=== PATIENT | male | born 1960 | race Caucasian/White ===

== ENCOUNTER 2018-11-18 13:36 | Emergency (ER) | payer OTHER ==
--- NOTE | 2018-11-18 14:20 | RAD REPORT ---
EXAM DESCRIPTION: CT - Head Brain Wo Cont - 11/18/2018 2:06 pm CLINICAL HISTORY: Confused;Slurred speech Drowsiness COMPARISON: No comparisons TECHNIQUE: All CT scans are performed using dose optimization technique as appropriate and may inclu de automated exposure control or mA/KV adjustment according to patient size. FINDINGS: No intracranial hemorrhage, hydrocephalus or extra-axial fluid collection.Area gliosis is seen in the left watershed zone most compatible with prior CVA. Subtle diminished density is seen in the posterior right frontal lobe which has the appearance of a more subacute ischemic event. The paranasal sinuses and mastoids are clear. The calvarium is intact. IMPRESSION: Questionable findings of subacute ischemia are seen in the posterior right frontal lobe. If there is clinical concern for possible subacute CVA, MR brain imaging follow-up would be recomme nded.
--- NOTE | 2018-11-18 14:35 | EKG ---
Test Date: 2018-11-18 Test Time: 14:10:03 Pals Nurse: JIM MEASUREMENT RESULTS: Intervals: Rate: 85 CA: 204 QRSD: 142 QT: 450 QTc: 535 Britton: P: 64 CA: 204 QRS: -22 T: 109 INTERPRETIVE STATEMENTS: Normal sinus rhythm Possible Left atrial enlargement Right bundle branch block Left ventricular hypertrophy with repolarization abnormality Abnormal ECG No previous ECG available for comparison Electronically Signed On 11-18-18 14:35:14 LINEN AIDE by Erik Cook
[2018-11-18 14:52] LABS: Absolute Lymphocytes (CBC) 3.7 K/uL (0.7-4.9); Absolute Monocytes 0.6 K/uL (0.1-1.3); Absolute Neutrophil 3.6 K/uL (1.8-8.0); Basophils % 0.8 % (0-1.3); Eosinophils % 0.6 % (0-4.4); Hematocrit 42.9 % (39.6-49.0); Lymphocytes % 46.6 % (15.3-44.8); MCH 31.9 pg (27.0-35.0); MCV 93.2 fL (80-100); Monocytes % 7.4 % (3.3-12.3)
[2018-11-18 15:04] LABS: Protime INR 1.03
[2018-11-18 15:11] LABS: ALT/SGPT 20 U/L (12-78); AST/SGOT 25 U/L (15-37); Albumin 3.9 g/dL (3.4-5.0); Alkaline Phosphatase 53 U/L (45-117); BUN Blood Urea Nitrogen 14 mg/dL (7-18); Bicarbonate 30 mmol/L (21-32); Bilirubin Direct 0.2 mg/dL (0-0.2); Bilirubin Total 0.4 mg/dL (0.2-1.0); Glucose Level 95 mg/dL (74-106); Potassium 3.6 mmol/L (3.5-5.1); Protein, Total 9.1 g/dL (6.4-8.2); Sodium Level 136 mmol/L (136-145)
--- NOTE | 2018-11-18 18:02 | RAD REPORT ---
EXAM DESCRIPTION: MRI - Brain Wo Cont - 11/18/2018 5:52 pm CLINICAL HISTORY: SLURRED SPEECH CVA/TIA symptomology. COMPARISON: Head Brain Wo Cont dated 11/18/2018 TECHNIQUE: Multi-sequence, multiplanar MR imaging of the brain was performed without contrast. FINDINGS: No intracranial hemorrhage, hydrocephalus or extra-axial fluid collections.Areas of gliosi s are seen in the posterior right frontal lobe and left watershed region compatible with old infarcti on. No edema or shift of midline structures. No findings to suspect brain mass. DWI is negative for a cute CVA. Midline structures are normally formed. Mastoid air cells and paranasal sinuses are essentially clear. IMPRESSION: Negative for acute CVA or other acute intracranial abnormality.
--- NOTE | 2018-11-18 18:41 | EDPHYS ---
Physician Documentation [facility] Name: Donald Sanford Age: 58 yrs Sex: Male : 1960 Arrival Date: 11/18/2018 Time: 13:43 Bed 19 Private MD: ED Physician Lavell Rivas HPI: 11/18 18:24 This 58 yrs old Male presents to ER via EMS with complaints of Slurred Speech.kdr 18:24 The patient presents to the emergency department with a speech or higher order brain kdr function problem. Onset: The symptoms/episode began/occurred at an unknown time. Last known well was yesterday. Context: occurred at home, occurred while the patient was at rest, Drinking alcohol. The sister states and the patient admits that he drinks until he passed out and then when he awakes again, he states drinking again. It is unknown how long his speech has been altered although, it is difficult to appreciate significant changes in his speech . Associated signs and symptoms: Pertinent positives: altered mental status, Pertinent negatives: chills, dizziness, fever, headache, nausea, neck stiffness, paresthesias, seizure, syncope, near-syncope, blurred vision, double vision, visual field changes, loss of vision, weakness. Severity of symptoms: At their worst the symptoms were severe incapacitating in the emergency department the symptoms have improved. Patient's baseline: Neuro: alert and fully oriented, Motor: no deficits, Ambulation: walks without assistance, Speech: normal for age, The patient has a previous history of head injury. Current symptoms: confusion. The patient has not experienced similar symptoms in the past. The patient has not recently seen a physician. Historical: - Allergies: 13:48 No Known Allergies; jl7 - Home Meds: 13:48 atorvastatin oral oral [Active]; Lasix Oral [Active]; Potassium Chloride Oral [Active]; jl7 - PMHx: 13:48 Hypertension; jl7 13:49 Cirrhosis; bp - Immunization history:: Adult Immunizations not up to date. - Social history:: Smoking status: Patient/guardian denies using tobacco. - Ebola Screening: : No symptoms or risks identified at this time. ROS: 18:24 Constitutional: Negative for fever, chills, and weight loss, Eyes: Negative for injury, kdr pain, redness, and discharge, Neck: Negative for injury, pain, and swelling, Cardiovascular: Negative for chest pain, palpitations, and edema, Respiratory: Negative for shortness of breath, cough, wheezing, and pleuritic chest pain, Abdomen/GI: Negative for abdominal pain, nausea, vomiting, diarrhea, and constipation, Back: Negative for injury and pain, : Negative for injury, bleeding, discharge, and swelling, MS/Extremity: Negative for injury and deformity, Skin: Negative for injury, rash, and discoloration, Psych: Negative for depression, anxiety, suicide ideation, homicidal ideation, and hallucinations, Allergy/Immunology: Negative for hives, rash, and allergies, Endocrine: Negative for neck swelling, polydipsia, polyuria, polyphagia, and marked weight changes, Hematologic/Lymphatic: Negative for swollen nodes, abnormal bleeding, and unusual bruising. Exam: 18:24 Constitutional: This is a well developed, well nourished patient who is awake, alert, kdr and in no acute distress. Head/Face: Normocephalic, atraumatic. Eyes: Pupils equal round and reactive to light, extra-ocular motions intact. Lids and lashes normal. Conjunctiva and sclera are non-icteric and not injected. Cornea within normal limits. Periorbital areas with no swelling, redness, or edema. Neck: Trachea midline, no thyromegaly or masses palpated, and no cervical lymphadenopathy. Supple, full range of motion without nuchal rigidity, or vertebral point tenderness. No Meningismus. Chest/axilla: Normal chest wall appearance and motion. Nontender with no deformity. No lesions are appreciated. Cardiovascular: Regular rate and rhythm with a normal S1 and S2. No gallops, murmurs, or rubs. Normal PMI, no JVD. No pulse deficits. Respiratory: Lungs have equal breath sounds bilaterally, clear to auscultation and percussion. No rales, rhonchi or wheezes noted. No increased work of breathing, no retractions or nasal flaring. Abdomen/GI: Soft, non-tender, with normal bowel sounds. No distension or tympany. No guarding or rebound. No evidence of tenderness throughout. Back: No spinal tenderness. No costovertebral tenderness. Full range of motion. Skin: Warm, dry with normal turgor. Normal color with no rashes, no lesions, and no evidence of cellulitis. Vital Signs: 13:48 BP 104 / 80 LA; Pulse 87; Resp 23 S; Pulse Ox 100% on R/A; Weight 90.72 kg (R); Height jl7 5 ft. 9 in. (175.26 cm) (R); Pain 0/10; 13:48 BP 145 / 92 RA; jl7 14:48 BP 113 / 99; Pulse 82; Resp 19; Pulse Ox 97% on R/A; mh5 16:31 bp 18:07 BP 122 / 86; Pulse 95; Resp 16; Pulse Ox 99% ; bp 13:48 Body Mass Index 29.54 (90.72 kg, 175.26 cm) jl7 16:31 PT REFUSING TO COOPERATE WITH VS bp NIH Stroke Scale Scores: 14:23 NIHSS Score: 3 bp MDM: 18:24 Data reviewed: vital signs, nurses notes, lab test result(s), radiologic studies. kdr Counseling: I had a detailed discussion with the patient and/or guardian regarding: the presence of at least one elevated blood pressure reading (>120/80) during this emergency department visit. 18:40 Patient medically screened. kdr 11/18 13:47 Order name: Acetaminophen; Complete Time: 15:53 kdr 11/18 13:47 Order name: Basic Metabolic Panel; Complete Time: 15:53 kdr 11/18 13:47 Order name: CBC with Diff; Complete Time: 15:53 kdr 11/18 13:47 Order name: ETOH Level; Complete Time: 15:53 kdr 11/18 13:47 Order name: Hepatic Function; Complete Time: 15:53 kdr 11/18 13:47 Order name: PT-INR; Complete Time: 15:53 kdr 11/18 13:47 Order name: Ptt, Activated; Complete Time: 15:53 kdr 11/18 13:47 Order name: Salicylate; Complete Time: 15:53 kdr 11/18 13:47 Order name: EKG; Complete Time: 13:49 kdr 11/18 13:47 Order name: CT Head Brain wo Cont; Complete Time: 15:53 kdr 11/18 15:53 Order name: AMMONIA kdr 11/18 17:44 Order name: Brain Wo Cont; Complete Time: 18:24 EDMS 11/18 13:47 Order name: EKG - Nurse/Tech; Complete Time: 14:29 kdr Administered Medications: No medications were administered Disposition: 11/18/18 18:40 Discharged to Home. Impression: Alcohol abuse, Alcohol abuse with intoxication. - Condition is Stable. - Discharge Instructions: Alcohol Intoxication, [id number], Alcohol Abuse and Nutrition. - Prescriptions for Zofran 4 mg Oral Tablet - take 1 tablet by ORAL route every 12 hours As needed; 1 tablet. - Medication Reconciliation Form, Thank You Letter form. - Follow up: Private Physician; When: 2 - 3 days; Reason: If symptoms return, Further diagnostic work-up, Recheck today's complaints, Continuance of care, Re-evaluation by your physician. - Problem is an acute exacerbation. - Symptoms have improved. NIH Stroke Scale - NIH Stroke Score Date: 11/18/2018 Time: 14:23 Total Score = 3 1a. Level of Consciousness (LOC) - 0(Alert) 1b. Level of Consciousness (LOC) (Year \T\ Age) - 0(Both) 1c. LOC Commands (Open \T\ Closes Eyes/Bank Reconciliator) - 0(Both) 2. Best Gaze (Lateral Gaze Paresis) - 0(Normal) 3. Visual Field Loss - 0(No visual loss) 4. Facial Palsy - 0(Normal) 5a. Left Arm: Motor (10-second hold) - 0(No drift) 5b. Right Arm: Motor (10-second hold) - 0(No drift) 6a. Left Leg: Motor (5-second hold - always test supine) - 0(No drift) 6b. Right Leg: Motor (5-second hold - always test supine) - 0(No drift) 7. Limb Ataxia (finger/nose \T\ heel/valadez - test with eyes open) - 2(Present in two limbs) 8. Sensory Loss (pinprick arms/legs/face) - 0(Normal) 9. Best Language: Aphasia (description/naming/reading) - 0(No aphasia) 10. Dysarthria (speech clarity - read or repeat words) - 1(Mild to Moderate) 11. Extinction and Inattention (visual/tactile/auditory/spatial/personal) - 0(No abnormality) Initials: bp Signatures: Dispatcher [employer] EDLavell Minaya MD MD kdr Leal, Jahala, RN RN jl7 Erickson Smith RN RN jd3 Saturnino, Tejinder, RN RN bp Corrections: (The following items were deleted from the chart) 17:44 15:55 MR STROKE PROTOCOL+MRI.RAD.BRZ ordered. EDCT EDMS 19:23 18:40 11/18/2018 18:40 Discharged to Home. Impression: Alcohol abuse; Alcohol jd3 abuse with intoxication. Condition is Stable. Forms are Medication Reconciliation Form, Thank You Letter, Antibiotic Education, Prescription Opioid Use. Follow up: Private Physician; When: 2 - 3 days; Reason: If symptoms return, Further diagnostic work-up, Recheck today's complaints, Continuance of care, Re-evaluation by your physician. Problem is an acute exacerbation. Symptoms have improved. kdr
--- NOTE | 2018-11-18 18:41 | ER ---
Nurse's Notes [facility] Name: Donald Sanford Age: 58 yrs Sex: Male : 1960 Arrival Date: 11/18/2018 Time: 13:43 Bed 19 Private MD: Diagnosis: Alcohol abuse;Alcohol abuse with intoxication Presentation: 11/18 13:43 Presenting complaint: EMS states: Pt's sister called reporting pt's speech is slurred, jl7 last known normal was last night. Pt has been drinking ETOH all day, unable to report how much ETOH he's had, Pt's BP on left arm 104/80, right arm 145/92, denies any pain at this time. ERD notified of BP. Transition of care: patient was not received from another setting of care. Onset of symptoms is unknown. Risk Assessment: Do you want to hurt yourself or someone else? Patient reports no desire to harm self or others. Initial Sepsis Screen: Does the patient meet any 2 criteria? No. Patient's initial sepsis screen is negative. Does the patient have a suspected source of infection? No. Patient's initial sepsis screen is negative. Care prior to arrival: None. 13:43 Method Of Arrival: EMS: [facility] 13:43 Acuity: KEDAR 3 jl7 14:00 No acute neurological deficit is noted. Pre-hospital glucose is not applicable to this bp patient. Triage Assessment: 14:30 The onset of the patients symptoms was at an unknown time. General: Appears in no bp apparent distress. comfortable, obese, Behavior is anxious, uncooperative. 15:00 The onset of the patients symptoms was The onset of the patients symptoms was October at 08:00. 15:00 Neuro: Reports SLURRED SPEECH. bp Stroke Activation: Symptom onset > 6 hours Physician: Stroke Attending; Name: ; Notified At: ; Arrived At: Physician: Chief Stroke Resident; Name: ; Notified At: ; Arrived At: Physician: Stroke Resident; Name: ; Notified At: ; Arrived At: Physician: ED Attending; Name: ; Notified At: ; Arrived At: Physician: ED Resident; Name: ; Notified At: ; Arrived At: Historical: - Allergies: 13:48 No Known Allergies; jl7 - Home Meds: 13:48 atorvastatin oral oral [Active]; Lasix Oral [Active]; Potassium Chloride Oral [Active]; jl7 - PMHx: 13:48 Hypertension; jl7 13:49 Cirrhosis; bp - Immunization history:: Adult Immunizations not up to date. - Social history:: Smoking status: Patient/guardian denies using tobacco. - Ebola Screening: : No symptoms or risks identified at this time. Screenin:27 Abuse screen: Denies threats or abuse. Denies injuries from another. Nutritional bp screening: No deficits noted. Tuberculosis screening: No symptoms or risk factors identified. Fall Risk No fall in past 12 months (0 pts). Secondary diagnosis (15 points) INTOXICATION. No IV (0 pts). Ambulatory Aid- None/Bed Rest/Nurse Assist (0 pts). Gait- Normal/Bed Rest/Wheelchair (0 pts) Mental Status- Oriented to own ability (0 pts). Total Cuellar Fall Scale indicates No Risk (0-24 pts). Assessment: 14:00 The patient has not been NPO before screening. The patient is alert, and able to follow bp commands. The patient exhibits slurred or garbled speech. Provider notified of bedside swallow screening results: Lavell Rivas MD. T-PA (Activase) Screening: Contraindications: Other: INTOXICATION. General: Appears in no apparent distress. comfortable, obese, Behavior is anxious, Smells of alcohol. Pain: Denies pain. Neuro: Level of Consciousness is awake, alert, obeys commands, Oriented to person, place, time, situation. Cardiovascular: No deficits noted. Respiratory: Airway is patent Respiratory effort is even, unlabored, Respiratory pattern is regular, symmetrical. GI: No signs and/or symptoms were reported involving the gastrointestinal system. : No signs and/or symptoms were reported regarding the genitourinary system. EENT: No deficits noted. Derm: No deficits noted. Musculoskeletal: Swelling present in right leg and left leg. 14:26 Reassessment: PT REFUSING PIV ACCESS, PHLEBOTOMY CONTACTED FOR LAB SPECIMEN. bp 15:00 The patient does not exhibit slurred or garbled speech. The patient is not exhibiting bp difficulty speaking. The patient does not exhibit difficulty understanding words. The patient is able to swallow own secretions with no drooling or need for suction. Patient tolerated one teaspoon of water. No drooling, immediate coughing, gurgling, or clearing of the throat was noted. The patient tolerated 90mL of water. No drooling, immediate coughing, gurgling, or clearing of the throat was noted. The patient passed the bedside swallow screening. Oral medications may be given as ordered. Contact Physician for further diet orders. 16:16 Reassessment: SISTER: BENJAMIN [phone]. bp 16:32 Reassessment: MRI PENDING, PT REMAINS SLURRED AND UNCOOPERATIVE WITH HEALTH CARE bp ACTIVITIES. 18:06 Reassessment: PT RETURNED FROM MRI. LAB/RAD RESULTS PENDING. bp 19:13 Reassessment: PT D/C HOME WITH FAMILY, DX WITH ETOH INTOXICATION. FAMILY EN ROUTE FOR bp TRANSPORT. Vital Signs: 13:48 BP 104 / 80 LA; Pulse 87; Resp 23 S; Pulse Ox 100% on R/A; Weight 90.72 kg (R); Height jl7 5 ft. 9 in. (175.26 cm) (R); Pain 0/10; 13:48 BP 145 / 92 RA; jl7 14:48 BP 113 / 99; Pulse 82; Resp 19; Pulse Ox 97% on R/A; mh5 16:31 bp 18:07 BP 122 / 86; Pulse 95; Resp 16; Pulse Ox 99% ; bp 13:48 Body Mass Index 29.54 (90.72 kg, 175.26 cm) jl7 16:31 PT REFUSING TO COOPERATE WITH VS bp NIH Stroke Scale Scores: 14:23 NIHSS Score: 3 bp ED Course: 13:43 Patient arrived in ED. jl7 13:46 Triage completed. jl7 13:47 Lavell Rivas MD is Attending Physician. kdr 13:48 Arm band placed on right wrist. jl7 13:49 Tejinder Matamoros, RN is Primary Nurse. bp 14:08 CT Head Brain wo Cont In Process Unspecified. EDMS 14:20 EKG done, by coating technician. reviewed by Lavell Rivas MD. sm3 14:27 Patient has correct armband on for positive identification. Bed in low position. Call bp light in reach. Side rails up X2. Adult w/ patient. 17:30 Patient moved to MRI via wheelchair. em2 17:48 Brain Wo Cont In Process Unspecified. EDMS 18:05 MRI completed. Patient tolerated well. Patient moved back from MRI. em2 19:14 No provider procedures requiring assistance completed. Patient did not have IV access bp during this emergency room visit. Administered Medications: No medications were administered Outcome: 18:40 Discharge ordered by . kdr 19:14 Discharged to home via wheelchair, with family. bp 19:14 Condition: stable 19:14 Discharge instructions given to patient, Instructed on discharge instructions, follow up and referral plans. Demonstrated understanding of instructions, follow-up care. 19:23 Patient left the ED. jd3 NIH Stroke Scale - NIH Stroke Score Date: 11/18/2018 Time: 14:23 Total Score = 3 1a. Level of Consciousness (LOC) - 0(Alert) 1b. Level of Consciousness (LOC) (Year \T\ Age) - 0(Both) 1c. LOC Commands (Open \T\ Closes Eyes/Geophysical Prospecting Permit Agent) - 0(Both) 2. Best Gaze (Lateral Gaze Paresis) - 0(Normal) 3. Visual Field Loss - 0(No visual loss) 4. Facial Palsy - 0(Normal) 5a. Left Arm: Motor (10-second hold) - 0(No drift) 5b. Right Arm: Motor (10-second hold) - 0(No drift) 6a. Left Leg: Motor (5-second hold - always test supine) - 0(No drift) 6b. Right Leg: Motor (5-second hold - always test supine) - 0(No drift) 7. Limb Ataxia (finger/nose \T\ heel/valadez - test with eyes open) - 2(Present in two limbs) 8. Sensory Loss (pinprick arms/legs/face) - 0(Normal) 9. Best Language: Aphasia (description/naming/reading) - 0(No aphasia) 10. Dysarthria (speech clarity - read or repeat words) - 1(Mild to Moderate) 11. Extinction and Inattention (visual/tactile/auditory/spatial/personal) - 0(No abnormality) Initials: bp Signatures: Dispatcher [employer] EDMS Lavell Rivas MD MD kdr Montes, Enrique em2 Martinez, Maria 5 Shayla Osman, RN RN jl7 Erickson Smith RN RN jd3 Tejinder Matamoros RN RN bp Chely Roland 3
== END 2018-11-18 19:23 | disposition home or self-care (01) ==
LOC: ER 13:36
DX: F10.129 Alcohol abuse with intoxication, unspecified (principal); I10 Essential (primary) hypertension; K74.60 Unspecified cirrhosis of liver
CPT/HCPCS: 36415; 70450; 70551; 80048; 80076; 80320; 80329; 82140; 85025; 85610; 85730; 93005

== ENCOUNTER 2019-08-30 06:45 | Day surgery (SDC) | payer OTHER ==
--- NOTE | 2019-08-26 11:23 | RAD REPORT ---
EXAM DESCRIPTION: RAD - Chest Pa And Lat (2 Views) - 08/26/2019 11:17 am CLINICAL HISTORY: preop Chest pain. COMPARISON: No comparisons FINDINGS: Mild interstitial pulmonary edema. The heart is moderately enlarged in size. No displaced fractures. IMPRESSION: Mild CHF.
[2019-08-26 11:26] LABS: Absolute Lymphocytes (CBC) 2.5 K/uL (0.7-4.9); Basophils % 0.3 % (0-1.3); Hematocrit 38.7 % (39.6-49.0); Lymphocytes % 28.9 % (15.3-44.8); MPV 8.5 fL (7.6-11.3); RBC Red Blood Cell Count 4.12 M/uL (4.33-5.43)
[2019-08-26 11:43] LABS: BUN Blood Urea Nitrogen 16 mg/dL (7-18); Bicarbonate 30 mmol/L (21-32); Glucose Level 114 mg/dL (74-106); Potassium 4.1 mmol/L (3.5-5.1); Sodium Level 134 mmol/L (136-145)
[2019-08-30] MEDS ORDERED: HEPA 1000U/500MLS 2,000 UNIT/1,000 ML BAG IV ONE (07:02)
[2019-08-30] MEDS ORDERED: NITROGLYCERIN 100 MCG/ML SYR (for cath lab use only) IV ONE (07:02)
[2019-08-30] MEDS ORDERED: NA CHLORIDE 0.9% 500 ML ONE (07:02)
[2019-08-30] MEDS ORDERED: NA CHLORIDE 0.9% 50 ML ONE ×2 (07:02→08:26)
[2019-08-30] MEDS ORDERED: LIDOCAINE 1% MPF 30 ML VIAL ONE (07:02)
[2019-08-30] MEDS ORDERED: ATROPINE SULF 1 MG/10 ML SYR IV ONE (07:02)
[2019-08-30] MEDS ORDERED: NICARDIPINE HCL 25 MG/10 ML IV ONE (07:02)
[2019-08-30] MEDS ORDERED: NITROGLYCERIN/D5W 25 MG/250 ML BTL IV ONE (07:02)
[2019-08-30] MEDS ORDERED: HEPARIN 5000 UNIT/ML 1 ML VIAL ONE (07:02)
[2019-08-30] MEDS ORDERED: MIDAZOLAM HCL 2 MG/2 ML INJ ONE ×3 (07:32→08:43)
[2019-08-30] MEDS ORDERED: FENTANYL CITR 100 MCG/2 ML ONE ×4 (07:33→11:27)
[2019-08-30] MEDS ORDERED: HYDRALAZINE HCL 20 MG/ML VIAL ONE ×2 (07:58→08:14)
[2019-08-30] MEDS ORDERED: METOPROLOL TARTRATE 5 MG/5 ML INJ IV ONE (08:05)
[2019-08-30] MEDS ORDERED: PRASUGREL (EFFIENT) 10 MG TAB ONE (08:46)
[2019-08-30] MEDS ORDERED: ONDANSETRON 4 MG/2 ML VIAL ONE (08:53)
[2019-08-30] MEDS ORDERED: ONDANSETRON 4 MG/2 ML VIAL IV PRN (08:54)
[2019-08-30] MEDS ORDERED: ZOLPIDEM TARTRATE 5 MG TABLET PO PRN (08:54)
[2019-08-30] MEDS ORDERED: FENTANYL CITR 100 MCG/2 ML IV PRN (08:54)
[2019-08-30] MEDS: ASPIRIN EC 81 MG TAB PO SCH (09:00)
[2019-08-30] MEDS: LOSARTAN POTASSIUM 50 MG TABLET PO SCH (09:00)
[2019-08-30] MEDS: CLOPIDOGREL 75 MG TABLET PO SCH (09:00)
[2019-08-30] MEDS: METOPROLOL TAR 50 MG TAB PO SCH ×2 (09:00→20:30)
[2019-08-30 14:39] VITALS: BMI 32.5
[2019-08-30] MEDS: NA CHLORIDE 0.9% 1,000 ML IV SCH (14:49)
[2019-08-30] MEDS ORDERED: INFLUENZA VACCINE (for 3y+) 0.5 ML DOSE IMVAC ONE (16:00)
--- NOTE | 2019-08-30 17:17 | EKG ---
Test Date: 2019-08-30 Test Time: 09:58:48 Library Attendant: TREMAYNE MEASUREMENT RESULTS: Intervals: Rate: 78 NV: 196 QRSD: 142 QT: 466 QTc: 531 [place]: P: NV: 196 QRS: 11 T: 222 INTERPRETIVE STATEMENTS: Normal sinus rhythm Right bundle branch block T wave abnormality, consider inferolateral ischemia Abnormal ECG Compared to ECG 11/18/2018 14:10:03 T-wave abnormality now present Possible ischemia now present Left ventricular hypertrophy no longer present Early repolarization no longer present Electronically Signed On 08-30-19 17:16:36 CDT by John Woo
--- NOTE | 2019-08-30 19:20 | OP ---
Surgeon: John Woo MD Identification: A 59-year-old man. Procedure: Left heart catheterization with coronary angiography. No LV gram was done. There was a percutaneous coronary intervention with intracoronary stent of an obtuse marginal branch of the circu mflex successful. A 3.0 x 16 stent was placed. Findings: The patient's coronaries are left dominant. The right coronary is diminutive. Left coron omero has diffuse 40% and 50% lesions, but there was 1 critical 99% lesion, heavily calcified, very julia d to predilate, required more than 20 atmospheres of pressure with a noncompliant balloon to dilate, but after that there is successful stenting of the very proximal part of the first obtuse marginal wi th no residual stenosis. Procedure In Detail: The patient had an abnormal Cardiolite. Brought to the cardiac worm farm laborer in a f asting state, sedated with Versed and fentanyl, prepared and draped. Right femoral artery was used. Tissues were anesthetized with 1% lidocaine. The artery was entered using an 18-gauge needle. 4-Fr ench catheters were used to angiogram the coronaries. Right coronary was diminutive, very anterior p laced, and even if it has a stenosis which it does not have a significant one, he would not be a cand idate for stenting. Left coronary artery was angiogram with JL4. We switched to a 6-Mauritian sheath, gave Angiomax, demonstrated activated clotting time of over 400 seconds. We used an XB 3.5 with side holes. We crossed the lesion with a Willington wire. We were able to not cross the lesion with a stent . We predilated with a 2.5, but the lesion would not dilate, so we went in with a 3.0 x 15 noncompli ant balloon and dilated several times. It would not dilate at first, but after about the fifth dilat ion, it dilated. We attempted to pass a cutting balloon, but it would not go across the lesion. So after the final dilation with the noncompliant balloon, the lesion finally cracked open. There was n o stenosis and then the stent would pass. It was inflated to 14 atmospheres. Excellent angiographic result. Complications From The Procedure: None. Estimated Blood Loss: 30 mL. Chief Controller: Kathrine Knutson. MARY/BRIA Voice ID: [id number] Report ID: [id number]
[2019-08-30] MEDS ORDERED: ATORVASTATIN 80 MG TAB PO SCH (21:00)
[2019-08-31 00:22] VITALS: O2SAT 97
[2019-08-31] MEDS: NA CHLORIDE 0.9% 1,000 ML IV SCH (05:15)
[2019-08-31 05:23] LABS: Hematocrit 33.4 % (39.6-49.0); MPV 8.4 fL (7.6-11.3); RBC Red Blood Cell Count 3.53 M/uL (4.33-5.43)
[2019-08-31 05:40] LABS: BUN Blood Urea Nitrogen 14 mg/dL (7-18); Bicarbonate 29 mmol/L (21-32); Glucose Level 128 mg/dL (74-106); Potassium 4.4 mmol/L (3.5-5.1); Sodium Level 134 mmol/L (136-145)
[2019-08-31 08:19] VITALS: BP 125/73; TEMP 97.5
[2019-08-31] MEDS: CLOPIDOGREL 75 MG TABLET PO SCH (09:03)
[2019-08-31] MEDS: LOSARTAN POTASSIUM 50 MG TABLET PO SCH (09:03)
[2019-08-31] MEDS: METOPROLOL TAR 50 MG TAB PO SCH (09:03)
[2019-08-31] MEDS: ASPIRIN EC 81 MG TAB PO SCH (09:04)
--- NOTE | 2019-09-01 03:20 | DS ---
Date of Discharge: 08/31/2019 Procedures In The Hospital: Intracoronary stent into an obtuse marginal branch of a dominant circumf claire artery, successful. Diet: Low saturated fat 0 sugar. Discharge Medications: Aspirin 81 mg per day, Lipitor 80 mg per day, Plavix 75 mg per day, losartan 50 mg per day, Lopressor 50 mg b.i.d. His followup is to be in 2 weeks. He is to call my office to make that appointment. His activity is to be limited for 2 days and then he should begin a regular walking program trying to walk 3 miles p er day. MARY/BRIA Voice ID: [id number] Report ID: [id number]
== END 2019-08-31 09:34 | disposition home or self-care (01) ==
LOC: CCL 06:45 → 2ND 08:50 → CCL 08-31 09:34
PROVIDERS: ATTEND Internal Medicine
DX: I25.10 Atherosclerotic heart disease of native coronary artery without angina pectoris (principal); Q21.3 Tetralogy of Fallot; I42.9 Cardiomyopathy, unspecified; E78.5 Hyperlipidemia, unspecified; E11.9 Type 2 diabetes mellitus without complications
CPT/HCPCS: 93005; 85025; 80048 ×2; 36415 ×2; 85610; 82962; 85347 ×3; 85730; 85027; 71046; 93454; C1893; C1760; C1725; C9600; J0360 ×2; J2250 ×2; J3010 ×3; J0583 ×2; J7040; J7030 ×2; J2405; J1644

== ENCOUNTER 2021-03-17 18:50 | Inpatient (IN) | payer OTHER ==
[2021-03-17 19:44] LABS: Absolute Lymphocytes (CBC) 1.3 K/uL (0.7-4.9); Basophils % 0.6 % (0-1.3); Hematocrit 25.4 % (39.6-49.0); Lymphocytes % 17.7 % (15.3-44.8); MPV 7.1 fL (7.6-11.3); RBC Red Blood Cell Count 2.62 M/uL (4.33-5.43)
[2021-03-17 19:55] LABS: Protime INR 1.21
--- NOTE | 2021-03-17 20:03 | RAD REPORT ---
EXAM DESCRIPTION: RAD - Chest Single View - 03/17/2021 7:39 pm CLINICAL HISTORY: syncope Chest pain. COMPARISON: Chest Pa And Lat (2 Views) dated 08/26/2019 FINDINGS: Portable technique limits examination quality. The lungs are emphysematous but grossly clear. The heart is moderately enlarged in size. No displaced fractures.
[2021-03-17] MEDS ORDERED: FAMOTIDINE 20 MG/2 ML VIAL IV ONE (20:04)
[2021-03-17] MEDS ORDERED: THIAMINE 200 MG/2 ML INJ ONE (20:04)
[2021-03-17] MEDS ORDERED: ONDANSETRON 4 MG/2 ML VIAL ONE (20:04)
[2021-03-17] MEDS ORDERED: MULTIVITAMINS 10 ML VIAL (INJ) IV ONE (20:05)
[2021-03-17] MEDS ORDERED: NA CHLORIDE 0.9% 1,000 ML ONE (20:06)
[2021-03-17] MEDS ORDERED: FOLIC ACID 5 MG/ML VIAL ONE (20:06)
[2021-03-17 20:19] LABS: ALT/SGPT 74 U/L (12-78); AST/SGOT 260 U/L (15-37); Albumin 2.2 g/dL (3.4-5.0); Alkaline Phosphatase 183 U/L (45-117); BUN Blood Urea Nitrogen 10 mg/dL (7-18); Bicarbonate 25 mmol/L (21-32); Bilirubin Direct 1.1 mg/dL (0-0.2); Bilirubin Total 1.5 mg/dL (0.2-1.0); Creatine Phosphokinase 404 U/L (39-308); Glucose Level 62 mg/dL (74-106); NT PRO-BNP 1341 pg/mL (<125); Protein, Total 6.9 g/dL (6.4-8.2); Sodium Level 140 mmol/L (136-145); Troponin (Emerg Dept Use Only) 0.11 ng/mL (0.0-0.045)
[2021-03-17 20:31] LABS: Magnesium 1.1 mg/dL (1.8-2.4); Potassium 2.5 mmol/L (3.5-5.1)
--- NOTE | 2021-03-17 20:52 | RAD REPORT ---
EXAM DESCRIPTION: CT - CTHCSPWOC - 03/17/2021 8:29 pm CLINICAL HISTORY: Trauma, head and neck injury. syncope COMPARISON: No comparisons TECHNIQUE: Axial 5 mm thick images of the head were obtained. Axial 2 mm thick images of the cervical spine were obtained with sagittal and coronal reconstruction images generated and reviewed. All CT scans are performed using dose optimization technique as appropriate and may include automated exposure control or mA/KV adjustment according to patient size. FINDINGS: CT HEAD WITHOUT CONTRAST: No acute hemorrhage, hydrocephalus or extra-axial collection is identified.Gliosis is seen in the reg ion of the left parietal lobe likely attributable to previous infarct or trauma.No areas of brain ernestina ma or midline shift. The paranasal sinuses and mastoids are clear.The calvarium is intact. CT CERVICAL SPINE WITHOUT CONTRAST: No fracture or subluxation.Mild cervical spondylosis.No prevertebral soft tissues swelling is identif ied. Atherosclerotic and retropharyngeal carotid artery noted. IMPRESSION: No acute intracranial or cervical spine findings.
--- NOTE | 2021-03-17 21:14 | ER ---
Nurse's Notes [facility] Name: Donald Sanford Age: 60 yrs Sex: Male : 1960 Arrival Date: 03/17/2021 Time: 18:51 Bed 15 Private MD: Diagnosis: Syncope and collapse;Anemia in chronic diseases classified elsewhere;Alcohol abuse with intoxication Presentation: 03/17 18:51 Chief complaint: EMS states: Syncopal episode. Pt was found on the ground at his home ss after he "passed out after his legs started shaking" Pt states he was on the ground for 2 hours. EMS was told by neighbor that he has taken his antihypertensive medication today as well as drank Vodka in excess. Pt denies pain. Coronavirus screen: Client denies travel out of the [place] in the last 14 days. Ebola Screen: Patient denies exposure to infectious person. Patient denies travel to an Ebola-affected area in the 21 days before illness onset. 18:51 Method Of Arrival: EMS: [facility] 18:51 Initial Sepsis Screen: Does the patient meet any 2 criteria? No. Patient's initial ss sepsis screen is negative. Does the patient have a suspected source of infection? No. Patient's initial sepsis screen is negative. Risk Assessment: Do you want to hurt yourself or someone else? Patient reports no desire to harm self or others. Onset of symptoms is unknown. 18:51 Acuity: KEDAR 3 ss Historical: - Allergies: 18:58 No Known Allergies; ss - Home Meds: 03/18 02:05 Lasix Oral [Active]; atorvastatin Oral [Active]; losartan oral oral [Active]; sf Metoprolol Tartrate Oral [Active]; Aspirin Oral [Active]; - PMHx: 03/17 18:58 Cirrhosis; Hypertension; ss - PSHx: 03/18 02:05 None; sf - Immunization history:: Adult Immunizations up to date. - Social history:: Patient/guardian denies using Smoking status: Patient denies any tobacco usage or history of. Screenin/24 19:00 Abuse screen: Denies threats or abuse. Nutritional screening: No deficits noted. vg1 Tuberculosis screening: No symptoms or risk factors identified. Fall Risk Fall in past 12 months (25 points). No secondary diagnosis (0 pts). No IV (0 pts). Ambulatory Aid- None/Bed Rest/Nurse Assist (0 pts). Gait- Normal/Bed Rest/Wheelchair (0 pts) Mental Status- Oriented to own ability (0 pts). Total Cuellar Fall Scale indicates No Risk (0-24 pts). Assessment: 19:01 General: Appears in no apparent distress. comfortable, Behavior is calm, cooperative. vg1 Pain: Denies pain. Neuro: Level of Consciousness is awake, alert, obeys commands, Oriented to person, place, time, situation. Cardiovascular: Patient's skin is warm and dry. Respiratory: Airway is patent Respiratory effort is even, unlabored. GI: No signs and/or symptoms were reported involving the gastrointestinal system. GI: Abdomen is distended. : No signs and/or symptoms were reported regarding the genitourinary system. EENT: No signs and/or symptoms were reported regarding the EENT system. Derm: Skin is intact, has skin tears on Right forarm Rash noted that is red, on buttocks. Musculoskeletal: Circulation, motion, and sensation intact. 20:00 Reassessment: Patient appears in no apparent distress at this time. No changes from vg1 previously documented assessment. Patient and/or family updated on plan of care and expected duration. Pain level reassessed. Patient is alert, oriented x 3, equal unlabored respirations, skin warm/dry/pink. 21:35 Reassessment: Patient appears in no apparent distress at this time. No changes from vg1 previously documented assessment. Patient and/or family updated on plan of care and expected duration. Pain level reassessed. Patient is alert, oriented x 3, equal unlabored respirations, skin warm/dry/pink. 22:30 General: Appears in no apparent distress. comfortable, obese, unkempt, Behavior is sf calm, cooperative. Pain: Denies pain. Neuro: Level of Consciousness is awake, alert, Oriented to person, place, time, situation. Cardiovascular: Patient's skin is warm and dry. Rhythm is sinus rhythm. Respiratory: Airway is patent Respiratory effort is even, unlabored, Respiratory pattern is regular, symmetrical. GI: Abdomen is distended. : Reports incontinence. Derm: Wound noted buttocks Wound is excoriated redness, oozing blood. Patient reports lying in bed daily for the last 2 years only getting up to use the bathroom and drink alcohol. Musculoskeletal: Circulation, motion, and sensation intact. Capillary refill < 3 seconds. 23:25 Reassessment: Patient appears in no apparent distress at this time. No changes from sf previously documented assessment. Patient and/or family updated on plan of care and expected duration. Pain level reassessed. Patient is alert, oriented x 3, equal unlabored respirations, skin warm/dry/pink. 03/18 00:31 Reassessment: Patient appears in no apparent distress at this time. No changes from sf previously documented assessment. Patient and/or family updated on plan of care and expected duration. Pain level reassessed. Patient is alert, oriented x 3, equal unlabored respirations, skin warm/dry/pink. Vital Signs: 03/17 18:51 Weight 92.99 kg; Height 5 ft. 9 in. (175.26 cm); Pain 0/10; ss 18:59 BP 120 / 68; Pulse 80; Resp 20; Temp 98.3(O); Pulse Ox 100% ; Pain 0/10; vg1 20:14 BP 94 / 60 LL; Pulse 68; Resp 24; Pulse Ox 98% on R/A; vg1 21:30 BP 93 / 82 LL; Pulse 80; Resp 16; Pulse Ox 100% on R/A; vg1 22:00 BP 95 / 51; Pulse 73; Resp 12; Pulse Ox 100% on R/A; vg1 23:00 BP 124 / 69; Pulse 77; Resp 16; Pulse Ox 100% ; sf 03/18 00:00 BP 101 / 45; Pulse 76; Resp 16; Pulse Ox 98% ; 03/17 18:51 Body Mass Index 30.27 (92.99 kg, 175.26 cm) ED Course: 03/17 18:51 Patient arrived in ED. ss 18:51 Atul Bennett PA is PHCP. cp 18:51 Atul Foreman MD is Attending Physician. cp 18:57 Triage completed. ss 18:58 Arm band placed on right wrist. ss 18:59 Jojo Templetno, RN is Primary Nurse. vg1 19:00 Patient has correct armband on for positive identification. Placed in gown. Bed in low vg1 position. Call light in reach. Side rails up X2. 19:32 Initial lab(s) drawn, by me, sent to lab. Inserted saline lock: 20 gauge in right jp3 antecubital area, using aseptic technique. Blood collected. 19:32 Patient maintains SpO2 saturation greater than 95% on room air. jp3 19:39 XRAY Chest (1 view) In Process Unspecified. EDMS 20:13 EKG done, by ED staff, reviewed by Atul LEAHY. vg1 20:[address] via stretcher. vg1 20:29 CT Head C Spine In Process Unspecified. EDMS 21:12 Alex Kc is Hospitalizing Provider. cp 22:55 Urine collected: clean catch specimen, clear. sf 23:50 No provider procedures requiring assistance completed. Patient admitted, IV remains in sf place. 03/18 04:05 COVID swab sent to lab. sf 04:05 COVID-19 : Document "Date of Symptom Onset" if Symptomatic. Sent. 07:13 Primary Nurse role handed off by Jojo Templeton, EDUARDO eb 07:38 Precious Ball, RN is Primary Nurse. ll1 Administered Medications: 03/17 20:12 Drug: Zofran (Ondansetron) 4 mg Route: IVP; Site: right antecubital; 1 03/18 00:22 Follow up: Response: No adverse reaction 03/17 20:12 Drug: Pepcid (famotidine) 20 mg Route: IVP; Site: right antecubital; vg1 03/18 00:22 Follow up: Response: No adverse reaction 03/17 20:13 Drug: Banana Bag - (NS 0.9% 1000 ml, foLIC Acid 1 mg, Thiamine 100 mg, Multivitamin 1 vg1 amp) Route: IV; Rate: 250 ml/hr; Site: right antecubital; 03/18 00:45 Follow up: Response: No adverse reaction; IV Status: Completed infusion; IV Intake: sf 1000ml 03/17 21:40 Drug: Potassium Chloride 20 mEq Route: IV; Rate: calculated rate; Site: right vg1 antecubital; 22:40 Follow up: IV Status: Completed infusion; IV Intake: 100ml 21:40 Drug: Potassium Effervescent Tablet 50 mEq Route: PO; vg1 03/18 00:21 Follow up: Response: No adverse reaction 03/17 21:40 Drug: D50W 50 ml Route: IVP; Site: right antecubital; 1 03/18 00:21 Follow up: Response: No adverse reaction sf 03/17 22:29 Drug: Magnesium Sulfate 2 grams Route: IVPB; Infused Over: 2 hrs; Site: right vg1 antecubital; 03/18 00:09 Follow up: IV Status: Completed infusion; IV Intake: 100ml sf 00:00 Drug: NS 0.9% 500 ml Route: IV; Rate: bolus; Site: right antecubital; sf 00:45 Follow up: IV Status: Completed infusion; IV Intake: 500ml sf 00:45 Follow up: Response: No adverse reaction sf 00:48 Drug: Calcium Gluconate 1 grams Route: IVPB; Infused Over: 60 mins; Site: right sf antecubital; 01:48 Follow up: IV Status: Completed infusion; IV Intake: 100ml sf 02:06 Follow up: Response: No adverse reaction sf Intake: 03/17 22:40 IV: 100ml; Total: 100ml. sf 03/18 00:09 IV: 100ml; Total: 200ml. sf 00:45 IV: 500ml; Total: 700ml. sf 00:45 IV: 1000ml; Total: 1700ml. sf 01:48 IV: 100ml; Total: 1800ml. sf Outcome: 03/17 21:13 Decision to Hospitalize by Provider. cp 23:50 Admitted to ER Hold. Please see [facility] for further documentation. sf 23:50 Condition: stable 23:50 Instructed on the need for admit. 03/18 08:14 Patient left the ED. ll1 Signatures: Dispatcher [employer] EDMS Brianna Costello RN RN Atul Bennett PA PA cp Amie Vasquez Jacob jp3 Jojo Templeton RN RN vg1 Precious Ball RN RN ll1 Jann Bustillos RN RN sf Corrections: (The following items were deleted from the chart) 03/17 18:57 18:51 Chief complaint: EMS states: Syncopal episode. Pt was found on the ground at his home after he "passed out after his legs started shaking" Pt states he was on the ground for 2 hours. EMS was told by neighbor that he has taken his antihypertensive medication today as well as drank Vodka in excess. 20:14 19:01 Derm: Skin is intact, has skin tears on Right forarm vg1 vg1 03/18 04: 04:23 CORONAVIRUS+MR.LAB.BRZ drawn and sent. [facility] 04:24 PTT, ACTIVATED+COAG.LAB.BRZ drawn and sent. [facility] 04:24 PROTIME (+INR)+COAG.LAB.BRZ drawn and sent. [facility] 04:24 PROBNP+C.LAB.BRZ drawn and sent. [facility] 04:24 MAGNESIUM+C.LAB.BRZ drawn and sent. [facility] 04:24 HEPATIC FUNCTION+C.LAB.BRZ drawn and sent. [facility] 04:25 CBC+H.LAB.BRZ drawn and sent. [facility] 04:25 BASIC METABOLIC PANEL+C.LAB.BRZ drawn and sent. [facility]
--- NOTE | 2021-03-17 21:14 | EDPHYS ---
Physician Documentation [facility] Name: Donald Sanford Age: 60 yrs Sex: Male : 1960 Arrival Date: 03/17/2021 Time: 18:51 Bed 15 Private MD: ED Physician Atul Foreman HPI: 03/17 19:10 This 60 yrs old Male presents to ER via EMS with complaints of Syncope. cp 19:10 The patient has experienced syncope, lost consciousness. cp 19:10 Onset: The symptoms/episode began/occurred today. Duration: This was a single episode, cp that lasted an unknown period of time. Associated injury: The patient did not suffer any apparent associated injury. Associated signs and symptoms: Pertinent negatives: abdominal pain, chest pain, headache, palpitations. Current symptoms: intoxicated. Historical: - Allergies: 18:58 No Known Allergies; ss - Home Meds: 03/18 02:05 Lasix Oral [Active]; atorvastatin Oral [Active]; losartan oral oral [Active]; sf Metoprolol Tartrate Oral [Active]; Aspirin Oral [Active]; - PMHx: 03/17 18:58 Cirrhosis; Hypertension; ss - PSHx: 03/18 02:05 None; sf - Immunization history:: Adult Immunizations up to date. - Social history:: Patient/guardian denies using Smoking status: Patient denies any tobacco usage or history of. ROS: 03/17 19:15 Constitutional: Negative for body aches, chills, fever, poor PO intake. cp 19:15 Eyes: Negative for injury, pain, redness, and discharge. cp 19:15 ENT: Negative for ear pain, sore throat, difficulty swallowing, difficulty handling secretions. 19:15 Cardiovascular: Negative for chest pain, edema, palpitations. 19:15 Respiratory: Negative for cough, shortness of breath, wheezing. 19:15 Abdomen/GI: Negative for abdominal pain, nausea, vomiting, and diarrhea. 19:15 Neuro: Positive for syncope. 19:15 Psych: Positive for alcohol dependence. 19:15 All other systems are negative. Exam: 19:20 Constitutional: The patient appears in no acute distress, alert, awake, cp non-diaphoretic, non-toxic, well developed, well nourished, speech slurred 19:20 Head/Face: Normocephalic, atraumatic. cp 19:20 Eyes: Periorbital structures: appear normal, Pupils: equal, round, and reactive to light and accomodation, Extraocular movements: intact throughout, Conjunctiva: normal, no exudate, no injection, Sclera: no appreciated abnormality, Lids and lashes: appear normal, bilaterally. 19:20 ENT: External ear(s): are unremarkable, Nose: is normal, Mouth: Lips: moist, Oral mucosa: moist, Posterior pharynx: Airway: no evidence of obstruction, patent. 19:20 Neck: C-spine: vertebral tenderness, is not appreciated, crepitus, is not appreciated. 19:20 Chest/axilla: Inspection: normal, Palpation: is normal, no crepitus, no tenderness. 19:20 Cardiovascular: Rate: normal, Rhythm: regular, Edema: is not appreciated, JVD: is not appreciated. 19:20 Respiratory: the patient does not display signs of respiratory distress, Respirations: normal, no use of accessory muscles, no retractions, labored breathing, is not present, Breath sounds: are clear throughout, no decreased breath sounds, no stridor, no wheezing. 19:20 Abdomen/GI: Inspection: abdomen appears normal, Bowel sounds: active, all quadrants, Palpation: abdomen is soft and non-tender, in all quadrants, rebound tenderness, is not appreciated, involuntary guarding, is not appreciated. 19:20 Back: pain, is absent, ROM is normal. 19:20 Skin: mild superficial pressure wounds noted to buttocks. 19:20 Neuro: Orientation: to person, place, situation, Mentation: able to follow commands, slow to respond, Motor: moves all fours, strength is normal. 20:14 ECG was reviewed by the Attending Physician. cp Vital Signs: 18:51 Weight 92.99 kg; Height 5 ft. 9 in. (175.26 cm); Pain 0/10; ss 18:59 BP 120 / 68; Pulse 80; Resp 20; Temp 98.3(O); Pulse Ox 100% ; Pain 0/10; vg1 20:14 BP 94 / 60 LL; Pulse 68; Resp 24; Pulse Ox 98% on R/A; vg1 21:30 BP 93 / 82 LL; Pulse 80; Resp 16; Pulse Ox 100% on R/A; vg1 22:00 BP 95 / 51; Pulse 73; Resp 12; Pulse Ox 100% on R/A; vg1 23:00 BP 124 / 69; Pulse 77; Resp 16; Pulse Ox 100% ; sf 03/18 00:00 BP 101 / 45; Pulse 76; Resp 16; Pulse Ox 98% ; 03/17 18:51 Body Mass Index 30.27 (92.99 kg, 175.26 cm) ss MDM: 03/17 18:55 Patient medically screened. [facility] 21:00 Data reviewed: vital signs, nurses notes, lab test result(s), EKG, radiologic studies, cp CT scan, plain films. 21:00 Differential Diagnosis: cardiac arrhythmia, GI bleed, seizure, sepsis. Test cp interpretation: by ED physician or midlevel provider: ECG, plain radiologic studies. 21:11 Physician consultation: Sandeep LEAHY was contacted at 21:11, regarding admission, to the telemetry unit. patient's condition, and will see patient in ED, shortly. 03/17 19:04 Order name: Basic Metabolic Panel cp 03/17 19:04 Order name: CBC with Diff cp 03/17 19:04 Order name: LFT's cp 03/17 19:04 Order name: Magnesium cp 03/17 19:04 Order name: NT PRO-BNP cp 03/17 19:04 Order name: PT-INR cp 03/17 19:04 Order name: Troponin (emerg Dept Use Only); Complete Time: 20:44 cp 03/17 19:04 Order name: ETOH Level; Complete Time: 20:44 cp 03/17 19:04 Order name: CK; Complete Time: 20:44 cp 03/17 19:04 Order name: UDS cp 03/17 19:05 Order name: Basic Metabolic Panel; Complete Time: 20:44 EDMS 03/17 19:05 Order name: CBC with Automated Diff; Complete Time: 19:58 EDMS 03/17 19:58 Interpretation: Normal except: RBC 2.62; HGB 8.9; HCT 25.4; RDW 18.4; MPV 7.1; ROSALINE% cp 74.1. 03/17 19:05 Order name: Liver (Hepatic) Function; Complete Time: 20:44 EDMS 03/17 20:44 Interpretation: Normal except: AST 260; ALK 183; BILIT 1.5; BILID 1.1; ALB 2.2; GLOB cp 4.7; A/G 0.5. 03/17 19:05 Order name: Magnesium; Complete Time: 20:44 EDMS 03/17 19:04 Order name: XRAY Chest (1 view); Complete Time: 20:44 cp 03/17 19:05 Order name: NT PRO-BNP; Complete Time: 20:44 EDMS 03/17 19:09 Order name: Ptt, Activated cp 03/17 19:10 Order name: PTT, Activated Partial Thromb; Complete Time: 19:58 EDMS 03/17 19:40 Order name: Protime (+INR); Complete Time: 19:58 EDMS 03/17 20:05 Interpretation: Abnormal: PT 14.0. cp 03/17 20:45 Order name: Type And Screen cp 03/17 23:02 Order name: Urine Dipstick-Ancillary EDMI 03/18 00:30 Order name: ABO/RH no charge EDMI 03/18 03:02 Order name: Troponin I EDMI 03/18 03:02 Order name: T4 Free EDMI 03/18 03:02 Order name: Thyroid Stimulating Hormone EDMI 03/18 04:01 Order name: COVID-19 : Document "Date of Symptom Onset" if Symptomatic. bb 03/18 04:34 Order name: CORONAVIRUS EDMI 03/18 05:27 Order name: SARS-COV-2 RT PCR EDMI 03/18 06:22 Order name: Troponin I EDMI 03/17 19:04 Order name: EKG; Complete Time: 19:05 03/17 19:04 Order name: Cardiac monitoring; Complete Time: 20:12 cp 03/17 19:04 Order name: EKG - Nurse/Tech; Complete Time: 20:12 cp 03/17 19:04 Order name: IV Saline Lock; Complete Time: 19:36 cp 03/17 19:04 Order name: Labs collected and sent; Complete Time: 19:36 cp 03/17 19:04 Order name: O2 Per Protocol; Complete Time: 19:37 cp 03/17 19:04 Order name: O2 Sat Monitoring; Complete Time: 19:37 cp 03/17 19:04 Order name: Urine Dipstick-Ancillary (obtain specimen); Complete Time: 04:24 cp 03/17 19:58 Order name: CT Head C Spine; Complete Time: 20:54 cp 03/17 20:55 Interpretation: Reviewed report. EC:14 Rate is 67 beats/min. Rhythm is regular. SD interval is normal. QRS interval is cp prolonged at 132 msec. QT interval is prolonged at 536 msec. T waves are Inverted in leads V2, V3, V4, V5, V6. Interpreted by me. Reviewed by me. Administered Medications: 20:12 Drug: Zofran (Ondansetron) 4 mg Route: IVP; Site: right antecubital; 1 03/18 00:22 Follow up: Response: No adverse reaction 03/17 20:12 Drug: Pepcid (famotidine) 20 mg Route: IVP; Site: right antecubital; 1 03/18 00:22 Follow up: Response: No adverse reaction 03/17 20:13 Drug: Banana Bag - (NS 0.9% 1000 ml, foLIC Acid 1 mg, Thiamine 100 mg, Multivitamin 1 vg1 amp) Route: IV; Rate: 250 ml/hr; Site: right antecubital; 03/18 00:45 Follow up: Response: No adverse reaction; IV Status: Completed infusion; IV Intake: sf 1000ml 03/17 21:40 Drug: Potassium Chloride 20 mEq Route: IV; Rate: calculated rate; Site: right [facility] antecubital; 22:40 Follow up: IV Status: Completed infusion; IV Intake: 100ml 21:40 Drug: Potassium Effervescent Tablet 50 mEq Route: PO; [facility] 03/18 00:21 Follow up: Response: No adverse reaction 03/17 21:40 Drug: D50W 50 ml Route: IVP; Site: right antecubital; [facility] 03/18 00:21 Follow up: Response: No adverse reaction 03/17 22:29 Drug: Magnesium Sulfate 2 grams Route: IVPB; Infused Over: 2 hrs; Site: right 1 antecubital; 03/18 00:09 Follow up: IV Status: Completed infusion; IV Intake: 100ml sf 00:00 Drug: NS 0.9% 500 ml Route: IV; Rate: bolus; Site: right antecubital; sf 00:45 Follow up: IV Status: Completed infusion; IV Intake: 500ml sf 00:45 Follow up: Response: No adverse reaction sf 00:48 Drug: Calcium Gluconate 1 grams Route: IVPB; Infused Over: 60 mins; Site: right sf antecubital; 01:48 Follow up: IV Status: Completed infusion; IV Intake: 100ml sf 02:06 Follow up: Response: No adverse reaction sf Disposition: 08:16 Co-signature as Attending Physician, Atul Foreman MD I agree with the assessment and lorri plan of care. Disposition: 03/17/21 21:13 Hospitalization ordered by Alex Kc for Inpatient Admission. Preliminary diagnosis are Syncope and collapse, Anemia in chronic diseases classified elsewhere, Alcohol abuse with intoxication. - Bed requested for Telemetry/MedSurg (Inpatient). - Status is Inpatient Admission. ll1 - Condition is Stable. - Problem is new. - Symptoms have improved. Signatures: Dispatcher [employer] EDMS Venus Valenzuela RN RN mw Anderson, Corey, MD MD cha Smirch, Shelby, RN RN ss Atul Bennett PA PA cp Garcia, Victoria, RN RN 1 Precious Ball RN RN ll1 Jann Bustillos RN RN sf Corrections: (The following items were deleted from the chart) 03/17 19:40 19:05 Protime (+INR) ordered. EDMI EDMS 20:44 20:44 Normal except: AST 260; ALK 183; BILIT 1.5; BILID 1.1; ALB 2.2; GLOB 4.7. cp cp 22:33 21:13 Hospitalization Ordered by Alex Kc for Inpatient Admission. Preliminary diagnosis is Syncope and collapse; Anemia in chronic diseases classified elsewhere; Alcohol abuse with intoxication. Bed requested for Telemetry/MedSurg (Inpatient). Status is Inpatient Admission. Condition is Stable. Problem is new. Symptoms have improved. 03/18 06:09 03/17 22:33 03/17/2021 21:13 Hospitalization Ordered by Alex Kc for Inpatient Admission. Preliminary diagnosis is Syncope and collapse; Anemia in chronic diseases classified elsewhere; Alcohol abuse with intoxication. Bed requested for [facility] ER HOLD. Status is Inpatient Admission. Condition is Stable. Problem is new. Symptoms have improved. 03/18 08:14 06:09 03/17/2021 21:13 Hospitalization Ordered by Alex Kc for Inpatient ll1 Admission. Preliminary diagnosis is Syncope and collapse; Anemia in chronic diseases classified elsewhere; Alcohol abuse with intoxication. Bed requested for Telemetry/MedSurg (Inpatient). Status is Inpatient Admission. Condition is Stable. Problem is new. Symptoms have improved. mw
[2021-03-17] MEDS ORDERED: NA CHLORIDE 0.9% 500 ML ONE (21:18)
[2021-03-17] MEDS ORDERED: POTASSIUM 25 MEQ EFFERV TAB ONE (21:18)
[2021-03-17] MEDS ORDERED: Magnesium Sulfate 2gm IVPB 2 G/50 ML BAG IV ONE (21:19)
[2021-03-17] MEDS ORDERED: KCL 20 MEQ/100 mL IVPB 20 MEQ/100 ML BAG IV ONE (21:19)
[2021-03-17] MEDS ORDERED: D50W 25 GM/50 ML SYRINGE IV ONE (21:19)
[2021-03-17 23:02] LABS: Urine Blood 2+ (Negative); Urine Glucose Negative (Negative); Urine Protein Trace (Negative); Urine pH 6.5 (5.0-7.0)
[2021-03-17 23:51] LABS: Barbiturates NEGATIVE (NEGATIVE); Benzodiazepines NEGATIVE (NEGATIVE); Cocaine NEGATIVE (NEGATIVE); METHAMPHETAM NEGATIVE (NEGATIVE); Methadone NEGATIVE (NEGATIVE); Opiates NEGATIVE (NEGATIVE); Phencyclidine NEGATIVE (NEGATIVE); THC Cannibis NEGATIVE (NEGATIVE)
[2021-03-18] MEDS ORDERED: CALCIUM GLUCONATE 1 GM IVPB 1 GM/50 ML BAG IV ONE ×2 (01:00→23:21)
[2021-03-18 01:02] VITALS: BMI 30.2
[2021-03-18] MEDS ORDERED: ONDANSETRON 4 MG/2 ML VIAL IV PRN (01:55)
[2021-03-18] MEDS ORDERED: ALBUTEROL 2.5 MG/3 ML NEB SOL NEB PRN (01:55)
[2021-03-18] MEDS ORDERED: ACETAMINOPHEN 500 MG TAB PO PRN (01:55)
[2021-03-18] MEDS ORDERED: D5.45NS W/KCL 20MEQ 1,000 ML IV SCH (02:00)
[2021-03-18 03:02] LABS: Thyroid Stimulating Hormone 2.3 uIU/mL (0.360-3.740); Troponin I 0.11 ng/mL (0.0-0.045)
[2021-03-18] MEDS ORDERED: D5.45NS W/KCL 20MEQ 1,000 ML IV ONE (03:31)
--- NOTE | 2021-03-18 04:40 | P.HP ---
Certification for Inpatient Patient admitted to: Inpatient With expected LOS: >2 Midnights Patient will require the following post-hospital care: None Practitioner: I am a practitioner with admitting privileges, knowledge of patient current condition, hospital course, and medical plan of care. Services: Services provided to patient in accordance with Admission requirements found in Title 42 Section 412.3 of the Code of Federal Regulations Patient History Date of Service: 03/18/21 Reason for admission: syncope History of Present Illness: Mr. Sanford is a 60 yo male with HTN, h/o CABG, alcohol use syndrome here today after being found passed out by neighbor. He says he remembers his legs started shaking, falling and then passing out. He says he was only out for 1 minute but was too weak get up so he laid on the floor for 2 hours. He says this happened 2 days ago but he was able to get up then. He denies nausea, vomiting, headaches, chest pain, SOB, melena and hematochezia. He says he last saw his donor relations associate 1 month ago and his workup was normal. He drinks 1/4 of vodka daily. He has a family history of heart disease. CXR shows the lungs are emphysematous but grossly clear and heart is moderately enlarged in size. The lungs are emphysematous but grossly clear. The heart is moderately enlarged in size. No displaced fractures. CT head shows no acute intracranial or cervical spine findings. Allergies No Known Allergies Allergy (Verified 08/26/19 10:47) Home Medications: Aspirin [Aspirin EC 81 MG] 81 mg PO DAILY #100 tablet. 08/31/19 Atorvastatin Calcium [Lipitor] 80 mg PO BEDTIME #30 tab 08/31/19 Losartan Potassium [Cozaar*] 50 mg PO DAILY #30 tablet 08/31/19 Metoprolol Tartrate [Lopressor*] 50 mg PO BID #30 tab 08/31/19 Furosemide [Lasix] 1 tab PO DAILY 03/18/21 - Past Medical/Surgical History Has patient received pneumonia vaccine in the past: No Diabetic: No -: hypertension -: CABG - Social History Smoking Status: Never smoker Alcohol use: Yes CD- Drugs: No Caffeine use: No Place of Residence: Home Review of Systems General: Weakness, As per HPI Eyes: Unremarkable ENT: Unremarkable Respiratory: Unremarkable Cardiovascular: Unremarkable Gastrointestinal: Unremarkable Genitourinary: Unremarkable Musculoskeletal: Unremarkable Integumentary: Unremarkable Neurological: Weakness, As per HPI Lymphatics: Unremarkable Physical Examination - Vital Signs Blood Pressure: 82/58 Pulse: 109 Respirations: 16 Pulse Ox (%): 96 - Physical Exam General: In no apparent distress HEENT: Atraumatic, Normocephalic, PERRLA, Mucous membr. moist/pink, EOMI, Sclerae nonicteric Neck: Supple, 2+ carotid pulse no bruit, JVD not distended, No Thyromegaly, No LAD Respiratory: Clear to auscultation bilaterally, Normal air movement Cardiovascular: No edema, Normal pulses, Regular rate/rhythm, Normal S1 S2, No gallops, No rubs, No murmurs Capillary refill: <2 Seconds Gastrointestinal: Normal bowel sounds, Soft and benign, Non-distended, No ascites, No tenderness, No masses, No rebound, No guarding Musculoskeletal: No clubbing, No swelling, No contractures, No erythema, No tenderness, No warmth Integumentary: No rashes, No breakdown, No significant lesion, No tenderness/swelling, No erythema, No warmth, No cyanosis Neurological: Normal strength at 5/5 x4 extr, Normal tone, Sensation intact, Cranial nerves 3-12 intact, Abnormal speech, Abnormal affect Lymphatics: No axilla or inguinal lymphadenopathy - Studies Laboratory Data (last 24 hrs) 03/17/21 19:32: PT 14.0 H, INR 1.21, APTT 32.5 03/17/21 19:32: WBC 7.30, Hgb 8.9 L, Hct 25.4 L, Plt Count 362 03/17/21 19:32: Sodium 140, Potassium 2.5 L*, BUN 10, Creatinine 0.72, Glucose 62 L, Magnesium 1.1 L*, Total Bilirubin 1.5 H, AST 260 H, ALT 74, Alkaline Phosphatase 183 H 03/17/21 19:04: PT Cancelled, INR Cancelled Assessment and Plan - Plan Assessment anemia hypertension liver pathology elevated troponin, BNP, h/o CABG hypokalemia, hypoglycemia, hypocalcemia, hypomagnesemia alcohol use disorder anemia: FOBT negative and stable however acutely new anemia, type&screen, will transfuse to goal >7 as needed, GI consulted hypertension: currently hypotensive, continue IVF, hold home BP medications liver pathology: GI consulted, complete abdominal ultrasound pendimg elevated troponin, BNP, h/o CABG: cardiology consulted, trend troponins and ekg hypokalemia, hypoglycemia, hypocalcemia, hypomagnesemia: on replacement protocol, will continue to monitor alcohol use disorder: CIWA protocol, librium as needed Discharge Plan: Home Plan to discharge in: 48 Hours - Advance Directives Does patient have a Living Will: No Does patient have a Durable POA for Healthcare: No - Code Status/Comfort Care Code Status Assessed: Yes (full code) Critical Care: No Time Spent Managing Pts Care (In Minutes): 70
[2021-03-18] MEDS ORDERED: chlordiazePOXIDE HCl 25 MG CAP PO ONE (06:11)
[2021-03-18] MEDS ORDERED: ALBUTEROL 2.5 MG/3 ML NEB SOL ONE (06:33)
[2021-03-18] MEDS ORDERED: chlordiazePOXIDE HCl 25 MG CAP ONE (06:48)
--- NOTE | 2021-03-18 08:16 | EKG ---
Test Date: 2021-03-17 Test Time: 20:00:31 Vacuum Worker: RAMU MEASUREMENT RESULTS: Intervals: Rate: 67 ME: 152 QRSD: 132 QT: 536 QTc: 566 [place]: P: 62 ME: 152 QRS: -4 T: 214 INTERPRETIVE STATEMENTS: Normal sinus rhythm Possible Left atrial enlargement Right bundle branch block T wave abnormality, consider inferolateral ischemia Abnormal ECG Compared to ECG 08/30/2019 09:58:48 No significant changes Electronically Signed On 03-18-21 08:15:19 CDT by Erik Cook
--- NOTE | 2021-03-18 09:21 | CON ---
Date of Consultation: 03/18/2021 Reason For Consultation: Elevated troponin and syncope. History Of Present Illness: Mr. Sanford is a 60-year-old alcoholic, who came in with syncope. Initial blood pressure was 82/58. No chest pain was reported initially. He has had a history of CAD before . He is status post stent in August of 2019 of his circumflex. He had a normal ejection fraction t hen. He also has a history of hypertension, dyslipidemia, and cirrhosis. Denied PND, orthopnea, ped al edema, or palpitation. Denied any fever or chills. It is presumed that his syncope is secondary to hypotension and alcohol. He has a positive alcohol level. Serum alcohol 184. Past Medical History: As stated above. Allergies: NONE. Review of Systems: Negative. Social History: Positive for alcohol and tobacco. Medications: At home include aspirin, Lipitor, Lasix, Cozaar, and metoprolol. Physical Examination: Vital Signs: Blood pressure 82/58. He was in a sinus tach. HEENT: Negative. Neck: Supple with no bruit. Chest: Clear. Cardiac: Regular rhythm and rate. No murmurs, gallops, or rubs. Abdomen: Benign. Extremities: No clubbing, cyanosis, or edema. Diagnostic Data: Potassium of 2.5. Hemoglobin of 8.9. Calcium of 5.6. Magnesium 1.1. BNP was 134 1. Chest x-ray was negative. EKG showed increased QT with nonspecific changes, possibly ischemia. Impression And Plan: 1.Syncope secondary to hypotension, probably from alcohol abuse. 2.Elevated troponin secondary to demand ischemia from hypotension, hypokalemia, hypocalcemia, and hy pomagnesemia. All his electrolytes need to be corrected. He does not need any workup at this point. Echocardiogram I believe is pending. He is on an inhaler. He is on Librium. I agree with those. He is to be hydrated aggressively. We will hold his Cozaar and metoprolol for now. Continue aspiri n. Continue Lipitor. We will avoid use of Lasix for now. We will continue to follow him along. Th is is not a cardiac syncope. NB/MODL Voice ID: [id number] Report ID: [id number]
[2021-03-18 10:57] LABS: BUN Blood Urea Nitrogen 8 mg/dL (7-18); Bicarbonate 26 mmol/L (21-32); Glucose Level 182 mg/dL (74-106); Phosphorus 3.2 mg/dL (2.5-4.9); Sodium Level 138 mmol/L (136-145)
[2021-03-18 10:59] LABS: Magnesium 1.1 mg/dL (1.8-2.4); Potassium 2.9 mmol/L (3.5-5.1); Troponin I 2.04 ng/mL (0.0-0.045)
[2021-03-18] MEDS ORDERED: Magnesium Sulfate 2gm IVPB 2 G/50 ML BAG IV ONE ×2 (11:10→22:45)
[2021-03-18] MEDS ORDERED: NA CHLORIDE 0.9% 250 ML ONE (11:46)
[2021-03-18] MEDS: KCL 20 MEQ/100 mL IVPB 20 MEQ/100 ML BAG IV SCH ×3 (13:14→17:51)
[2021-03-18 13:26] LABS: Urine Appearance CLEAR (Clear); Urine Bilirubin NEGATIVE (Negative); Urine Blood TRACE (Negative); Urine Color YELLOW (Yellow); Urine Glucose NEGATIVE (Negative); Urine Protein NEGATIVE (Negative)
[2021-03-18 14:07] LABS: Urine Bacteria <20 /HPF (NONE SEEN); Urine RBC <5 /HPF (NONE SEEN)
--- NOTE | 2021-03-18 14:11 | P.PN ---
Subjective Date of Service: 03/18/21 Chief Complaint: syncope Patient with generalized weakness. He denies any chest pain today. He is tolerating room air with good oxygen saturation. He has difficulty voiding Physical Examination - Vital Signs Temperature: 97.4 F Blood Pressure: 128/55 Pulse: 116 Respirations: 19 Pulse Ox (%): 94 - Physical Exam General: Alert, In no apparent distress HEENT: Mucous membr. moist/pink Neck: Supple, JVD not distended Respiratory: Clear to auscultation bilaterally, Normal air movement Cardiovascular: No edema, Normal S1 S2, Other (Tachycardia) Gastrointestinal: Normal bowel sounds, Soft and benign, Non-distended, No tenderness Musculoskeletal: No swelling, No tenderness Integumentary: Other (Multiple erythematous lesions in the bilateral groin, gluteal and perineal area.) Neurological: Normal strength at 5/5 x4 extr, Cranial nerves 3-12 intact - Studies Laboratory Data (last 24 hrs) 03/17/21 19:32: PT 14.0 H, INR 1.21, APTT 32.5 03/17/21 19:32: WBC 7.30, Hgb 8.9 L, Hct 25.4 L, Plt Count 362 03/17/21 19:32: Sodium 140, Potassium 2.5 L*, BUN 10, Creatinine 0.72, Glucose 62 L, Magnesium 1.1 L*, Total Bilirubin 1.5 H, AST 260 H, ALT 74, Alkaline Phosphatase 183 H 03/17/21 19:04: PT Cancelled, INR Cancelled Assessment And Plan - Current Problems (Diagnosis) (1) Fall Current Visit: Yes Status: Acute (2) Chronic diastolic heart failure Current Visit: Yes Status: Acute (3) Syncope Current Visit: Yes Status: Acute (4) Chronic alcohol abuse Current Visit: Yes Status: Acute (5) Elevated troponin Current Visit: Yes Status: Acute (6) Hypokalemia Current Visit: Yes Status: Acute (7) Hypocalcemia Current Visit: Yes Status: Acute (8) Acute urinary retention Current Visit: Yes Status: Acute - Plan Cardiology input appreciated. Elevated troponin deemed to be secondary to demand ischemia. Syncope likely secondary to hypotension. Lasix on hold. IV fluid. Echocardiogram is pending Treat for COPD with scheduled bronchodilators. Librium for impending alcohol withdrawal. Insert Magana catheter for strict intake and out and also for acute urinary retention. Urinalysis: Negative for UTI. PT evaluation. Check vitamin D. Replete potassium and calcium. Monitor BMP.
[2021-03-18] MEDS ORDERED: CALCIUM GLUC 10% INJ 9.3 MEQ in NA CHLORIDE 0.9% 100 ML IV ONE (14:16)
[2021-03-18] MEDS: chlordiazePOXIDE HCl 25 MG CAP PO PRN (20:17)
[2021-03-18] MEDS: NA CHLORIDE 0.9% 1,000 ML IV SCH (20:17)
[2021-03-18 22:23] LABS: Potassium 3.2 mmol/L (3.5-5.1)
[2021-03-18 22:25] LABS: Magnesium 1.2 mg/dL (1.8-2.4)
[2021-03-18] MEDS ORDERED: POTASSIUM CL SA 10 MEQ TAB PO ONE (22:45)
[2021-03-18] MEDS ORDERED: CALCIUM GLUC 10% INJ 4.65 MEQ in NA CHLORIDE 0.9% 100 ML IV ONE (22:45)
[2021-03-19 05:24] LABS: Basophils % 0.2 % (0-1.3); Hematocrit 22.7 % (39.6-49.0); Lymphocytes % 9.3 % (15.3-44.8); MPV 7.8 fL (7.6-11.3); RBC Red Blood Cell Count 2.28 M/uL (4.33-5.43)
[2021-03-19] MEDS: chlordiazePOXIDE HCl 25 MG CAP PO PRN ×3 (05:36→21:47)
[2021-03-19] MEDS: NA CHLORIDE 0.9% 1,000 ML IV SCH (05:36)
[2021-03-19 06:03] LABS: ALT/SGPT 73 U/L (12-78); Albumin 1.9 g/dL (3.4-5.0); Alkaline Phosphatase 169 U/L (45-117); BUN Blood Urea Nitrogen 7 mg/dL (7-18); Bicarbonate 29 mmol/L (21-32); Bilirubin Total 1.8 mg/dL (0.2-1.0); Ferritin 3725.4 ng/mL (26-388); Folic Acid, (Folate) 11.4 ng/mL (3.1-17.5); Glucose Level 155 mg/dL (74-106); HDL Cholesterol 19 mg/dL (40-60); LDL Cholesterol, Calculated 86 (<130); Magnesium 1.6 mg/dL (1.8-2.4); Phosphorus 2.1 mg/dL (2.5-4.9); Potassium 3.3 mmol/L (3.5-5.1); Protein, Total 6.2 g/dL (6.4-8.2); Sodium Level 138 mmol/L (136-145); Transferrin 85 mg/dL (200-360)
[2021-03-19 06:09] LABS: AST/SGOT 327 U/L (15-37)
[2021-03-19] MEDS ORDERED: MAGNESIUM SULFATE 1 gm IVPB 1 GM/100 ML BAG IV ONE (06:25)
[2021-03-19] MEDS ORDERED: KCL 20 MEQ/100 mL IVPB 20 MEQ/100 ML BAG IV SCH (07:00)
[2021-03-19 08:17] LABS: Blood Morphology Comment NOT SEEN (NOT SEEN); Platelet Estimate ADEQ
[2021-03-19] MEDS: KCL 20 MEQ/100 mL IVPB 20 MEQ/100 ML BAG IV SCH ×2 (09:00→10:47)
[2021-03-19] MEDS ORDERED: DRISDOL (VITAMIN D=ERGOCALCIFEROL) 50000 UNIT CAP PO SCH (09:00)
--- NOTE | 2021-03-19 10:01 | RAD REPORT ---
EXAM DESCRIPTION: US - Abdomen Exam Complete - 03/19/2021 9:44 am CLINICAL HISTORY: Abdominal pain. liver and gallbladder evaluation, hematuria COMPARISON: Abdomen Exam Complete dated 09/08/2019; Chest Single View dated 03/17/2021; Head C Spine Mpr Wo Con dated 03/17/2021 FINDINGS: Advanced diffuse fatty liver is present. No focal liver lesions or intrahepatic biliary di latation is seen. The gallbladder demonstrates no gallstones, pericholecystic fluid or gallbladder wall thickening. Co mmon bile duct is not pathologically dilated. Both kidneys are normal in size, shape and echotexture. No hydronephrosis, focal lesion of concern or perinephric fluid. The spleen is normal in size measuring 12 cm. The pancreas and aorta are obscured by bowel gas. The visualized aspects of the IVC are grossly normal. IMPRESSION: Advanced diffuse fatty liver.
--- NOTE | 2021-03-19 10:47 | EKG ---
Test Date: 2021-03-18 Test Time: 22:47:53 Metal Furniture Panel Coverer: BENITOG MEASUREMENT RESULTS: Intervals: Rate: 108 ME: 132 QRSD: 128 QT: 418 QTc: 560 [place]: P: 65 ME: 132 QRS: 10 T: 136 INTERPRETIVE STATEMENTS: Sinus tachycardia Nonspecific intraventricular block T wave abnormality, consider anterolateral ischemia Abnormal ECG Compared to ECG 03/18/2021 06:00:10 T-wave abnormality now present Incomplete right bundle-branch block no longer present Myocardial infarct finding no longer present ST (T wave) deviation no longer present Possible ischemia still present Electronically Signed On 03-19-21 10:46:32 CDT by Erik Cook
--- NOTE | 2021-03-19 10:50 | EKG ---
Test Date: 2021-03-18 Test Time: 12:07:20 Calender Roll Press Operator: [id number] MEASUREMENT RESULTS: Intervals: Rate: 115 NC: 158 QRSD: 126 QT: 360 QTc: 498 [place]: P: -8 NC: 158 QRS: 5 T: 132 INTERPRETIVE STATEMENTS: Sinus tachycardia Right bundle branch block Cannot rule out Inferior infarct, age undetermined T wave abnormality, consider lateral ischemia Abnormal ECG Compared to ECG 03/18/2021 06:00:10 Right bundle-branch block now present T-wave abnormality now present Incomplete right bundle-branch block no longer present ST (T wave) deviation no longer present Myocardial infarct finding still present Possible ischemia still present Electronically Signed On 03-19-21 10:46:53 CDT by Erik Cook
--- NOTE | 2021-03-19 10:51 | EKG ---
Test Date: 2021-03-18 Test Time: 06:00:10 Batch Trucker: BLAIR MEASUREMENT RESULTS: Intervals: Rate: 110 MT: 156 QRSD: 114 QT: 374 QTc: 506 [place]: P: 20 MT: 156 QRS: -11 T: 148 INTERPRETIVE STATEMENTS: Sinus tachycardia Incomplete right bundle branch block Possible Inferior infarct, age undetermined Anteroseptal infarct, age undetermined ST & T wave abnormality, consider lateral ischemia Abnormal ECG Compared to ECG 03/17/2021 20:00:31 Incomplete right bundle-branch block now present Myocardial infarct finding now present ST (T wave) deviation now present Sinus rhythm no longer present Right bundle-branch block no longer present T-wave abnormality no longer present Possible ischemia still present Electronically Signed On 03-19-21 10:47:00 CDT by Erik Cook
--- NOTE | 2021-03-19 13:28 | PN ---
Date of Progress Note: 03/19/2021 Subjective: Mr. Sanford has came in with severe electrolyte abnormalities including hypokalemia, hypom agnesemia, hypoglycemia, alcohol abuse, hypotension, troponin had gone up to about 20. The patient h as never had any chest pain. I still think his troponin elevation is secondary to demand ischemia fr om hypotension and severe electrolyte abnormalities. He is definitely feeling better today. He is m ore awake and more alert. He has no chest pain. I have no interest at this point to do any heart ca theterization on him. He has had needs to be hydrated. Echocardiogram is pending today. I will make a decision after the echocardiogram, but nevertheless I think it would be better to do a n outpatient stress test on him after his electrolytes are normal . MARÍA/BRIA Voice ID: [id number] Report ID: [id number]
--- NOTE | 2021-03-19 14:52 | P.PN ---
Subjective Date of Service: 03/19/21 Chief Complaint: syncope Patient states he feels better but still significantly weak. He denies any chest pain today. He is tolerating room air with good oxygen saturation. Magana catheter inserted yesterday. Urine looks dark colored. UA: High urobilinogen. Physical Examination - Vital Signs Temperature: 97.7 F Blood Pressure: 118/86 Pulse: 101 Respirations: 19 Pulse Ox (%): 99 - Physical Exam General: Alert, In no apparent distress, Oriented x3 HEENT: Mucous membr. moist/pink Neck: Supple, JVD not distended Cardiovascular: Regular rate/rhythm, Normal S1 S2, Edema (Mild bilateral lower extremity edema) Gastrointestinal: Normal bowel sounds, Soft and benign, No ascites, No tenderness Musculoskeletal: No swelling, No tenderness Integumentary: Erythema (Perineum and bilateral gluteal area) Neurological: Normal speech, Other (No focal motor deficit) Assessment And Plan - Current Problems (Diagnosis) (1) Fall Current Visit: Yes Status: Acute (2) Chronic diastolic heart failure Current Visit: Yes Status: Acute (3) Syncope Current Visit: Yes Status: Acute (4) Chronic alcohol abuse Current Visit: Yes Status: Acute (5) Elevated troponin Current Visit: Yes Status: Acute (6) Hypokalemia Current Visit: Yes Status: Acute (7) Hypocalcemia Current Visit: Yes Status: Acute (8) Acute urinary retention Current Visit: Yes Status: Acute - Plan Cardiology input appreciated. Stress test as an outpatient. Elevated troponin deemed to be secondary to demand ischemia. Syncope likely secondary to hypotension. Lasix on hold. Continue IV fluid. Echocardiogram is pending Treat for COPD with scheduled bronchodilators. Librium for impending alcohol withdrawal. Magana catheter for strict intake and out and also for acute urinary retention. Urinalysis: Negative for UTI. Macrocytic anemia with markedly increased transferring saturation and ferritin. UA with high urobilinogen. Elevated total bilirubin, elevated direct bilirubin but normal indirect bilirubin level. Hemolytic anemia not excluded. Check haptoglobin, peripheral blood smear. Hematology consultation. Transfuse for hemoglobin less than 7. PT evaluation. Vitamin D and ionized calcium are pending. Replete hypocalcemia IV. Potassium, magnesium and phosphorus supplementation. Monitor BMP.
[2021-03-19] MEDS ORDERED: POTASSIUM CL SA 10 MEQ TAB PO ONE (15:00)
[2021-03-19] MEDS ORDERED: CALCIUM GLUC 10% INJ 9.3 MEQ in NA CHLORIDE 0.9% 100 ML IV ONE (16:00)
[2021-03-19 16:30] LABS: RBC Red Blood Cell Count 2.3 M/uL (4.33-5.43)
[2021-03-19] MEDS ORDERED: Magnesium Sulfate 2gm IVPB 2 G/50 ML BAG IV ONE (20:00)
[2021-03-20] MEDS: NA CHLORIDE 0.9% 1,000 ML IV SCH ×3 (03:59→13:30)
[2021-03-20 06:00] LABS: Absolute Lymphocytes (CBC) 1.2 K/uL (0.7-4.9); Basophils % 0.4 % (0-1.3); Hematocrit 22.1 % (39.6-49.0); MPV 7.7 fL (7.6-11.3); RBC Red Blood Cell Count 2.19 M/uL (4.33-5.43)
[2021-03-20 06:23] LABS: ALT/SGPT 73 U/L (12-78); AST/SGOT 300 U/L (15-37); Alkaline Phosphatase 170 U/L (45-117); BUN Blood Urea Nitrogen 5 mg/dL (7-18); Bicarbonate 28 mmol/L (21-32); Bilirubin Total 1.9 mg/dL (0.2-1.0); Glucose Level 123 mg/dL (74-106); Magnesium 1.5 mg/dL (1.8-2.4); Potassium 3.3 mmol/L (3.5-5.1); Protein, Total 6.2 g/dL (6.4-8.2); Sodium Level 138 mmol/L (136-145)
[2021-03-20] MEDS ORDERED: Magnesium Sulfate 2gm IVPB 2 G/50 ML BAG IV ONE ×2 (09:00)
[2021-03-20] MEDS ORDERED: POTASSIUM CL SA 10 MEQ TAB PO ONE (09:00)
[2021-03-20 12:32] LABS: Blood Morphology Comment NOT SEEN (NOT SEEN); Platelet Estimate ADEQ
[2021-03-20 15:56] LABS: Hematocrit 21.3 % (39.6-49.0)
--- NOTE | 2021-03-20 16:12 | P.PN ---
Subjective Date of Service: 03/20/21 Chief Complaint: syncope Subjective: No new changes (no acute events overnight. Patient reports feeling "maybe a little better" today. Still feeling very weak. denies any bleeding in urine/stool. denies history of anemia) Physical Examination - Vital Signs Temperature: 99.1 F Blood Pressure: 131/68 Pulse: 96 Respirations: 18 Pulse Ox (%): 99 Assessment & Plan Physician Review Additional Text: Physical Exam General: Alert, In no apparent distress, Oriented x3, pale HEENT: Mucous membr. moist Pulm: clear to auscultation bilaterally, nonlabored respirations on room air CV: Regular rate/rhythm, Normal S1 S2 Gastrointestinal: Normal bowel sounds, Soft and benign, No ascites, No tenderness Ext: mild b/l lower extremity edema to mid tibia (1+), no tenderness Integumentary: a few scattered annular lesions on extremities Neurological: Normal speech, normal affect Problem List Fall, Syncope Chronic diastolic heart failure Chronic alcohol abuse Elevated troponin Hypokalemia Hypocalcemia Acute urinary retention Acute Macrocytic anemia Elevated troponin deemed to be secondary to demand ischemia per Cardiology - recommend stress test as outpatient Syncope likely secondary to Hypotension, most recent orthostatics have been negative. Lasix on hold, received IVF from 03/17 to 03/20, will discontinue Echocardiogram is pending Magana catheter for strict intake and out and also for acute urinary retention. UA: negative for UTI, +urobilinogen Librium for impending alcohol withdrawal. monitor for signs of alcohol withdrawal Macrocytic anemia, acute drop to 7. Workup done so far with high iron/transferrin saturation. elevated LDH, possibly hemolytic anemia no evidence of overt bleeding. hemoccult pending Hematology consulted peripheral smear ordered for today transfuse to maintain Hgb >7.0 hypocalcemia, Vit d deficiency mild hypocalcemia still, after correction for hypoalbuminemia will check intact PTH, replete as needed Dispo: anticipate dc home, likely ~48hrs Time Spent Managing Pts Care (In Minutes): 35
--- NOTE | 2021-03-20 19:03 | P.CNS ---
Date of Consult: 03/20/21 Reason for Consult: Anemia Requesting Physician: Gagan Durbin Chief Complaint: Anemia History of Present Illness: Patient admitted due to generalized weakness and syncope. Allergies No Known Allergies Allergy (Verified 08/26/19 10:47) Home Medications: Aspirin [Aspirin EC 81 MG] 81 mg PO DAILY #100 tablet. 08/31/19 Atorvastatin Calcium [Lipitor] 80 mg PO BEDTIME #30 tab 08/31/19 Losartan Potassium [Cozaar*] 50 mg PO DAILY #30 tablet 08/31/19 Metoprolol Tartrate [Lopressor*] 50 mg PO BID #30 tab 08/31/19 Furosemide [Lasix] 1 tab PO DAILY 03/18/21 - Past Medical/Surgical History Diabetic: No -: hypertension -: CABG - Social History Alcohol use: Yes CD- Drugs: No Caffeine use: No Place of Residence: Home Physical Examination Temp Pulse Resp BP Pulse Ox 99.1 F 96 H 18 131/68 99 03/20/21 16:20 03/20/21 16:20 03/20/21 16:20 03/20/21 16:20 03/20/21 16:20 General: Alert, In no apparent distress, Oriented x2, Disheveled, Obese HEENT: Atraumatic, Normocephalic Neck: Supple, No LAD Respiratory: Clear to auscultation bilaterally Cardiovascular: Normal S1 S2 Gastrointestinal: Normal bowel sounds, Soft and benign Neurological: Normal strength at 5/5 x4 extr Lymphatics: No axilla or inguinal lymphadenopathy Conclusions/Impression: 1. Anemia: Severe macrocytic anemia. Normal B12, folate, TSH. The retic count is inadequate to the degree of anemia indicative of myelosuppression. Though elevated LDH represents a hematological process or hemolysis, likely to due to significant a lcohol liver disease as well. No splenomegally. Unlikely to be hemolysis Multifactorial etiology- Likely myelosuppression due to chronic alcohol intake vs primary hematological process like MDS, MPN etc. >Complete anemia work up- labs ordered (Hep B, c, HIV, parvo virus ab, SPEP/MABLE, SFLC, Qig, RANDALL, smear eval and flow cytometry. > Transfuse to keep Hb> 8gm > r/o GI bleeding. > Likely will need BM biopsy if no improvement and reversible causes ruled out. 2. Elevated ferritin/ % saturation: Likely from underlying liver disease/ chronic alcohol intake. Also noted in BM conditions like like MDS, other etc. > Plan as per problem# 1 > Check Hemochromatosis gene panel. Patient, though awake and alert seems to be under sedative effect to avoid alcohol withdrawal. Appropriate safe discharge recommended with follow up with hematology as outpatient to complete work upa nd management. I have given my contact details and also discussed with Dr Durbin regarding the same.
[2021-03-21 06:17] LABS: Absolute Lymphocytes (CBC) 1.2 K/uL (0.7-4.9); Basophils % 0.6 % (0-1.3); Lymphocytes % 14.2 % (15.3-44.8); MPV 7.7 fL (7.6-11.3); RBC Red Blood Cell Count 2.34 M/uL (4.33-5.43)
[2021-03-21 06:58] LABS: ALT/SGPT 69 U/L (12-78); AST/SGOT 241 U/L (15-37); Albumin 1.9 g/dL (3.4-5.0); Alkaline Phosphatase 164 U/L (45-117); BUN Blood Urea Nitrogen 4 mg/dL (7-18); Bicarbonate 30 mmol/L (21-32); Bilirubin Total 1.4 mg/dL (0.2-1.0); Glucose Level 110 mg/dL (74-106); Magnesium 1.5 mg/dL (1.8-2.4); Phosphorus 1.5 mg/dL (2.5-4.9); Potassium 3.3 mmol/L (3.5-5.1); Protein, Total 6.3 g/dL (6.4-8.2); Sodium Level 139 mmol/L (136-145)
--- NOTE | 2021-03-21 07:22 | RAD REPORT ---
EXAM DESCRIPTION: Asim Single View03/21/2021 6:43 am CLINICAL HISTORY: Hypoxia COMPARISON: March 17, 2021 FINDINGS: The upper lobe vessels are prominent indicative of pulmonary venous hypertension. The lungs appear clear of acute infiltrate. The heart is moderately enlarged.
[2021-03-21] MEDS: predniSONE 20 MG TAB PO SCH ×2 (09:36→22:01)
[2021-03-21 10:08] LABS: Blood Morphology Comment NOT SEEN (NOT SEEN); Platelet Estimate ADEQ
[2021-03-21 10:57] LABS: Rheumatoid Factor NEG (NEG)
[2021-03-21] MEDS ORDERED: MAGNESIUM CITRATE 300 ML BOT PO SCH (13:00)
--- NOTE | 2021-03-21 13:25 | ECHO ---
HEIGHT: 5 ft 9 in WEIGHT: 205 lb 0 oz DATE OF STUDY: 03/21/[address]: Gagan Durbin MD 2-DIMENSIONAL: YES M.MODE: YES DOPPLER: YES COLOR FLOW: YES TDS: NO PORTABLE: NO DEFINITY: NO BUBBLE STUDY: NO DIAGNOSIS: DYSPNEA, EVALUATE FUNCTION CARDIAC HISTORY: CATHERIZATION: YES SURGERY: YES PROSTHETIC VALVE: NO PACEMAKER: NO MEASUREMENTS (cm) DIASTOLIC (NORMALS) SYSTOLIC (NORMALS) IVSd 1.1 (0.6-1.2) LA Diam 4.3 (1.9-4.0) LVEF 35-40% LVIDd 4.7 (3.5-5.7) LVIDs 3.6 (2.0-3.5) %FS % LVPWd 1.2 (0.6-1.2) Ao Diam 3.1 (2.0-3.7) 2 DIMENSIONAL ASSESSMENT: RIGHT ATRIUM: NORMAL LEFT ATRIUM: NORMAL RIGHT VENTRICLE: NORMAL LEFT VENTRICLE: NORMAL TRICUSPID VALVE: NORMAL MITRAL VALVE: NORMAL PULMONIC VALVE: NORMAL AORTIC VALVE: NORMAL PERICARDIAL EFFUSION: NONE AORTIC ROOT: NORMAL LEFT VENTRICULAR WALL MOTION: MODERATE TO SEVERE GLOBAL HYPOKINESIS. DOPPLER/COLOR FLOW: NORMAL COMMENTS: MODERATE TO SEVERE GLOBAL HYPOKINESIS. LEFT VENTRICULAR EJECTION FRACTION OF 35-40%. NO EFFUSION. TECHNOLOGIST: Maryan VILLATORO
[2021-03-21] MEDS ORDERED: GOLYTELY 4000 ML PO SCH (14:00)
[2021-03-21] MEDS: METOCLOPRAMIDE 10 MG/2mL INJ IV SCH ×2 (15:09→17:49)
--- NOTE | 2021-03-21 17:36 | P.PN ---
Subjective Date of Service: 03/21/21 Chief Complaint: Anemia Subjective: No new changes (feeling SOB this morning, wheezing, continues with weakness) Review of Systems 10-point ROS is otherwise unremarkable Physical Examination - Vital Signs Temperature: 97.3 F Blood Pressure: 107/69 Pulse: 95 Respirations: 18 Pulse Ox (%): 95 Assessment & Plan Physician Review Additional Text: Physical Exam General: Alert, Oriented x3, pale, appears fatigued HEENT: Mucous membr. moist Pulm: bilateral wheeze, mildly labored respirations CV: Regular rate/rhythm, Normal S1 S2 Gastrointestinal: Normal bowel sounds, Soft and benign, No ascites, No t enderness Ext: mild b/l lower extremity edema to mid tibia (1+), no tenderness Integumentary: a few scattered annular lesions on extremities Neurological: b/l lower extremity weakness, 4+/5, slightly worse on right Problem List Fall, Syncope Chronic diastolic heart failure Chronic alcohol abuse Elevated troponin Hypokalemia Hypocalcemia Acute urinary retention Acute Macrocytic anemia Elevated troponin deemed to be secondary to demand ischemia per Cardiology - recommend stress test as outpatient Syncope likely secondary to Hypotension, most recent orthostatics have been negative. Lasix on hold, received IVF from 03/17 to 03/20, dc'd Echocardiogram pending Magana catheter was placed for strict intake and out and also for acute urinary retention. UA: negative for UTI, +urobilinogen Librium for impending alcohol withdrawal. monitor for signs of alcohol withdrawal Macrocytic anemia, acute drop to 7. Workup done so far with high iron/transferrin saturation. elevated LDH, possibly hemolytic anemia but not completely consistent workup sent, peripheral smear , no evidence of overt bleeding. hemoccult pending. s/p 1u PRBC Hematology consulted Transfuse to maintain Hgb >8.0 Hypocalcemia, Vit d deficiency mild hypocalcemia still, after correction for hypoalbuminemia will check intact PTH, likely secondary PTh due to vit d def Dispo: anticipate dc home, likely ~48hrs Time Spent Managing Pts Care (In Minutes): 35
--- NOTE | 2021-03-21 20:22 | RAD REPORT ---
EXAM DESCRIPTION: MRI - Brain W/Wo Cont - 03/21/2021 7:49 pm CLINICAL HISTORY: LE weakness Headache, drowsiness of weakness COMPARISON: MRA Head Wo Cont dated 03/21/2021 TECHNIQUE: Multi-sequence, multiplanar MR imaging of the brain was performed with contrast. FINDINGS: No intracranial hemorrhage, hydrocephalus, or extra-axial fluid collection.Moderate chroni c vascular ischemic changes are present. Gliosis is seen in the left parieto-occipital region compati ble with remote infarction. No edema or shift of midline structures. No intracranial mass. 6 mm area of elevated DWI signal is seen right frontal lobe which shows slightly elevated ADC signal is well williamson ggesting subacute infarct.. The midline structures are normally formed. Mastoid air cells and paranasal sinuses are clear. Post-contrast images show no abnormal enhancement to suggest tumor or infection. IMPRESSION: Small 6 mm subacute infarct right frontal lobe region suspected. No hemorrhage, hydrocep halus or pathologic enhancement.
--- NOTE | 2021-03-21 20:25 | RAD REPORT ---
EXAM DESCRIPTION: MRI - MRA Head Wo Cont - 03/21/2021 7:49 pm CLINICAL HISTORY: LE weakness CVA COMPARISON: Brain Wo Cont dated 11/18/2018 FINDINGS: 3D noncontrast [id number] MR angiography of the [place] was performed. There is significant flow restricting atherosclerotic changes both carotid siphons. No aneurysm is se en. No vascular malformation evident. The right vertebral artery is dominant. The visualized dural venous sinuses appear patent. IMPRESSION: Significant atherosclerotic narrowing is present involving both carotid siphons.
--- NOTE | 2021-03-21 20:28 | RAD REPORT ---
EXAM DESCRIPTION: MRI - MRA Neck W/Wo Cont - 03/21/2021 7:48 pm CLINICAL HISTORY: LE weakness Headache, drowsiness, CVA symptomology COMPARISON: No comparisons FINDINGS: Contrast enhance 2D [id number] MR angiography of the neck vessels was performed. A left aortic arch with bovine configuration is noted. There is poor visualization of the origin of t he left subclavian artery. Both common carotid arteries appear patent. The right carotid bulb demonstrates narrowing estimated at 75-80% based on NASCET criteria. Mild carotid narrowing is present involving the left carotid bulb estimated at 50% or less. Focal sig nificant stenosis is suspected in the distal left vertebral artery. IMPRESSION: Moderately severe carotid stenosis involving the right carotid bulb is seen estimated at 75-80%.
[2021-03-22] MEDS: METOCLOPRAMIDE 10 MG/2mL INJ IV SCH (00:32)
[2021-03-22 06:02] LABS: Absolute Lymphocytes (CBC) 0.7 K/uL (0.7-4.9); Basophils % 0.3 % (0-1.3); Hematocrit 24.4 % (39.6-49.0); Lymphocytes % 9.9 % (15.3-44.8); MPV 7.7 fL (7.6-11.3); RBC Red Blood Cell Count 2.46 M/uL (4.33-5.43)
[2021-03-22 06:22] LABS: ALT/SGPT 76 U/L (12-78); AST/SGOT 208 U/L (15-37); Albumin 1.9 g/dL (3.4-5.0); Alkaline Phosphatase 154 U/L (45-117); BUN Blood Urea Nitrogen 4 mg/dL (7-18); Bicarbonate 28 mmol/L (21-32); Glucose Level 171 mg/dL (74-106); Magnesium 1.4 mg/dL (1.8-2.4); Phosphorus 1.8 mg/dL (2.5-4.9); Potassium 3.6 mmol/L (3.5-5.1); Protein, Total 6.4 g/dL (6.4-8.2); Sodium Level 139 mmol/L (136-145)
[2021-03-22] MEDS ORDERED: Magnesium Sulfate 2gm IVPB 2 G/50 ML BAG IV ONE (06:30)
[2021-03-22] MEDS ORDERED: CALCIUM GLUC 10% INJ 4.65 MEQ in NA CHLORIDE 0.9% 100 ML IV ONE (07:20)
[2021-03-22] MEDS: KCL 20 MEQ/100 mL IVPB 20 MEQ/100 ML BAG IV SCH ×2 (08:47→09:00)
[2021-03-22] MEDS: POTASSIUM PHOS IN 0.9 % NACL 15 MMOL/250 ML BAG IV ONE ×2 (08:48→09:00)
[2021-03-22] MEDS ORDERED: NA CHLORIDE 0.9% 250 ML ONE ×2 (08:53→18:08)
[2021-03-22] MEDS ORDERED: CALCITROL 0.25 MCG CAP PO SCH (09:00)
[2021-03-22] MEDS ORDERED: POTASSIUM CL SA 10 MEQ TAB PO ONE (09:00)
[2021-03-22] MEDS: predniSONE 20 MG TAB PO SCH ×2 (09:00→20:33)
--- NOTE | 2021-03-22 12:03 | P.PN ---
Subjective Date of Service: 03/22/21 Chief Complaint: Anemia Physical Examination - Vital Signs Temperature: 96.8 F Blood Pressure: 118/58 Pulse: 70 Respirations: 16 Pulse Ox (%): 98 Assessment And Plan - Plan # Electrolyte depletions likely d/t GI mal/non-absorption syndrome, probably hemochromatosis vs celiac dse, r/o plasma cell dyscrasia Given multiple organ involvement w/ iron overload, would favor hemochromatosis dx Has chronic intermittent diarrhea; last diarrhea episode was 5 days ago TTE w/ systolic dysfxn Check anti-TTG, anti-endomysial, anti-gliadin Abs For EGD/colonoscopy today F/u paraprotein dse w/u - serum MABLE, SPEP, K:L SFLC, random urine UPEP F/u upper GI bx; if neg for celiac may also need to repeat EGD w/ bx later on when he is challenged w/ more gluten intake & having diarrhea Replete lytes IV for now Correct hypoMg to allow easier correction of hypoCa & hypoK Celiac dse can also be c/b by some degree of Wernicke - check serum B1 level, ABG, lactate # Secondary hyperPTH d/t hypoCa & hypoMg Correct lytes as above # Vit D def 2/2 GI absorption issue Start high dose D repletion # Iron overload w/ macrocytic anemia Appreciate Heme input I ordered epo SQ dose today to lower his iron overload Thank you for this referral. Physician Review Additional Text: Physical Exam General: Alert, Oriented x3, pale, appears fatigued HEENT: Mucous membr. moist Pulm: bilateral wheeze, mildly labored respirations CV: Regular rate/rhythm, Normal S1 S2 Gastrointestinal: Normal bowel sounds, Soft and benign, No ascites, No tenderness Ext: mild b/l lower extremity edema to mid tibia (1+), no tenderness Integumentary: a few scattered annular lesions on extremities Neurological: b/l lower extremity weakness, 4+/5, slightly worse on right Problem List Fall, Syncope Chronic diastolic heart failure Chronic alcohol abuse Elevated troponin Hypokalemia Hypocalcemia Acute urinary retention Acute Macrocytic anemia Elevated troponin deemed to be secondary to demand ischemia per Cardiology - recommend stress test as outpatient Syncope likely secondary to Hypotension, most recent orthostatics have been negative. Lasix on hold, received IVF from 03/17 to 4/27, dc'd Echocardiogram pending Magana catheter was placed for strict intake and out and also for acute urinary retention. UA: negative for UTI, +urobilinogen Librium for impending alcohol withdrawal. monitor for signs of alcohol withdrawal Macrocytic anemia, acute drop to 7. Workup done so far with high iron/transferrin saturation. elevated LDH, possibly hemolytic anemia but not completely consistent workup sent, peripheral smear , no evidence of overt bleeding. hemoccult pending. s/p 1u PRBC Hematology consulted Transfuse to maintain Hgb >8.0 Hypocalcemia, Vit d deficiency mild hypocalcemia still, after correction for hypoalbuminemia will check intact PTH, likely secondary PTh due to vit d def Dispo: anticipate dc home, likely ~48hrs
[2021-03-22] MEDS ORDERED: EPOETIN ALFA-EPBX 4,000 UNIT/ML VIAL SQ SCH (13:00)
[2021-03-22 13:42] LABS: BUN Blood Urea Nitrogen 4 mg/dL (7-18); Bicarbonate 31 mmol/L (21-32); Glucose Level 114 mg/dL (74-106); Magnesium 1.3 mg/dL (1.8-2.4); Phosphorus 1.7 mg/dL (2.5-4.9); Potassium 3.1 mmol/L (3.5-5.1); Sodium Level 140 mmol/L (136-145)
--- NOTE | 2021-03-22 14:33 | P.CNS ---
Date of Consult: 03/22/21 Reason for Consult: Electrolyte derangements Requesting Physician: Gagan Durbin Chief Complaint: Anemia History of Present Illness: 60M w/ PMHx of ETOH abuse, Htn, CAD s/p CABG, & chronic diarrhea who was sent to ED after he was found down by his neighbor. He drinks vodka on a daily basis and eats pizza and frozen food packs frequently. He denied having fever, recent sick contacts, SOB, CP, nausea or vomiting. He reports having intermittent diarrhea but could not identify any food trigger. He states his last diarrhea episode was 5 days ago. He reports having chronic anemia since childhood. In the ER he was noted to have severe anemia and with multiple electrolyte depletions. He was admitted for further eval & management. Allergies No Known Allergies Allergy (Verified 08/26/19 10:47) Home Medications: Aspirin [Aspirin EC 81 MG] 81 mg PO DAILY #100 tablet. 08/31/19 Atorvastatin Calcium [Lipitor] 80 mg PO BEDTIME #30 tab 08/31/19 Losartan Potassium [Cozaar*] 50 mg PO DAILY #30 tablet 08/31/19 Metoprolol Tartrate [Lopressor*] 50 mg PO BID #30 tab 08/31/19 Furosemide [Lasix] 1 tab PO DAILY 03/18/21 - Past Medical/Surgical History Diabetic: No -: hypertension -: CABG - Social History Alcohol use: Yes CD- Drugs: No Caffeine use: No Place of Residence: Home Review of Systems General: Weakness Eyes: Unremarkable ENT: Unremarkable Respiratory: Unremarkable Cardiovascular: Unremarkable Gastrointestinal: Diarrhea Genitourinary: Unremarkable Musculoskeletal: Unremarkable Integumentary: Other (Pale) Neurological: Weakness Lymphatics: Unremarkable Physical Examination Temp Pulse Resp BP Pulse Ox 96.8 F 70 16 118/58 L 98 03/22/21 12:28 03/22/21 12:28 03/22/21 12:28 03/22/21 12:28 03/22/21 12:28 General: In no apparent distress HEENT: Atraumatic, Normocephalic Neck: Supple Respiratory: Clear to auscultation bilaterally Cardiovascular: Normal S1 S2, No rubs, No murmurs Gastrointestinal: Soft and benign, Non-distended Musculoskeletal: No swelling Integumentary: Other (Pale) Neurological: Normal speech, Normal tone Lymphatics: No axilla or inguinal lymphadenopathy Urinary: Other (No romo) External genitalia: Deferred Rectal: Deferred Conclusions/Impression: # Electrolyte depletions likely d/t GI mal/non-absorption syndrome, probably hemochromatosis vs celiac dse, r/o plasma cell dyscrasia,primary amyloid Given multiple organ involvement w/ iron overload, would favor hemochromatosis dx Has chronic intermittent diarrhea; last diarrhea episode was 5 days ago TTE w/ systolic dysfxn but not c/w restrictive cardiomyopathy Check anti-TTG, anti-endomysial, anti-gliadin Abs For EGD/colonoscopy today F/u paraprotein dse w/u - serum MABLE, SPEP, K:L SFLC, random urine UPEP If paraprotein labs abnormal, will ask Pathology to add congo-red & thioflavin staining to GI biopsy specimen to assess for primary amyloid F/u upper GI bx; if neg for celiac may also need to repeat EGD w/ bx later on when he is challenged w/ more gluten intake & having diarrhea Replete lytes via IV for now Correct hypoMg to allow easier correction of hypoCa & hypoK Celiac dse can also be c/b by some degree of Wernicke - check serum B1 level, ABG, lactate # Secondary hyperPTH d/t hypoCa & hypoMg Correct lytes as above Calcitriol dose increased Vit D repletion as below # Vit D def 2/2 GI absorption issue Started on high dose D repletion po q wkly x 12 wks # Iron overload w/ macrocytic anemia Appreciate Heme input I ordered epo SQ dose today to lower his iron overload # HypoMg Ordered IV MgSO4 # HypoK Ordered KCl IV + KPhos IV # HypoPO4 KPhos IV as above # HypoCa Ordered CaGlcu IV Ordered CaCO3 po bid taken on EMPTY stomach Cont calcitriol as above Vit D repletion dosing as above # Chronic ETOH abuse CIWA monitoring Thank you for this referral.
[2021-03-22] MEDS ORDERED: POTASSIUM CL 40 MEQ in NA CHLORIDE 0.9% 500 ML IV SCH (15:00)
[2021-03-22] MEDS ORDERED: POTASSIUM PHOS 20 MM in NA CHLORIDE 0.9% 500 ML IV ONE (15:00)
[2021-03-22] MEDS ORDERED: MAGNESIUM SULFATE 1 gm IVPB 1 GM/100 ML BAG IV ONE (15:00)
[2021-03-22] MEDS ORDERED: CALCIUM GLUC 10% INJ 9.3 MEQ in NA CHLORIDE 0.9% 100 ML IV ONE (15:00)
--- NOTE | 2021-03-22 15:14 | P.PN ---
Subjective Date of Service: 03/22/21 Chief Complaint: Anemia Subjective: Improving (patient anxious today about egd/cscope feels better today, able to get out of bed today, continues with stuttering, generalized weakness, denies dizziness/lightheadedness.) Review of Systems 10-point ROS is otherwise unremarkable Physical Examination - Vital Signs Temperature: 96.8 F Blood Pressure: 118/58 Pulse: 70 Respirations: 16 Pulse Ox (%): 98 Assessment & Plan Physician Review Additional Text: Physical Exam General: Alert, Oriented x3, pale HEENT: Mucous membr. moist Pulm: dimished bilaterally at bases, nonlabored CV: Regular rate/rhythm, Normal S1 S2 abd: soft, nontender, nondistended Ext: b/l lower extremity edema to mid tibia (1+), no tenderness Integumentary: a few scattered annular lesions on extremities Neurological: b/l lower extremity weakness, 4+/5, slightly worse on right, normal affect, no asterixis Problem List Fall, Syncope subacute frontal lobe CVA Chronic heart failure, unknown type Chronic alcohol abuse/dependence NSTEMI Hypokalemia Hypocalcemia seconary hyperPTH Acute urinary retention Acute Macrocytic anemia subacute frontal lobe CVA - pt reports fall/syncope 2 months ago, and again prior to admission reports some leg "shaking" weakness, and stuttering when talking over the last 1-2 months as well, likely as result of CVA neurology consulted PT consulted, ST consulted Elevated troponin deemed to be secondary to demand ischemia per Cardiology - recommend stress test as outpatient Syncope likely secondary to Hypotension, most recent orthostatics have been negative. Baldev on hold, received IVF from 03/17 to 03/20, dc'd Echocardiogram with global hypokinesis, EF: ~40% pt reports he was "born with heart failure", unsure if systolic or diastolic Magana catheter was placed for strict intake and out and for acute urinary retention. UA: negative for UTI, +urobilinogen Librium for impending alcohol withdrawal. monitor for signs of alcohol withdrawal - discontinued on 03/21, continue to monitor closely Macrocytic anemia, acute drop to 7. Workup done so far with high iron/transferrin saturation. elevated LDH, workup sent, peripheral smear , no evidence of overt bleeding. hemoccult negative. s/p 1u PRBC Hematology consulted -appreciate assistance Transfuse to maintain Hgb >8.0 less likely hemolysis, labs not consistent. possible myelosuppression with chronic alcohol abuse vs hemochromatosis / poor absorption labs sent for further evaluation - r/o celiac disease. pt does report chronic intermittent diarrhea to go for EGD/c-scope today Hypocalcemia, Vit d deficiency mild hypocalcemia still, after correction for hypoalbuminemia elevated PTH, consistent with secondary hyperPTH replacing electrolytes, nephrology consulted for further assistance Dispo: patient may benefit from SNF on discharge with new stroke and ongoing issues Time Spent Managing Pts Care (In Minutes): 35
[2021-03-22] MEDS ORDERED: propofoL 200 MG/20 ML VIAL IV ONE ×3 (15:33→15:35)
[2021-03-22] MEDS ORDERED: LIDOCAINE 1% MPF 5 ML VIAL ONE (15:35)
[2021-03-22 15:54] LABS: HIV AG/AB 4TH GEN Non-reactive (Non-reactive)
[2021-03-22] MEDS ORDERED: FOLIC ACID 5 MG/ML VIAL IVP SCH (16:00)
[2021-03-22] MEDS: FOLIC ACID 1 MG in NA CHLORIDE 0.9% 50 ML IV SCH (17:34)
[2021-03-22] MEDS: CALCIUM CARBONATE 500 MG TAB PO SCH ×2 (17:34→20:33)
[2021-03-22 18:50] LABS: Arterial Blood Carboxyhemoglob 1.4 % (0-1.5); Blood Gas Oxyhemoglobin 96.7 % (94-97); Blood O2 Saturation 99.1 % (92-98.5)
[2021-03-22 19:38] LABS: Vitamin D 1,25-Dihydroxy Total 26 pg/mL (18-72); Vitamin D,1,25-OH2, D2 <8 pg/mL
--- NOTE | 2021-03-22 20:12 | OP ---
Date of Procedure: 03/22/2021 Surgeon: Karsten Yip MD Indication For Procedure: Anemia with decreasing hemoglobin. The patient's hemoglobin has dropped d own to 7.1 since admission, was 8.9. Received packed RBCs 10.5. The patient also noted w ith heme-positive stool and his iron saturation is 88%, ferritin of 3725, alcoholic hepatitis and cir rhosis probably. Medications: As per anesthesia. Please see anesthesia note. Informed Consent: The patient was informed of the benefits, risks, and alternatives to procedure. R isks including infection, bleeding, perforation, aspiration, medication reaction, even . Procedure In Detail: The patient was placed in left lateral decubitus position. The scope was place d into the oropharynx and down to the second and third portion of duodenum, brought back into the sto mach and retroflexion view was obtained. Findings included a small sliding hiatal hernia, LA class C esophagitis with possible Ma's in the distal esophagus, small sliding hiatal hernia, mild gastr itis in the antrum, mild flattening of the small bowel folds noted in the apex of the bulb of the duo denum and in the descending duodenum to the third portion of duodenum. Small bowel biopsies were obt ained. There was also a prior suspicion of possible celiac disease due to low levels of certain meta ls such as calcium, magnesium, and other metals in his serum testing. Gastric biopsies were obtained with mild gastritis and biopsies for possible Ma's esophagus, approximately 1.5 cm in length in the distal esophagus with pain with LA class C esophagitis. Impression: 1.LA class C esophagitis of the distal esophagus. 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 3. status post biopsy. 4.Small sliding hiatal hernia. 5.Gastritis in the antrum. 6.Mild flattening of the small bowel folds in the duodenum from the apex down to the second portion of duodenum, status post small bowel biopsies. Recommendations: 1.Await pathology results. 2.Acid suppression therapy. 3.GI Clinic followup. KRISTOFER/BRIA Voice ID: [id number] Report ID: [id number]
[2021-03-22 20:23] LABS: Immunoglobulin A 531 mg/dL (70-320); Immunoglobulin G 1131 mg/dL (600-1540); Immunoglobulin M 43 mg/dL (50-300)
[2021-03-22] MEDS ORDERED: ATORVASTATIN 40 MG TAB PO SCH (21:00)
[2021-03-22 21:41] LABS: Urine Protein/Creatinine Ratio 0.33 ratio (<0.15)
--- NOTE | 2021-03-22 22:19 | CON ---
Date of Consultation: 03/18/2021 Reason For Consultation: Elevated bilirubin at 1.5. History Of Present Illness: The patient is a 60-year-old white male with history of hypertension, ci rrhosis of the liver secondary to alcohol abuse, tetralogy of Fallot, hypercholesterolemia. The christina ent presented to hospital with syncope. The patient was found passed out at home. He has a history of alcohol abuse. It is felt that of some type of complication from that. He was brought to the [facility] room where he told them that his legs were shaking and he fell and passed out and he laid on t he floor for 2 hours. He fell down 2 days ago prior to admission, but was able to get up in. He las t saw his solutions architect consultant about a month ago. He takes about 4 pints of vodka daily. Chest x-ray shows COPD. Heart is moderately enlarged in the emergency room. CT of the head was negative in the emerge ncy room. Past Medical History: Significant for alcohol abuse, possible liver cirrhosis, tetralogy of Fallot w ith performed it appears, hypertension, hypercholesterolemia, coronary artery disease, sta tus post CABG. Social History: He is single, never . No children. Positive for alcohol, pint of Vodka a da y. No tobacco. Family History: Father of myocardial infarction. Mother of myocardial infarction. Has 4 sisters that all of myocardial infarction. He has 2 sisters who are still alive. He was the on ly boy in his family, so there were 6 sisters and 1 brother and 4 other sisters already of myoca rdial infarction and both his parents of myocardial infarction and he has elevated troponin I on this admission. Review of Systems: The patient has syncope, weakness. He says he feels very helpless when he came in because he fell do wn and passed out and shakiness in legs. He denies any melena, hematochezia, hematemesis, coffee-elmer unds emesis, hematuria, dysuria, polydipsia, hemoptysis, lower extremity edema, muscle aches, joint a ches, backaches. He does have an obese abdomen. No chest pain. No shortness of breath, seizure, sy ncope, muscle aches, joint aches, backaches. Physical Examination: Vital Signs: 5 feet 9 inch, 205 pounds. BMI of 30.3 kg/m2 with temperature 97.4 degrees Fahrenheit, pulse 116, respiratory rate 19, blood pressure 128/55, O2 saturation 94-96%. General: He is an obese male lying in bed, in no acute distress. HEENT: Normocephalic, atraumatic. Anicteric. Pupils equal, round, and reactive to light. Extraocu lar movements intact. Oropharynx is clear. Neck: Supple. No masses. Respirations: Clear to auscultation bilaterally. Cardiac: Regular rate and rhythm. No gallops or rubs. Gastrointestinal: Positive bowel sounds. Soft, nontender, nondistended. No hepatosplenomegaly. Extremities: No clubbing, cyanosis, or edema. 2+ pulses. Neuro: Alert and oriented x3. Grossly nonfocal. 5/5 motor, sensation intact to light touch. Laboratory Data: The patient yesterday on the , white count of 7.3, hemoglobin of 8.9, hematocri t 25.4, MCV of 97, platelet count 362, polys 74%, lymphocytes 18%, monocytes 7%, eosinophils 1%. PT of 14.0, INR of 1.21, PTT of 32.5. Sodium 138, potassium 2.9, chloride 99, bicarb 26, BUN of 8, crea tinine of 0.7, glucose 182, calcium 5.3, phosphorus 3.2, magnesium was 1.1. Troponin I of 2.04 on . Later on repeat troponin of 7.95. UA showed trace ketones and blood, otherwise negative. S minna alcohol yesterday was 184, normal is less than 10 mg/dL. Hepatitis A and B, HIV type 1 and 2 we re nonreactive. COVID testing was negative as well. Impression: 1.Elevated bilirubin 1.5, direct bilirubin 1.1, probably due to alcoholic hepatitis. His AST is 276 , ALT of 74, alkaline phosphatase 183, CK of 404, and troponin I of 0.1, but then it increased to 2.4 and then 7.95. 2.Anemia. Hemoglobin 8.9, MCV of 97. UA showed 2+ blood, rbc's are . 3.Decreased electrolytes, calcium 5.6, albumin is 2.2, magnesium 1.1, and potassium was 2.5. His fe rritin and his iron however were actually little bit high. Ferritin of 3775 and iron saturation of 8 8% could be an acute phase reactant due to his alcohol abuse and liver damage. His albumin is 1.9 an d his PT is 14, INR of 1.21 and his platelet count is 362. 4.No prior colon cancer screening in this patient. 5.Alcohol abuse with syncope. Alcohol level of 184, normals less than 10 mg/dL. 6.History of hypertension, hypercholesterolemia, possible asthma with wheezing at the rest, currentl y in the room. 7.History of tetralogy of Fallot or other surgery performed in [place] years ago and alco hol abuse. 8.No prior colon cancer screening. Refuses colonoscopy at this time. Recommendation: 1.Await ordered ultrasound of abdomen. 2.Check viral hepatitis panel, HIV, alpha fetoprotein levels. HIV came back negative already. Awai t UA and remaining portions of the urinalysis that are pending. 3.Guaiac stools. 4.Outpatient hepatitis A and B vaccinations. The patient states that he has already had this, we wi ll check hepatitis B surface antibody and total hepatitis A antibody titers. 5.Thiamine and folate. 6. and p.r.n. benzodiazepine for possible alcohol withdrawal. This patient drinks a pint of Vodka a day. 7.Discontinue alcohol if needed. AA. The patient states that he can do this on his own and the pat ient will need follow up with primary care about this. 8.Outpatient colonoscopy when he agrees. KRISTOFER/BRIA Voice ID: [id number] Report ID: [id number]
--- NOTE | 2021-03-22 23:04 | OP ---
Date of Procedure: 03/22/2021 Surgeon: Karsten Yip MD Indication For Procedure: Anemia with decreasing hemoglobin from 8.9 down to 7.1 acutely. No recent colon cancer screening. Procedures: Colonoscopy. Medications: Per Anesthesia. Informed Consent: The patient was informed of the benefits, risks, alternatives to the procedure. R isks include infection, bleeding, perforation, aspiration, medication reaction, and even . Procedure In Detail: The patient was placed in left lateral decubitus position. Endoscope was place d. Perianal exam was remarkable for scalded skin. The patient had a diaper on, diarrhea, and other stools probably caused skin breakdown and likely the cause of the grade 1 decubitus ulceration, less hygiene and care, of course not optimized for this patient. Otherwise, perianal exam and rectal exam are largely unremarkable. Endoscope was placed into the anus and proceeded all the way to the cecum as identified by the appendiceal orifice and ileocecal valve. Colon was remarkable for poor prep. BBPS scale 6. The prep was poor with solid stool noted throughout the colon and clog in the colonosc ope was suctioned and suction was attempted. On retroflexion, internal hemorrhoids were noted. Othe rwise, no lesions identified. Impression: 1.Internal hemorrhoids, moderate in size. 2.Poor prep. BBPS 6 with some solid stool noted throughout colon and clog in colonoscope and intuba tion to cecum performed. Recommendations: 1.Start annual Hemoccult testing in 4 years. 2.Colonoscopy in 10 years. Of note, the patient has never had colonoscopy prior to this. KRISTOFER/BRIA Voice ID: [id number] Report ID: [id number]
--- NOTE | 2021-03-23 05:06 | P.PN ---
Subjective Date of Service: 03/23/21 Chief Complaint: Anemia Denies N/V/D/SOB. Reports having lots of daytime sleepiness. Physical Examination - Vital Signs Temperature: 97.1 F Blood Pressure: 131/71 Pulse: 91 Respirations: 19 Pulse Ox (%): 97 - Physical Exam General: In no apparent distress HEENT: Atraumatic, Normocephalic Neck: Supple Respiratory: Normal air movement Cardiovascular: No edema Gastrointestinal: Soft and benign Assessment And Plan - Plan # Electrolyte depletions likely d/t GI mal/non-absorption syndrome, probably he mochromatosis vs celiac dse, r/o plasma cell dyscrasia/primary amyloid Given likely multiple organ involvement w/ iron overload, would favor hemochromatosis dx Has chronic intermittent diarrhea; last diarrhea episode was 5 days ago TTE w/ systolic dysfxn but not c/w restrictive cardiomyopathy Lactate wnl F/u serum B1 level F/u anti-TTG, anti-endomysial, anti-gliadin Abs S/p EGD/colonoscopy F/u paraprotein dse w/u - serum MABLE, SPEP, K:L SFLC, random urine UPEP F/u random UPCR If paraprotein labs abnormal, will ask Pathology to add congo-red & thioflavin T staining to GI biopsy specimen to assess for primary amyloid F/u upper GI bx; if neg for celiac may also need to repeat EGD w/ bx later on when he is challenged w/ more gluten intake & having diarrhea Replete lytes IV +/- PO prn Correct hypoMg to allow easier correction of hypoCa, hypoPO4 & hypoK # Acute respi alkalosis Likely 2/2 anxiety +/- etoh withdrawal Monitor [facility] protocol # Metabolic alkalosis 2/2 volume depletion + hypokalemia Advised on liberal po fluid intake IV fluids prn Hypokalemia correction as below # Secondary hyperPTH d/t hypoCa & hypoMg Correct lytes as below Cont calcitriol same dose Vit D repletion as below # Vit D def 2/2 GI absorption issue Started on high dose D repletion po q wkly x 12 wks # Iron overload w/ macrocytic anemia Appreciate Heme input Received Retacrit SQ dose on 03/22 to lower his iron overload # HypoMg Ordered IV MgSO4 # HypoK Received KCl IV + KPhos IV # HypoPO4 Received KPhos IV # HypoCa Improving Received CaGlcu IV Cont CaCO3 po bid taken on EMPTY stomach Cont calcitriol as above Vit D repletion dosing as above # Chronic ETOH abuse CIWA protocol # Subacute CVA R frontal CVA Severe R carotid stenosis Neurology following # Dispo Transfer for R CEA or stent
[2021-03-23 05:48] LABS: Alpha-1-Globulins 0.5 g/dL (0.2-0.3); Alpha-2-Globulins 0.8 g/dL (0.5-0.9); INTERPRETATION REPORT
[2021-03-23 06:16] LABS: Absolute Lymphocytes (CBC) 0.7 K/uL (0.7-4.9); Basophils % 0.1 % (0-1.3); Lymphocytes % 8.1 % (15.3-44.8); MPV 7.7 fL (7.6-11.3); RBC Red Blood Cell Count 2.59 M/uL (4.33-5.43)
[2021-03-23 06:49] LABS: BUN Blood Urea Nitrogen 5 mg/dL (7-18); Bicarbonate 28 mmol/L (21-32); Glucose Level 147 mg/dL (74-106); Magnesium 1.5 mg/dL (1.8-2.4); Potassium 4.3 mmol/L (3.5-5.1); Sodium Level 140 mmol/L (136-145)
[2021-03-23] MEDS ORDERED: CALCIUM GLUC 10% INJ 9.3 MEQ in NA CHLORIDE 0.9% 100 ML IV ONE (07:24)
[2021-03-23] MEDS ORDERED: Magnesium Sulfate 2gm IVPB 2 G/50 ML BAG IV ONE ×2 (07:24→07:32)
[2021-03-23] MEDS ORDERED: CALCITROL 0.25 MCG CAP PO SCH (09:00)
[2021-03-23] MEDS: predniSONE 20 MG TAB PO SCH (09:39)
[2021-03-23] MEDS: FOLIC ACID 1 MG in NA CHLORIDE 0.9% 50 ML IV SCH (09:39)
[2021-03-23] MEDS: CALCIUM CARBONATE 500 MG TAB PO SCH (09:39)
[2021-03-23] MEDS: ALBUTEROL 2.5 MG/3 ML NEB SOL NEB PRN ×2 (10:10→17:00)
[2021-03-23] MEDS ORDERED: NA CHLORIDE 0.9% 500 ML ONE (10:12)
[2021-03-23] MEDS ORDERED: ASPIRIN EC 81 MG TAB PO SCH (10:30)
[2021-03-23] MEDS ORDERED: CLOPIDOGREL 75 MG TABLET PO SCH (10:30)
--- NOTE | 2021-03-23 10:44 | RAD REPORT ---
EXAM DESCRIPTION: RAD - Chest Single View - 03/23/2021 10:17 am CLINICAL HISTORY: hypoxia, wheezing Chest pain. COMPARISON: Chest Single View dated 03/21/2021; Chest Single View dated 03/17/2021; Chest Pa And Lat ( 2 Views) dated 08/26/2019 FINDINGS: Portable technique limits examination quality. Bilateral pulmonary interstitial opacities show little interval change since comparative study. The h eart is prominent in size. No displaced fractures. IMPRESSION: No interval change has occurred since the prior radiograph dated 03/21/2021.
[2021-03-23] MEDS: PANTOPRAZOLE 40MG TABLET PO SCH ×2 (12:04→16:45)
[2021-03-23] MEDS ORDERED: SPIRONOLACTONE 25 MG TABLET PO SCH (12:25)
--- NOTE | 2021-03-23 12:26 | P.CNS ---
Date of Consult: 03/23/21 Reason for Consult: Hypoxemia Chief Complaint: Weakness History of Present Illness: Patient is 60 years of age with a history of hypertension coronary artery disease he was found passed out by the neighbors he complains leg study feeling shaking was out for a min felt very weak patient lives by himself denies any other complaints is an alcoholic for prior history of pulmonary problems is never smoked he is a little better Patient has severe electrolyte abnormality Allergies No Known Allergies Allergy (Verified 08/26/19 10:47) Home Medications: Aspirin [Aspirin EC 81 MG] 81 mg PO DAILY #100 tablet.dr 08/31/19 Atorvastatin Calcium [Lipitor] 80 mg PO BEDTIME #30 tab 08/31/19 Losartan Potassium [Cozaar*] 50 mg PO DAILY #30 tablet 08/31/19 Metoprolol Tartrate [Lopressor*] 50 mg PO BID #30 tab 08/31/19 Furosemide [Lasix] 1 tab PO DAILY 03/18/21 - Past Medical/Surgical History Diabetic: No -: hypertension -: CABG - Social History Alcohol use: Yes CD- Drugs: No Caffeine use: No Place of Residence: Home Review of Systems 10-point ROS is otherwise unremarkable General: Weakness Physical Examination Temp Pulse Resp BP Pulse Ox 96.8 F 102 H 20 128/72 96 03/23/21 12:00 03/23/21 12:00 03/23/21 12:00 03/23/21 12:00 03/23/21 12:00 General: Alert Neck: Supple Respiratory: Clear to auscultation bilaterally Cardiovascular: No edema Gastrointestinal: Normal bowel sounds, Soft and benign - Problems (1) Chronic alcohol abuse Current Visit: Yes Status: Acute Plan: Patient is 60 years of age history of chronic alcohol abuse admitted with weakness he has severe electrolyte problems mild anemia alcohol abuse macrocytic anemia mild nutrition jose luis alkalosis patient has cardiomegaly on chest x-ray he also has congestive heart failure I suspect his cardiomyopathy from all alcohol abuse continue with thymine at low-dose spironolactone plan for discharge ox ygenation satisfactory vitamin-B level is normal tsh is also normal (2) Sleep apnea Current Visit: Yes Status: Acute Plan: Patient complains of loud snoring excessive daytime somnolence he is at risk for sleep apnea and will need outpatient sleep study
[2021-03-23 13:52] LABS: HBsAG Nonreactive (Nonreactive)
[2021-03-23] MEDS ORDERED: THIAMINE 200 MG/2 ML INJ IVP SCH (16:00)
--- NOTE | 2021-03-23 16:55 | P.PN ---
Subjective Date of Service: 03/23/21 Chief Complaint: Weakness, hyperbilirubin, anemia, low calcium/magnesium Subjective: New changes (s/p new CVA. To be transferred for carotid artery stents.) Physical Examination - Vital Signs Temperature: 96.8 F Blood Pressure: 128/72 Pulse: 102 Respirations: 20 Pulse Ox (%): 96 Assessment And Plan - Current Problems (Diagnosis) (1) Hyperbilirubinemia Current Visit: Yes Status: Acute (2) Anemia Current Visit: Yes Status: Acute (3) Hypomagnesemia Current Visit: Yes Status: Acute (4) Elevated troponin Current Visit: Yes Status: Acute (5) Hypocalcemia Current Visit: Yes Status: Acute (6) Hypokalemia Current Visit: Yes Status: Acute (7) Sleep apnea Current Visit: Yes Status: Acute (8) Stented coronary artery Current Visit: No Status: Acute (9) Alcoholic hepatitis Current Visit: Yes Status: Acute - Plan REC: 1) monitor labs 2) discontinue EtOH. AA on discharge or rehab Physician Review Additional Text: Physical Exam General: Alert, Oriented x3, pale HEENT: Mucous membr. moist Pulm: dimished bilaterally at bases, nonlabored CV: Regular rate/rhythm, Normal S1 S2 abd: soft, nontender, nondistended Ext: b/l lower extremity edema to mid tibia (1+), no tenderness Integumentary: a few scattered annular lesions on extremities Neurological: b/l lower extremity weakness, 4+/5, slightly worse on right, normal affect, no asterixis Problem List Fall, Syncope subacute frontal lobe CVA Chronic heart failure, unknown type Chronic alcohol abuse/dependence NSTEMI Hypokalemia Hypocalcemia seconary hyperPTH Acute urinary retention Acute Macrocytic anemia subacute frontal lobe CVA - pt reports fall/syncope 2 months ago, and again prior to admission reports some leg "shaking" weakness, and stuttering when talking over the last 1-2 months as well, likely as result of CVA neurology consulted PT consulted, ST consulted Elevated troponin deemed to be secondary to demand ischemia per Cardiology - recommend stress test as outpatient Syncope likely secondary to Hypotension, most recent orthostatics have been negative. Baldev on hold, received IVF from 03/17 to 03/20, dc'd Echocardiogram with global hypokinesis, EF: ~40% pt reports he was "born with heart failure", unsure if systolic or diastolic Magana catheter was placed for strict intake and out and for acute urinary retention. UA: negative for UTI, +urobilinogen Librium for impending alcohol withdrawal. monitor for signs of alcohol withdrawal - discontinued on 03/21, continue to monitor closely Macrocytic anemia, acute drop to 7. Workup done so far with high iron/transferrin saturation. elevated LDH, workup sent, peripheral smear , no evidence of overt bleeding. hemoccult negative. s/p 1u PRBC Hematology consulted -appreciate assistance Transfuse to maintain Hgb >8.0 less likely hemolysis, labs not consistent. possible myelosuppression with chronic alcohol abuse vs hemochromatosis / poor absorption labs sent for further evaluation - r/o celiac disease. pt does report chronic intermittent diarrhea to go for EGD/c-scope today Hypocalcemia, Vit d deficiency mild hypocalcemia still, after correction for hypoalbuminemia elevated PTH, consistent with secondary hyperPTH replacing electrolytes, nephrology consulted for further assistance Dispo: patient may benefit from SNF on discharge with new stroke and ongoing issues
--- NOTE | 2021-03-23 18:17 | P.DS ---
Admission Date: 03/18/21 Discharge Date: 03/23/21 Disposition: TRANSFER TO [facility] Reason for Admission: Weakness, hyperbilirubin, anemia, low calcium/magnesium Consultations: Neurology - Dr. Freire Pulmonology - Dr. Cedillo Nephrology - Dr. Lundy Gastroenterology - Dr. Yip Heme/Onc - Dr. Alvarado Procedures: CXR (03/17): The lungs are emphysematous but grossly clear. The heart is moderately enlarged in size. No displaced fractures. CT Head (03/17): No acute hemorrhage, hydrocephalus or extra-axial collection is identified.Gliosis is seen in the region of the left parietal lobe likely attributable to previous infarct or trauma.No areas of brain edema or midline shift. CT Cspine (03/17): No fracture or subluxation.Mild cervical spondylosis.No prevertebral soft tissues swelling is identified. Atherosclerotic and retropharyngeal carotid artery noted Abd U/S (03/19): Advanced diffuse fatty liver. MRI Brain (03/21): Small 6 mm subacute infarct right frontal lobe region suspected. No hemorrhage, hydrocephalus or pathologic enhancement. MRA Brain (03/21): There is significant flow restricting atherosclerotic changes both carotid siphons. No aneurysm is seen. No vascular malformation evident. The right vertebral artery is dominant. The visualized dural venous sinuses appear patent. Neck MRA (03/21): A left aortic arch with bovine configuration is noted. There is poor visualization of the origin of the left subclavian artery. Both common carotid arteries appear patent. The right carotid bulb demonstrates narrowing estimated at 75-80% based on NASCET criteria. Mild carotid narrowing is present involving the left carotid bulb estimated at 50% or less. Focal significant stenosis is suspected in the distal left vertebral artery. CXR (03/21): The upper lobe vessels are prominent indicative of pulmonary venous hypertension. The lungs appear clear of acute infiltrate. The heart is moderately enlarged CXR (03/23): Bilateral pulmonary interstitial opacities show little interval change since comparative study. The heart is prominent in size. No displaced fractures. IMPRESSION: No interval change has occurred since the prior radiograph dated 03/21/2021. TTE (03/21): MODERATE TO SEVERE GLOBAL HYPOKINESIS. LEFT VENTRICULAR EJECTION FRACTION OF 35-40%. NO EFFUSION. EGD (03/22): Impression: 1. LA class C esophagitis of the distal esophagus. 2. Possible Ma's esophagus, approximately 1.5 cm. 3. status post biopsy. 4. Small sliding hiatal hernia. 5. Gastritis in the antrum. 6. Mild flattening of the small bowel folds in the duodenum from the apex down to the second portion of duodenum, status post small bowel biopsies. Colonoscopy (03/22) Impression: 1. Internal hemorrhoids, moderate in size. 2. Poor prep. BBPS 6 with some solid stool noted throughout colon and clog in colonoscope and intubation to cecum performed. Problem List Fall, Syncope subacute frontal lobe CVA Severe right carotid stenosis Chronic heart failure, unknown type h/o Tetralogy of Fallot s/p repair Chronic alcohol abuse/dependence NSTEMI multiple electrolyte depletion, likely due to GI mal/non-absorption (hypokalemia, hypocalcemia, hypomagnesemia, hypophosphatemia) secondary hyperPTH Vitamin D deficiency Acute respiratory alkalosis with metabolic alkalosis secondary to volume dep letion Acute urinary retention Iron overload with macrocytic anemia Brief History of Present Illness: Mr. Sanford is a 60 yo male with HTN, h/o CABG, alcohol use syndrome here today after being found passed out by neighbor. He says he remembers his legs started shaking, falling and then passing out. He says he was only out for 1 minute but was too weak get up so he laid on the floor for 2 hours. He says this happened 2 days ago but he was able to get up then. He denies nausea, vomiting, headaches, chest pain, SOB, melena and hematochezia. He says he last saw his editor in chief 1 month ago and his workup was normal. He drinks a pint of vodka daily. He has a family history of heart disease - all immediate family members have had NH's. CXR shows the lungs are emphysematous but grossly clear and heart is moderately enlarged in size. The lungs are emphysematous but grossly clear. The heart is moderately enlarged in size. No displaced fractures. CT head shows no acute intracranial or cervical spine findings. Hospital Course: Patient was admitted, covered for alcohol withdrawal, and underwent further evaluation. He was found to have an elevated troponin, peaking at 13. Denied any chest pain. Cardiology was consulted and recommended echocardiogram and no urgent procedures given multiple electrolyte abnormalities, and felt this may be due to demand ischemia. Macrocytic anemia - elevated iron, haptoglobin, LDH. patient denied history of anemia. multiple tests were send outs. Anticoagulation was avoided due to concern for bleed / unknown source of anemia. initial results not consistent with hemolytic anemia. No evidence of bleeding. There was concern for hemochromatosis, and gene panel was sent out. Most likely due to bone marrow suppression in setting of chronic alcoholism. Concern for esophagitis/gastric ulcers with patient's drinking history as well. GI was consulted and patient underwent EGD and C-scope as noted above. Hgb dropped to 7.1 and patient received 1u PRBC. Hgb remained stable, and he was started on aspirin and plavix. R frontal CVA - subacute on MRI, with severe R carotid stenosis, also noted to have stenosis for L carotid, and vertebral arteries. Neurology consulted and recommended transfer for more urgent CEA or stent, especially with multiple stenotic vessels. Lightheadedness - patient unable to stand up without feeling lightheaded/dizzy. Orthostatic vital signs were negative. Thought to be multifactorial - autonomic dysfunction with chronic alcoholism, subacute CVA, electrolyte abnormalities, and multiple stenotic cranial vessels. Electrolyte abnormalities -likely due to GI malabsorption/non-absorption. possible hemochromatosis vs celiac disease, does report history of chronic intermittent diarrhea. most of workup were send outs, and results pending. Biopsies taken during EGD/c-scope Vital Signs/Physical Exam: Physical Exam General: Alert, Oriented x3, pale HEENT: Mucous membr. moist, normal conjunctiva, sclera anicteric, PERRL Pulm: diminished bilaterally at bases, +expiratory wheeze, mildly labored on room air CV: Regular rate/rhythm, Normal S1 S2 Abd: soft, nontender, nondistended Ext: b/l lower extremity edema to mid tibia (1+), no tenderness Integumentary: a few scattered annular lesions on extremities Neuro: stuttered speech, b/l lower extremity weakness, 4+/5, normal affect, no asterixis Temp Pulse Resp BP Pulse Ox 96.8 F 102 H 20 128/72 96 03/23/21 16:55 03/23/21 16:55 03/23/21 16:55 03/23/21 16:55 03/23/21 16:55 Laboratory Data at Discharge: WBC 8.60 K/uL (4.3-10.9) D 03/23/21 05:57 Hgb 8.7 g/dL (13.6-17.9) L 03/23/21 05:57 Hct 26.0 % (39.6-49.0) L 03/23/21 05:57 Plt Count 242 K/uL (152-406) D 03/23/21 05:57 PT 14.0 SECONDS (9.5-12.5) H 03/17/21 19:32 INR 1.21 03/17/21 19:32 APTT 32.5 SECONDS (24.3-36.9) 03/17/21 19:32 Sodium 140 mmol/L (136-145) 03/23/21 05:57 Potassium 4.3 mmol/L (3.5-5.1) 03/23/21 05:57 BUN 5 mg/dL (7-18) L 03/23/21 05:57 Creatinine 0.43 mg/dL (0.55-1.3) L 03/23/21 05:57 Glucose 147 mg/dL (74-106) H 03/23/21 05:57 Phosphorus 3.0 mg/dL (2.5-4.9) D 03/23/21 05:57 Magnesium 1.5 mg/dL (1.8-2.4) L 03/23/21 05:57 Total Bilirubin 1.0 mg/dL (0.2-1.0) 03/22/21 05:37 AST 208 U/L (15-37) H 03/22/21 05:37 ALT 76 U/L (12-78) 03/22/21 05:37 Alkaline Phosphatase 154 U/L (45-117) H 03/22/21 05:37 Troponin I Cancelled 03/19/21 22:28 Triglycerides 129 mg/dL (<150) 03/19/21 04:38 Cholesterol 131 mg/dL (<200) 03/19/21 04:38 HDL Cholesterol 19 mg/dL (40-60) L 03/19/21 04:38 Cholesterol/HDL Ratio 6.89 03/19/21 04:38 Home Medications: Aspirin [Aspirin EC 81 MG] 81 mg PO DAILY #100 tablet. 08/31/19 Atorvastatin Calcium [Lipitor] 80 mg PO BEDTIME #30 tab 08/31/19 Losartan Potassium [Cozaar*] 50 mg PO DAILY #30 tablet 08/31/19 Metoprolol Tartrate [Lopressor*] 50 mg PO BID #30 tab 08/31/19 Furosemide [Lasix] 1 tab PO DAILY 03/18/21 Followup: Unknown,U [Primary Care Provider] - Time spent managing pt's care (in minutes): 60
[2021-03-23 19:05] VITALS: BP 131/71; TEMP 97.1
--- NOTE | 2021-03-23 19:56 | CON ---
Reason For Consultation: Neurological consultation was requested because of stroke. History Of Present Illness: Mr. Sanford is a 60-year-old right-handed patient with coronary artery disease status post bypass grafting, hypertension, heavy alcohol consumption, who was found un conscious by a neighbor. The patient reportedly remembers his legs were shaking and then falling, ap parently then passed out. The patient believes he was down for a short while before he woke up and d etermined that he was too weak to get up and laid on the floor for a few hours. The patient did not immediately come to the hospital after the episode. He was actually admitted on the . This epis ode occurred on . In terms of his alcohol consumption, he did admit to drinking a quarter of bot tle of whiskey daily and has been doing so for quite a number of years. At [facility], he h ad a trauma series CT including the head and cervical spine, which showed no acute ischemic or hemorr hagic changes or fractures near his collar in cervical spine region. The patient did not have any ob vious focal weakness at the time of his hospitalization, but did have significant electrolyte abnorma lities including liver dysfunction likely related to his chronic alcohol consumption. His subsequent brain MRI done on the identified a 6 mm subacute infarct in the right frontal region. There wa s no hemorrhagic conversion. His magnetic resonance angiogram showed significant arthrosclerotic dis ease in both carotid siphons. His neck MRA also identified moderately severe carotid stenosis in the right carotid bulb, estimated at 75% to 80%. The left carotid bulb had estimated 50% stenosis and f ocal significant stenosis suspected in the distal left vertebral artery, that is with compromise ther efore of 3 of the 4 vessels supplying his brain. Clinically, the patient has had significant difficu lty attempting to go from a lying to a sitting or standing position. He quickly gets lightheaded, na useated with vertigo and has to lie back down for those symptoms to resolve. He has had orthostatics where his blood pressure systolic dropped to 90 from 147 and diastolic to 58 from 72 and his pulse d id go down as well. He requires maximal assistance to stand and get to the toilet or he is likely to lose balance and fall. The patient's condition was discussed with the hospitalist and it was determined that he actually wou ld be best served being transferred to [place] for acute intra-arterial carotid angioplasty and stent given the distribution of his stroke is in the right hemisphere, perhaps related to his right caroti d bulb high-grade stenosis. He does have significant comorbidities including chronic alcohol related liver dysfunction, chronic anemia, and electrolyte abnormalities. Past Medical History: Alcoholic cirrhosis, hypertension. Allergies: NO KNOWN DRUG ALLERGIES. Medications: At home, atorvastatin, losartan, metoprolol, aspirin, Lasix. Past Surgical History: None. Social History: The patient drinks or consumes at least a fourth of a bottle of whiskey daily, and h e denies tobacco or illegal drug use. Review of Systems: He has had difficulty with his balance, gait, and coordination, and some myalgias and arthralgias, di ffuse weakness. Otherwise, mild abdominal pain, but no other positives on review of systems. Physical Examination: Vital Signs: Blood pressure 127/58, pulse 99, respiratory rate 16, temperature 97.7, oxygen saturati on 96% on room air. Weight 205 pounds, height 5 feet 9 inches, BMI 30.3. General: Mr. Sanford is resting in bed. He is in no significant distress. HEENT: He is normocephalic, atraumatic. Sclerae anicteric. Abdomen: Somewhat distended appearing without an obvious fluid wave. Extremities: Mild edema, but no cyanosis or clubbing. Neurological: He is alert and oriented to situation, place, and person. He does follow commands nancy ropriately. He has no obvious expressive or receptive aphasias. Cranial nerves show no clear focal deficits. His motor examination is diffusely weak in the upper and lower extremities, around 4/5 and symmetrically so. Coordination is mild dysmetria noted in the upper and lower extremities. Reflexe s are depressed in the upper and lower extremities. His gait actually requires maximal assistance to stand and ambulate, but he had a tendency to lose balance and fall very easily. Laboratory Studies: Sodium 140, potassium 4.3, chloride 103, carbon dioxide 28, BUN 5, creatinine 0. 43, glucose 98 to 147, calcium low at 6.8, phosphorus 3, magnesium 1.5, albumin low at 2. Serum alco hol level at admission was 184 with a range of less than 10 being normal, otherwise his drug screen w as negative. His RANDALL is pending. Rheumatoid factor negative. His COVID-19 test is negative. His H IV 1 and 2 are nonreactive. Hepatitis C and hepatitis B antibodies negative. Hepatitis A nonreactiv e. Assessment: Mr. Sanford is a 60-year-old right-handed patient with alcoholic liver disease, hypertension, right frontal stroke measuring 6 mm, and high-grade right carotid stenosis around 75% t o 80%. He does have significant electrolyte abnormalities and diffuse weakness. He has orthostatic type changes and possibly aggravated by autonomic dysfunction, which may be secondary to chronic alco hol neuropathy and disease. Plan: 1.He will likely benefit greatly from interventional carotid artery angioplasty and stenting to redu ce further stroke risk. He does require medical management for his liver cirrhosis and electrolyte a bnormalities, and he would require aggressive physical therapy to help him regain balance, coordinati on, strength, and performing his activities of daily living. At this point, we will continue with as pirin 81 mg daily, Plavix 75 mg daily, Lovenox for DVT prophylaxis, Lipitor 20 mg at bedtime, will be on thiamine 100 mg daily, folic acid 1 mg daily, multivitamin daily for the alcohol withdrawal proph ylaxis, which so far he has done well. It has been 6 days actually and he has not had any symptoms o f alcohol withdrawal. 2.We will try to get him transferred to [place] for potential intra-arterial angioplasty and stent t o the right internal carotid. BECKY/MODL Voice ID: [id number] Report ID: [id number]
[2021-03-23 21:06] VITALS: O2SAT 99
--- NOTE | 2021-03-24 11:42 | PN ---
Date of Progress Note: 03/20/2021 Subjective: Mr. Sanford came in with syncope secondary to alcohol abuse, severe electrolyte abnormalit ies, and elevated troponin. Echocardiogram showed an ejection fraction of 35%. Mr. Sanford has had a history of congenital heart disease. It is unsure which one it was, but I believe that wa s corrected on the echocardiogram. Structurally the heart appeared to be within normal limits except the ejection fraction was low. His electrolytes remained abnormal. His creatinine is normal. I wo uld suggest correcting electrolytes put the patient on Entresto, carvedilol, Lasix and I will see him in the office in the next 2 weeks. MARÍA/BRIA Voice ID: [id number] Report ID: [id number]
[2021-03-25 03:55] LABS: Albumin, (SPE) 2.3 g/dL (3.8-4.8); Alpha-1-Globulins 0.5 g/dL (0.2-0.3); Alpha-2-Globulins 0.9 g/dL (0.5-0.9); Gamma Globulins 1.1 g/dL (0.8-1.7); INTERPRETATION REPORT
[2021-04-03 16:20] LABS: Tissue Transglutaminase IgA Ab 2 U/mL (<4)
== END 2021-03-23 21:48 | disposition short-term general hospital (02) | DRG 896 ==
LOC: ER 18:50 → ERHOLD 03-18 00:29 → 2ND 03-18 07:51
PROVIDERS: ADMIT Internal Medicine; ATTEND Hospitalist
PROC: 30233N1 Transfusion of Nonautologous Red Blood Cells into Peripheral Vein, Percutaneous Approach (ICD-10-PCS; 2021-03-20)
PROC: 0DB98ZX Excision of Duodenum, Via Natural or Artificial Opening Endoscopic, Diagnostic (ICD-10-PCS; principal; 2021-03-22 12:15)
PROC: 0DJD8ZZ Inspection of Lower Intestinal Tract, Via Natural or Artificial Opening Endoscopic (ICD-10-PCS; 2021-03-22 12:15)
DX: F10.239 Alcohol dependence with withdrawal, unspecified (principal); I21.A1 Myocardial infarction type 2; I63.9 Cerebral infarction, unspecified; I50.32 Chronic diastolic (congestive) heart failure; E87.3 Alkalosis; K20.90 Esophagitis, unspecified without bleeding; F10.229 Alcohol dependence with intoxication, unspecified; I11.0 Hypertensive heart disease with heart failure; K25.9 Gastric ulcer, unspecified as acute or chronic, without hemorrhage or perforation; K22.70 Barrett's esophagus without dysplasia; K29.70 Gastritis, unspecified, without bleeding; K64.8 Other hemorrhoids; D63.8 Anemia in other chronic diseases classified elsewhere; I45.10 Unspecified right bundle-branch block; R77.8 Other specified abnormalities of plasma proteins; Z79.82 Long term (current) use of aspirin; Z79.899 Other long term (current) drug therapy; Z95.1 Presence of aortocoronary bypass graft; Z20.822 Contact with and (suspected) exposure to COVID-19; E87.6 Hypokalemia; E16.2 Hypoglycemia, unspecified; I25.10 Atherosclerotic heart disease of native coronary artery without angina pectoris; I95.9 Hypotension, unspecified; R33.9 Retention of urine, unspecified; J44.9 Chronic obstructive pulmonary disease, unspecified; D53.9 Nutritional anemia, unspecified; E21.1 Secondary hyperparathyroidism, not elsewhere classified; F41.9 Anxiety disorder, unspecified; K44.9 Diaphragmatic hernia without obstruction or gangrene; G47.30 Sleep apnea, unspecified; K70.10 Alcoholic hepatitis without ascites; I65.21 Occlusion and stenosis of right carotid artery; E86.9 Volume depletion, unspecified; R42 Dizziness and giddiness; E87.8 Other disorders of electrolyte and fluid balance, not elsewhere classified; K70.9 Alcoholic liver disease, unspecified
CPT/HCPCS: 36415; 36430; 70450; 70544; 70549; 70553; 71045; 72125; 76700; 80048; 80053; 80061; 80069; 80074; 80076; 80307; 80320; 81001; 81003; 82306; 82310; 82330; 82550; 82570; 82607; 82652; 82728; 82746; 82784; 82805; 82947; 83010; 83516; 83540; 83605; 83615; 83735; 83880; 83883; 83970; 84100; 84132; 84156; 84165; 84425; 84439; 84443; 84466; 84484; 85014; 85018; 85025; 85044; 85610; 85652; 85730; 86038; 86140; 86334; 86430; 86706; 86708; 86850; 86880; 86900; 86901; 87389; 88305; 88312; 88313; 92523; 93005; 93306; 94640; 94760; 96365; 96366; 96367; 96375; 97112; 97116; 97161; 97530; 99285; A9577; J0610; J2405; J2704; J2765; J3411; J3475; J3480; J7030; J7040; J7050; J7512; P9016; Q5106; U0003

== ENCOUNTER 2022-08-12 07:46 | Observation (INO) | payer OTHER ==
--- OUTSIDE RECORDS SUMMARY | 2022-08-12 07:50 | XMS REPORT | Continuity of Care Document ---
:1960 Author Organization [facility] t Address [address] [place] [address] Care Team Providers Name Role Phone RIOSNancySHERIN Primary Care Physician Unavailable TRINIDAD SHETH Attending Clinician Unavailable Mona Macdonald MD Attending Clinician SAM BERNABE Attending Clinician Unavailable TRINIDAD SHETH Admitting Clinician Unavailable SELIN GRUBER Admitting Clinician Unavailable Payers Payer Name Policy Type Policy Number Effective Date Expiration Date Cali paniagua [facility] [id number] HMO [place] [id number] Problems Condition Condition Condition Status Onset Resolution Last Treating Co mments Source Name Details Category Date Date Treatment Clinician Date Stroke St[facility] Disease [facility] 4[facility]30 Julita kes [facility] Center Allergies, Adverse Reactions, Alerts Allergy Allergy Status Severity Reaction(s) Onset Inactive Treating Comm ents Source Name Type Date Date Clinician NO KNOWN Allergy Active [facility] Social History Social Habit Start Date Stop Date Quantity Comments Source Sex Assigned At [address] [facility] Julita kes 00:00:00 00:[facility]:00 [facility] Medications Ordered Filled Start Stop Current Ordering Indication Dosage Frequency Signature Comments Components Source Medication Medication Date Date Medication? Clinician (SIG) Name Name aspirin 81 Yes 81mg QD Take [facility] chewable [facility]-12 tablet (81 Julita kes tablet 00:00: mg total) Medica l 00 by mouth Center daily. clopidogreL Yes 75mg QD Take [address] [facility] (PLAVIX) 75 5-12 tablet (75 Julita kes mg tablet 00:00: mg total) Med ical 00 by mouth Center daily. tamsulosin Yes .4mg QD Take 1 [facility] (FLOMAX) 5[facility]12 [facility] 0[facility]4 mg Cap 00:00: (0.4 mg Medi zo 24 hr 00 total) by Center capsule mouth daily. furosemide Yes 20mg QD Take 1 [facility] (LASIX) 20 5-12 tablet (20 James es MG tablet 00:00: mg total) Med ical 00 by mouth Center daily. atorvastati Yes 80mg QD Take [address] [facility] [address] [facility] (LIPITOR) 5-11 tablet (80 Julita kes 80 MG 00:00: mg total) Medical tablet 00 by mouth Center nightly. metoprolol Yes 25mg QD Take 1 [facility] succinate 5-11 tablet (25 Luke s (TOPROL-XL) 00:00: mg total) M edical 25 MG 24 hr 00 by mouth Cent er tablet daily. Procedures This patient has no known procedures. Plan of Care Planned Activity Planned Date Details Comments Source Future Scheduled 2024-03-24 Lipid panel (procedure) [facility] 00:00:00 [code = 82616684] Medical Ce nter Future Scheduled 2022-07-25 INFLUENZA VACCINE (#1) [facility] [code = INFLUENZA Medical Ce nter VACCINE (#1)] Future Scheduled 2021-11-[address] [facility] 00:00:00 WELLNESS (YEAR 2 or Medical Center FIRST YEAR if no IPPE) [code = MEDICARE ANNUAL WELLNESS (YEAR 2 or FIRST YEAR if no IPPE)] Future Scheduled 2021-11-[address] [facility] 00:00:00 (12+) [code = Medical Center DEPRESSION SCREENING (12+)] Future Scheduled 2009 SHINGLES VACCINES ([address] [facility] 00:00:00 2) [code = SHINGLES Medical Center VACCINES (1 of 2)] Future Scheduled 1978 DTAP/TDAP/TD VACCINES [facility] 00:00:00 (1 - Tdap) [code = Medical C enter DTAP/TDAP/TD VACCINES (1 - Tdap)] Future Scheduled 1977 HEPATITIS C SCRE[facility]ING [facility] 00:00:00 [code = HEPATITIS C Medical Center SCREENING] Future Scheduled 1960-01-03 COVID-19 VACCINE (#1) [facility] 00:00:00 [code = COVID-[address] VACCINE (#1)] Future Scheduled 1959 Screening for malignant [facility] 00:00:00 neoplasm of colon Medical Ce nter (procedure) [code = 676584436] Future Scheduled 1960 Sigmoidoscopy [code = [facility] S[facility]oidoscopy] Medical Cente r Future Scheduled 1959 CT Colonography (combo) [facility] 00:00:00 [code = CT Colonography [facility] (combo)] Future Scheduled 1959 Screening for malignant [facility] 00:00:00 neoplasm of colon Medical Ce nter (procedure) [code = 684719012] Future Scheduled 1959 Screening for malignant [facility] 00:00:00 neoplasm of colon Medical Ce nter (procedure) [code = 340216038] Future Scheduled 1959 Screening for malignant [facility] 00:00:00 neoplasm of colon Medical Ce nter (procedure) [code = 994176365] Encounters Start End Encounter Admission Attending Care Care Encounter Source Date/Time Date/Time Type Type Clinicians Facility Department ID 2021-03-23 Inpatient [facility] Neurology [id number] [facility] 22:51:00 , TRINIDAD 2022-04-23 2022-04-23 Refill Renae [facility] [id number] 00[facility]00:00 00:00:00 [facility] 2022-01-23 2022-01-23 [id number] 00:00:00 00:00:00 [facility] 2021-10-10 2021-10-10 Outpatient FAINA BERNABE, [facility] [id number] [facility] 00:00:00 00:00:00 SAM Results Test Description Test Time Test Comments Results Result Comments Source BASIC METABOLIC PANEL 2021-04-03 05:04:00 Test Item Value Reference Range Interpretation Comme nts SODIUM (BEAKER) (test code 133 meq/L 136-145 L = 381) POTASSIUM (BEAKER) (test 3.5 meq/L 3.5-5.1 code = 379) CHLORIDE (BEAKER) (test 102 meq/L 98-107 code = 382) CO2 (BEAKER) (test code = 22 meq/L 22-29 355) BLOOD UREA NITROGEN 7 mg/dL 7-21 (BEAKER) (test code = 354) CREATININE (BEAKER) (test 0.57 mg/dL 0.57-1.25 code = 358) GLUCOSE RANDOM (BEAKER) 117 mg/dL 70-105 H (test code = 652) CALCIUM (BEAKER) (test 8.0 mg/dL 8.4-10.2 L code = 697) EGFR (BEAKER) (test code = 145 mL/min/1.73 sq m ESTIMATED GFR IS NOT 1092) ACCURATE CRE ATININE CLEARANCE IN [place] EDICTING GLOMERULAR FILT RATION RATE. ESTIMATED GFR IS NOT APPLICABLE FOR DIALYSIS PATIENTS. Leather Belt Maker ID - TRUNG [id number] 05:04:00 Test Item Value Reference Range Interpretation Comments MAGNESIUM (BEAKER) (test code = 1.4 mg/dL 1.6-2.6 L 627) Leather Belt Maker ID - TRUNG [facility] (HEMOGRAM ONLY)2021-04-03 04:31:00 Test Item Value Reference Range Interpretation Comments WHITE BLOOD CELL COUNT (BEAKER) 8.1 K/ L 3.5-10.5 (test code = 775) RED BLOOD CELL COUNT (BEAKER) 2.69 M/ L 4.63-6.08 L (test code = 761) HEMOGLOBIN (BEAKER) (test code = 8.9 GM/DL 13.7-17.5 L 410) HEMATOCRIT (BEAKER) (test code = 29.0 % 40.1-51.0 L 411) MEAN CORPUSCULAR VOLUME (BEAKER) 107.8 fL 79.0-92.2 H (test code = 753) MEAN CORPUSCULAR HEMOGLOBIN 33.1 pg 25.7-32.2 H (BEAKER) (test code = 751) MEAN CORPUSCULAR HEMOGLOBIN CONC 30.7 GM/DL 32.3-36.5 L (BEAKER) (test code = 752) RED CELL DISTRIBUTION WIDTH 19.4 % 11.6-14.4 H (BEAKER) (test code = 412) PLATELET COUNT (BEAKER) (test 325 K/CU MM 150-450 code = 756) MEAN PLATELET VOLUME (BEAKER) 10.0 fL 9.4-12.4 (test code = 754) NUCLEATED RED BLOOD CELLS 0 /100 WBC 0-0 (BEAKER) (test code = 413) [id number] 10:41:00 Test Item Value Reference Range Interpretation Comments ACTIVATED CLOTTING TIME 263 sec : 74 -137 seconds, (BEAKER) (test code = Baseli ne: TESTED AT 441) [address], [facility] 30: Leather Belt Maker/Techni qing ID = [id number] for [place] SLY, LANCE [id number] 10:06:00 Test Item Value Reference Range Interpretation Comments ACTIVATED CLOTTING TIME 252 sec : 74 -137 seconds, (BEAKER) (test code = Baseli ne: TESTED AT 441) [address], [facility] 30: Leather Belt Maker/Techni qing ID = [id number] for [place] SLY, LANCE [id number] 10:06:00 Test Item Value Reference Range Interpretation Comments ACTIVATED CLOTTING TIME 555 sec : 74 -137 seconds, (BEAKER) (test code = Андрей ne: TESTED AT 441) [address], [facility] 30: Leather Belt Maker/Techni qing ID = [id number] for [place] SLY, LANCE BASIC METABOLIC [id number] 04:38:00 Test Item Value Reference Range Interpretation Comments SODIUM (BEAKER) 135 meq/L 136-145 L (test code = 381) POTASSIUM (BEAKER) 3.6 meq/L 3.5-5.1 (test code = 379) CHLORIDE (BEAKER) 105 meq/L 98-107 (test code = 382) CO2 (BEAKER) (test 23 meq/L 22-29 code = 355) BLOOD UREA NITROGEN 9 mg/dL 7-21 (BEAKER) (test code = 354) CREATININE (BEAKER) 0.59 mg/dL 0.57-1.25 (test code = 358) GLUCOSE RANDOM 134 mg/dL 70-105 H (BEAKER) (test code = 652) CALCIUM (BEAKER) 7.6 mg/dL 8.4-10.2 L (test code = 697) EGFR (BEAKER) (test 140 mL/min/1.73 ESTIM ATED GFR IS code = 1092) sq m NOT ACCURATE CREATININE CLEARANCE IN PREDICTING GLOMERULAR FILTRATION RATE . ESTIMATED GFR I S NOT APPLICABLE FOR DIALYSIS PATIEN TS. Leather Belt Maker ID - TRUNG [id number] 04:31:00 Test Item Value Reference Range Interpretation Comments MAGNESIUM (BEAKER) (test code = 1.5 mg/dL 1.6-2.6 L 627) Leather Belt Maker ID - TRUNG MBASIC METABOLIC [id number] 05:44:00 Test Item Value Reference Range Interpretation Comments SODIUM (BEAKER) 137 meq/L 136-145 (test code = 381) POTASSIUM (BEAKER) 3.8 meq/L 3.5-5.1 (test code = 379) CHLORIDE (BEAKER) 106 meq/L 98-107 (test code = 382) CO2 (BEAKER) (test 23 meq/L 22-29 code = 355) BLOOD UREA NITROGEN 8 mg/dL 7-21 (BEAKER) (test code = 354) CREATININE (BEAKER) 0.55 mg/dL 0.57-1.25 L (test code = 358) GLUCOSE RANDOM 106 mg/dL 70-105 H (BEAKER) (test code = 652) CALCIUM (BEAKER) 7.3 mg/dL 8.4-10.2 L (test code = 697) EGFR (BEAKER) (test 151 mL/min/1.73 ESTIM ATED GFR IS code = 1092) sq m NOT ACCURATE CREATININE CLEARANCE IN PREDICTING GLOMERULAR FILTRATION RATE . ESTIMATED GFR I S NOT APPLICABLE FOR DIALYSIS PATIEN TS. Leather Belt Maker ID - MARGIE [id number] 05:43:00 Test Item Value Reference Range Interpretation Comments MAGNESIUM (BEAKER) (test code = 1.6 mg/dL 1.6-2.6 627) Leather Belt Maker ID Faby MARGIE WSARS-COV2/RT-PCR ([facility])2021-03-31 08:46:00 Test Item Value Reference Range Interpretation Comments SARS-COV2/RT-PCR (test Negative Not Detected, Negative, code = 1441812) See external report for linked test SARS-COV-2 PERFORMING LAB [facility] [place] (test code = 9500964) Negative result for this test determines that SARS-CoV-2 RNA was not present in the specimen above the Limit of Detection (LOD). However, Negative results do not preclude SARS-CoV-2 infection and should not be used as the sole basis for treatment or patient management decisions. Negative results must be combined with clinical observations, patient history, and epidemiological information. A false negative result may occur if a specimen is improperly collected, transported or handled. A false negative result should be considered if patient's recent exposures or clinical presentation indicate that COVID-19 (SARS-CoV-2) is likely and diagnostic tests for other causes of illness are negative. Re-testing should be considered in cases of suspected false negatives.The limit of detection for this assay is 800 copies/mL.This SARS CoV-2 test is a real-time RT-PCR test intended for the qualitative detection of nucleic acid from SARS-CoV-2 in a nasopharyngeal swab specimen collected from individuals suspected of COVID-19 by their healthcare provider.This test has not been Food and Drug Administration (FDA) cleared or approved. This is a modified version of an approved Emergency Use Authorization (EUA) and is in the process of review by the FDA. Once authorized by the FDA, the issued EUA will be effective until the declaration that circumstances exist justifying the authorization of the emergency use ofin vitro diagnostic tests for detection and/or diagnosis of COVID-19 is terminated under Section 564(b)(2) of the Act or the EUA is revoked under Section 564(g) of the Act.Fact Sheet for Healthcare Prov iders:https://www.WAYN.com/sites/default/files/product/documents/Fact_Sheet_HC _Njupepgnu_Gfez_EOES-TiW-6.pdfFact Sheet for Healthcare Patients:https://www.[employer]AY[employer].Altheos/sites/default/files/product/docume nts/Cihn_Kfakg_Rstyyedr_Qxsf_KDBU-ZaC-2.pdfPerforming Laboratory:[facility] [place], [place] [address]ZFKLN METABOLIC PANEL 2021-03-31 06:05:00 Test Item Value Reference Range Interpretation Comments SODIUM (BEAKER) 135 meq/L 136-145 L (test code = 381) POTASSIUM (BEAKER) 3.5 meq/L 3.5-5.1 (test code = 379) CHLORIDE (BEAKER) 104 meq/L 98-107 (test code = 382) CO2 (BEAKER) (test 22 meq/L 22-29 code = 355) BLOOD UREA NITROGEN 7 mg/dL 7-21 (BEAKER) (test code = 354) CREATININE (BEAKER) 0.58 mg/dL 0.57-1.25 (test code = 358) GLUCOSE RANDOM 119 mg/dL 70-105 H (BEAKER) (test code = 652) CALCIUM (BEAKER) 7.4 mg/dL 8.4-10.2 L (test code = 697) EGFR (BEAKER) (test 142 mL/min/1.73 ESTIM ATED GFR IS code = 1092) sq m NOT ACCURATE CREATININE CLEARANCE IN PREDICTING GLOMERULAR FILTRATION RATE . ESTIMATED GFR I S NOT APPLICABLE FOR DIALYSIS PATIEN TS. Leather Belt Maker ID - [id number] 06:03:00 Test Item Value Reference Range Interpretation Comments MAGNESIUM (BEAKER) (test code = 1.8 mg/dL 1.6-2.6 627) Leather Belt Maker ID - [id number] 04:53:00 Test Item Value Reference Range Interpretation Comments MAGNESIUM (BEAKER) (test code = 1.5 mg/dL 1.6-2.6 L 627) Leather Belt Maker ID - DBBASIC METABOLIC [id number] 04:53:00 Test Item Value Reference Range Interpretation Comments SODIUM (BEAKER) 132 meq/L 136-145 L (test code = 381) POTASSIUM (BEAKER) 4.0 meq/L 3.5-5.1 (test code = 379) CHLORIDE (BEAKER) 101 meq/L 98-107 (test code = 382) CO2 (BEAKER) (test 23 meq/L 22-29 code = 355) BLOOD UREA NITROGEN 8 mg/dL 7-21 (BEAKER) (test code = 354) CREATININE (BEAKER) 0.61 mg/dL 0.57-1.25 (test code = 358) GLUCOSE RANDOM 131 mg/dL 70-105 H (BEAKER) (test code = 652) CALCIUM (BEAKER) 7.9 mg/dL 8.4-10.2 L (test code = 697) EGFR (BEAKER) (test 134 mL/min/1.73 ESTIM ATED GFR IS code = 1092) sq m NOT ACCURATE CREATININE CLEARANCE IN PREDICTING GLOMERULAR FILTRATION RATE . ESTIMATED GFR I S NOT APPLICABLE FOR DIALYSIS PATIEN TS. Leather Belt Maker ID - [id number] 06:51:00 Test Item Value Reference Range Interpretation Comments ACTIVATED CLOTTING TIME 252 sec : TE STED AT [facility] [address] (BEAKER) (test code = [address] [place], 441) [address]: Field1: 2: Leather Belt Maker/Techni qing ID = [id number] for JHONATHAN SCOTT BASIC METABOLIC [id number] 04:38:00 Test Item Value Reference Range Interpretation Comments SODIUM (BEAKER) 135 meq/L 136-145 L (test code = 381) POTASSIUM (BEAKER) 4.0 meq/L 3.5-5.1 (test code = 379) CHLORIDE (BEAKER) 103 meq/L 98-107 (test code = 382) CO2 (BEAKER) (test 25 meq/L 22-29 code = 355) BLOOD UREA NITROGEN 7 mg/dL 7-21 (BEAKER) (test code = 354) CREATININE (BEAKER) 0.57 mg/dL 0.57-1.25 (test code = 358) GLUCOSE RANDOM 120 mg/dL 70-105 H (BEAKER) (test code = 652) CALCIUM (BEAKER) 7.4 mg/dL 8.4-10.2 L (test code = 697) EGFR (BEAKER) (test 145 mL/min/1.73 ESTIM ATED GFR IS code = 1092) sq m NOT ACCURATE CREATININE CLEARANCE IN PREDICTING GLOMERULAR FILTRATION RATE . ESTIMATED GFR I S NOT APPLICABLE FOR DIALYSIS PATIEN TS. Leather Belt Maker ID - TRUNG [id number] 04:30:00 Test Item Value Reference Range Interpretation Comments MAGNESIUM (BEAKER) (test code = 1.5 mg/dL 1.6-2.6 L 627) Leather Belt Maker ID - TRUNG [id number] 19:20:00 Test Item Value Reference Range Interpretation Comments ACTIVATED CLOTTING TIME 142 sec : 74 -137 seconds, (BEAKER) (test code = Baseli ne: TESTED AT 441) [facility] [address] [facility], [facility] 30: Leather Belt Maker/Techni qing ID = [id number] for TAYE DGJHONATHAN MARTIN [id number] 17:39:00 Test Item Value Reference Range Interpretation Comments ACTIVATED CLOTTING TIME 274 sec : 74 -137 seconds, (BEAKER) (test code = Baseli ne: TESTED AT 441) [address], [facility] 30: Leather Belt Maker/Techni qing ID = [id number] for TAYE DGJHONATHAN MARTIN [id number] 16:24:00 Test Item Value Reference Range Interpretation Comments ACTIVATED CLOTTING TIME 257 sec : 74 -137 seconds, (BEAKER) (test code = Baseli ne: TESTED AT 441) [address], [facility] 30: Leather Belt Maker/Techni qing ID = [id number] for Lidia Blanca BASIC METABOLIC [id number] 10:50:00 Test Item Value Reference Range Interpretation Comments SODIUM (BEAKER) 135 meq/L 136-145 L (test code = 381) POTASSIUM (BEAKER) 4.3 meq/L 3.5-5.1 Specimen slightly (test code = 379) hemolyzed CHLORIDE (BEAKER) 103 meq/L 98-107 (test code = 382) CO2 (BEAKER) (test 23 meq/L 22-29 code = 355) BLOOD UREA NITROGEN 8 mg/dL 7-21 (BEAKER) (test code = 354) CREATININE (BEAKER) 0.65 mg/dL 0.57-1.25 Specimen slightly (test code = 358) hemolyzed GLUCOSE RANDOM 124 mg/dL 70-105 H (BEAKER) (test code = 652) CALCIUM (BEAKER) 7.6 mg/dL 8.4-10.2 L (test code = 697) EGFR (BEAKER) (test 125 mL/min/1.73 ESTIM ATED GFR IS code = 1092) sq m NOT ACCURATE CREATININE CLEARANCE IN PREDICTING GLOMERULAR FILTRATION RATE . ESTIMATED GFR I S NOT APPLICABLE FOR DIALYSIS PATIEN TS. Leather Belt Maker ID - PIAYA LBASIC METABOLIC [id number] 10:24:00 Test Item Value Reference Range Interpretation Comments SODIUM (BEAKER) 135 meq/L 136-145 L (test code = 381) POTASSIUM (BEAKER) 4.5 meq/L 3.5-5.1 Specimen slightly (test code = 379) hemolyzed CHLORIDE (BEAKER) 103 meq/L 98-107 (test code = 382) CO2 (BEAKER) (test 25 meq/L 22-29 code = 355) BLOOD UREA NITROGEN 7 mg/dL 7-21 (BEAKER) (test code = 354) CREATININE (BEAKER) 0.63 mg/dL 0.57-1.25 Specimen slightly (test code = 358) hemolyzed GLUCOSE RANDOM 128 mg/dL 70-105 H (BEAKER) (test code = 652) CALCIUM (BEAKER) 7.8 mg/dL 8.4-10.2 L (test code = 697) EGFR (BEAKER) (test 129 mL/min/1.73 ESTIM ATED GFR IS code = 1092) sq m NOT ACCURATE CREATININE CLEARANCE IN PREDICTING GLOMERULAR FILTRATION RATE . ESTIMATED GFR I S NOT APPLICABLE FOR DIALYSIS PATIEN TS. Leather Belt Maker ID - PIAYA [id number] 10:13:00 Test Item Value Reference Range Interpretation Comments PROTIME (BEAKER) (test 12.9 seconds 11.9-14.2 code = 759) INR (BEAKER) (test 1.00 See_Comment [Automat ed code = 370) message] The sy stem which generated this result transmitted reference range : <=5.90. The reference range was not used to interpret this result as normal/abnormal . PARTIAL THROMBOPLASTIN 34.0 seconds 22.5-36.0 TIME (BEAKER) (test code = 760) Effective 04/21/2019: PT Reference Range ChangeNew: 11.9-14.2 Previous: 11.7- 14.7RECOMMENDED COUMADIN/WARFARIN INR THERAPY RANGESSTANDARD DOSE: 2.0-3.0 Includes: PROPHYLAXIS for venous thrombosis, systemic embolization; TREATMENT for venous thrombosis and/or pulmonary embolus.HIGH RISK: Target INR is 2.5-3.5 for patients wiht mechanical heart valves.CBC W/PLT COUNT & AUTO [id number] 10:06:00 Test Item Value Reference Range Interpretation Comments WHITE BLOOD CELL COUNT (BEAKER) 7.3 K/ L 3.5-10.5 (test code = 775) RED BLOOD CELL COUNT (BEAKER) 2.91 M/ L 4.63-6.08 L (test code = 761) HEMOGLOBIN (BEAKER) (test code = 9.7 GM/DL 13.7-17.5 L 410) HEMATOCRIT (BEAKER) (test code = 31.7 % 40.1-51.0 L 411) MEAN CORPUSCULAR VOLUME (BEAKER) 108.9 fL 79.0-92.2 H (test code = 753) MEAN CORPUSCULAR HEMOGLOBIN 33.3 pg 25.7-32.2 H (BEAKER) (test code = 751) MEAN CORPUSCULAR HEMOGLOBIN CONC 30.6 GM/DL 32.3-36.5 L (BEAKER) (test code = 752) RED CELL DISTRIBUTION WIDTH 21.0 % 11.6-14.4 H (BEAKER) (test code = 412) PLATELET COUNT (BEAKER) (test 277 K/CU MM 150-450 code = 756) MEAN PLATELET VOLUME (BEAKER) 9.7 fL 9.4-12.4 (test code = 754) NUCLEATED RED BLOOD CELLS 0 /100 WBC 0-0 (BEAKER) (test code = 413) NEUTROPHILS RELATIVE PERCENT 77 % (BEAKER) (test code = 429) LYMPHOCYTES RELATIVE PERCENT 15 % (BEAKER) (test code = 430) MONOCYTES RELATIVE PERCENT 5 % (BEAKER) (test code = 431) EOSINOPHILS RELATIVE PERCENT 1 % (BEAKER) (test code = 432) BASOPHILS RELATIVE PERCENT 1 % (BEAKER) (test code = 437) NEUTROPHILS ABSOLUTE COUNT 5.58 K/ L 1.78-5.38 H (BEAKER) (test code = 670) LYMPHOCYTES ABSOLUTE COUNT 1.09 K/ L 1.32-3.57 L (BEAKER) (test code = 414) MONOCYTES ABSOLUTE COUNT (BEAKER) 0.39 K/ L 0.30-0.82 (test code = 415) EOSINOPHILS ABSOLUTE COUNT 0.04 K/ L 0.04-0.54 (BEAKER) (test code = 416) BASOPHILS ABSOLUTE COUNT (BEAKER) 0.04 K/ L 0.01-0.08 (test code = 417) IMMATURE GRANULOCYTES-RELATIVE 2 % 0-1 H PERCENT (BEAKER) (test code = 2801) [id number] 06:35:00 Test Item Value Reference Range Interpretation Comments MAGNESIUM (BEAKER) (test code = 1.9 mg/dL 1.6-2.6 627) Leather Belt Maker ID - TRUNG MBASIC METABOLIC [id number] 17:18:00 Test Item Value Reference Range Interpretation Comments SODIUM (BEAKER) 133 meq/L 136-145 L (test code = 381) POTASSIUM (BEAKER) 3.9 meq/L 3.5-5.1 (test code = 379) CHLORIDE (BEAKER) 100 meq/L 98-107 (test code = 382) CO2 (BEAKER) (test 24 meq/L 22-29 code = 355) BLOOD UREA NITROGEN 7 mg/dL 7-21 (BEAKER) (test code = 354) CREATININE (BEAKER) 0.61 mg/dL 0.57-1.25 (test code = 358) GLUCOSE RANDOM 117 mg/dL 70-105 H (BEAKER) (test code = 652) CALCIUM (BEAKER) 7.9 mg/dL 8.4-10.2 L (test code = 697) EGFR (BEAKER) (test 134 mL/min/1.73 ESTIM ATED GFR IS code = 1092) sq m NOT ACCURATE CREATININE CLEARANCE IN PREDICTING GLOMERULAR FILTRATION RATE . ESTIMATED GFR I S NOT APPLICABLE FOR DIALYSIS PATIEN TS. Leather Belt Maker ID - BSEEG AWAKE AND [id number] 17:17:00For STAT EEG- after 5 PM weekdays, weekends and holidays, page the on-call EEG TechReason for exam:-& gt;patient was confused today morning, concern for a seizure [facility] : 1960 Sex: MNEUROPHYSIOLOGY EEG REPORT DATES OF TEST: 03/27/21 DATE OF REPORT: 03/27/21 Name: Donald Sanford ACC#: [id number] EEG Number: [id number] Start time: 11:05 AM Stop time: 11:26 AM CPT Code: 91682 ICD-10: R56.9 HISTORY: 60-year-old man with multiple medical problems and alcohol abuse, presented with syncope episodes transferred with worsening slurred speech MEDICATIONS THAT COULD AFFECT EEG: No anti-seizure medications DESCRIPTION OF RECORD: During the maximally alert state, an 11-12 Hz posterior dominant rhythm was seen that was symmetric, reactive to eye opening and fairly regulated. The background activity was intermixed with excessive low amplitude beta activity and predominated in bi-parasagittal regions. During drowsiness, there is an attenuation of a posterior dominant rhythm and an increase in fronto-central theta. Stage II sleep was reached and characterized by symmetric sleep spindles. No focal slowing was seen. No epileptiform discharges were seen. EVENTS: No clinical or electro-clinical seizures were recorded. HV: Hyperventilation was not performed. PHOTIC STIMULATION: Photic stimulation was performed 1-33 Hz. Photic stimulation didn't elicit abnormal discharges. IMPRESSION: Normal Awakeand Sleep EEG CLINICAL CORRELATION: This is a normal record in the awake and drowsy states. No focalareas of neurologic dysfunction or epileptiform discharges. No clinical or electrographic seizures were recorded. The recorded excessive beta activity could be medication related. An EEG without epileptiform discharges does not exclude the possibility of epilepsy. If the clinical suspicion of epilepsyremains, consider additional EEG recordings. Luis Angel MD Neurophysiology/ Epilepsy Fellow I have reviewed the electroencephalogram and this report and agree with its interpretation. Ebonie Johnson MD Neurophysiology/ Epilepsy Attending Electronically signed by: EBONIE JOHNSON MD on 105:17 [id number] 17:16:00 Test Item Value Reference Range Interpretation Comments MAGNESIUM (BEAKER) (test code = 2.3 mg/dL 1.6-2.6 627) [employer] ID - [id number] 13:40:00 Test Item Value Reference Range Interpretation Comments RPR SCREEN (BEAKER) (test code = Nonreactive Nonreactive 420) COMPREHENSIVE METABOLIC [id number] 07:20:00 Test Item Value Reference Range Interpretation Comments TOTAL PROTEIN 5.6 gm/dL 6.0-8.3 L (BEAKER) (test code = 770) ALBUMIN (BEAKER) 2.4 g/dL 3.5-5.0 L (test code = 1145) ALKALINE PHOSPHATASE 120 U/L 40-150 (BEAKER) (test code = 346) BILIRUBIN TOTAL 0.7 mg/dL 0.2-1.2 (BEAKER) (test code = 377) SODIUM (BEAKER) (test 135 meq/L 136-145 L code = 381) POTASSIUM (BEAKER) 3.3 meq/L 3.5-5.1 L (test code = 379) CHLORIDE (BEAKER) 99 meq/L 98-107 (test code = 382) CO2 (BEAKER) (test 29 meq/L 22-29 code = 355) BLOOD UREA NITROGEN 7 mg/dL 7-21 (BEAKER) (test code = 354) CREATININE (BEAKER) 0.55 mg/dL 0.57-1.25 L (test code = 358) GLUCOSE RANDOM 128 mg/dL 70-105 H (BEAKER) (test code = 652) CALCIUM (BEAKER) 6.9 mg/dL 8.4-10.2 L (test code = 697) AST (SGOT) (BEAKER) 89 U/L 5-34 H (test code = 353) ALT (SGPT) (BEAKER) 53 U/L 6-55 (test code = 347) EGFR (BEAKER) (test 151 ESTIMATE D GFR IS code = 1092) mL/min/1.73 sq NOT ACCURA TE m CREATININE CLEARANCE IN PREDICTING GLOMERULAR FILTRATION RATE . ESTIMATED GFR I S NOT APPLICABLE FOR DIALYSIS PATIEN TS. Leather Belt Maker ID - TRUNG MHIV-1 ANTIGEN WITH HIV-1/2 [id number] 06:11:00 Test Item Value Reference Range Interpretation Comments HIV-1 ANTIGEN WITH HIV 1\T\2 Nonreactive Nonreactive ANTIBODY (2) (BEAKER) (test code = 2586) Leather Belt Maker ID - TRUNG MTSH/FREE T4 IF [id number] 05:29:00 Test Item Value Reference Range Interpretation Comments THYROID STIMULATING HORMONE 4.601 uIU/mL 0.350-4.940 (BEAKER) (test code = 772) Leather Belt Maker ID - TRUNG MVITAMIN B12 AND [id number] 05:29:00 Test Item Value Reference Range Interpretation Comments VITAMIN B12 690 pg/mL 213-816 (BEAKER) (test code = 774) FOLATE (BEAKER) 11.70 ng/mL See_Comment [Automated message] (test code = 362) The system which generated this result transmitted ref erence range: >=7.00. The reference range was not used to interpr et this result as normal/abnormal . Leather Belt Maker ID - TRUNG [id number] 04:52:00 Test Item Value Reference Range Interpretation Comments MAGNESIUM (ROLANDOAKER) (test code = 1.4 mg/dL 1.6-2.6 L 627) Leather Belt Maker ID - TRUNG MCREATINE KINASE (CK)2021-03-27 04:52:00 Test Item Value Reference Range Interpretation Comments CREATINE KINASE TOTAL (ROLANDOAKER) (test 43 U/L 29-200 code = 380) Leather Belt Maker ID - TRUNG MPTH, [id number] 04:33:00 Test Item Value Reference Range Interpretation Comments PARATHYROID HORMONE INTACT 203.2 pg/mL 8.5-72.5 H (MAMI) (test code = 577) Leather Belt Maker ID - TRUNG MCT, BRAIN, WITHOUT [id number] 19:30:00Unlisted Reason for Exam - Click Yes and Enter Reason Below->No [facility] 1960 Sex: MFINAL REPORT CT, BRAIN, WITHOUT CONTRAST INDICATION: Altered mental status TECHNIQUE: Noncontrast axial imaging was obtained from the vertex to the skull base. Axial images were reconstructed using a bone algorithm. DOSE REDUCTION: Dose modulation, iterative reconstruction, and/or weight-based adjustment of the mA/kV was utilized to reduce the radiation dose to as low as reasonably achievable. COMPARISON: MRI brain 03/24/2021 FINDINGS: Intracranial: No intracranial hemorrhage or abnormal extra-axial collection. No evidence of acute territorial infarct. No mass effect. No hydrocephalus. Unchanged multifocal encephalomalacia in the left posterior frontal lobe and left occipital lobe. Generalized cerebral atrophy with ex vacuo dilatation of the ventricular system proportionate to sulci. Extensive foci of hypoattenuation within the periventricular and subcortical white matter are a nonspecific finding commonly attributed to chronic small vessel ischemic disease. Generalized cerebral atrophy with ex vacuo dilatation of the ventricular system proportionate to sulci. Intrarenal vascular calcifications. Osseous structures: No fracture. No suspicious lesion. Paranasal sinuses and mastoid air cells: No evidence of sinusitis. Mastoids are clear. Orbital contents: Globes are intact. IMPRESSION: No acute intracranial hemorrhage or CT evidence of territorial infarct. If there is persistent clinical concern for intracranial pathology, MR examination is recommended for further characterization. Signed: Jhonathan Leggett Verified Date/Time: 03/26/2021 19:30:38 POCT-GLUCOSE [id number] 19:09:00 Test Item Value Reference Range Interpretation Comments POC-GLUCOSE METER 115 mg/dL 70-110 H : TESTED A T [facility] 6720 (BEAKER) (test code = MAMEMOISES Collazo [facility], 1538) [address]: Leather Belt Maker/Techni qing ID = [id number] for Yesica Alvarez [id number] 07:41:00 Test Item Value Reference Range Interpretation Comments MAGNESIUM (BEAKER) (test code = 1.1 mg/dL 1.6-2.6 L 627) Leather Belt Maker ID - AAHAMIDHIGH SENSITIVITY TROPONIN [id number] 04:58:00 Test Item Value Reference Range Interpretation Comments HIGH SENSITIVITY 1025 pg/ml See_Comment HH [Automated message] TROPONIN I (test code The sy stem which = [id number]) generated this result transmitted ref erence range: <=35. Th e reference range was not used to int erpret this result as normal/abnormal . Leather Belt Maker ID - DBThe ESTHETICIAN MAKEUP ARTIST STAT High Sensitivity Troponin-I results should be used in conjunctionwith other diagnostic information such as ECG, clinical observations and information, and patient symptoms to aid in the diagnosis of AL.BASIC METABOLIC [id number] 04:35:00 Test Item Value Reference Range Interpretation Comments SODIUM (BEAKER) 139 meq/L 136-145 (test code = 381) POTASSIUM (BEAKER) 3.5 meq/L 3.5-5.1 (test code = 379) CHLORIDE (BEAKER) 95 meq/L 98-107 L (test code = 382) CO2 (BEAKER) (test 35 meq/L 22-29 H code = 355) BLOOD UREA NITROGEN 6 mg/dL 7-21 L (BEAKER) (test code = 354) CREATININE (BEAKER) 0.58 mg/dL 0.57-1.25 (test code = 358) GLUCOSE RANDOM 119 mg/dL 70-105 H (BEAKER) (test code = 652) CALCIUM (BEAKER) 7.0 mg/dL 8.4-10.2 L (test code = 697) EGFR (BEAKER) (test 142 mL/min/1.73 ESTIM ATED GFR IS code = 1092) sq m NOT ACCURATE CREATININE CLEARANCE IN PREDICTING GLOMERULAR FILTRATION RATE . ESTIMATED GFR I S NOT APPLICABLE FOR DIALYSIS PATIEN TS. Leather Belt Maker ID - ADMINCBC W/PLT COUNT & AUTO [id number] 04:15:00 Test Item Value Reference Range Interpretation Comments WHITE BLOOD CELL COUNT (BEAKER) 8.9 K/ L 3.5-10.5 (test code = 775) RED BLOOD CELL COUNT (BEAKER) 2.47 M/ L 4.63-6.08 L (test code = 761) HEMOGLOBIN (BEAKER) (test code = 8.3 GM/DL 13.7-17.5 L 410) HEMATOCRIT (BEAKER) (test code = 26.4 % 40.1-51.0 L 411) MEAN CORPUSCULAR VOLUME (BEAKER) 106.9 fL 79.0-92.2 H (test code = 753) MEAN CORPUSCULAR HEMOGLOBIN 33.6 pg 25.7-32.2 H (BEAKER) (test code = 751) MEAN CORPUSCULAR HEMOGLOBIN CONC 31.4 GM/DL 32.3-36.5 L (BEAKER) (test code = 752) RED CELL DISTRIBUTION WIDTH 20.9 % 11.6-14.4 H (BEAKER) (test code = 412) PLATELET COUNT (BEAKER) (test 265 K/CU MM 150-450 code = 756) MEAN PLATELET VOLUME (BEAKER) 10.2 fL 9.4-12.4 (test code = 754) NUCLEATED RED BLOOD CELLS 1 /100 WBC 0-0 H (BEAKER) (test code = 413) NEUTROPHILS RELATIVE PERCENT 82 % (BEAKER) (test code = 429) LYMPHOCYTES RELATIVE PERCENT 11 % (BEAKER) (test code = 430) MONOCYTES RELATIVE PERCENT 5 % (BEAKER) (test code = 431) EOSINOPHILS RELATIVE PERCENT 0 % (BEAKER) (test code = 432) BASOPHILS RELATIVE PERCENT 0 % (BEAKER) (test code = 437) NEUTROPHILS ABSOLUTE COUNT 7.30 K/ L 1.78-5.38 H (BEAKER) (test code = 670) LYMPHOCYTES ABSOLUTE COUNT 0.96 K/ L 1.32-3.57 L (BEAKER) (test code = 414) MONOCYTES ABSOLUTE COUNT (BEAKER) 0.45 K/ L 0.30-0.82 (test code = 415) EOSINOPHILS ABSOLUTE COUNT 0.04 K/ L 0.04-0.54 (BEAKER) (test code = 416) BASOPHILS ABSOLUTE COUNT (BEAKER) 0.04 K/ L 0.01-0.08 (test code = 417) IMMATURE GRANULOCYTES-RELATIVE 2 % 0-1 H PERCENT (BEAKER) (test code = 2801) CT, CTANGIO [id number] 13:09:00Unlisted Reason for Exam - Click Yes and Enter Reason Below->No [facility] : 1960 Sex: MFINAL REPORT CT, CAROTID, ANGIO, CT, CTANGIO BRAIN INDICATION: Carotid or vertebral occlusion COMPARISON: Correlation to MR angiography obtained March 24, 2021 TECHNIQUE:Rapid acquisition spiral images were obtained between the aortic arch and the cranial vertex during intravenous contrast infusion to reconstruct axial images and angiographic 3D maximum intensity projections (MIP). 3-D volumetric reformatted images were created at a dedicated workstation. Stenosis evaluation reported in compliance with NASCET criteria. DOSE REDUCTION: Dose modulation, iterative reconstruction, and/or weight-based adjustment of the mA/kV was utilized to reduce the radiation dose to as low as reasonably achieva ble. FINDINGS:CTA BRAIN:Dense calcifications are present in the cavernous internal carotid arteries and along the precavernous segments, severely limiting evaluation for narrowing in these regions. However, there is robust distal opacification into bilaterally patent middle cerebral artery branches. Anterior cerebral arteries and anterior communicating artery branches are intact. Basilar system is supplied by the dominant right vertebral artery. There is retrograde reconstitution of the left vertebral artery and posterior inferior cerebellar artery. CTA NECK:Arch anatomy is conventional. 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 As a result, there is no opacification of the left vertebral artery. Right vertebral artery origin and cervical course are patent. Advanced atherosclerotic disease is calcific bilaterally the bifurcations with approximately 50% right and 40% left narrowing byNASCET criteria. Nonvascular findings:No acute findings within the limits of arterial phase imaging. 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 The posterior circulation intracranially is supplied by the dominant and patent right vertebral artery. Chronic disease bilaterally the bifurcations with approximately 50% right and less than 50% left narrowing by NASCET criteria. Otherwise no major branch occlusion or flow limitation in the intracranial or cervical circulations. Signed: JR Giles Robert MDReport Verified Date/Time: 03/25/2021 13:09:59 Reading Location: [address] Neuro Reading Room CT, CAROTID, [id number] 13:09:00Unlisted Reason for Exam - Click Yes and Enter Reason Below->No [facility] : 1960 Sex: MFINAL REPORT CT, CAROTID, ANGIO, CT, CTANGIO BRAIN INDICATION: Carotid or vertebral occlusion COMPARISON: Correlation to MR angiography obtained March 24, 2021 TECHNIQUE:Rapid acquisition spiral images were obtained between the aortic arch and the cranial vertex during intravenous contrast infusion to reconstruct axial images and angiographic 3D maximum intensity projections (MIP). 3-D volumetric reformatted images were created at a dedicated workstation. Stenosis evaluation reported in compliance with NASCET criteria. DOSE REDUCTION: Dose modulation, iterative reconstruction, and/or weight-based adjustment of the mA/kV was utilized to reduce the radiation dose to as low as reasonably achieva ble. FINDINGS:CTA BRAIN:Dense calcifications are present in the cavernous internal carotid arteries and along the precavernous segments, severely limiting evaluation for narrowing in these regions. However, there is robust distal opacification into bilaterally patent middle cerebral artery branches. Anterior cerebral arteries and anterior communicating artery branches are intact. Basilar system is supplied by the dominant right vertebral artery. There is retrograde reconstitution of the left vertebral artery and posterior inferior cerebellar artery. CTA NECK:Arch anatomy is conventional. 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 As a result, there is no opacification of the left vertebral artery. Right vertebral artery origin and cervical course are patent. Advanced atherosclerotic disease is calcific bilaterally the bifurcations with approximately 50% right and 40% left narrowing byNASCET criteria. Nonvascular findings:No acute findings within the limits of arterial phase imaging. 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 The posterior circulation intracranially is supplied by the dominant and patent right vertebral artery. Chronic disease bilaterally the bifurcations with approximately 50% right and less than 50% left narrowing by NASCET criteria. Otherwise no major branch occlusion or flow limitation in the intracranial or cervical circulations. Signed: JR Chan, Dipesh Fish Verified Date/Time: 03/25/2021 13:09:59 Reading Location: [facility] C013V Neuro Reading Room BASIC METABOLIC [id number] 06:35:00 Test Item Value Reference Range Interpretation Comments SODIUM (BEAKER) 136 meq/L 136-145 (test code = 381) POTASSIUM (BEAKER) 4.2 meq/L 3.5-5.1 Specimen slightly (test code = 379) hemolyzed CHLORIDE (BEAKER) 100 meq/L 98-107 (test code = 382) CO2 (BEAKER) (test 27 meq/L 22-29 code = 355) BLOOD UREA NITROGEN 6 mg/dL 7-21 L (BEAKER) (test code = 354) CREATININE (BEAKER) 0.56 mg/dL 0.57-1.25 L Specimen slightly (test code = 358) hemolyzed GLUCOSE RANDOM 128 mg/dL 70-105 H (BEAKER) (test code = 652) CALCIUM (BEAKER) 7.2 mg/dL 8.4-10.2 L (test code = 697) EGFR (BEAKER) (test 148 mL/min/1.73 ESTIM ATED GFR IS code = 1092) sq m NOT ACCURATE CREATININE CLEARANCE IN PREDICTING GLOMERULAR FILTRATION RATE . ESTIMATED GFR I S NOT APPLICABLE FOR DIALYSIS PATIEN TS. Leather Belt Maker ID - ADMINB-TYPE NATRIURETIC FACTOR (BNP)2021-03-25 06:01:00 Test Item Value Reference Range Interpretation Comments B-TYPE NATRIURETIC PEPTIDE 6570 pg/mL 0-100 H (BEAKER) (test code = 700) Leather Belt Maker ID - DBOperator ID - DBCBC W/PLT COUNT & AUTO DIFFERENTIAL 2021-03-25 05:32:00 Test Item Value Reference Range Interpretation Comments WHITE BLOOD CELL COUNT (BEAKER) 8.2 K/ L 3.5-10.5 (test code = 775) RED BLOOD CELL COUNT (BEAKER) 2.62 M/ L 4.63-6.08 L (test code = 761) HEMOGLOBIN (BEAKER) (test code = 8.6 GM/DL 13.7-17.5 L 410) HEMATOCRIT (BEAKER) (test code = 28.0 % 40.1-51.0 L 411) MEAN CORPUSCULAR VOLUME (BEAKER) 106.9 fL 79.0-92.2 H (test code = 753) MEAN CORPUSCULAR HEMOGLOBIN 32.8 pg 25.7-32.2 H (BEAKER) (test code = 751) MEAN CORPUSCULAR HEMOGLOBIN CONC 30.7 GM/DL 32.3-36.5 L (BEAKER) (test code = 752) RED CELL DISTRIBUTION WIDTH 20.9 % 11.6-14.4 H (BEAKER) (test code = 412) PLATELET COUNT (BEAKER) (test 237 K/CU MM 150-450 code = 756) MEAN PLATELET VOLUME (BEAKER) 9.7 fL 9.4-12.4 (test code = 754) NUCLEATED RED BLOOD CELLS 1 /100 WBC 0-0 H (BEAKER) (test code = 413) NEUTROPHILS RELATIVE PERCENT 80 % (BEAKER) (test code = 429) LYMPHOCYTES RELATIVE PERCENT 10 % (BEAKER) (test code = 430) MONOCYTES RELATIVE PERCENT 6 % (BEAKER) (test code = 431) EOSINOPHILS RELATIVE PERCENT 1 % (BEAKER) (test code = 432) BASOPHILS RELATIVE PERCENT 0 % (BEAKER) (test code = 437) NEUTROPHILS ABSOLUTE COUNT 6.53 K/ L 1.78-5.38 H (BEAKER) (test code = 670) LYMPHOCYTES ABSOLUTE COUNT 0.78 K/ L 1.32-3.57 L (BEAKER) (test code = 414) MONOCYTES ABSOLUTE COUNT (BEAKER) 0.45 K/ L 0.30-0.82 (test code = 415) EOSINOPHILS ABSOLUTE COUNT 0.04 K/ L 0.04-0.54 (BEAKER) (test code = 416) BASOPHILS ABSOLUTE COUNT (BEAKER) 0.03 K/ L 0.01-0.08 (test code = 417) IMMATURE GRANULOCYTES-RELATIVE 4 % 0-1 H PERCENT (BEAKER) (test code = 2801) RAD, CHEST, 1 VIEW, NON [id number] 16:10:00Reason for exam:->dyspnea, new o2 requirementShould this be performed at the bedside?->Yes [facility] 1960 Sex: MFINAL REPORT RAD, CHEST, 1 VIEW, NON DEPT INDICATION: dyspnea, new o2 requirement COMPARISON: None FINDINGS: Portable frontal view of the chest. IMPRESSION: Support Lines: None Lungs and pleura: Mild interstitial edema. No effusion or lobar consolidation. No pneumothorax.Heart and mediastinum: Enlargement of the cardiac silhouette. Central venous engorgement.Additional findings: None. Signed: JR Giles Robert MDReport Verified Date/Time: 03/24/2021 16:10:45 Reading Location: [address] Neuro Reading Room HIGH SENSITIVITY TROPONIN [id number] 15:49:00 Test Item Value Reference Range Interpretation Comments HIGH SENSITIVITY 1150 pg/ml See_Comment HH [Automated message] TROPONIN I (test code [facility] which = [id number]) generated this result transmitted ref erence range: <=35. Th e reference range was not used to int erpret this result as normal/abnormal . Leather Belt Maker ID - DBThe ESTHETICIAN MAKEUP ARTIST STAT High Sensitivity Troponin-I results should be used in conjunctionwith other diagnostic information such as ECG, clinical observations and information, and patient symptoms to aid in the diagnosis of AL.MR, MRA, BRAIN, WITHOUT [id number] 12:19:00Reason for exam:- >[facility]schemic Stroke Evaluation [facility] 1960 Sex: MFINAL REPORT MR, BRAIN, WITHOUT CONTRAST, MR, MRA, NECK, WITHOUT IV CONTRAST, MR, MRA, BRAIN, WITHOUT CONTRAST INDICATION: Stroke, follow upIschemic Stroke Evaluation TECHNIQUE: Multiplanar, multisequence MR images of the brain. 3-D time of flight MRA of the cranial and cervical circulation. 2-D time of flight MRA of the neck. 3D MIP angiographic post-processing was performed. Stenosis evaluation utilized NASCET criteria. COMPARISON: None FINDINGS: MRI BRAIN: Cerebral parenchyma: Mild volume loss. Scattered white matter changes. No recent infarct or hemorrhage.Midline structures: Normally positioned.Cerebellum and brainstem: Normal.Ventricles: Normal volume.Extra-axial spaces: Unremarkable . Calvarium and skull base: Normal signal.Paranasal sinuses and mastoid air cells: Visible chambers are clear.Orbital contents: No acute abnormality. Additional findings: None. MRA BRAIN:Internal carotid arteries: Atherosclerotic disease bilaterally in the cavernous and paraclinoid segments with robust distal flow related signal.Middle cerebral arteries: Patent to distal branches.Anterior cerebral arteries: Intact.Basilar system: Basilar system is supplied by the dominant right vertebral artery.Posterior cerebral arteries:Patent beyond the quadrigeminal segments.Additional findings: None. MRA NECK:Common carotid arteries: Unremarkable. Bifurcations: Approximately 50% narrowing at the origin of theleft internal carotid artery. Right side is patent. Cervical internal carotid arteries: No flow limiting stenosis.Vertebral arteries: No flow related signal in the left vertebral artery. IMPRESSION: Occlusion of the left vertebral artery; basilar system is supplied by the dominant right vertebral artery. 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 Approximately 50% narrowing at the origin of the left internal carotid artery by NASCET criteria. Signed: JR Giles Robert [facility] Verified Date/Time: 03/24/2021 12:19:21 Reading Location: [facility] B1 C013V Neuro Reading Room MR, MRA, NECK, WITHOUT IV CONTRAST 2021-03-24 12:19:00Reason for exam:->[facility] St[facility] : 1960 Sex: MFINAL REPORT MR, BRAIN, WITHOUT CONTRAST, MR, MRA, NECK, WITHOUT IV CONTRAST, MR, MRA, BRAIN, WITHOUT CONTRAST INDICATION: Stroke, follow upIschemic Stroke Evaluation TECHNIQUE: Multiplanar, multisequence MR images of the brain. 3-D time of flight MRA of the cranial and cervical circulation. 2-D time of flight MRA of the neck. 3D MIP angiographic post-processing was performed. Stenosis evaluation utilized NASCET criteria. COMPARISON: None FINDINGS: MRI BRAIN: Cerebral parenchyma: Mild volume loss. Scattered white matter changes. No recent infarct or hemorrhage.Midline structures: Normally positioned.Cerebellum and brainstem: Normal.Ventricles: Normal volume.Extra-axial spaces: Unremarkable . Calvarium and skull base: Normal signal.Paranasal sinuses and mastoid air cells: Visible chambers are clear.Orbital contents: No acute abnormality. Additional findings: None. MRA BRAIN:Internal carotid arteries: Atherosclerotic disease bilaterally in the cavernous and paraclinoid segments with robust distal flow related signal.Middle cerebral arteries: Patent to distal branches.Anterior cerebral arteries: Intact.Basilar system: Basilar system is supplied by the dominant right vertebral artery.Posterior cerebral arteries:Patent beyond the quadrigeminal segments.Additional findings: None. MRA NECK:Common carotid arteries: Unremarkable. Bifurcations: Approximately 50% narrowing at the origin of theleft internal carotid artery. Right side is patent. Cervical internal carotid arteries: No flow limiting stenosis.Vertebral arteries: No flow related signal in the left vertebral artery. IMPRESSION: Occlusion of the left vertebral artery; basilar system is supplied by the dominant right vertebral artery. 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 Approximately 50% narrowing at the origin of the left internal carotid artery by NASCET criteria. Signed: JR Giles Robert MDReport Verified Date/Time: 03/24/2021 12:19:21 Reading Location: [facility] B1 C013V Neuro Reading Room MR, BRAIN, WITHOUT CONTRAST 2021-03-24 12:19:00Reason for exam:->[facility]schemic St[facility] : 1960 Sex: MFINAL REPORT MR, BRAIN, WITHOUT CONTRAST, MR, MRA, NECK, WITHOUT IV CONTRAST, MR, MRA, BRAIN, WITHOUT CONTRAST INDICATION: Stroke, follow upIschemic Stroke Evaluation TECHNIQUE: Multiplanar, multisequence MR images of the brain. 3-D time of flight MRA of the cranial and cervical circulation. 2-D time of flight MRA of the neck. 3D MIP angiographic post-processing was performed. Stenosis evaluation utilized NASCET criteria. COMPARISON: None FINDINGS: MRI BRAIN: Cerebral parenchyma: Mild volume loss. Scattered white matter changes. No recent infarct or hemorrhage.Midline structures: Normally positioned.Cerebellum and brainstem: Normal.Ventricles: Normal volume.Extra-axial spaces: Unremarkable . Calvarium and skull base: Normal signal.Paranasal sinuses and mastoid air cells: Visible chambers are clear.Orbital contents: No acute abnormality. Additional findings: None. MRA BRAIN:Internal carotid arteries: Atherosclerotic disease bilaterally in the cavernous and paraclinoid segments with robust distal flow related signal.Middle cerebral arteries: Patent to distal branches.Anterior cerebral arteries: Intact.Basilar system: Basilar system is supplied by the dominant right vertebral artery.Posterior cerebral arteries:Patent beyond the quadrigeminal segments.Additional findings: None. MRA NECK:Common carotid arteries: Unremarkable. Bifurcations: Approximately 50% narrowing at the origin of theleft internal carotid artery. Right side is patent. Cervical internal carotid arteries: No flow limiting stenosis.Vertebral arteries: No flow related signal in the left vertebral artery. IMPRESSION: Occlusion of the left vertebral artery; basilar system is supplied by the dominant right vertebral artery. 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 Approximately 50% narrowing at the origin of the left internal carotid artery by NASCET criteria. Signed: JR Giles Robert MDRthe hospital of [facility] [place] Verified Date/Time: 03/24/2021 12:19:21 Reading Location: [facility] C013V Neuro Reading Room SARS-COV2/RT-PCR ([facility])2021-03-24 11:03:00 Test Item Value Reference Range Interpretation Comments SARS-COV2/RT-PCR (test Negative Not Detected, Negative, code = 1565658) See external report for linked test SARS-COV-2 [facility]FORM[facility] (test code = 5641542) Negative result for this test determines that SARS-CoV-2 RNA was not present in the specimen above the Limit of Detection (LOD). However, Negative results do not preclude SARS-CoV-2 infection and should not be used as the sole basis for treatment or patient management decisions. Negative results must be combined with clinical observations, patient history, and epidemiological information. A false negative result may occur if a specimen is improperly collected, transported or handled. A false negative result should be considered if patient's recent exposures or clinical presentation indicate that COVID-19 (SARS-CoV-2) is likely and diagnostic tests for other causes of illness are negative. Re-testing should be considered in cases of suspected false negatives.The limit of detection for this assay is 800 copies/mL.This SARS CoV-2 test is a real-time RT-PCR test intended for the qualitative detection of nucleic acid from SARS-CoV-2 in a nasopharyngeal swab specimen collected from individuals suspected of COVID-19 by their healthcare provider.This test has not been Food and Drug Administration (FDA) cleared or approved. This is a modified version of an approved Emergency Use Authorization (EUA) and is in the process of review by the FDA. Once authorized by the FDA, the issued EUA will be effective until the declaration that circumstances exist justifying the authorization of the emergency use ofin vitro diagnostic tests for detection and/or diagnosis of COVID-19 is terminated under Section 564(b)(2) of the Act or the EUA is revoked under Section 564(g) of the Act.Fact Sheet for Healthcare Prov iders:https://www.[employer]/sites/default/files/product/documents/Fact_Sheet_HC _Witcqzmph_Vkze_NLCC-BwW-1.pdfFact Sheet for Healthcare Patients:https://www.[employer]/sites/default/files/product/docume nts/Xagi_Trneu_Bodapner_Phri_TZEJ-QoM-8.pdfPerforming Laboratory:[address], [place] [address]OTOTVKVVOS [id number] 07:48:00 Test Item Value Reference Range Interpretation Comments HEMOGLOBIN A1C (BEAKER) (test code = 6.0 % 4.3-6.1 368) HIGH SENSITIVITY TROPONIN [id number] 05:11:00 Test Item Value Reference Range Interpretation Comments HIGH SENSITIVITY 1418 pg/ml See_Comment HH [Automated message] TROPONIN I (test code The sy stem which = [id number]) generated this result transmitted ref erence range: <=35. Th e reference range was not used to int erpret this result as normal/abnormal . Leather Belt Maker ID - [id number] MThe ESTHETICIAN MAKEUP ARTIST STAT High Sensitivity Troponin-I results should be used in conjunction with other diagnostic information such as ECG, clinical observations and information, and patient symptoms to aid in the diagnosis of AL.BASIC METABOLIC [id number] 05:00:00 Test Item Value Reference Range Interpretation Comments SODIUM (BEAKER) 139 meq/L 136-145 (test code = 381) POTASSIUM (BEAKER) 4.1 meq/L 3.5-5.1 (test code = 379) CHLORIDE (BEAKER) 103 meq/L 98-107 (test code = 382) CO2 (BEAKER) (test 26 meq/L 22-29 code = 355) BLOOD UREA NITROGEN 7 mg/dL 7-21 (BEAKER) (test code = 354) CREATININE (BEAKER) 0.56 mg/dL 0.57-1.25 L (test code = 358) GLUCOSE RANDOM 122 mg/dL 70-105 H (BEAKER) (test code = 652) CALCIUM (BEAKER) 8.0 mg/dL 8.4-10.2 L (test code = 697) EGFR (BEAKER) (test 148 mL/min/1.73 ESTIM ATED GFR IS code = 1092) sq m NOT ACCURATE CREATININE CLEARANCE IN PREDICTING GLOMERULAR FILTRATION RATE . ESTIMATED GFR I S NOT APPLICABLE FOR DIALYSIS PATIEN TS. Leather Belt Maker ID - ADMINLIPID [id number] 05:00:00 Test Item Value Reference Range Interpretation Comments TRIGLYCERIDES (BEAKER) (test code = 136 mg/dL 540) CHOLESTEROL (BEAKER) (test code = 143 mg/dL 631) HDL CHOLESTEROL (BEAKER) (test code 23 mg/dL = 976) LDL CHOLESTEROL CALCULATED (BEAKER) 93 mg/dL (test code = 633) Triglyceride Reference Range: Low Risk <150 Borderline 150-199 High Risk 200- 499 Very High Risk >=500Cholesterol Reference Range: Low Risk <200 Borderline 200-239 High Risk >240HDL Cholesterol Reference Range: Low Risk >=60 High Risk <40LDL Cholesterol Reference Range: Optimal <100 Near Optimal 100-129 Borderline 130-159 High 160-189 Very High >=190 Leather Belt Maker ID - ADMINHEPATIC FUNCTION [id number] 05:00:00 Test Item Value Reference Range Interpretation Comments TOTAL PROTEIN (BEAKER) (test code = 6.7 gm/dL 6.0-8.3 770) ALBUMIN (BEAKER) (test code = 1145) 2.9 g/dL 3.5-5.0 L BILIRUBIN TOTAL (BEAKER) (test code 0.9 mg/dL 0.2-1.2 = 377) BILIRUBIN DIRECT (BEAKER) (test 0.7 mg/dL 0.1-0.5 H code = 706) ALKALINE PHOSPHATASE (BEAKER) (test 151 U/L 40-150 H code = 346) AST (SGOT) (BEAKER) (test code = 170 U/L 5-34 H 353) ALT (SGPT) (BEAKER) (test code = 78 U/L 6-55 H 347) Leather Belt Maker ID - ADMINCBC W/PLT COUNT & AUTO [id number] 04:49:00 Test Item Value Reference Range Interpretation Comments WHITE BLOOD CELL COUNT (BEAKER) 8.1 K/ L 3.5-10.5 (test code = 775) RED BLOOD CELL COUNT (BEAKER) 2.52 M/ L 4.63-6.08 L (test code = 761) HEMOGLOBIN (BEAKER) (test code = 8.5 GM/DL 13.7-17.5 L 410) HEMATOCRIT (BEAKER) (test code = 27.3 % 40.1-51.0 L 411) MEAN CORPUSCULAR VOLUME (BEAKER) 108.3 fL 79.0-92.2 H (test code = 753) MEAN CORPUSCULAR HEMOGLOBIN 33.7 pg 25.7-32.2 H (BEAKER) (test code = 751) MEAN CORPUSCULAR HEMOGLOBIN CONC 31.1 GM/DL 32.3-36.5 L (BEAKER) (test code = 752) RED CELL DISTRIBUTION WIDTH 20.3 % 11.6-14.4 H (BEAKER) (test code = 412) PLATELET COUNT (BEAKER) (test 251 K/CU MM 150-450 code = 756) MEAN PLATELET VOLUME (BEAKER) 9.9 fL 9.4-12.4 (test code = 754) NUCLEATED RED BLOOD CELLS 2 /100 WBC 0-0 H (BEAKER) (test code = 413) NEUTROPHILS RELATIVE PERCENT 73 % (BEAKER) (test code = 429) LYMPHOCYTES RELATIVE PERCENT 17 % (BEAKER) (test code = 430) MONOCYTES RELATIVE PERCENT 6 % (BEAKER) (test code = 431) EOSINOPHILS RELATIVE PERCENT 0 % (BEAKER) (test code = 432) BASOPHILS RELATIVE PERCENT 1 % (BEAKER) (test code = 437) NEUTROPHILS ABSOLUTE COUNT 5.87 K/ L 1.78-5.38 H (BEAKER) (test code = 670) LYMPHOCYTES ABSOLUTE COUNT 1.38 K/ L 1.32-3.57 (BEAKER) (test code = 414) MONOCYTES ABSOLUTE COUNT (BEAKER) 0.48 K/ L 0.30-0.82 (test code = 415) EOSINOPHILS ABSOLUTE COUNT 0.03 K/ L 0.04-0.54 L (BEAKER) (test code = 416) BASOPHILS ABSOLUTE COUNT (BEAKER) 0.04 K/ L 0.01-0.08 (test code = 417) IMMATURE GRANULOCYTES-RELATIVE 3 % 0-1 H PERCENT (BEAKER) (test code = 2805)
[2022-08-12] MEDS ORDERED: NA CHLORIDE 0.9% 1,000 ML ONE ×2 (08:16→13:49)
[2022-08-12 08:19] LABS: Absolute Lymphocytes (CBC) 2.2 K/uL (0.7-4.9); Hematocrit 37.4 % (39.6-49.0); Lymphocytes % 23.6 % (15.3-44.8); MPV 8.3 fL (7.6-11.3); RBC Red Blood Cell Count 4.21 M/uL (4.33-5.43)
[2022-08-12 08:24] LABS: Protime INR 1.36
[2022-08-12 08:37] LABS: Albumin 3.8 g/dL (3.4-5.0); Bilirubin Direct 0.2 mg/dL (0-0.2); Bilirubin Total 0.5 mg/dL (0.2-1.0); Magnesium 1.9 mg/dL (1.8-2.4); Potassium 3.1 mmol/L (3.5-5.1); Protein, Total 7.9 g/dL (6.4-8.2); Troponin High Sensitivity 32.9 pg/mL (<58.9)
--- NOTE | 2022-08-12 08:56 | EDPHYS ---
Physician Documentation [facility] Name: Donald Sanford Age: 62 yrs Sex: Male : 1960 Arrival Date: 08/12/2022 Time: 07:49 Bed 20 Private MD: ED Physician Sophie Mondragon HPI: 08/12 08:03 This 62 yrs old Male presents to ER via Ambulatory with complaints of Irregular jh7 Heartbeat. 08:03 Onset: The symptoms/episode began/occurred acutely. Associated signs and symptoms: jh7 Pertinent positives: Dizziness, Pertinent negatives: chest pain, cough, fever, shortness of breath, vomiting. Patient presents for palpitations and dizziness starting this morning. Patient reports that he was seen by Dr. Cook on and was told that he had an irregular heartbeat. Reports that he started Xarelto 2 weeks ago. Reports history of cirrhosis and hypertension. States that he has not taken his medication this morning. . Historical: - Allergies: 08:00 No Known Allergies; ph - PMHx: 08:00 Cirrhosis; Hypertension; ph - Immunization history:: Adult Immunizations unknown. - Social history:: Smoking status: Patient denies any tobacco usage or history of. Patient uses alcohol, "on weekends". ROS: 08:03 Eyes: Negative for injury, pain, redness, and discharge, ENT: Negative for injury, jh7 pain, and discharge, Neck: Negative for injury, pain, and swelling, Respiratory: Negative for shortness of breath, cough, wheezing, and pleuritic chest pain, Abdomen/GI: Negative for abdominal pain, nausea, vomiting, diarrhea, and constipation, Back: Negative for injury and pain, MS/Extremity: Negative for injury and deformity, Skin: Negative for injury, rash, and discoloration. 08:03 Cardiovascular: Positive for palpitations, Negative for chest pain, orthopnea. 08:03 Neuro: Positive for dizziness, Negative for altered mental status, headache, loss of consciousness, numbness, syncope, tingling, weakness. 08:03 All other systems are negative. Exam: 08:10 Constitutional: This is a well developed, well nourished patient who is awake, alert, jh7 and in no acute distress. Head/Face: Normocephalic, atraumatic. Eyes: Pupils equal round and reactive to light, extra-ocular motions intact. Lids and lashes normal. Conjunctiva and sclera are non-icteric and not injected. Cornea within normal limits. Periorbital areas with no swelling, redness, or edema. Neck: Trachea midline, no thyromegaly or masses palpated, and no cervical lymphadenopathy. Supple, full range of motion without nuchal rigidity, or vertebral point tenderness. No Meningismus. Respiratory: Lungs have equal breath sounds bilaterally, clear to auscultation and percussion. No rales, rhonchi or wheezes noted. No increased work of breathing, no retractions or nasal flaring. 08:10 Back: No spinal tenderness. No costovertebral tenderness. Full range of motion. Skin: Warm, dry with normal turgor. Normal color with no rashes, no lesions, and no evidence of cellulitis. MS/ Extremity: Pulses equal, no cyanosis. Neurovascular intact. Full, normal range of motion. Neuro: Awake and alert, GCS 15, oriented to person, place, time, and situation. Motor strength 5/5 in all extremities. Sensory grossly intact. Normal gait. 08:10 Cardiovascular: Rate: tachycardic, actual rate is 136 bpm, Rhythm: irregularly irregular, Pulses: Pulses are 2+ in right radial artery and left radial artery. 08:10 ECG was reviewed by the Attending Physician. 08:10 Abdomen/GI: Inspection: distension, that is moderate, Bowel sounds: normal, Palpation: nontender. Vital Signs: 07:57 BP 87 / 54; Pulse 145; Resp 20; Temp 96.5(TE); Pulse Ox 92% on R/A; Weight 96.16 kg; ph Height 5 ft. 9 in. (175.26 cm); 08:13 BP 97 / 66; Pulse 135; Resp 18; Temp 97.7; Pulse Ox 100% ; Pain 0/10; ja4 09:33 BP 127 / 75; Pulse 128; Resp 17; Pulse Ox 100% ; Pain 0/10; jh6 15:30 BP 134 / 94; Pulse 141; Resp 18; Temp 97.9; Pulse Ox 98% ; Pain 0/10; jh6 16:00 BP 141 / 99; Pulse 142; Resp 19; Pain 0/10; jh6 16:30 BP 143 / 99; Pulse 143; Resp 20; Temp 97.7; Pulse Ox 98% on 2 lpm NC; Pain 0/10; [facility] 17:00 BP 129 / 72; Pulse 124; Resp 18; Temp 97.7; Pulse Ox 96% on 2 lpm NC; Pain 0/10; [facility] 07:57 Body Mass Index 31.31 (96.16 kg, 175.26 cm) ph MDM: 07:51 Patient medically screened. [facility] 08:39 Physician consultation: Erik Cook MD was contacted at 08:39, regarding admission, [facility] patient's condition, and will see patient in ED, immediately, would like medications started, Amiodarone 400 mg now, then twice daily. Also once Lasix increased from 20 mg to 40mg. Also would like the patient n.p.o. after midnight.. 09:20 Differential diagnosis: A. fib RVR, acute NC, dehydration. Data reviewed: vital signs, [facility] nurses notes, lab test result(s), EKG, radiologic studies, plain films. Data interpreted: Pulse oximetry: is 100 %. Interpretation: normal. Counseling: I had a detailed discussion with the patient and/or guardian regarding: the historical points, exam findings, and any diagnostic results supporting the discharge/admit diagnosis, the need for further work-up and treatment in the hospital. ED course: The patient was admitted under inpatient status to Dr. Cohen with Dr. Cook as the consulting physician.. 08/12 08:03 Order name: Basic Metabolic Panel; Complete Time: 08:39 [facility] 08/12 08:03 Order name: CBC with Diff; Complete Time: 08: [facility] 08/12 08:03 Order name: LFT's; Complete Time: 08:39 [facility] 08/12 08:03 Order name: Magnesium; Complete Time: 08:39 [facility] 08/12 08:03 Order name: NT PRO-BNP; Complete Time: 08:39 [facility] 08/12 08:03 Order name: PT-INR; Complete Time: 08:31 [facility] 08/12 08:03 Order name: Troponin HS; Complete Time: 08:39 [facility] 08/12 08:45 Order name: SARS RAPID; Complete Time: 15:06 [facility] 08/12 11:09 Order name: CBC with Automated Diff [facility] 08/12 11:09 Order name: CBC with Automated Diff [facility] 08/12 11:10 Order name: Comprehensive Metabolic Panel [facility] 08/12 11:10 Order name: Comprehensive Metabolic Panel [facility] 08/12 11:10 Order name: Protime (+INR) [facility] 08/12 11:10 Order name: Protime (+INR) [facility] 08/12 08:03 Order name: XRAY Chest (1 view); Complete Time: 09:33 [facility] 08/12 08:03 Order name: EKG; Complete Time: 08:04 [facility] 08/12 08:03 Order name: Cardiac monitoring; Complete Time: 08:13 [facility] 08/12 08:03 Order name: EKG - Nurse/Tech; Complete Time: 08:13 [facility] 08/12 08:03 Order name: IV Saline Lock; Complete Time: 08:13 [facility] 08/12 08:03 Order name: Labs collected and sent; Complete Time: 08:13 [facility] 08/12 08:03 Order name: O2 Per Protocol; Complete Time: 08:13 [facility] 08/12 08:03 Order name: O2 Sat Monitoring; Complete Time: 08:13 [facility] 08/12 11:09 Order name: CONS Physician Consult [facility] 08/12 11:09 Order name: Heart Healthy [facility] 08/12 11:10 Order name: PTT, Activated Partial Thromb [facility] 08/12 11:10 Order name: PTT, Activated Partial Thromb [facility] EC:10 Rate is 131 beats/min. Rhythm is irregularly irregular. QRS [place] is Normal. QRS jh7 interval is normal at 124 msec. QT interval is prolonged at [address] changes noted. Clinical impression: Atrial Fibrillation. Administered Medications: 08:12 Drug: Sodium Chloride 0.9% 500 ml Route: IVPB; Site: left antecubital; ja 08:39 Drug: amiodarone 400 mg Route: PO; 6 12:00 Follow up: Response: No change in condition 6 09:26 Drug: Potassium Chloride 40 mEq Route: PO; 6 11:59 Follow up: Response: No change in condition 6 Disposition: 08/13 07:36 STAFF ATTESTATION: The patient's history, exam findings, diagnostics and a summary of sd2 any interventions or procedures was reviewed in detail with the RAJENDRA. I personally interviewed and examined the patient, and I have reviewed and agree with the HPI and exam. My personal exam shows a nontoxic appearing male resting comfortably in NAD. No respiratory distress or hypoxia. BP improving with cautious IVFs. Discussed case with LABORER ELECTROPLATING and Dr. Cook at bedside and plan in place. I confirm the diagnosis as documented by the RAJENDRA. I have reviewed and agree with the care plan articulated in the disposition section. Sophie Mondragon MD. Disposition Summary: 08/12/22 08:55 Hospitalization Ordered Hospitalization Status: Inpatient Admission [facility] Provider: Donna Cohen [facility] Condition: Stable [facility] Problem: new [facility] Symptoms: have improved [facility] Bed/Room Type: Standard [facility] Location: Intensive Care Unit(08/12/22 18:07) Room Assignment: 2-(08/12/22 18:07) Diagnosis - Atrial Fibrillation with Rapid Ventricular Response [facility] Forms: - Medication Reconciliation Form [facility] - SBAR form [facility] Signatures: Dispatcher [employer] EDMS Ly Mccarthy Patricia RN RN Shayla Chi RN RN barrington7 Kandy Nolan, RN RN jh6 Kandy Clinton, REFINERY OPERATOR [employer]OV[employer] REFINERY OPERATOR [employer] Sophie Thomas MD MD sd2 Daren Ni, RN RN ja4 Corrections: (The following items were deleted from the chart) 08/12 15:35 08:55 Telemetry/MedSurg (Inpatient) 7 jl7 15:35 08:55 7 jl7 18:07 15:35 [facility] ER HOLD jl7 bd 18:07 15:35 ERHOLD- jl7 bd
--- NOTE | 2022-08-12 08:56 | ER ---
Nurse's Notes [facility] Name: Donald Sanford Age: 62 yrs Sex: Male : 1960 Arrival Date: 08/12/2022 Time: 07:49 Bed 20 Private MD: Diagnosis: Atrial Fibrillation with Rapid Ventricular Response Presentation: 08/12 07:57 Chief complaint: Patient states: Seen at DR Hampton's office and was told to come to ER for irregular heartbeat. Pt sates, " I waited because I can't drive at night and I drank beer this weekend." A-fib RVR on monitor, denies chest pain or SOB, c/o blurred vision. Coronavirus screen: Vaccine status: Patient reports receiving the 2nd dose of the covid vaccine. Ebola Screen: No symptoms or risks identified at this time. Initial Sepsis Screen: Does the patient meet any 2 criteria? Systolic BP < 90 mmHg. HR > 90 bpm. Does the patient have a suspected source of infection? No. Patient's initial sepsis screen is negative. Risk Assessment: Do you want to hurt yourself or someone else? Patient reports no desire to harm self or others. Onset of symptoms was August 12, 2022. 07:57 Method Of Arrival: Ambulatory 07:57 Acuity: KEDAR 2 ph Triage Assessment: 08:01 General: Appears in no apparent distress. Behavior is calm, cooperative. Pain: Denies ph pain. Neuro: Level of Consciousness is awake, alert, obeys commands, Oriented to person, place, time, situation, Reports blurred vision. Cardiovascular: Patient's skin is warm and dry. Rhythm is irregular. Respiratory: Airway is patent Respiratory effort is even, unlabored. Historical: - Allergies: 08:00 No Known Allergies; ph - PMHx: 08:00 Cirrhosis; Hypertension; ph - Immunization history:: Adult Immunizations unknown. - Social history:: Smoking status: Patient denies any tobacco usage or history of. Patient uses alcohol, "on weekends". Screenin:02 Abuse screen: Denies threats or abuse. Denies injuries from another. Nutritional ph screening: No deficits noted. Tuberculosis screening: No symptoms or risk factors identified. Fall Risk None identified. Assessment: 08:14 General: Appears in no apparent distress. Behavior is calm, cooperative. Pain: Denies ja4 pain. Neuro: No deficits noted. Cardiovascular: Reports lightheadedness, Denies chest pain, Capillary refill < 3 seconds Clubbing of nail beds is absent JVD is absent Patient's skin is warm and dry. Rhythm is atrial fibrillation with rapid ventricular response. 09:30 Reassessment: Patient and/or family updated on plan of care and expected duration. Pain jh6 level reassessed. Patient is alert, oriented x 3, equal unlabored respirations, skin warm/dry/pink. Patient denies pain at this time. 10:30 Reassessment: No changes from previously documented assessment. Patient and/or family jh6 updated on plan of care and expected duration. Pain level reassessed. Private Equity Analyst at bedside advised that he is planning to take pt in for cardioversion in am. Not wanting to take him today because pt ate breakfast. 11:30 Reassessment: Patient and/or family updated on plan of care and expected duration. Pain jh6 level reassessed. cough noted but states that he has had cough x 2 wks. clear to yellow phlegm Patient denies pain at this time. 13:00 Reassessment: Patient and/or family updated on plan of care and expected duration. Pain jh6 level reassessed. Patient is alert, oriented x 3, equal unlabored respirations, skin warm/dry/pink. Patient denies pain at this time. 14:00 Reassessment: Patient and/or family updated on plan of care and expected duration. Pain jh6 level reassessed. Patient is alert, oriented x 3, equal unlabored respirations, skin warm/dry/pink. contacted Dr Cohen about pts continued elevated heart rate, advised to contact Dr Cook for further orders. Patient denies pain at this time. 14:20 Reassessment: Patient and/or family updated on plan of care and expected duration. Pain jh6 level reassessed. Dr Cook wanting to start a home med but no further orders to decrease hr at this time.. pt is having no pain and is having no SOB if sitting up in bed. States that he is never able to lay flat because of fluids on his lungs. States that he takes fluid pill daily. 16:00 Reassessment: Patient and/or family updated on plan of care and expected duration. Pain jh6 level reassessed. Patient is alert, oriented x 3, equal unlabored respirations, skin warm/dry/pink. Dr Corbett contacted in reference to HR still elevated. Dr Corbett reporting that he was going to consult with Dr Cook and advise further orders. 17:17 Reassessment: Patient and/or family updated on plan of care and expected duration. Pain jh6 level reassessed. Patient is alert, oriented x 3, equal unlabored respirations, skin warm/dry/pink. Patient states symptoms have improved. Vital Signs: 07:57 BP 87 / 54; Pulse 145; Resp 20; Temp 96.5(TE); Pulse Ox 92% on R/A; Weight 96.16 kg; ph Height 5 ft. 9 in. (175.26 cm); 08:13 BP 97 / 66; Pulse 135; Resp 18; Temp 97.7; Pulse Ox 100% ; Pain 0/10; ja4 09:33 BP 127 / 75; Pulse 128; Resp 17; Pulse Ox 100% ; Pain 0/10; 6 15:30 BP 134 / 94; Pulse 141; Resp 18; Temp 97.9; Pulse Ox 98% ; Pain 0/10; jh6 16:00 BP 141 / 99; Pulse 142; Resp 19; Pain 0/10; jh6 16:30 BP 143 / 99; Pulse 143; Resp 20; Temp 97.7; Pulse Ox 98% on 2 lpm NC; Pain 0/10; jh6 17:00 BP 129 / 72; Pulse 124; Resp 18; Temp 97.7; Pulse Ox 96% on 2 lpm NC; Pain 0/10; 6 07:57 Body Mass Index 31.31 (96.16 kg, 175.26 cm) ph Vitals: 08:13 Cardiac Rhythm Assessment Irregular Atrial fibrillation W/rapid ventricular response. ja4 ED Course: 07:49 Patient arrived in ED. 4 07:51 Kandy Clinton [facility] jh7 07:51 Sophie Mondragon MD is Attending Physician. jh7 08:00 Triage completed. ph 08:02 Arm band placed on Patient placed in an exam room, on compliance monitor, on pulse ph oximetry. 08:04 Daren Ni, EDUARDO is Primary Nurse. ja4 08:13 Inserted saline lock: 18 gauge in left antecubital area, using aseptic technique. 4 08:15 Placed in gown. Bed in low position. Call light in reach. Side rails up X 1. 4 08:43 XRAY Chest (1 view) In Process Unspecified. EDGA 08:54 Donna Cohen MD is Hospitalizing Provider. [facility] 18:19 No provider procedures requiring assistance completed. 6 Administered Medications: 08:12 Drug: Sodium Chloride 0.9% 500 ml Route: IVPB; Site: left antecubital; 4 08:39 Drug: amiodarone 400 mg Route: PO; 6 12:00 Follow up: Response: No change in condition [facility] 09:26 Drug: Potassium Chloride 40 mEq Route: PO; 6 11:59 Follow up: Response: No change in condition [facility] Medication: 18:19 VIS not applicable for this client. [facility] Outcome: 08:55 Decision to Hospitalize by Provider. [facility] 18:19 Admitted to ICU accompanied by nurse, via stretcher, room 2. [facility] 18:19 Condition: stable 18:19 Instructed on the need for admit. 18:57 Patient left the ED. [facility] Signatures: Dispatcher [employer] EDGA Nory Garnett, RN RN Lillie Joe 4 Kandy Nolan, RN RN 6 Kandy Clinton FNP FNP 7 Daren Ni, RN RN rena4
[2022-08-12] MEDS ORDERED: AMIODARONE HCL 200 MG TAB PO ONE (09:00)
--- NOTE | 2022-08-12 09:20 | RAD REPORT ---
EXAM DESCRIPTION: RAD - Chest Single View - 08/12/2022 8:41 am CLINICAL HISTORY: MALAISE Chest pain. COMPARISON: Chest Single View dated 03/23/2021; Chest Single View dated 03/21/2021; Chest Single View dated 03/17/2021; Chest Pa And Lat (2 Views) dated 08/26/2019 FINDINGS: Portable technique limits examination quality. Mild pulmonary edema. The heart is enlarged in size. No displaced fractures. IMPRESSION: Mild CHF.
[2022-08-12] MEDS ORDERED: POTASSIUM CL SA 10 MEQ TAB PO ONE (09:29)
[2022-08-12 09:40] LABS: SARS-CoV-2 Antigen Rapid Res Negative (Negative)
[2022-08-12] MEDS ORDERED: ACETAMINOPHEN 500 MG TAB PO PRN (11:04)
[2022-08-12] MEDS ORDERED: ONDANSETRON 4 MG/2 ML VIAL IV PRN (11:04)
[2022-08-12] MEDS: NA CHLORIDE 0.9% 1,000 ML IV SCH (12:00)
[2022-08-12] MEDS ORDERED: ONDANSETRON 4 MG/2 ML VIAL ONE (15:27)
[2022-08-12 16:10] VITALS: BMI 31.1
[2022-08-12] MEDS: METOPROLOL TARTRATE 5 MG/5 ML INJ IV PRN ×2 (16:45→17:00)
[2022-08-12] MEDS: AMIODARONE HCL 200 MG TAB PO SCH (20:47)
[2022-08-12] MEDS ORDERED: METOPROLOL TARTRATE 5 MG/5 ML INJ IV ONE (20:51)
[2022-08-12] MEDS ORDERED: ENOXAPARIN 100 MG/ML SYR SQ SCH (21:00)
[2022-08-12] MEDS ORDERED: METOPROLOL TAR 50 MG TAB PO SCH (21:00)
[2022-08-13 05:02] LABS: Absolute Lymphocytes (CBC) 1.5 K/uL (0.7-4.9); Hematocrit 36.8 % (39.6-49.0); Lymphocytes % 15.5 % (15.3-44.8); MCV 89.8 fL (80-100); MPV 8.5 fL (7.6-11.3)
[2022-08-13 05:12] LABS: Protime INR 1.36
[2022-08-13 05:20] LABS: Albumin 3.6 g/dL (3.4-5.0); Bilirubin Total 0.9 mg/dL (0.2-1.0); Potassium 3.9 mmol/L (3.5-5.1); Protein, Total 7.5 g/dL (6.4-8.2)
[2022-08-13] MEDS ORDERED: FENTANYL CITR 100 MCG/2 ML ONE (06:40)
[2022-08-13] MEDS ORDERED: FLUMAZENIL 0.1 MG/ML (5 mL VIAL) IV ONE (06:40)
[2022-08-13] MEDS ORDERED: ATROPINE SULF 1 MG/10 ML SYR IV ONE (06:40)
[2022-08-13] MEDS ORDERED: MIDAZOLAM HCL 10 ML ONE (06:40)
[2022-08-13] MEDS ORDERED: METOPROLOL TARTRATE 5 MG/5 ML INJ IV ONE (06:40)
[2022-08-13] MEDS: NA CHLORIDE 0.9% 1,000 ML IV SCH (08:00)
--- NOTE | 2022-08-13 08:36 | P.HP ---
Certification for Inpatient Patient admitted to: Inpatient With expected LOS: >2 Midnights Patient will require the following post-hospital care: None Practitioner: I am a practitioner with admitting privileges, knowledge of patient current condition, hospital course, and medical plan of care. Services: Services provided to patient in accordance with Admission requirements found in Title 42 Section 412.3 of the Code of Federal Regulations Patient History Date of Service: 08/12/22 Reason for admission: Atrial fibrillation with rapid ventricular response History of Present Illness: Patient is a 62-year-old gentleman came to the hospital with tachycardia. Patient was having palpitations and was short of breath. In the emergency room he was found to be in atrial fibrillation with rapid ventricular response. He was supposed to arrive to the emergency room the night before to get cardioverted however he waited until this morning after he ate. Cardiology saw the patient and will cardiovert him tomorrow morning. Patient will be given amiodarone and we will keep him on anticoagulation. Patient will be admitted for inpatient hospitalization. Echocardiogram is pending as well. Allergies No Known Allergies Allergy (Verified 08/26/19 10:47) Home Medications: Aspirin [Aspirin EC 81 MG] 81 mg PO DAILY #100 tablet. 08/31/19 Atorvastatin Calcium [Lipitor] 80 mg PO BEDTIME #30 tab 08/31/19 Losartan Potassium [Cozaar*] 50 mg PO DAILY #30 tablet 08/31/19 Metoprolol Tartrate [Lopressor*] 50 mg PO BID #30 tab 08/31/19 Furosemide [Lasix] 1 tab PO DAILY 03/18/21 - Past Medical/Surgical History Diabetic: No -: hypertension -: Atrial fibrillation -: CABG - Family History Father Family History: Reviewed- Non-Contributory - Social History Smoking Status: Never smoker Alcohol use: Yes CD- Drugs: No Caffeine use: No Review of Systems 10-point ROS is otherwise unremarkable Physical Examination - Vital Signs Temperature: 98.2 F Blood Pressure: 138/94 Pulse: 109 Respirations: 22 Pulse Ox (%): 94 - Physical Exam General: Alert, In no apparent distress, Oriented x3 HEENT: Atraumatic, PERRLA, Mucous membr. moist/pink, EOMI, Sclerae nonicteric Neck: Supple, 2+ carotid pulse no bruit, No LAD, Without JVD or thyroid abnormality Respiratory: Clear to auscultation bilaterally, Normal air movement Cardiovascular: Other (Tachycardia), Irregular heart rate/rhythm Gastrointestinal: Normal bowel sounds, Soft and benign, Non-distended, No tend erness, No rebound, No guarding Musculoskeletal: No clubbing, No swelling, No tenderness Integumentary: No rashes Neurological: Normal gait, Normal speech, Normal strength at 5/5 x4 extr, Normal tone, Sensation intact, Cranial nerves 3-12 intact, Normal affect Lymphatics: No axilla or inguinal lymphadenopathy - Studies Laboratory Data (last 24 hrs) 08/12/22 08:10: Sodium 137, Potassium 3.1 L, BUN 19 H, Creatinine 0.79, Glucose 117 H, Magnesium 1.9, Total Bilirubin 0.5, AST 18, ALT 22, Alkaline Phosphatase 49 Assessment & Plan - Problems (Diagnosis) (1) Atrial fibrillation with rapid ventricular response Current Visit: Yes Status: Acute (2) Chronic alcohol abuse Current Visit: No Status: Acute (3) Chronic diastolic heart failure Current Visit: No Status: Acute (4) Sleep apnea Current Visit: No Status: Acute (5) Stented coronary artery Current Visit: No Status: Acute - Plan Plan: 1. Patient started on antiarrhythmic-amiodarone 400 twice daily 2. Continue with anticoagulation 3. Echocardiogram 4. Cardioversion in the morning 5. Add beta-luis manuel if heart rate not controlled 6. Strict blood pressure and blood sugar control 7. GI DVT prophylaxis Discharge Plan: Home Plan to discharge in: Greater than 2 days - Advance Directives Does patient have a Living Will: No Does patient have a Durable POA for Healthcare: No - Code Status/Comfort Care Code Status Assessed: Yes Code Status: Full Code Critical Care: No Time Spent Managing PTS Care (In Minutes): 45
--- NOTE | 2022-08-13 08:40 | P.DS ---
Discharge Date: 08/13/22 Disposition: ROUTINE DISCHARGE Discharge Condition: GOOD Reason for Admission: Atrial fibrillation with rapid ventricular response - Problems (1) Atrial fibrillation with rapid ventricular response Current Visit: Yes Status: Acute (2) Chronic alcohol abuse Current Visit: No Status: Acute (3) Chronic diastolic heart failure Current Visit: No Status: Acute (4) Sleep apnea Current Visit: No Status: Acute (5) Stented coronary artery Current Visit: No Status: Acute Brief History of Present Illness: Patient is a 62-year-old gentleman came to the hospital with tachycardia. Patient was having palpitations and was short of breath. In the emergency room he was found to be in atrial fibrillation with rapid ventricular response. He was supposed to arrive to the emergency room the night before to get cardioverted however he waited until this morning after he ate. Cardiology saw the patient and will cardiovert him tomorrow morning. Patient will be given amiodarone and we will keep him on anticoagulation. Patient will be admitted for inpatient hospitalization. Echocardiogram is pending as well. Hospital Course: Patient was cardioverted. Patient's heart rate is stabilized. Patient is clinically doing well. At this time, patient is stable for discharge with outpatient follow-up. Patient will be discharged on amiodarone and Xarelto. Low-dose beta-luis manuel therapy for portal hypertension. Hold off on antiplatelet therapy since patient is on Xarelto. Vital Signs/Physical Exam: Temp Pulse Resp BP Pulse Ox 98.2 F 109 H 22 H 138/94 H 94 08/13/22 08:35 08/13/22 08:35 08/13/22 08:35 08/13/22 08:35 08/13/22 08:35 General: Alert, In no apparent distress, Oriented x3 Laboratory Data at Discharge: WBC 9.90 K/uL (4.3-10.9) 08/13/22 04:39 Hgb 12.5 g/dL (13.6-17.9) L 08/13/22 04:39 Hct 36.8 % (39.6-49.0) L 08/13/22 04:39 Plt Count 203 K/uL (152-406) 08/13/22 04:39 PT 15.0 SECONDS (9.5-12.5) H 08/13/22 04:39 INR 1.36 08/13/22 04:39 APTT 34.9 SECONDS (24.3-36.9) 08/13/22 04:39 Sodium 135 mmol/L (136-145) L 08/13/22 04:39 Potassium 3.9 mmol/L (3.5-5.1) D 08/13/22 04:39 BUN 19 mg/dL (7-18) H 08/13/22 04:39 Creatinine 0.79 mg/dL (0.55-1.3) 08/13/22 04:39 Glucose 153 mg/dL (74-106) H 08/13/22 04:39 Magnesium 1.9 mg/dL (1.8-2.4) 08/12/22 08:10 Total Bilirubin 0.9 mg/dL (0.2-1.0) 08/13/22 04:39 AST 39 U/L (15-37) H 08/13/22 04:39 ALT 21 U/L (12-78) 08/13/22 04:39 Alkaline Phosphatase 47 U/L (45-117) 08/13/22 04:39 Home Medications: Atorvastatin Calcium [Lipitor] 80 mg PO BEDTIME #30 tab 08/31/19 Losartan Potassium [Cozaar*] 50 mg PO DAILY #30 tablet 08/31/19 Furosemide [Lasix] 1 tab PO DAILY 03/18/21 Amiodarone HCl [Pacerone] 400 mg PO BID #60 08/13/22 Metoprolol Tartrate [Lopressor] 25 mg PO BID #60 tab 08/13/22 Rivaroxaban [Xarelto] 20 mg PO DAILY #30 tab 08/13/22 New Medications: Metoprolol Tartrate [Lopressor] 25 mg PO BID #60 tab Amiodarone HCl [Pacerone] 400 mg PO BID #60 Rivaroxaban [Xarelto] 20 mg PO DAILY #30 tab Physician Discharge Instructions: -DC IV and DC home -Follow-up with PCP in 1 to 2 weeks -Follow-up with Cardiology in 1 to 2 weeks -Please call Dr. Cohen at [phone] if any questions regarding hospital stay -Please call nursing station at [phone] if any nursing or medication questions -Return to the emergency room if symptoms worsen Diet: AHA Activity: Fall precautions Followup: NONE,NONE [Primary Care Provider] - Time spent managing pt's care (in minutes): 35
[2022-08-13] MEDS ORDERED: RIVAROXABAN 20 MG TABLET PO SCH (09:00)
[2022-08-13] MEDS ORDERED: LOSARTAN POTASSIUM 50 MG TABLET PO SCH (09:00)
[2022-08-13] MEDS: AMIODARONE HCL 200 MG TAB PO SCH (09:23)
--- NOTE | 2022-08-13 16:07 | CON ---
Date of Consultation: 08/12/2022 Reason For Consultation: Atrial fibrillation, congestive heart failure. History Of Present Illness: Mr. Sanford is a 62-year-old male, has a history of CABG in the past. He has a history of chronic systolic congestive heart failure. He had a stent in 2019 of his OM. He sauceda s a history of hypertension, tetralogy of Fallot, diabetes, cerebrovascular disease, CVA, and dyslipi demia. Recently gone into atrial fibrillation with rapid ventricular response. He is on beta-blocke rs. He is on Xarelto. His heart rate, however, was poorly controlled. Echocardiogram showed modera [id number]-[id number] mitral regurgitation with low ejection fraction. He was admitted to the hospital for fu rther evaluation and treatment and possible cardioversion. He complained of dyspnea on exertion, PND , orthopnea, pedal edema, and palpitation. No syncope. No fever. No chills. No chest pain. He de nied nausea, vomiting, or diaphoresis. Past Medical History: As stated above. Allergies: NONE. Review of Systems: Negative. Social History: Negative. Family History: Negative. Medications: At home include metoprolol, losartan, Lasix, aspirin, Lipitor, and Xarelto. Physical Examination: General: He was in atrial fibrillation at a rate of 130. HEENT: Negative. Neck: Supple with no bruit. Chest: Clear. Cardiac: Revealed atrial fibrillation, mitral regurgitation murmur. No gallops or rubs. Abdomen: Benign. Extremities: Revealed 1+ edema. Skin: Dry and intact. Neurologic: He was nonfocal. Pulses were present distally bilaterally. Diagnostic Data: Showed atrial fibrillation on EKG. Potassium is 3.1. Chest x-ray is negative. BN P was 2268. Impression And Plan: New onset atrial fibrillation, rapid ventricular response, worsening congestive heart failure with [id number]-[id number]-[id number] mitral regurgitation. He is not a candidate for metoprolol or sotalol. I will put him on amiodarone 400 b.i.d. p.o. and plan a cardioversion in the morning. We will have to deal with his mitral regurgitation down the road. We will repeat an echocardiogram in 3 months after the cardioversion and if his ejection fraction stays low, we may consider a defibrillat or, may consider surgery on his mitral valve. His other problems include coronary artery disease, dy slipidemia, chronic systolic congestive heart failure, diabetes, hypertension, cerebrovascular accide nt, tetralogy of Fallot. All those problems are stable at this point. We will continue to follow joselito MCKEON Voice ID: [id number] Report ID: [id number]
--- NOTE | 2022-08-13 22:37 | OP ---
Date of Procedure: 08/13/2022 Surgeon: Erik Cook MD Alodize Machine Helper: Ms. Rubia Crain. Procedure: Direct current cardioversion. Indication: Rapid atrial fibrillation with dyspnea on exertion. The patient was in the ICU when the procedure was done. He was prepped and draped in the routine sterile fashion. The defibrillator pa ddles in AP and PA were placed adequately. The patient received a total of 10 mg of Versed IV push f or total sedation. He received 1 shock of 200 joules and he converted to sinus rhythm. The patient has been taking amiodarone 400 b.i.d. He has already been on Xarelto. When he wakes up, he can go h ome and will continue his amiodarone, Xarelto, losartan, DC his metoprolol. I will see him in the of kevin in a week, after which we will switch the amiodarone to 200 mg daily. We will repeat an echocar diogram in about a month or 2. His ejection fraction was 20-25 percent in atrial fibrillation. Oper ator was myself. MARÍA/BRIA Voice ID: [id number] Report ID: [id number]
[2022-08-13 22:45] VITALS: TEMP 97.7
[2022-08-13 22:53] VITALS: BP 127/75; O2SAT 100
--- NOTE | 2022-08-14 06:34 | EKG ---
Test Date: 2022-08-13 Test Time: 07:35:54 End Worker: SHANNAN MEASUREMENT RESULTS: Intervals: Rate: 86 MT: QRSD: 146 QT: 444 QTc: 531 [place]: P: 53 MT: QRS: 8 T: 136 INTERPRETIVE STATEMENTS: Atrial flutter with 4:1 AV conduction Right bundle branch block Inferior infarct, age undetermined T wave abnormality, consider lateral ischemia Abnormal ECG Compared to ECG 08/12/2022 07:52:36 Atrial fibrillation no longer present Ventricular premature complex(es) no longer present Myocardial infarct finding still present T-wave abnormality still present Possible ischemia still present Electronically Signed On 08-14-22 06:31:24 CDT by Erik Cook
--- NOTE | 2022-08-14 06:34 | EKG ---
Test Date: 2022-08-13 Test Time: 07:37:48 Customer Development Manager: SHANNAN MEASUREMENT RESULTS: Intervals: Rate: 84 NM: 190 QRSD: 148 QT: 452 QTc: 534 [place]: P: 51 NM: 190 QRS: 8 T: 137 INTERPRETIVE STATEMENTS: Sinus rhythm with occasional premature ventricular complexes Possible Left atrial enlargement Right bundle branch block Inferior infarct, age undetermined T wave abnormality, consider lateral ischemia Abnormal ECG Compared to ECG 08/13/2022 07:35:54 Ventricular premature complex(es) now present Atrial flutter no longer present Myocardial infarct finding still present T-wave abnormality still present Possible ischemia still present Electronically Signed On 08-14-22 06:31:23 CDT by Erik Cook
--- NOTE | 2022-08-14 06:38 | EKG ---
Test Date: 2022-08-12 Test Time: 07:52:36 Burrer Hand: DIMPLE MEASUREMENT RESULTS: Intervals: Rate: 131 MD: QRSD: 124 QT: 362 QTc: 534 [place]: P: MD: QRS: 46 T: 128 INTERPRETIVE STATEMENTS: Atrial fibrillation with rapid ventricular response with premature ventricular or aberrantly conducted complexes Right bundle branch block Septal infarct, age undetermined T wave abnormality, consider inferolateral ischemia Abnormal ECG Compared to ECG 03/18/2021 22:47:53 Ventricular premature complex(es) now present Right bundle-branch block now present Myocardial infarct finding now present Sinus tachycardia no longer present T-wave abnormality still present Possible ischemia still present Electronically Signed On 08-14-22 06:32:13 CDT by Erik Cook
== END 2022-08-13 10:55 | disposition home or self-care (01) ==
LOC: ER 07:46 → ERHOLD 11:04 → INTOOBSV 11:04 → 3RD-ICU 18:20
PROVIDERS: ADMIT Hospitalist; ATTEND Hospitalist
DX: I48.91 Unspecified atrial fibrillation (principal); I11.0 Hypertensive heart disease with heart failure; I50.32 Chronic diastolic (congestive) heart failure; I34.0 Nonrheumatic mitral (valve) insufficiency; R00.0 Tachycardia, unspecified; K76.6 Portal hypertension; I25.10 Atherosclerotic heart disease of native coronary artery without angina pectoris; Q21.3 Tetralogy of Fallot; I65.23 Occlusion and stenosis of bilateral carotid arteries; E78.2 Mixed hyperlipidemia; G47.30 Sleep apnea, unspecified; E11.9 Type 2 diabetes mellitus without complications; F10.10 Alcohol abuse, uncomplicated; K74.60 Unspecified cirrhosis of liver; Z95.1 Presence of aortocoronary bypass graft; Z95.5 Presence of coronary angioplasty implant and graft; Z79.01 Long term (current) use of anticoagulants; Z79.82 Long term (current) use of aspirin; Z79.899 Other long term (current) drug therapy; Z20.822 Contact with and (suspected) exposure to COVID-19
CPT/HCPCS: 93005 ×3; 85025 ×2; 80048; 36415; 83735; 85610 ×2; 80076; 85730; 84484; 80053; 83880; 71045; 92960; 96374; 99285; 87811; J2250; J1650; G0378 ×4; J7030 ×2; J2405; J3010

== ENCOUNTER 2022-11-01 11:26 | Inpatient (IN) | payer OTHER ==
--- OUTSIDE RECORDS SUMMARY | 2022-11-01 11:30 | XMS REPORT | Continuity of Care Document ---
:1960 Author Organization [facility] t Address [address] [place] [address] Care Team Providers Name Role Phone TAOJOSE FRANCISCOSHERIN Primary Care Physician Unavailable TRINIDAD SHETH Attending Clinician Unavailable Mona Macdonald MD Attending Clinician SAM BERNABE Attending Clinician Unavailable TRINIDAD SHETH Admitting Clinician Unavailable SELIN GRUBER Admitting Clinician Unavailable Payers Payer Name Policy Type Policy Number Effective Date Expiration Date Cali paniagua [facility] [id number] HMO [place] [id number] Problems Condition Condition Condition Status Onset Resolution Last Treating Co mments Source Name Details Category Date Date Treatment Clinician Date Stroke Stroke Disease Active [facility] 4-30 Julita kes [facility]: [facility] Center Allergies, Adverse Reactions, Alerts Allergy Allergy Status Severity Reaction(s) Onset Inactive Treating Comm ents Source Name Type Date Date Clinician NO KNOWN Allergy Active [facility] Social History Social Habit Start Date [...] l 00 by mouth Center daily. clopidogreL 2021-0 Yes 75mg QD Take [address] [facility] (PLAVIX) 75 5-12 tablet (75 Julita kes mg tablet 00:00: mg total) Med ical 00 by mouth Center daily. tamsulosin 2021-0 Yes .4mg QD [facility]12 [facility] 0.4 mg Cap 00:00: (0.4 mg Medi zo 24 hr 00 total) by Center capsule mouth daily. furosemide 2021-0 Yes 20mg QD [facility]IX[facility] 20 5-12 tablet (20 James es MG tablet 00:00: mg total) Med ical 00 by mouth Center daily. aspirin 81 2021-0 Yes 81mg QD Take [facility] chewable 5-12 tablet (81 Julita kes tablet 00:00: mg total) Medica l 00 by mouth Center daily. clopidogreL 2021-0 Yes 75mg QD Take [address] [facility] [address] (PLAVIX) 75 5-12 tablet (75 Julita kes mg tablet 00:00: mg total) Med ical 00 by mouth Center daily. tamsulosin 2021-0 Yes .4mg QD Take 1 [facility] (FLOMAX) 5-12 [facility] 0.4 mg Cap 00:00: (0.4 mg Medi zo 24 hr 00 total) by Center capsule mouth daily. furosemide 2020-0 Yes 20mg QD Take 1 [facility] (LASIX) 20 5-12 tablet (20 James es MG tablet 00:00: mg total) Med ical 00 by mouth Center daily. atorvastati 202-0 Yes 80mg QD Take [address] [facility] [address] [facility] (LIPITOR) 5-11 tablet (80 Julita kes 80 MG 00:00: mg total) Medical tablet 00 by mouth Center nightly. metoprolol 2021-0 Yes 25mg QD Take [facility] succinate 5-11 tablet (25 Luke s (TOPROL-XL) 00:00: mg total) M edical 25 MG 24 hr 00 by mouth Cent er tablet daily. atorvastati 2021-0 Yes 80mg QD Take [address] [facility] [facility] (LIPITOR) 5-11 tablet (80 Julita kes 80 MG 00:00: mg total) Medical tablet 00 by mouth Center nightly. metoprolol 2021-0 Yes 25mg QD Take 1 [facility] succinate 5-11 tablet (25 Luke s (TOPROL-XL) 00:00: mg total) M edical 25 MG 24 hr 00 by mouth Cent er tablet daily. Procedures This patient has no known procedures. Plan of Care Planned Activity Planned Date Details Comments Source Future Scheduled 2024-03-24 Lipid panel (procedure[facility] 00:[facility]:00 [code = 54542048] Medical Ce nter Future Scheduled 2024-03-24 Lipid panel (procedure) [facility] 00:00:00 [code = 97330584] Medical Ce nter Future Scheduled 2022-07-25 INFLUENZA VACCINE (#1) [facility] [code = INFLUENZA Medical Ce nter VACCINE (#1)] Future Scheduled 2022-07-25 INFLUENZA VACCINE (#1) [facility] 00:[facility] [code = INFLUENZA Medical Ce nter VACCINE (#1)] Future Scheduled 2021-11-[address] [facility] [facility] 00:00:00 WELLNESS (YEAR 2 or Medical Center FIRST YEAR if no IPPE) [code = MEDICARE ANNUAL WELLNESS (YEAR 2 or FIRST YEAR if no IPPE)] Future Scheduled 2021-11-[address] [facility] [facility] 00:00:00 WELLNESS (YEAR 2 or Medical Center FIRST YEAR if no IPPE) [code = MEDICARE ANNUAL WELLNESS (YEAR 2 or FIRST YEAR if no IPPE)] Future Scheduled 2021-11-[address] [facility] 00:00:00 (12+) [code = Medical Center DEPRESSION SCREENING (12+)] Future Scheduled 2021-11-[address] [facility] 00:00:00 (12+) [code = Medical Center DEPRESSION SCREENING (12+)] Future Scheduled 2009 SHINGLES VACCINES ([address] [facility] 00:00:00 2) [code = SHINGLES Medical Center VACCINES (1 of 2)] Future Scheduled 2009 SHINGLES VACCINES ([address] [facility] 00:00:00 2) [code = SHINGLES Medical Center VACCINES (1 of 2)] Future Scheduled 1978 DTAP/TDAP/TD [facility]ACCINES [facility] 00:[facility]:00 (1 - Tdap) [code = Medical C enter DTAP/TDAP/TD VACCINES (1 - Tdap)] Future Scheduled 1978 DTAP/TDAP/TD VACCINES [facility] 00:00:00 (1 - Tdap) [code = Medical C enter DTAP/TDAP/TD VACCINES (1 - Tdap)] Future Scheduled 1977 HEPATITIS C [facility]CRE[facility]ING [facility]:00 [code = HEPATITIS C Medical Center SCREENING] Future Scheduled 1977 HEPATITIS C [facility]:00 [code = HEPATITIS C Medical Center SCREENING] Future Scheduled [address] [facility] 00:00:00 Counseling and Medical Cente r Screening (12+) [code = Tobacco Cessation Counseling and Screening (12+)] Future Scheduled 1960-01-03 COVID-19 VACCINE (#1) [facility]:00 [code = COVID-[address] VACCINE (#1)] Future Scheduled 1960-01-03 COVID-19 VACCINE (#1) [facility]:00 [code = COVID-[address] VACCINE (#1)] Future Scheduled 1959 Screening for malignant [facility] 00:00:00 neoplasm of colon Medical Ce nter (procedure) [code = 483940676] Future Scheduled 1959 Screening for malignant [facility] 00:00:00 neoplasm of colon Medical Ce nter (procedure) [code = 086836549] Future Scheduled 1960 Sigmoidoscopy [code = [facility]oscopy] Medical Cente r Future Scheduled 1959 Screening for malignant [facility] 00:00:00 neoplasm of colon Medical Ce nter (procedure) [code = 996033058] Future Scheduled 1960 Sigmoidoscopy [code = [facility] S[facility]oidoscopy] Medical Cente r Future Scheduled 1959 CT Colonography (combo) [facility] 00:00:00 [code = CT Colonography [facility] (combo)] Future Scheduled 1959 Screening for malignant [facility] 00:00:00 neoplasm of colon Medical Ce nter (procedure) [code = 593944441] Future Scheduled 1959 Screening for malignant [facility] 00:00:00 neoplasm of colon Medical Ce nter (procedure) [code = 205262661] Future Scheduled 1959 Screening for malignant [facility] 00:00:00 neoplasm of colon Medical Ce nter (procedure) [code = 212898471] Future Scheduled 1959 CT Colonography (combo) [facility] 00:00:00 [code = CT Colonography [facility] (combo)] Future Scheduled 1959 Screening for malignant [facility] 00:00:00 neoplasm of colon Medical Ce nter (procedure) [code = 043899880] Future Scheduled 1959 Screening for malignant [facility] 00:00:00 neoplasm of colon Medical Ce nter (procedure) [code = 798799385] Encounters Start End Encounter Admission Attending Care Care Encounter Source Date/Time Date/Time Type Type Clinicians Facility Department ID 2021-03-23 Inpatient UR CIVUNIGUNTA [facility] Neurology [id number] [facility] 22:51:00 , TRINIDAD 2022-04-23 2022-04-23 Refill Nalam, [facility] [id number] 00:00:00 00:00:00 [facility] 2022-04-23 2022-04-23 Refill Nalam, [facility] [id number] 00:00:00 00:00:00 [facility] 2022-01-23 2022-01-23 Refill Nalam, [facility] [id number] 00:00:00 00:00:00 [facility] 2022-01-23 2022-01-23 Refill Nalam, [facility] [id number] 00:00:00 00:00:00 [facility] 2021-10-10 2021-10-10 Outpatient FAINA BERNABE, [facility] [id number] [facility] 00:00:00 00:00:00 SAM Results Test [...] NOT 1092) ACCURATE CRE ATININE CLEARANCE IN [place] EDICTING GLOMERULAR FILT RATION RATE. ESTIMATED GFR IS NOT APPLICABLE FOR DIALYSIS PATIENTS. [address] Service ID - TRUNG [id number] 05:04:00 Test Item Value Reference Range Interpretation Comments MAGNESIUM (BEAKER) (test code = 1.4 mg/dL 1.6-2.6 L 627) [address] Service ID - TRUNG MCBC (HEMOGRAM ONLY)2021-04-03 04:31:00 [...] WBC 0-0 (BEAKER) (test code = 413) [id number] 10:41:00 Test Item Value Reference Range Interpretation Comments ACTIVATED CLOTTING TIME 263 sec : 74 -137 seconds, (BEAKER) (test code = Baseli ne: TESTED AT 441) [address], [facility] 30: [address] Service/Techni qing ID = [id number] for [place] SLY, LANCE [id number] 10:06:00 Test Item Value Reference Range Interpretation Comments ACTIVATED CLOTTING TIME 252 sec : 74 -137 seconds, (BEAKER) (test code = Baseli ne: TESTED AT 441) [address], [facility] 30: [address] Service/Techni qing ID = [id number] for [place] SLY, LANCE [id number] 10:06:00 Test Item Value Reference Range Interpretation Comments ACTIVATED CLOTTING TIME 555 sec : 74 -137 seconds, (BEAKER) (test code = Baseli ne: TESTED AT 441) [address], [facility] 30: [address] Service/Techni qing ID = [id number] for [place] SLY, LANCE BASIC METABOLIC [id number] 04:38:00 Test Item Value Reference Range Interpretation [...] S NOT APPLICABLE FOR DIALYSIS PATIEN TS. [address] Service ID - TRUNG [id number] 04:31:00 Test Item Value Reference Range Interpretation Comments MAGNESIUM (BEAKER) (test code = 1.5 mg/dL 1.6-2.6 L 627) [address] Service ID - TRUNG MBASIC METABOLIC [id number] 05:44:00 Test Item Value Reference Range Interpretation [...] S NOT APPLICABLE FOR DIALYSIS PATIEN TS. [address] Service ID - MARGIE [id number] 05:43:00 Test Item Value Reference Range Interpretation Comments MAGNESIUM (BEAKER) (test code = 1.6 mg/dL 1.6-2.6 627) [address] Service ID - MARGIE WSARS-COV2/RT-PCR ([facility])2021-03-31 08:46:00 Test Item Value Reference Range Interpretation Comments SARS-COV2/RT-PCR (test Negative Not Detected, Negative, code = 0987699) See external report for linked test SARS-COV-[address] [facility] [place] (test code = 9908266) Negative result for this test determines that [...] of the Act.Fact Sheet for Healthcare Prov iders:https://www.[employer]/sites/default/files/product/documents/Fact_Sheet_HC _Hwwuhafhf_Amzt_MJEF-YbZ-2.pdfFact Sheet for Healthcare Patients:https://www.CVRx.com/sites/default/files/product/docume nts/Jlxb_Ttwqg_Uiefrocf_Dpxs_WNWG-VrW-3.pdfPerforming Laboratory:[place] [address] [place], [place] [address]MBIYI METABOLIC PANEL 2021-03-31 06:05:00 Test Item Value [...] S NOT APPLICABLE FOR DIALYSIS PATIEN TS. [address] Service ID - [id number] 06:03:00 Test Item Value Reference Range Interpretation Comments MAGNESIUM (BEAKER) (test code = 1.8 mg/dL 1.6-2.6 627) [address] Service ID - [id number] 04:53:00 Test Item Value Reference Range Interpretation Comments MAGNESIUM (BEAKER) (test code = 1.5 mg/dL 1.6-2.6 L 627) [address] Service ID - DBBASIC METABOLIC [id number] 04:53:00 Test Item Value Reference Range Interpretation [...] S NOT APPLICABLE FOR DIALYSIS PATIEN TS. [address] Service ID - [id number] 06:51:00 Test Item Value Reference Range Interpretation Comments ACTIVATED CLOTTING TIME 252 sec : TE STED AT [facility] 6720 (BEAKER) (test code = EARLINE [address] [place], 441) [address]: Field1: 2: [address] Service/Techni qign ID = [id number] for JHONATHAN SCOTT BASIC METABOLIC [id number] 04:38:00 Test Item Value Reference Range Interpretation [...] S NOT APPLICABLE FOR DIALYSIS PATIEN TS. [address] Service ID - TRUNG [id number] 04:30:00 Test Item Value Reference Range Interpretation Comments MAGNESIUM (BEAKER) (test code = 1.5 mg/dL 1.6-2.6 L 627) [address] Service ID - TRUNG [id number] 19:20:00 Test Item Value Reference Range Interpretation Comments ACTIVATED CLOTTING TIME 142 sec : 74 -137 seconds, (BEAKER) (test code = Baseli ne: TESTED AT 441) [facility] [address] [place] [address], [facility] 30: [address] Service/Techni qing ID = [id number] for TAYE DGJHONATHAN MARTIN [id number] 17:39:00 Test Item Value Reference Range Interpretation Comments ACTIVATED CLOTTING TIME 274 sec : 74 -137 seconds, (BEAKER) (test code = Baseli ne: TESTED AT 441) [address], [facility] 30: [address] Service/Techni qing ID = [id number] for TAYE DGJHONATHAN MARTIN [id number] 16:24:00 Test Item Value Reference Range Interpretation Comments ACTIVATED CLOTTING TIME 257 sec : 74 -137 seconds, (BEAKER) (test code = Baseli ne: TESTED AT 441) [address], [facility] 30: [address] Service/Techni qing ID = [id number] for Lidia Blanca BASIC METABOLIC [id number] 10:50:00 Test Item Value Reference Range Interpretation [...] S NOT APPLICABLE FOR DIALYSIS PATIEN TS. [address] Service ID - PIAYA LBASIC METABOLIC [id number] 10:24:00 Test Item Value Reference Range Interpretation [...] S NOT APPLICABLE FOR DIALYSIS PATIEN TS. [address] Service ID - PIAYA [id number] 10:13:00 Test Item Value Reference Range Interpretation [...] mechanical heart valves.CBC W/PLT COUNT & AUTO [id number] 10:06:00 Test Item Value Reference Range Interpretation [...] H PERCENT (BEAKER) (test code = 2801) [id number] 06:35:00 Test Item Value Reference Range Interpretation Comments MAGNESIUM (BEAKER) (test code = 1.9 mg/dL 1.6-2.6 627) [address] Service ID - TRUNG MBASIC METABOLIC [id number] 17:18:00 Test Item Value Reference Range Interpretation [...] S NOT APPLICABLE FOR DIALYSIS PATIEN TS. [address] Service ID - BSEEG AWAKE AND [id number] 17:17:00For STAT EEG- after 5 PM weekdays, weekends and holidays, page the on-call EEG TechReason for exam:-& gt;patient was confused today morning, concern for a seizure [facility] : 1960 Sex: MNEUROPHYSIOLOGY EEG REPORT DATES OF TEST: 03/27/21 DATE OF REPORT: 03/27/21 Name: Donald Sanford ACC#: [id number] EEG Number: [id number] Start time: 11:05 AM Stop time: 11:26 AM CPT Code: 16259 ICD-10: R56.9 HISTORY: 60-year-old man with multiple [...] signed by: EBONIE JOHNSON MD on 105:17 [id number] 17:16:00 Test Item Value Reference Range Interpretation Comments MAGNESIUM (BEAKER) (test code = 2.3 mg/dL 1.6-2.6 627) [address] Service ID - [id number] 13:40:00 Test Item Value Reference Range Interpretation Comments RPR SCREEN (BEAKER) (test code = Nonreactive Nonreactive 420) COMPREHENSIVE METABOLIC [id number] 07:20:00 Test Item Value Reference Range Interpretation [...] S NOT APPLICABLE FOR DIALYSIS PATIEN TS. [address] Service ID - TRUNG MHIV-1 ANTIGEN WITH HIV-1/2 [id number] 06:11:00 Test Item Value Reference Range Interpretation Comments HIV-1 ANTIGEN WITH HIV 1\T\2 Nonreactive Nonreactive ANTIBODY (2) (BEAKER) (test code = 2586) [address] Service ID - TRUNG MTSH/FREE T4 IF [id number] 05:29:00 Test Item Value Reference Range Interpretation Comments THYROID STIMULATING HORMONE 4.601 uIU/mL 0.350-4.940 (BEAKER) (test code = 772) [address] Service ID - TRUNG MVITAMIN B12 AND [id number] 05:29:00 Test Item Value Reference Range Interpretation Comments VITAMIN B12 690 pg/mL 213-816 (BEAKER) (test code = 774) FOLATE (BEAKER) 11.70 ng/mL See_Comment [Automated message] (test code = 362) The system which generated this result transmitted ref erence range: >=7.00. The reference range was not used to interpr et this result as normal/abnormal . [address] Service ID - TRUNG [id number] 04:52:00 Test Item Value Reference Range Interpretation Comments MAGNESIUM (BEAKER) (test code = 1.4 mg/dL 1.6-2.6 L 627) [address] Service ID - TRUNG MCREATINE KINASE (CK)2021-03-27 04:52:00 Test Item Value Reference Range Interpretation Comments CREATINE KINASE TOTAL (BEAKER) (test 43 U/L 29-200 code = 380) [address] Service ID - TRUNG MPTH, [id number] 04:33:00 Test Item Value Reference Range Interpretation Comments PARATHYROID HORMONE INTACT 203.2 pg/mL 8.5-72.5 H (ROLANDOAKER) (test code = 577) [address] Service ID - TRUNG MCT, BRAIN, WITHOUT [id number] 19:30:00Unlisted Reason for Exam - Click Yes and Enter Reason Below->No [facility] : 1960 Sex: [...] chronic small vessel ischemic disease. Generalized cerebral atrophywith ex vacuo dilatation of the ventricular system [...] is recommended for further characterization. Signed: Jhonathan Leggetteport Verified Date/Time: 03/26/2021 19:30:38 POCT-GLUCOSE [id number] 19:09:00 Test Item Value Reference Range Interpretation Comments POC-GLUCOSE METER 115 mg/dL 70-110 H : TESTED A T [facility] 6720 (BEAKER) (test code = EARLINE Collazo [facility], 1538) [address]: [address] Service/Techni qing ID = [id number] for Yesica Alvarez [id number] 07:41:00 Test Item Value Reference Range Interpretation Comments MAGNESIUM (BEAKER) (test code = 1.1 mg/dL 1.6-2.6 L 627) [address] Service ID - AAHAMIDHIGH SENSITIVITY TROPONIN [id number] 04:58:00 Test Item Value Reference Range Interpretation Comments HIGH SENSITIVITY 1025 pg/ml See_Comment HH [Automated message] TROPONIN I (test code The sy stem which = [id number]) generated this result transmitted ref erence range: <=35. Th e reference range was not used to int erpret this result as normal/abnormal . [address] Service ID - DBThe CAR STEREO INSTALLER STAT High Sensitivity Troponin-I results should be used in conjunctionwith other diagnostic information such as ECG, clinical observations and information, and patient symptoms to aid in the diagnosis of MN.BASIC METABOLIC [id number] 04:35:00 Test Item Value Reference Range Interpretation [...] S NOT APPLICABLE FOR DIALYSIS PATIEN TS. [address] Service ID - ADMINCBC W/PLT COUNT & AUTO [id number] 04:15:00 Test Item Value Reference Range Interpretation [...] (BEAKER) (test code = 2801) CT, CTANGIO [id number] 13:09:00Unlisted Reason for Exam - Click Yes and Enter Reason Below->No [facility] : 1960 Sex: MFINAL [...] MDReport Verified Date/Time: 03/25/2021 13:09:59 Reading Location: [address] Neuro Reading Room CT, CAROTID, [id number] 13:09:00Unlisted Reason for Exam - Click Yes and Enter Reason Below->No [facility]ENTER[facility]: DONALD SANFORD : 1960 Sex: MFINAL REPORT CT, CAROTID, ANGIO, CT, CTANGIO BRAIN INDICATION: Carotid or vertebral occlusion COMPARISON: Correlation to MR angiography obtained March 24, 2021 TECHNIQUE:Rapid acquisition spiralimages were obtained between the aortic arch and [...] radiation dose to as low as reasonably achiev able. FINDINGS:CTA BRAIN:Dense calcifications are present in the cavernous internal carotid arteriesand along the precavernous segments, severely limiting evaluation [...] approximately 50% right and 40% left narrowing by NASCET criteria. Nonvascular findings:No acute findings within the [...] Fish Verified Date/Time: 03/25/2021 13:09:59 Reading Location: [facility] C013V Neuro Reading Room BASIC METABOLIC [id number] 06:35:00 Test Item Value Reference Range Interpretation [...] S NOT APPLICABLE FOR DIALYSIS PATIEN TS. [address] Service ID - ADMINB-TYPE NATRIURETIC FACTOR (BNP)2021-03-25 06:01:00 Test Item Value Reference Range Interpretation Comments B-TYPE NATRIURETIC PEPTIDE 6570 pg/mL 0-100 H (BEAKER) (test code = 700) [address] Service ID - DBOperator ID - DBCBC W/PLT [...] = 2801) RAD, CHEST, 1 VIEW, NON [id number] 16:10:00Reason for exam:->dyspnea, new o2 requirementShould this be performed at the bedside?->Yes [facility] : 1960 Sex: MFINAL [...] MDReport Verified Date/Time: 03/24/2021 16:10:45 Reading Location: [address] Neuro Reading Room HIGH SENSITIVITY TROPONIN [id number] 15:49:00 Test Item Value Reference Range Interpretation Comments HIGH SENSITIVITY 1150 pg/ml See_Comment HH [Automated message] TROPONIN I (test code [facility] which = [id number]) generated this result transmitted ref erence range: <=35. Th e reference range was not used to int erpret this result as normal/abnormal . [address] Service ID - DBThe CAR STEREO INSTALLER STAT High Sensitivity Troponin-I results should be used in conjunctionwith other diagnostic information such as ECG, clinical observations and information, and patient symptoms to aid in the diagnosis of MN.MR, MRA, BRAIN, WITHOUT [id number] 12:19:00Reason for exam:- >Ischemic Stroke Evaluation [facility] : 1960 Sex: [...] by NASCET criteria. Signed: JR Giles Robert [facility] Verified Date/Time: 03/24/2021 12:19:21 Reading Location: [facility] B1 C013V Neuro Reading Room MR, MRA, NECK, WITHOUT IV CONTRAST 2021-03-24 12:19:00Reason for exam:->Ischemic Stroke Evaluation [facility] : 1960 Sex: [...] MDReport Verified Date/Time: 03/24/2021 12:19:21 Reading Location: [facility] B1 C013V Neuro Reading Room MR, BRAIN, WITHOUT CONTRAST 2021-03-24 12:19:00Reason for exam:->Ischemic Stroke Evaluation [facility] : 1960 Sex: [...] [place] Verified Date/Time: 03/24/2021 12:19:21 Reading Location: [facility] C013V Neuro Reading Room SARS-COV2/RT-PCR ([facility])2021-03-24 11:03:00 Test Item Value Reference Range Interpretation Comments SARS-COV2/RT-PCR (test Negative Not Detected, Negative, code = 3514759) See external report for linked test SARS-COV-2 PERFORMING LAB [facility] (test code = 0776146) Negative result for this test determines that [...] of the Act.Fact Sheet for Healthcare Prov iders:https://www.[employer]/sites/default/files/product/documents/Fact_Sheet_HC _Ldqdsqwmg_Jzco_DLCS-EcM-3.pdfFact Sheet for Healthcare Patients:https://www.[employer]/sites/default/files/product/docume nts/Pchp_Eakbp_Biouvmhd_Cvcj_HMRR-JiO-3.pdfPerforming Laboratory:[address], [place] [address]BOWZRLXHCP [id number] 07:48:00 Test Item Value Reference Range Interpretation Comments HEMOGLOBIN A1C (BEAKER) (test code = 6.0 % 4.3-6.1 368) HIGH SENSITIVITY TROPONIN [id number] 05:11:00 Test Item Value Reference Range Interpretation Comments HIGH SENSITIVITY 1418 pg/ml See_Comment HH [Automated message] TROPONIN I (test code The sy stem which = [id number]) generated this result transmitted ref erence range: <=35. Th e reference range was not used to int erpret this result as normal/abnormal . [address] Service ID - TRUNG MThe CAR STEREO INSTALLER STAT High Sensitivity Troponin-I results should be used in conjunction with other diagnostic information such as ECG, clinical observations and information, and patient symptoms to aid in the diagnosis of MN.BASIC METABOLIC [id number] 05:00:00 Test Item Value Reference Range Interpretation [...] S NOT APPLICABLE FOR DIALYSIS PATIEN TS. [address] Service ID - ADMINLIPID [id number] 05:00:00 Test Item Value Reference Range Interpretation [...] Borderline 130-159 High 160-189 Very High >=[address] Service ID - ADMINHEPATIC FUNCTION [id number] 05:00:00 Test Item Value Reference Range Interpretation [...] code = 78 U/L 6-55 H 347) [address] Service ID - ADMINCBC W/PLT COUNT & AUTO [id number] 04:49:00 Test Item Value Reference Range Interpretation [...] 0-1 H PERCENT (BEAKER) (test code = 2808)
--- NOTE | 2022-11-01 12:25 | RAD REPORT ---
EXAM DESCRIPTION: CT - CTHCSPWOC - 11/01/2022 12:02 pm CLINICAL HISTORY: trauma, fall with left-sided head and neck trauma COMPARISON: Head C Spine Mpr Wo Con dated 03/17/2021 TECHNIQUE: Axial 5 mm thick images of the head were obtained. Axial 2 mm thick images of the cervic al spine were obtained with sagittal and coronal reconstruction images generated and reviewed. All CT scans are performed using dose optimization technique as appropriate and may include automated exposure control or mA/KV adjustment according to patient size. FINDINGS: No intracranial hemorrhage, mass, edema or acute intracranial finding. No acute cortical b ased infarction identified. Volume loss changes are present with additional encephalomalacia in the l eft parietal lobe and a minimal focus in the posterolateral right frontal lobe. Ventricles are in pro portion to the volume loss. Chronic ischemic changes evident in the white matter of each cerebral hem isphere. Physiologic and arterial calcifications are present. No extra-axial fluid collections. Masto id air cells and paranasal sinuses are clear. No globe or orbit abnormality seen. Cervical body height and alignment are normal. No significant disc space narrowing. Minimal endplate spurring changes are present. Facet joints normally. No fracture or acute bony abnormality. Central canal detail is inherently limited. Carotid bulb and ICA calcifications are very dense. Each internal carotid artery takes an aberrant course towards the midline as a normal anatomic variant. No paraspinal mass or hematoma. IMPRESSION: No acute hemorrhage, edema or other acute intracranial finding. Above detailed intracran ial findings are similar to February 2021. Negative CT cervical spine examination for acute or significant finding. No significant change from comparison.
--- NOTE | 2022-11-01 12:41 | RAD REPORT ---
EXAM DESCRIPTION: RAD - Chest Single View - 11/01/2022 12:30 pm CLINICAL HISTORY: syncope, fall, chest pain COMPARISON: Portable 08/12/2022 TECHNIQUE: AP portable chest image was obtained 11/01/2022 12:30 pm . FINDINGS: Patient has chronic interstitial lung parenchymal opacification. Few small areas of nodula rity in the lung parenchyma match the prior study. No new or enlarging mass or infiltrate seen. Cardiomegaly and vascular engorgement are present. No pneumothorax or large pleural effusion. No acute bony abnormality seen. No acute aortic findings suspected. IMPRESSION: Mild to moderate CHF/ volume overload pattern. Chest appear slightly worse when compared to August 12 imaging.
[2022-11-01 12:48] LABS: Absolute Lymphocytes (CBC) 0.9 K/uL (0.7-4.9); Hematocrit 40.8 % (39.6-49.0); Lymphocytes % 12.2 % (15.3-44.8); MPV 8.6 fL (7.6-11.3); RBC Red Blood Cell Count 4.48 M/uL (4.33-5.43)
[2022-11-01 12:55] LABS: Protime INR 3.15
[2022-11-01 13:07] LABS: Albumin 3.6 g/dL (3.4-5.0); Bilirubin Direct 0.3 mg/dL (0-0.2); Bilirubin Total 0.7 mg/dL (0.2-1.0); Magnesium 1.9 mg/dL (1.6-2.4); Potassium 3.7 mmol/L (3.5-5.1); Protein, Total 6.8 g/dL (6.4-8.2); Troponin High Sensitivity 22.4 pg/mL (<58.9)
[2022-11-01 13:46] LABS: Urine Blood Negative (Negative); Urine Glucose Negative (Negative); Urine Protein Negative (Negative)
--- NOTE | 2022-11-01 15:27 | ER ---
Nurse's Notes [facility] Name: Donald Sanford Age: 62 yrs Sex: Male : 1960 Arrival Date: 11/01/2022 Time: 11:40 Bed 13 Private MD: Diagnosis: Syncope Presentation: 11/01 11:40 Chief complaint: Patient states: FAll from standing this morning at 1030. Pt states he ss was dizzy before he fell. Denies LOC. Takes Xarelto, did hit his head. Coronavirus screen: Client denies travel out of the [place] in the last 14 days. Ebola Screen: Patient denies exposure to infectious person. Patient denies travel to an Ebola-affected area in the 21 days before illness onset. Initial Sepsis Screen: Does the patient meet any 2 criteria? No. Patient's initial sepsis screen is negative. Does the patient have a suspected source of infection? No. Patient's initial sepsis screen is negative. Risk Assessment: Do you want to hurt yourself or someone else? Patient reports no desire to harm self or others. Onset of symptoms was November 01, 2022. 11:40 Method Of Arrival: EMS: [facility] ss 11:40 Acuity: KEDAR 2 ss Historical: - PMHx: 12:19 Cirrhosis; Hypertension; ss - Immunization history:: Adult Immunizations unknown. - Family history:: not pertinent. - Social history:: Smoking status: unknown. Screenin:30 Abuse screen: Denies threats or abuse. Denies injuries from another. Nutritional db screening: No deficits noted. Tuberculosis screening: No symptoms or risk factors identified. Fall Risk None identified. Assessment: 12:42 Reassessment: Patient appears in no apparent distress at this time. Patient and/or db family updated on plan of care and expected duration. Pain level reassessed. Patient is alert, oriented x 3, equal unlabored respirations, skin warm/dry/pink. patient states got dizzy and fell today. Noted bruising to forehead. General: Appears in no apparent distress. comfortable, Behavior is calm, cooperative, appropriate for age, quiet. Pain: Complains of pain in head. Neuro: No deficits noted. Level of Consciousness is awake, alert, obeys commands, Oriented to person, place, time, situation, Appropriate for age Moves all extremities. Speech is normal, Pupils are PERRLA. Cardiovascular: No deficits noted. Capillary refill < 3 seconds Patient's skin is warm and dry. Respiratory: No deficits noted. Airway is patent Respiratory effort is even, unlabored, Respiratory pattern is regular, symmetrical. GI: No deficits noted. Abdomen is round. : No deficits noted. No signs and/or symptoms were reported regarding the genitourinary system. EENT: No deficits noted. No signs and/or symptoms were reported regarding the EENT system. Derm: No deficits noted. No signs and/or symptoms reported regarding the dermatologic system. 13:30 Reassessment: Patient appears in no apparent distress at this time. No changes from db previously documented assessment. Patient and/or family updated on plan of care and expected duration. Pain level reassessed. Patient is alert, oriented x 3, equal unlabored respirations, skin warm/dry/pink. 14:30 Reassessment: Patient appears in no apparent distress at this time. No changes from db previously documented assessment. Patient and/or family updated on plan of care and expected duration. Pain level reassessed. Patient is alert, oriented x 3, equal unlabored respirations, skin warm/dry/pink. Vital Signs: 11:40 BP 106 / 73; Pulse 85; Resp 18; Temp 97.7; Pulse Ox 96% ; Pain 0/10; ss 13:00 BP 119 / 68; Pulse 59; Resp 20; Pulse Ox 98% on R/A; db 14:30 BP 133 / 81; Pulse 64; Resp 20; Pulse Ox 98% ; db 18:07 Pain 10/10; db 18:30 BP 126 / 78; Pulse 68; Resp 16; Pulse Ox 99% on R/A; db ED Course: 11:40 Patient arrived in ED. ss 11:44 Triage completed. ss 11:45 Td Stiles MD is Attending Physician. rt 12:04 CT Head C Spine In Process Unspecified. EDMS 12:31 Chest Single View XRAY In Process Unspecified. EDMS 12:39 Halle Palencia, EDUARDO is Primary Nurse. db 12:42 Inserted saline lock: 20 gauge in left antecubital area, using aseptic technique. Blood db collected. 14:30 No provider procedures requiring assistance completed. db 14:30 Patient has correct armband on for positive identification. Bed in low position. Call db light in reach. Side rails up X2. 14:47 Arm band placed on Patient placed in an exam room. db 15:19 Sony Menezes MD is Hospitalizing Provider. rt 11/02 06:43 Primary Nurse role handed off by Halle Palencia RN 07:41 Jammie Pettit, RN is Primary Nurse. kr3 11:07 Report given to EDUARDO Keyes. kr3 11:08 Patient admitted, IV remains in place. kr3 Administered Medications: 11/01 18:06 Drug: Tylenol 1000 mg Route: PO; db Medication: 14:30 VIS not applicable for this client. db Outcome: 15:26 Decision to Hospitalize by Provider. rt 11/02 11:08 Admitted to Med/surg accompanied by tech, via wheelchair, Report called to EDUARDO Keyes Condition: stable Instructed on the need for admit. 11:08 Patient left the ED. mm9 Signatures: Dispatcher [employer] EDMS Brianna Costello RN RN ss Botello, Elizabeth Jammie Pettit, Halle Shay RN, Zuri Estrada RN mm9 Td Stiles MD MD rt
--- NOTE | 2022-11-01 15:27 | EDPHYS ---
Physician Documentation [facility] Name: Donald Sanford Age: 62 yrs Sex: Male : 1960 Arrival Date: 11/01/2022 Time: 11:40 Bed 13 Private MD: ED Physician Td Stiles HPI: 11/01 12:11 This 62 yrs old Male presents to ER via EMS with complaints of Fall Injury. rt 12:11 Details of fall: The patient fell from an upright position. Onset: The symptoms/episode rt began/occurred acutely, just prior to arrival. Associated injuries: The patient sustained injury to the head, contusion. Severity of symptoms: At their worst the symptoms were moderate. Presents to the ED, patient states he became acutely dizzy and passed out hitting his head. Patient states that he has had progressively worsening bilateral extremity swelling with weeping. Denies other preceding symptoms. Denies chest pain. Denies other acute complaints at this time, symptoms are moderate severity, no other aggravating alleviating factors. Historical: - PMHx: 12:19 Cirrhosis; Hypertension; ss - Immunization history:: Adult Immunizations unknown. - Family history:: not pertinent. - Social history:: Smoking status: unknown. ROS: 12:11 Constitutional: Negative for fever, chills, and weight loss, Eyes: Negative for injury, rt pain, redness, and discharge, ENT: Negative for injury, pain, and discharge, Neck: Negative for injury, pain, and swelling, Respiratory: Negative for shortness of breath, cough, wheezing, and pleuritic chest pain, Abdomen/GI: Negative for abdominal pain, nausea, vomiting, diarrhea, and constipation, Back: Negative for injury and pain, MS/Extremity: Negative for injury and deformity, Skin: Negative for injury, rash, and discoloration, Psych: Negative for depression, anxiety, suicide ideation, homicidal ideation, and hallucinations. 12:11 Cardiovascular: Positive for edema, syncope. 12:11 Neuro: Positive for syncope, Negative for altered mental status. Exam: 12:11 Constitutional: This is a well developed, well nourished patient who is awake, alert, rt and in no acute distress. Eyes: Pupils equal round and reactive to light, extra-ocular motions intact. Lids and lashes normal. Conjunctiva and sclera are non-icteric and not injected. Cornea within normal limits. Periorbital areas with no swelling, redness, or edema. ENT: Nares patent. No nasal discharge, no septal abnormalities noted. Tympanic membranes are normal and external auditory canals are clear. Oropharynx with no redness, swelling, or masses, exudates, or evidence of obstruction, uvula midline. Mucous membranes moist. Neck: Trachea midline, no thyromegaly or masses palpated, and no cervical lymphadenopathy. Supple, full range of motion without nuchal rigidity, or vertebral point tenderness. No Meningismus. Chest/axilla: Normal chest wall appearance and motion. Nontender with no deformity. No lesions are appreciated. Cardiovascular: Regular rate and rhythm with a normal S1 and S2. No gallops, murmurs, or rubs. Normal PMI, no JVD. No pulse deficits. Respiratory: Lungs have equal breath sounds bilaterally, clear to auscultation and percussion. No rales, rhonchi or wheezes noted. No increased work of breathing, no retractions or nasal flaring. Abdomen/GI: Soft, non-tender, with normal bowel sounds. No distension or tympany. No guarding or rebound. No evidence of tenderness throughout. Skin: Warm, dry with normal turgor. Normal color with no rashes, no lesions, and no evidence of cellulitis. Neuro: Awake and alert, GCS 15, oriented to person, place, time, and situation. Cranial nerves II-XII grossly intact. Motor strength 5/5 in all extremities. Sensory grossly intact. Cerebellar exam normal. Normal gait. Psych: Awake, alert, with orientation to person, place and time. Behavior, mood, and affect are within normal limits. 12:11 Head/face: Contusion to the left side of the forehead, no laceration, normocephalic. 12:11 Musculoskeletal/extremity: Bilateral lower extremity edema, 3+, pitting with chronic skin changes. 13:49 ECG was reviewed by the Attending Physician. rt Vital Signs: 11:40 BP 106 / 73; Pulse 85; Resp 18; Temp 97.7; Pulse Ox 96% ; Pain 0/10; ss 13:00 BP 119 / 68; Pulse 59; Resp 20; Pulse Ox 98% on R/A; db 14:30 BP 133 / 81; Pulse 64; Resp 20; Pulse Ox 98% ; db 18:07 Pain 10/10; db 18:30 BP 126 / 78; Pulse 68; Resp 16; Pulse Ox 99% on R/A; db MDM: 11:52 Patient medically screened. rt 19:10 Differential diagnosis: abrasion, closed head injury, Syncope, dysrhythmia, ACS. rt 19:10 Data reviewed: vital signs, nurses notes, EMS record, lab test result(s), EKG, rt radiologic studies. 11/01 11:52 Order name: Basic Metabolic Panel; Complete Time: 16:22 rt 11/01 11:52 Order name: CBC with Diff; Complete Time: 13:14 rt 11/01 11:52 Order name: CPK; Complete Time: 16:22 rt 11/01 11:52 Order name: Hepatic Function; Complete Time: 16:22 rt 11/01 11:52 Order name: Magnesium; Complete Time: 16:22 rt 11/01 11:52 Order name: Protime (+inr); Complete Time: 13:14 rt 11/01 11:52 Order name: Ptt, Activated; Complete Time: 13:14 rt 11/01 11:52 Order name: Troponin High Sensitivity; Complete Time: 16:22 rt 11/01 13:20 Order name: BNP; Complete Time: 16:22 rt 11/01 13:46 Order name: Urine Dipstick-Ancillary; Complete Time: 16:22 EDMS 11/01 15:19 Order name: NT PRO-BNP; Complete Time: 16:22 EDMS 11/01 17:30 Order name: SARS RAPID eb 11/01 19:01 Order name: Alcohol Serum/Plasma EDFL 11/01 20:49 Order name: SARS-COV-2 Antigen Rapid EDFL 11/01 11:52 Order name: CT Head C Spine; Complete Time: 12:47 rt 11/01 11:52 Order name: Chest Single View XRAY; Complete Time: 12:47 rt 11/01 11:52 Order name: EKG; Complete Time: 11:53 rt 11/01 11:52 Order name: Cardiac monitoring; Complete Time: 13:38 rt 11/01 11:52 Order name: EKG - Nurse/Tech; Complete Time: 13:38 rt 11/01 11:52 Order name: IV Saline Lock; Complete Time: 13:38 rt 11/01 11:52 Order name: Labs collected and sent; Complete Time: 13:38 rt 11/01 11:52 Order name: NPO; Complete Time: 13:38 rt 11/01 11:52 Order name: O2 Per Protocol; Complete Time: 13:39 rt 11/01 11:52 Order name: O2 Sat Monitoring; Complete Time: 13:39 rt 11/01 11:52 Order name: Urine Dipstick-Ancillary (obtain specimen); Complete Time: 13:45 rt 11/01 18:04 Order name: Hip Right 2 View XRAY rt 11/01 18:36 Order name: RAD EDMS 11/02 02:29 Order name: Alcohol Serum/Plasma EDMS EC:49 Rate is 61 beats/min. Rhythm is irregularly irregular, A fib with No ectopy. QRS Severance rt is Normal. No Q waves. Clinical impression: Abnormal EKG without significant change. Administered Medications: 18:06 Drug: Tylenol 1000 mg Route: PO; db Disposition Summary: 11/01/22 15:26 Hospitalization Ordered Hospitalization Status: Observation rt Provider: Sony Menezes rt Condition: Stable rt Problem: new rt Symptoms: are resolved rt Bed/Room Type: Standard rt Location: Telemetry/MedSurg (observation)(11/02/22 09:11) eb Room Assignment: 407(11/02/22 09:11) eb Diagnosis - Syncope rt Forms: - Medication Reconciliation Form rt - SBAR form rt Signatures: Dispatcher [employer] EDBrianna Melo RN RN ss Garcia, Cindy, RN RN cg Botello, Elizabeth eb Reid, Kelley, RN RN kr3 Benton, Danielle, RN RN db Turkington, Ryan, MD MD rt Corrections: (The following items were deleted from the chart) 19:16 15:26 Telemetry/MedSurg (observation) rt cg 19:16 15:26 rt cg 19:16 19:16 cg cg 11/02 09:11 11/01 19:16 [facility] ER HOLD cg eb 11/02 09:11 11/01 19:16 ERHOLD- cg eb
[2022-11-01] MEDS ORDERED: ACETAMINOPHEN 500 MG TAB ONE (18:02)
--- NOTE | 2022-11-01 18:34 | P.HP ---
Certification for Inpatient Patient admitted to: Inpatient With expected LOS: >2 Midnights Patient will require the following post-hospital care: None Practitioner: I am a practitioner with admitting privileges, knowledge of patient current condition, hospital course, and medical plan of care. Services: Services provided to patient in accordance with Admission requirements found in Title 42 Section 412.3 of the Code of Federal Regulations Patient History Date of Service: 11/01/22 Primary Care Provider: anju Reason for admission: chf exacerbation and syncope History of Present Illness: Patient is a pleasant gentleman. He has a history of alcohol abuse, systolic chf, atrial fib. He had a fall today. Possible syncopal episode. He admits to drinking one and half beers before falling. The patient started having swelling of his face and came to the ER. He has not missed his medications. However the patient is not sure that he had any lasix. He was found to be swollen in the ER. BNP and cxr were indicative of chf exacerbation. The last EF was done in July Was 25-30%. Allergies No Known Allergies Allergy (Verified 08/26/19 10:47) Home Medications: Atorvastatin Calcium [Lipitor] 80 mg PO BEDTIME #30 tab 08/31/19 Losartan Potassium [Cozaar*] 50 mg PO DAILY #30 tablet 08/31/19 Furosemide [Lasix] 1 tab PO DAILY 03/18/21 Amiodarone HCl [Pacerone] 400 mg PO BID #60 08/13/22 Rivaroxaban [Xarelto] 20 mg PO DAILY #30 tab 08/13/22 - Past Medical/Surgical History Diabetic: No -: hypertension -: Atrial fibrillation -: CABG - Social History Alcohol use: Yes CD- Drugs: No Caffeine use: No Review of Systems 10-point ROS is otherwise unremarkable Cardiovascular: Edema, Other (syncope) Physical Examination - Physical Exam General: Alert, In no apparent distress HEENT: Atraumatic, PERRLA, Mucous membr. moist/pink, EOMI, Sclerae nonicteric Neck: Supple, 2+ carotid pulse no bruit, No LAD, Without JVD or thyroid abnormality Respiratory: Clear to auscultation bilaterally, Normal air movement Cardiovascular: Regular rate/rhythm, Normal S1 S2, Edema (2+) Gastrointestinal: Normal bowel sounds, No tenderness Musculoskeletal: No tenderness Integumentary: No rashes Neurological: Normal gait, Normal speech, Normal strength at 5/5 x4 extr, Normal tone, Normal affect Lymphatics: No axilla or inguinal lymphadenopathy - Studies Laboratory Data (last 24 hrs) 11/01/22 12:40: PT 34.7 H, INR 3.15, APTT 46.2 H 11/01/22 12:40: WBC 7.60, Hgb 13.3 L, Hct 40.8, Plt Count 174 11/01/22 12:40: Sodium 128 L, Potassium 3.7, BUN 19 H, Creatinine 0.99, Glucose 123 H, Magnesium 1.9, Total Bilirubin 0.7, AST 20, ALT 23, Alkaline Phosphatase 37 L Assessment and Plan - Problems (Diagnosis) (1) Acute systolic (congestive) heart failure Current Visit: Yes Status: Acute Plan: Will admit the patient. Start him on lasix. Consult to Dr. Brower (2) Atrial fibrillation with rapid ventricular response Current Visit: No Status: Chronic Plan: stable continue betablockers and xarelto (3) Chronic alcohol abuse Current Visit: No Status: Chronic Plan: will check an alcohol level on the patient (4) Syncope Current Visit: No Status: Acute Plan: most likely secondary to chf exacerbation Qualifiers: Syncope type: heat syncope Discharge Plan: Home Plan to discharge in: 24 Hours - Advance Directives Does patient have a Living Will: No Does patient have a Durable POA for Healthcare: No - Code Status/Comfort Care Code Status Assessed: No Code Status: Full Code Physician Review: Patient Assessed, Agree with Above Assessment and Plan Critical Care: No Time Spent Managing Pts Care (In Minutes): 50
--- NOTE | 2022-11-01 18:36 | RAD REPORT ---
EXAM DESCRIPTION: RAD - Hip Right 2 View - 11/01/2022 6:27 pm CLINICAL HISTORY: PAINafter fall COMPARISON: No comparisons FINDINGS: AP and frog-leg views of the right hip were obtained. There is no fracture or dislocation. Joint space narrowing is present. There is sclerotic change stephen g the superior acetabular rim. AVN is not suspected. No acute or destructive bony process seen. No si gnificant soft tissue finding identifiable. IMPRESSION: Hip joint degenerative changes are present but no fracture is identifiable on these imag es.
[2022-11-01 20:49] LABS: SARS-CoV-2 Antigen Rapid Res Negative (Negative)
[2022-11-01] MEDS ORDERED: ATORVASTATIN 80 MG TAB PO SCH (21:00)
[2022-11-01] MEDS ORDERED: HOME MED 1 EA UNK (Amiodarone Hcl [Pacerone] 400 MG Tablet) PO SCH (21:00)
[2022-11-01] MEDS ORDERED: AMIODARONE HCL 200 MG TAB PO SCH (21:00)
[2022-11-02] MEDS ORDERED: AMIODARONE HCL 200 MG TAB ONE (00:01)
[2022-11-02] MEDS ORDERED: ATORVASTATIN 20 MG TAB ONE (00:01)
[2022-11-02] MEDS ORDERED: LOSARTAN POTASSIUM 50 MG TABLET PO SCH (09:00)
[2022-11-02] MEDS ORDERED: FUROSEMIDE 40 MG/4 ML VIAL IV SCH (09:00)
[2022-11-02] MEDS ORDERED: THIAMINE HCL 100 MG TABLET PO SCH (09:00)
[2022-11-02] MEDS ORDERED: FOLIC ACID 1 MG TABLET PO SCH (09:00)
--- NOTE | 2022-11-02 12:20 | P.PN ---
Subjective Date of Service: 11/02/22 Primary Care Provider: anju Chief Complaint: chf exacerbation and syncope Subjective: No new changes Review of Systems 10-point ROS is otherwise unremarkable Cardiovascular: Edema Physical Examination - Vital Signs Temperature: 98.4 F Blood Pressure: 116/57 Pulse: 55 Respirations: 16 Pulse Ox (%): 97 - Physical Exam General: Alert, In no apparent distress HEENT: Atraumatic, PERRLA, EOMI Neck: Supple, JVD not distended Respiratory: Clear to auscultation bilaterally, Normal air movement Cardiovascular: Regular rate/rhythm, Normal S1 S2 Gastrointestinal: Normal bowel sounds, No tenderness Musculoskeletal: No tenderness Integumentary: No rashes Neurological: Normal speech, Normal tone, Normal affect Lymphatics: No axilla or inguinal lymphadenopathy - Studies Laboratory Data (last 24 hrs) 11/01/22 12:40: PT 34.7 H, INR 3.15, APTT 46.2 H 11/01/22 12:40: WBC 7.60, Hgb 13.3 L, Hct 40.8, Plt Count 174 11/01/22 12:40: Sodium 128 L, Potassium 3.7, BUN 19 H, Creatinine 0.99, Glucose 123 H, Magnesium 1.9, Total Bilirubin 0.7, AST 20, ALT 23, Alkaline Phosphatase 37 L Assessment And Plan - Current Problems (Diagnosis) (1) Acute systolic (congestive) heart failure Current Visit: Yes Status: Acute Plan: Will admit the patient. Start him on lasix. Consult to Dr. Brower (2) Atrial fibrillation with rapid ventricular response Current Visit: No Status: Chronic Plan: stable continue betablockers and xarelto (3) Chronic alcohol abuse Current Visit: No Status: Chronic Plan: will check an alcohol level on the patient (4) Syncope Current Visit: No Status: Acute Plan: most likely secondary to chf exacerbation Qualifiers: Syncope type: heat syncope Discharge Plan: Home Plan to discharge in: 24 Hours - Code Status/Comfort Care Code Status Assessed: No Physician Review: Patient Assessed, Agree with Above Assessment and Plan Critical Care: No Time Spent Managing PTS Care (In Minutes): 20
[2022-11-02] MEDS ORDERED: RIVAROXABAN 20 MG TABLET PO SCH ×2 (17:00→20:00)
[2022-11-02] MEDS: ENOXAPARIN 40 MG/0.4 ML SQ SCH (17:14)
--- NOTE | 2022-11-02 22:08 | CON ---
Date of Consultation: 11/02/2022 Reason For Consultation: Syncope. 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 The patient said that he had a beer, he was drinking and then stoo d up, felt very dizzy, fell on his face and he passed out for a short period of time. He is known to have low ejection fraction. Denies having any palpitations or chest pain. Past Medical History: As outlined above in HPI. Medications: Refer to reconciliation sheet for detailed list. Allergies: NO KNOWN DRUG ALLERGIES. Family History: No premature coronary artery disease or cancer. Social History: He does not smoke, but he drinks on a regular basis. Does not use any drugs. Review of Systems: All systems were reviewed and they were negative except as mentioned in HPI. Physical Examination: Vital Signs: Reviewed. Head and Neck: Pupils are equal and reactive to light. Intact eye movements. No JVD. No cervical lymphadenopathy. Neck is supple. Thyroid is not enlarged. Lungs: Clear to auscultation bilaterally. No rhonchi, wheezing, or crackles. No accessory muscle u se. Heart: Regular rate and rhythm. No extra sounds. Abdomen: Soft, nontender. Bowel sounds positive. No organomegaly. No masses or hernia. No rigidi ty or rebound. Extremities: 2+ pitting edema. No clubbing or cyanosis. Intact pulses. Skin: No rash noted. Neurologic: Alert, awake, and oriented x3. No acute focal deficits appreciated. Investigations: Sodium 128, BUN is 19, creatinine 0.99, and hemoglobin is 13.3. Assessment/recommendation: 1.Syncope, likely due to low blood pressure or systolic alcoholism. Blood pressure has improved and the patient's symptoms have improved. Monitor on telemetry for any arrhythmia. Plan to obtain echo cardiogram early next week. 2.Congestive heart failure. The patient is fluid overloaded. I agree with Lasix 40 mg daily as keyshawn g as the blood pressure tolerates and monitor BUN, creatinine, and electrolytes. Thank you for the consult. /BRIA Voice ID: [id number] Report ID: [id number]
[2022-11-03 06:24] LABS: Absolute Lymphocytes (CBC) 1.2 K/uL (0.7-4.9); Hematocrit 40.5 % (39.6-49.0); Lymphocytes % 18.4 % (15.3-44.8); MCV 91.7 fL (80-100); MPV 9.1 fL (7.6-11.3); RBC Red Blood Cell Count 4.41 M/uL (4.33-5.43)
[2022-11-03 06:46] LABS: Albumin 3.5 g/dL (3.4-5.0); Bilirubin Total 0.7 mg/dL (0.2-1.0); Potassium 3.5 mmol/L (3.5-5.1)
[2022-11-03 08:23] VITALS: BMI 32.5
[2022-11-03] MEDS ORDERED: FUROSEMIDE 40 MG/4 ML VIAL IV SCH (09:00)
--- NOTE | 2022-11-03 13:06 | P.PN ---
Subjective Date of Service: 11/03/22 Primary Care Provider: ajnu Chief Complaint: chf exacerbation and syncope Subjective: Improving Review of Systems 10-point ROS is otherwise unremarkable Physical Examination - Vital Signs Temperature: 96.3 F Blood Pressure: 130/76 Pulse: 84 Respirations: 18 Pulse Ox (%): 99 - Physical Exam General: Alert, In no apparent distress HEENT: Atraumatic, PERRLA, EOMI Neck: Supple, JVD not distended Respiratory: Clear to auscultation bilaterally, Normal air movement Cardiovascular: Regular rate/rhythm, Normal S1 S2, Edema (1+) Gastrointestinal: Normal bowel sounds, No tenderness Musculoskeletal: No tenderness Integumentary: No rashes Neurological: Normal speech, Normal tone, Normal affect Lymphatics: No axilla or inguinal lymphadenopathy Assessment And Plan - Current Problems (Diagnosis) (1) Acute systolic (congestive) heart failure Current Visit: Yes Status: Acute Plan: Will admit the patient. Start him on lasix. Consult to Dr. Brower (2) Atrial fibrillation with rapid ventricular response Current Visit: No Status: Chronic Plan: stable continue betablockers and xarelto (3) Chronic alcohol abuse Current Visit: No Status: Chronic Plan: will check an alcohol level on the patient (4) Syncope Current Visit: No Status: Acute Plan: most likely secondary to chf exacerbation Qualifiers: Syncope type: heat syncope Discharge Plan: Home Plan to discharge in: 24 Hours - Code Status/Comfort Care Code Status Assessed: No Code Status: Full Code Physician Review: Patient Assessed, Agree with Above Assessment and Plan Critical Care: No Time Spent Managing PTS Care (In Minutes): 20
--- NOTE | 2022-11-03 15:40 | PN ---
Date of Progress Note: 11/03/2022 Subjective: Seen by bedside, doing better, diuresing well. Review of Systems: No chest pain or shortness of breath, orthopnea or cough. No nausea, vomiting, or diarrhea. No abdo gigi pain. No dysuria, polyuria, or urinary urgency. All other systems were reviewed and they were negative. Physical Examination: Vital Signs: Reviewed. Head and Neck: Pupils are equal and reactive to light. Intact eye movements. No JVD. No cervical lymphadenopathy. Neck is supple. Thyroid is not enlarged. Lungs: Decreased breathing sounds bilaterally with faint crackles in bases. No accessory muscle use or muscle retraction. Heart: Regular. No extra sounds. Abdomen: Soft, nontender. Bowel sounds positive. No organomegaly. No masses or hernia. No rigidi ty or rebound. Extremities: Edema bilaterally. No clubbing or cyanosis. Intact pulses. Skin: No rash. Neurologic: Alert, awake. No acute focal deficits appreciated. Lymph Nodes: No cervical or axillary lymphadenopathy. Investigations: Labs were reviewed. Assessment/recommendation: 1.Acute on chronic congestive heart failure exacerbation, on IV Lasix, to be continued, and monitor BUN, creatinine, and electrolytes. 2.Syncope, likely due to alcoholism and alcohol toxicity. At this point, I recommend to do an echoc ardiogram. If no cardiac abnormalities and no arrhythmia noted, then no further cardiac workup will be recommended and patient was counseled against alcoholism and fixation. SR/MODL Voice ID: [id number] Report ID: [id number]
[2022-11-03] MEDS: ENOXAPARIN 40 MG/0.4 ML SQ SCH (16:51)
[2022-11-04 06:15] LABS: Absolute Lymphocytes (CBC) 1.3 K/uL (0.7-4.9); Hematocrit 38.7 % (39.6-49.0); Lymphocytes % 20.4 % (15.3-44.8); MCV 91.7 fL (80-100); MPV 8.9 fL (7.6-11.3); RBC Red Blood Cell Count 4.22 M/uL (4.33-5.43)
[2022-11-04 06:37] LABS: Albumin 3.4 g/dL (3.4-5.0); Bilirubin Total 0.7 mg/dL (0.2-1.0); Potassium 3.9 mmol/L (3.5-5.1); Protein, Total 6.8 g/dL (6.4-8.2)
[2022-11-04] MEDS ORDERED: FUROSEMIDE 40 MG/4 ML VIAL IV ONE (08:00)
--- NOTE | 2022-11-04 12:48 | P.PN ---
Subjective Date of Service: 11/04/22 Primary Care Provider: anju Chief Complaint: chf exacerbation and syncope Subjective: Improving Review of Systems 10-point ROS is otherwise unremarkable Cardiovascular: Edema Physical Examination - Vital Signs Temperature: 96.8 F Blood Pressure: 137/65 Pulse: 92 Respirations: 16 Pulse Ox (%): 96 - Physical Exam General: Alert, In no apparent distress HEENT: Atraumatic, PERRLA, EOMI Neck: Supple, JVD not distended Respiratory: Clear to auscultation bilaterally, Normal air movement Cardiovascular: Regular rate/rhythm, Normal S1 S2, Edema Gastrointestinal: Normal bowel sounds, No tenderness Musculoskeletal: No tenderness Integumentary: No rashes, Venous stasis ulcer Neurological: Normal speech, Normal tone, Normal affect Lymphatics: No axilla or inguinal lymphadenopathy Assessment And Plan - Current Problems (Diagnosis) (1) Acute systolic (congestive) heart failure Current Visit: Yes Status: Acute Plan: Will admit the patient. Start him on lasix. Consult to Dr. Brower (2) Atrial fibrillation with rapid ventricular response Current Visit: No Status: Chronic Plan: stable continue betablockers and xarelto (3) Chronic alcohol abuse Current Visit: No Status: Chronic Plan: will check an alcohol level on the patient (4) Venous hypertension, chronic, with ulcer Current Visit: Yes Status: Acute Plan: will get a wound care consult . can follow up in the wound care center (5) Syncope Current Visit: No Status: Suspected Plan: most likely secondary to chf exacerbation Qualifiers: Syncope type: heat syncope Discharge Plan: Home Plan to discharge in: 24 Hours - Code Status/Comfort Care Code Status Assessed: No Physician Review: Patient Assessed, Agree with Above Assessment and Plan Critical Care: No Time Spent Managing PTS Care (In Minutes): 20
--- NOTE | 2022-11-04 15:06 | EKG ---
Test Date: 2022-11-01 Test Time: 13:37:53 Blender Operator: LENO MEASUREMENT RESULTS: Intervals: Rate: 0 FL: QRSD: 0 QT: 0 QTc: 0 [place]: P: FL: QRS: 0 T: 0 INTERPRETIVE STATEMENTS: No QRS complexes found, no ECG analysis possible Electronically Signed On 11-04-22 14:58:45 BAIT MAN by Rogers Brower
--- NOTE | 2022-11-04 15:06 | EKG ---
Test Date: 2022-11-01 Test Time: 13:36:47 Policy Checker: LENO MEASUREMENT RESULTS: Intervals: Rate: 61 SD: QRSD: 146 QT: 514 QTc: 517 [place]: P: SD: QRS: 77 T: 143 INTERPRETIVE STATEMENTS: Atrial fibrillation Right bundle branch block Septal infarct, age undetermined T wave abnormality, consider inferior ischemia Abnormal ECG Compared to ECG 08/13/2022 07:37:48 Sinus rhythm no longer present Ventricular premature complex(es) no longer present Myocardial infarct finding still present T-wave abnormality still present Possible ischemia still present Electronically Signed On 11-04-22 14:58:48 HOLLOW TILE PARTITION ERECTOR by Rogers Brower
[2022-11-04] MEDS: ENOXAPARIN 40 MG/0.4 ML SQ SCH (17:14)
[2022-11-05 04:47] VITALS: O2SAT 94
[2022-11-05 06:16] LABS: Absolute Lymphocytes (CBC) 1.3 K/uL (0.7-4.9); Hematocrit 38.8 % (39.6-49.0); Lymphocytes % 20.3 % (15.3-44.8); MCV 91.9 fL (80-100); MPV 8.6 fL (7.6-11.3); RBC Red Blood Cell Count 4.22 M/uL (4.33-5.43)
[2022-11-05 06:35] LABS: Albumin 3.6 g/dL (3.4-5.0); Bilirubin Total 0.9 mg/dL (0.2-1.0); Potassium 3.8 mmol/L (3.5-5.1); Protein, Total 7.1 g/dL (6.4-8.2)
[2022-11-05 08:45] VITALS: BP 121/76; TEMP 96.8
[2022-11-05] MEDS ORDERED: MEDIHONEY 44 ML TOPICAL TUBE TOP SCH (09:00)
[2022-11-05] MEDS ORDERED: FUROSEMIDE 40 MG/4 ML VIAL IV SCH (09:00)
--- NOTE | 2022-11-05 10:07 | P.DS ---
Admission Date: 11/02/22 Discharge Date: 11/05/22 Primary Care Provider: anju Disposition: ROUTINE DISCHARGE Discharge Condition: GOOD Reason for Admission: chf exacerbation and syncope - Problems (1) Acute systolic (congestive) heart failure Current Visit: Yes Status: Acute (2) Atrial fibrillation with rapid ventricular response Current Visit: No Status: Chronic (3) Chronic alcohol abuse Current Visit: No Status: Chronic (4) Venous hypertension, chronic, with ulcer Current Visit: Yes Status: Acute (5) Syncope Current Visit: No Status: Suspected Qualifiers: Syncope type: heat syncope Brief History of Present Illness: Patient is a pleasant gentleman. He has a history of alcohol abuse, systolic chf, atrial fib. He had a fall today. Possible syncopal episode. He admits to drinking one and half beers before falling. The patient started having swelling of his face and came to the ER. He has not missed his medications. However the patient is not sure that he had any lasix. He was found to be swollen in the ER. BNP and cxr were indicative of chf exacerbation. The last EF was done in July Was 25-30%. Hospital Course: Patient was admitted for chf exacerbation. The patient is doing well. Was seen by wound care for the venous stasis ulcers on his legs. He is improving after diuresis. The patient can follow up in the wound care center and with Tra Santos Vital Signs/Physical Exam: Temp Pulse Resp BP Pulse Ox 96.8 F 94 H 18 121/76 100 11/05/22 08:00 11/05/22 09:44 11/05/22 08:00 11/05/22 09:44 11/05/22 08:00 General: Alert, In no apparent distress HEENT: Atraumatic, PERRLA, EOMI Neck: Supple, JVD not distended Respiratory: Clear to auscultation bilaterally, Normal air movement Cardiovascular: Regular rate/rhythm, Normal S1 S2 Gastrointestinal: Normal bowel sounds, No tenderness Musculoskeletal: No tenderness Integumentary: No rashes Neurological: Normal speech, Normal tone, Normal affect Lymphatics: No axilla or inguinal lymphadenopathy Laboratory Data at Discharge: WBC 6.50 K/uL (4.3-10.9) 11/05/22 05:57 Hgb 12.7 g/dL (13.6-17.9) L 11/05/22 05:57 Hct 38.8 % (39.6-49.0) L 11/05/22 05:57 Plt Count 157 K/uL (152-406) 11/05/22 05:57 PT 34.7 SECONDS (9.5-12.5) H 11/01/22 12:40 INR 3.15 11/01/22 12:40 APTT 46.2 SECONDS (24.3-36.9) H 11/01/22 12:40 Sodium 131 mmol/L (136-145) L 11/05/22 05:57 Potassium 3.8 mmol/L (3.5-5.1) 11/05/22 05:57 BUN 14 mg/dL (7-18) 11/05/22 05:57 Creatinine 0.91 mg/dL (0.70-1.30) 11/05/22 05:57 Glucose 120 mg/dL (74-106) H 11/05/22 05:57 Magnesium 1.9 mg/dL (1.6-2.4) 11/01/22 12:40 Total Bilirubin 0.9 mg/dL (0.2-1.0) 11/05/22 05:57 AST 18 U/L (15-37) 11/05/22 05:57 ALT 24 U/L (16-61) 11/05/22 05:57 Alkaline Phosphatase 44 U/L (45-117) L 11/05/22 05:57 Home Medications: Atorvastatin Calcium [Lipitor] 80 mg PO BEDTIME #30 tab 08/31/19 Losartan Potassium [Cozaar*] 50 mg PO DAILY #30 tablet 08/31/19 Furosemide [Lasix] 1 tab PO DAILY 03/18/21 Amiodarone HCl [Pacerone] 400 mg PO BID #60 08/13/22 Rivaroxaban [Xarelto] 20 mg PO DAILY #30 tab 08/13/22 Honey [Medihoney] 15 ml TP DAILY 15 Days #90 ml 11/05/22 New Medications: Honey [Medihoney] 15 ml TP DAILY 15 Days #90 ml Diet: AHA Activity: Ad elmo Followup: NONE,NONE [Primary Care Provider] - Tra Santos PA [ALLIED HEALTH PROFESSIONAL] - Time spent managing pt's care (in minutes): 30
--- NOTE | 2022-11-05 20:52 | PN ---
Date of Progress Note: 11/04/2022 Subjective: Seen by bedside, doing clinically well, diuresing. Review of Systems: No chest pain, shortness of breath, orthopnea, or cough. No nausea, vomiting, or diarrhea. All othe r systems were reviewed and they were negative. Physical Examination: Vital Signs: Reviewed. Head and Neck: Pupils are equal, reactive to light. Intact eye movements. No JVD. No cervical lym phadenopathy. Neck is supple. Thyroid is not enlarged. Lungs: Clear to auscultation bilaterally. No rhonchi, rales, or crackles. No accessory muscle use. Heart: Regular rate and rhythm. No extra sounds. Abdomen: Soft, nontender. Bowel sounds positive. No organomegaly. No masses or hernia. No rigidi ty or rebound. Extremities: 3+ edema bilaterally. No clubbing or cyanosis. Intact pulses. Skin: No rash. Neurologic: Alert, awake. No acute focal deficits appreciated. Lymph Nodes: No cervical or axillary lymphadenopathy. Investigations: BUN is 14, creatinine 0.91, hemoglobin is 12.7. Assessment And Recommendation: 1.Acute on chronic congestive heart failure exacerbation. Patient will need further aggressive diur esis. Continue Lasix. Monitor BUN, creatinine, and electrolytes. 2.Syncope, likely due to alcohol toxicity. Patient was counseled against alcoholism. SR/MODL Voice ID: [id number] Report ID: [id number]
== END 2022-11-05 12:47 | disposition home or self-care (01) | DRG 291 ==
LOC: ER 11:26 → ERHOLD 15:22 → 4TH 11-02 11:01 → OBSVTOIN 11-02 16:19
PROVIDERS: ADMIT Internal Medicine; ATTEND Internal Medicine
DX: I11.0 Hypertensive heart disease with heart failure (principal); I50.23 Acute on chronic systolic (congestive) heart failure; I87.313 Chronic venous hypertension (idiopathic) with ulcer of bilateral lower extremity; I48.91 Unspecified atrial fibrillation; F10.229 Alcohol dependence with intoxication, unspecified; Z71.41 Alcohol abuse counseling and surveillance of alcoholic; R55 Syncope and collapse; W19.XXXA Unspecified fall, initial encounter; Z95.1 Presence of aortocoronary bypass graft; Z79.01 Long term (current) use of anticoagulants; Z79.899 Other long term (current) drug therapy; Z20.822 Contact with and (suspected) exposure to COVID-19
CPT/HCPCS: 36415; 70450; 71045; 72125; 80048; 80053; 80076; 80320; 81003; 82550; 82947; 83735; 83880; 84484; 85025; 85610; 85730; 87811; 93005; 99251; 99285; G0378; J1650; J1940

== ENCOUNTER 2022-12-21 15:46 | Inpatient (IN) | payer OTHER ==
--- OUTSIDE RECORDS SUMMARY | 2022-12-21 15:50 | XMS REPORT | Continuity of Care Document ---
:1960 Author Organization [facility] t Address [address] [place] [address] Care Team Providers Name Role Phone TAOJOSE FRANCISCOSHERIN Primary Care Physician Unavailable TRINIDAD SHETH Attending Clinician Unavailable Mona Macdonald MD Attending Clinician SAM BERNABE Attending Clinician Unavailable TRINIDAD SHETH Admitting Clinician Unavailable SELIN GRUBER Admitting Clinician Unavailable Payers Payer Name Policy Type Policy Number Effective Date Expiration Date Cali pani[place] [facility] [id number] HMO [place] [id number] Problems Condition Condition Condition Status Onset Resolution Last Treating Co mments Source Name Details Category Date Date Treatment Clinician Date Stroke St[facility] Disease [facility]-30 Julita kes [facility] Center Allergies, Adverse Reactions, Alerts Allergy Allergy Status Severity Reaction(s) Onset Inactive Treating Comm ents Source Name Type Date Date Clinician NO KNOWN Allergy Active [facility] Social History Social Habit Start Date Stop [...] 00 by mouth Center daily. aspirin 81 1-0 Yes 81mg QD Take 1 [facility] [...] ical 00 by mouth Center daily. atorvastati 0 Yes 80mg QD Take [address] [facility] (LIPITOR) 5-11 tablet (80 Julita kes 80 MG 00:00: mg total) Medical tablet 00 by mouth Center nightly. metoprolol 0 Yes 25mg QD Take 1 [facility] succinate [facility]-11 tablet (25 Luke s (TOPROL-XL) 00:00: mg total) M edical 25 MG 24 hr 00 by mouth Cent er tablet daily. atorvastati 0 Yes 80mg QD Take [address] [facility] [address] [facility] (LIPITOR) 5-11 tablet (80 Julita kes 80 MG 00:00: mg total) Medical tablet 00 by mouth Center nightly. metoprolol 0 Yes 25mg QD Take 1 [facility] succinate 5-11 tablet (25 Luke s (TOPROL-XL) 00:00: mg total) M edical 25 MG 24 hr 00 by mouth Cent er tablet daily. atorvastati 0 Yes 80mg QD Take [address] [facility] [address] [facility] (LIPITOR) 5-11 tablet (80 Julita kes 80 MG 00:00: mg total) Medical tablet 00 by mouth Center nightly. metoprolol 0 Yes 25mg QD Take 1 [facility] succinate 5-11 tablet (25 Luke s (TOPROL-XL) 00:00: mg total) M edical 25 MG 24 hr 00 by mouth Cent er tablet daily. Procedures This patient has no known procedures. Plan of Care Planned Activity Planned Date Details Comments Source Future Scheduled 2024-03-24 Lipid panel (procedure) [facility] 00:00:00 [code = 29784369] Medical Ce nter Future Scheduled 2024-03-24 Lipid panel (procedure) [facility] 00:00:00 [code = 85512716] Medical Ce nter Future Scheduled 2024-03-24 Lipid panel (procedure) [facility] 00:00:00 [code = 19112661] Medical Ce nter Future Scheduled 2022-11-[address] [facility] 00:00:00 (12+) [code = Medical Center DEPRESSION SCREENING (12+)] Future Scheduled 2022-07-25 INFLUENZA VACCINE (#1) C [...] Cessation Counseling and Screening (12+)] Future Scheduled [address] [...] Rupa ter VACCINE (#1)] Future Scheduled 1959 CT Colonography (combo) [facility] 00:00:00 [code = CT Colonography [facility] (combo)] Future Scheduled 1959 Screening for malignant [facility] 00:00:00 neoplasm of colon Medical Ce nter (procedure) [code = 172944524] Future Scheduled 1959 Screening for malignant [facility] 00:00:00 neoplasm of colon Medical Ce nter (procedure) [code = 810437777] Future Scheduled 1959 Screening for malignant [facility] 00:00:00 neoplasm of colon Medical Ce nter (procedure) [code = 628616410] Future Scheduled 1959 Screening for malignant [facility] 00:00:00 neoplasm of colon Medical Ce nter (procedure) [code = 786725944] Future Scheduled 1960 Sigmoidoscopy [code = [facility] Medical Cente r Future Scheduled 1959 CT Colonography (combo) [facility] 00:00:00 [code = CT Colonography [facility] (combo)] Future Scheduled 1959 Screening for malignant [facility] 00:00:00 neoplasm of colon Medical Ce nter (procedure) [code = 581706607] Future Scheduled 1959 Screening for malignant [facility] 00:00:00 neoplasm of colon Medical Ce nter (procedure) [code = 683000019] Future Scheduled 1959 Screening for malignant [facility] 00:00:00 neoplasm of colon Medical Ce nter (procedure) [code = 570738165] Future Scheduled 1959 Screening for malignant [facility] 00:00:00 neoplasm of colon Medical Ce nter (procedure) [code = 936278438] Future Scheduled 1960 Sigmoidoscopy [facility]code [facility] Medical Cente r Future Scheduled 1959 Screening for malignant [facility] 00:00:00 neoplasm of colon Medical Ce nter (procedure) [code = 020732233] Future Scheduled 1960 S[facility]oidoscopy [facility]code [facility]] Medical Cente r Future Scheduled 1959 CT Colonography (combo) [facility] 00:00:00 [code = CT Colonography [facility] (combo)] Future Scheduled 1959 Screening for malignant [facility] 00:00:00 neoplasm of colon Medical Ce nter (procedure) [code = 492736910] Future Scheduled 1959 Screening for malignant [facility] 00:00:00 neoplasm of colon Medical Ce nter (procedure) [code = 144498851] Future Scheduled 1959 Screening for malignant [facility] 00:00:00 neoplasm of colon Medical Ce nter (procedure) [code = 036563146] Encounters Start End Encounter Admission Attending Care Care Encounter Source Date/Time Date/Time Type Type Clinicians Facility Department ID 2021-03-23 Inpatient UR CIVUNKENDALLNTA [facility] Neurology [id number] [facility] 22:51:00 , TRINIDAD 2022-04-23 2022-04-23 Refill Nalam, [facility] [id number] 00:00:00 00:00:00 [facility] 2022-04-23 2022-04-23 Refill Nalam, STC [id number] 00:00:00 00:00:00 [facility] 2022-01-23 2022-01-23 Refill Nalam, [facility] [id number] 00:00:00 00:00:00 [facility] 2022-01-23 2022-01-23 Refill Nalam, STC [id number] 00:00:00 00:00:00 [facility] 2021-10-10 2021-10-10 Outpatient FAINA BERNABE [facility] [id number] [facility] 00:00:00 00:00:00 SAM Results Test Description Test [...] NOT 1092) ACCURATE CRE ATININE CLEARANCE IN DE EDICTING GLOMERULAR FILT RATION RATE. ESTIMATED GFR IS NOT APPLICABLE FOR DIALYSIS PATIENTS. Meal Attendant ID - TRUNG [id number] 05:04:00 Test Item Value Reference Range Interpretation Comments MAGNESIUM (BEAKER) (test code = 1.4 mg/dL 1.6-2.6 L 627) Meal Attendant ID - TRUNG MCBC (HEMOGRAM ONLY)2021-04-03 04:31:00 [...] WBC 0-0 (BEAKER) (test code = 413) [id number] 10:41:00 Test Item Value Reference Range Interpretation Comments ACTIVATED CLOTTING TIME 263 sec : 74 -137 seconds, (BEAKER) (test code = Baseli ne: TESTED AT 441) [facility] [address] [place] [address], [address] 30: Meal Attendant/Techni qing ID = [id number] for DE SLY, LANCE [id number] 10:06:00 Test Item Value Reference Range Interpretation Comments ACTIVATED CLOTTING TIME 252 sec : 74 -137 seconds, (BEAKER) (test code = Baseli ne: TESTED AT 441) [facility] [address] [place] [address], 770 30: Meal Attendant/Techni qing ID = [id number] for DE SLY, LANCE [id number] 10:06:00 Test Item Value Reference Range Interpretation Comments ACTIVATED CLOTTING TIME 555 sec : 74 -137 seconds, (BEAKER) (test code = Baseli ne: TESTED AT 441) [address], [address] 30: Meal Attendant/Techni qing ID = [id number] for DE SLY, LANCE BASIC METABOLIC [id number] 04:38:00 Test Item Value Reference Range Interpretation [...] S NOT APPLICABLE FOR DIALYSIS PATIEN TS. Meal Attendant ID - TRUNG [id number] 04:31:00 Test Item Value Reference Range Interpretation Comments MAGNESIUM (BEAKER) (test code = 1.5 mg/dL 1.6-2.6 L 627) Meal Attendant ID Faby NINO MBASIC METABOLIC [id number] 05:44:00 Test Item Value Reference Range Interpretation [...] S NOT APPLICABLE FOR DIALYSIS PATIEN TS. Meal Attendant ID Faby HANSON [id number] 05:43:00 Test Item Value Reference Range Interpretation Comments MAGNESIUM (BEAKER) (test code = 1.6 mg/dL 1.6-2.6 627) Meal Attendant ID Faby HANSON WSARS-COV2/RT-PCR ([facility])2021-03-31 08:46:00 Test Item Value Reference Range Interpretation Comments SARS-COV2/RT-PCR (test Negative Not Detected, Negative, code = 4061681) See external report for linked test SARS-COV-2 PERFORMING LAB [facility] [place] (test code = 3970309) Negative result for this test determines that [...] of the Act.Fact Sheet for Healthcare Prov iders:https://www.Skycatch/sites/default/files/product/documents/Fact_Sheet_HC _Ruteavamn_Cszt_EDKU-YnV-7.pdfFact Sheet for Healthcare Patients:https://www.Skycatch/sites/default/files/product/docume nts/Rbor_Wghbo_Wxvbggfb_Foeg_CXFT-KeR-7.pdfPerforming Laboratory:[facility], [place] [address]JGMFP METABOLIC PANEL 2021-03-31 06:05:00 Test Item Value [...] S NOT APPLICABLE FOR DIALYSIS PATIEN TS. Meal Attendant ID - [id number] 06:03:00 Test Item Value Reference Range Interpretation Comments MAGNESIUM (BEAKER) (test code = 1.8 mg/dL 1.6-2.6 627) Meal Attendant ID - [id number] 04:53:00 Test Item Value Reference Range Interpretation Comments MAGNESIUM (BEAKER) (test code = 1.5 mg/dL 1.6-2.6 L 627) Meal Attendant ID - DBBASIC METABOLIC [id number] 04:53:00 Test Item Value Reference Range Interpretation [...] S NOT APPLICABLE FOR DIALYSIS PATIEN TS. Meal Attendant ID - [id number] 06:51:00 Test Item Value Reference Range Interpretation Comments ACTIVATED CLOTTING TIME 252 sec : TE STED AT [facility] 6720 (BEAKER) (test code = [facility], 441) [address]: Field1: 2: Meal Attendant/Techni qing ID = [id number] for JHONATHAN SCOTT BASIC METABOLIC [id number] 04:38:00 Test Item Value Reference Range Interpretation [...] S NOT APPLICABLE FOR DIALYSIS PATIEN TS. Meal Attendant ID - TRUNG [id number] 04:30:00 Test Item Value Reference Range Interpretation Comments MAGNESIUM (BEAKER) (test code = 1.5 mg/dL 1.6-2.6 L 627) Meal Attendant ID - TRUNG [id number] 19:20:00 Test Item Value Reference Range Interpretation Comments ACTIVATED CLOTTING TIME 142 sec : 74 -137 seconds, (BEAKER) (test code = Baseli ne: TESTED AT 441) [facility] 67[address] [facility], [address] 30: Meal Attendant/Techni qing ID = [id number] for JHONATHAN SCOTT [id number] 17:39:00 Test Item Value Reference Range Interpretation Comments ACTIVATED CLOTTING TIME 274 sec : 74 -137 seconds, (BEAKER) (test code = Baseli ne: TESTED AT 441) [facility] [address] [facility], [address]70 30: Meal Attendant/Techni qing ID = [id number] for JHONATHAN SCOTT [id number] 16:24:00 Test Item Value Reference Range Interpretation Comments ACTIVATED CLOTTING TIME 257 sec : 74 -137 seconds, (BEAKER) (test code = Baseli ne: TESTED AT 441) [facility] [address] [facility] [place], [address] 30: Meal Attendant/Techni qing ID = [id number] for Lidia Blanca BASIC METABOLIC [id number] 10:50:00 Test Item Value Reference Range Interpretation [...] S NOT APPLICABLE FOR DIALYSIS PATIEN TS. Meal Attendant ID - PIAYA LBASIC METABOLIC [id number] 10:24:00 Test Item Value Reference Range Interpretation [...] S NOT APPLICABLE FOR DIALYSIS PATIEN TS. Meal Attendant ID - PIAYA [id number] 10:13:00 Test Item Value Reference Range Interpretation [...] mechanical heart valves.CBC W/PLT COUNT & AUTO [id number] 10:06:00 Test Item Value Reference Range Interpretation [...] H PERCENT (BEAKER) (test code = 2801) [id number] 06:35:00 Test Item Value Reference Range Interpretation Comments MAGNESIUM (BEAKER) (test code = 1.9 mg/dL 1.6-2.6 627) Meal Attendant ID - TRUNG MBASIC METABOLIC [id number] 17:18:00 Test Item Value Reference Range Interpretation [...] S NOT APPLICABLE FOR DIALYSIS PATIEN TS. Meal Attendant ID - BSEEG AWAKE AND [id number] 17:17:00For STAT EEG- after 5 PM weekdays, weekends and holidays, page the on-call EEG TechReason for exam:-& gt;patient was confused today morning, concern for a seizure [facility] 1960 Sex: MNEUROPHYSIOLOGY EEG REPORT DATES OF TEST: 03/27/21 DATE OF REPORT: 03/27/21 Name: Donald Sanford ACC#: [id number] EEG Number: [id number] Start time: 11:05 AM Stop time: 11:26 AM CPT Code: 16528 ICD-10: R56.9 HISTORY: 60-year-old man with multiple [...] signed by: EBONIE JOHNSON MD on 105:17 [id number] 17:16:00 Test Item Value Reference Range Interpretation Comments MAGNESIUM (BEAKER) (test code = 2.3 mg/dL 1.6-2.6 627) Meal Attendant ID - [id number] 13:40:00 Test Item Value Reference Range Interpretation Comments RPR SCREEN (BEAKER) (test code = Nonreactive Nonreactive 420) COMPREHENSIVE METABOLIC [id number] 07:20:00 Test Item Value Reference Range Interpretation [...] S NOT APPLICABLE FOR DIALYSIS PATIEN TS. Meal Attendant ID - TRUNG MHIV-1 ANTIGEN WITH HIV-1/2 [id number] 06:11:00 Test Item Value Reference Range Interpretation Comments HIV-1 ANTIGEN WITH HIV 1\T\2 Nonreactive Nonreactive ANTIBODY (2) (BEAKER) (test code = 2586) Meal Attendant ID - TRUNG MTSH/FREE T4 IF [id number] 05:29:00 Test Item Value Reference Range Interpretation Comments THYROID STIMULATING HORMONE 4.601 uIU/mL 0.350-4.940 (BEAKER) (test code = 772) Meal Attendant ID - TRUNG MVITAMIN B12 AND [id number] 05:29:00 Test Item Value Reference Range Interpretation Comments VITAMIN B12 690 pg/mL 213-816 (BEAKER) (test code = 774) FOLATE (BEAKER) 11.70 ng/mL See_Comment [Automated message] (test code = 362) The system which generated this result transmitted ref erence range: >=7.00. The reference range was not used to interpr et this result as normal/abnormal . Meal Attendant ID - TRUNG [id number] 04:52:00 Test Item Value Reference Range Interpretation Comments MAGNESIUM (BEAKER) (test code = 1.4 mg/dL 1.6-2.6 L 627) Meal Attendant ID - TRUNG MCREATINE KINASE (CK)2021-03-27 04:52:00 Test Item Value Reference Range Interpretation Comments CREATINE KINASE TOTAL (BEAKER) (test 43 U/L 29-200 code = 380) Meal Attendant ID - TRUNG MPTH, [id number] 04:33:00 Test Item Value Reference Range Interpretation Comments PARATHYROID HORMONE INTACT 203.2 pg/mL 8.5-72.5 H (BEAKER) (test code = 577) Meal Attendant ID - TRUNG MCT, BRAIN, WITHOUT [id number] 19:30:00Unlisted Reason for Exam - Click Yes and Enter Reason Below->No [facility] : 1960 Sex: [...] recommended for further characterization. Signed: Jhonathan Leggett MDReport Verified Date/Time: 03/26/2021 19:30:38 POCT-GLUCOSE [id number] 19:09:00 Test Item Value Reference Range Interpretation Comments POC-GLUCOSE METER 115 mg/dL 70-110 H : TESTED A T [facility] 6720 (BEAKER) (test code = EARLINE Collazo [facility], 1538) [address]: Meal Attendant/Techni qing ID = [id number] for Yesica Alvarez [id number] 07:41:00 Test Item Value Reference Range Interpretation Comments MAGNESIUM (BEAKER) (test code = 1.1 mg/dL 1.6-2.6 L 627) Meal Attendant ID - AAHAMIDHIGH SENSITIVITY TROPONIN [id number] 04:58:00 Test Item Value Reference Range Interpretation Comments HIGH SENSITIVITY 1025 pg/ml See_Comment HH [Automated message] TROPONIN I (test code [facility] which = 6851888) generated this result transmitted ref erence range: <=35. Th e reference range was not used to int erpret this result as normal/abnormal . Meal Attendant ID - DBThe J2EE APPLICATION DEVELOPER STAT High Sensitivity Troponin-I results should be used in conjunctionwith other diagnostic information such as ECG, clinical observations and information, and patient symptoms to aid in the diagnosis of NH.BASIC METABOLIC [id number] 04:35:00 Test Item Value Reference Range Interpretation [...] S NOT APPLICABLE FOR DIALYSIS PATIEN TS. Meal Attendant ID - ADMINCBC W/PLT COUNT & AUTO [id number] 04:15:00 Test Item Value Reference Range Interpretation [...] (BEAKER) (test code = 2801) CT, CTANGIO [id number] 13:09:00Unlisted Reason for Exam - Click Yes and Enter Reason Below->No [facility] : 1960 Sex: [...] MDReport Verified Date/Time: 03/25/2021 13:09:59 Reading Location: [address] Neuro Reading Room CT, CAROTID, [id number] 13:09:00Unlisted Reason for Exam - Click Yes and Enter Reason Below->No [facility] : 1960 Sex: [...] MDReport Verified Date/Time: 03/25/2021 13:09:59 Reading Location: [facility] C013 Neuro Reading Room [facility] METABOLIC [id number] 06:35:00 Test Item Value Reference Range Interpretation [...] S NOT APPLICABLE FOR DIALYSIS PATIEN TS. Meal Attendant ID - ADMINB-TYPE NATRIURETIC FACTOR (BNP)2021-03-25 06:01:00 Test Item Value Reference Range Interpretation Comments B-TYPE NATRIURETIC PEPTIDE 6570 pg/mL 0-100 H (BEAKER) (test code = 700) Meal Attendant ID - DBOperator ID - DBCBC W/PLT [...] = 2801) RAD, CHEST, 1 VIEW, NON [id number] 16:10:00Reason for exam:->dyspnea, new o2 requirementShould this be performed at the bedside?->Yes [facility] 1960 Sex: MFINAL [...] MDReport Verified Date/Time: 03/24/2021 16:10:45 Reading Location: [address] Neuro Reading Room HIGH SENSITIVITY TROPONIN [id number] 15:49:00 Test Item Value Reference Range Interpretation Comments HIGH SENSITIVITY 1150 pg/ml See_Comment HH [Automated message] TROPONIN I (test code The sy stem which = 2243062) generated this result transmitted ref erence range: <=35. Th e reference range was not used to int erpret this result as normal/abnormal . Meal Attendant ID - DBThe J2EE APPLICATION DEVELOPER STAT High Sensitivity Troponin-I results should be used in conjunctionwith other diagnostic information such as ECG, clinical observations and information, and patient symptoms to aid in the diagnosis of NH.MR, MRA, BRAIN, WITHOUT [id number] 12:19:00Reason for exam:- >Ischemic Stroke Evaluation [facility] : 1960 Sex: MFINAL [...] MDReport Verified Date/Time: 03/24/2021 12:19:21 Reading Location: [address] Neuro Reading Room MR, MRA, NECK, WITHOUT IV CONTRAST 2021-03-24 12:19:00Reason for exam:->Ischemic Stroke Evaluation [facility] : 1960 Sex: MFINAL [...] by NASCET criteria. Signed: JR Giles [facility] Verified Date/Time: 03/24/2021 12:19:21 Reading Location: [facility] B1 C013V Neuro Reading Room MR, BRAIN, WITHOUT CONTRAST 2021-03-24 12:19:00Reason for exam:->Ischemic Stroke Evaluation [facility] : 1960 Sex: [...] MDReport Verified Date/Time: 03/24/2021 12:19:21 Reading Location: [facility] B1 C013V Neuro Reading Room SARS-COV2/RT-PCR ([facility])2021-03-24 11:03:00 Test Item Value Reference Range Interpretation Comments SARS-COV2/RT-PCR (test Negative Not Detected, Negative, code = 8231047) See external report for linked test SARS-COV-2 PERFORMING LAB [facility] (test code = 8538117) Negative result for this test determines that [...] of the Act.Fact Sheet for Healthcare Prov iders:https://www.Skycatch/sites/default/files/product/documents/Fact_Sheet_HC _Xpweiulfz_Kmdj_URGR-EdY-4.pdfFact Sheet for Healthcare Patients:https://www.Skycatch/sites/default/files/product/docume nts/Cnxq_Akmrz_Ydgmhkop_Tbyg_XUCY-NmQ-2.pdfPerforming Laboratory:[facility] [place] [address].[place], [place] [address]OWSPKOYCWK [id number] 07:48:00 Test Item Value Reference Range Interpretation Comments HEMOGLOBIN A1C (BEAKER) (test code = 6.0 % 4.3-6.1 368) HIGH SENSITIVITY TROPONIN [id number] 05:11:00 Test Item Value Reference Range Interpretation Comments HIGH SENSITIVITY 1418 pg/ml See_Comment HH [Automated message] TROPONIN I (test code The stem which = 7238593) generated this result transmitted ref erence range: <=35. Th e reference range was not used to int erpret this result as normal/abnormal . Meal Attendant ID - TRUNG MThe J2EE APPLICATION DEVELOPER STAT High Sensitivity Troponin-I results should be used in conjunction with other diagnostic information such as ECG, clinical observations and information, and patient symptoms to aid in the diagnosis of NH.BASIC METABOLIC [id number] 05:00:00 Test Item Value Reference Range Interpretation [...] S NOT APPLICABLE FOR DIALYSIS PATIEN TS. Meal Attendant ID - ADMINLIPID [id number] 05:00:00 Test Item Value Reference Range Interpretation [...] Borderline 130-159 High 160-189 Very High >=190 Meal Attendant ID - ADMINHEPATIC FUNCTION [id number] 05:00:00 Test Item Value Reference Range Interpretation [...] code = 78 U/L 6-55 H 347) Meal Attendant ID - ADMINCBC W/PLT COUNT & AUTO [id number] 04:49:00 Test Item Value Reference Range Interpretation [...]
[2022-12-21 16:25] LABS: Absolute Lymphocytes (CBC) 1.5 K/uL (0.7-4.9); Hematocrit 37.4 % (39.6-49.0); Lymphocytes % 26.7 % (15.3-44.8); MCV 93.6 fL (80-100); MPV 8.3 fL (7.6-11.3)
[2022-12-21 16:29] LABS: Protime INR 2.5
[2022-12-21 16:53] LABS: ALT/SGPT 31 U/L (16-61); AST/SGOT 25 U/L (15-37); Albumin 3.4 g/dL (3.4-5.0); Alkaline Phosphatase 43 U/L (45-117); BUN Blood Urea Nitrogen 17 mg/dL (7-18); Bicarbonate 27 mmol/L (21-32); Bilirubin Direct 0.2 mg/dL (0-0.2); Bilirubin Total 0.4 mg/dL (0.2-1.0); Glomerular Filtration Rate 92 ml/min (=/>90); Glucose Level 110 mg/dL (74-106); NT PRO-BNP 2436 pg/mL (<125); Potassium 3.4 mmol/L (3.5-5.1); Protein, Total 7.4 g/dL (6.4-8.2); Sodium Level 138 mmol/L (136-145); Troponin High Sensitivity 30.8 pg/mL (<58.9)
--- NOTE | 2022-12-21 17:36 | RAD REPORT ---
EXAM DESCRIPTION: CT - Head C Spine Cap Sejal Arguello - 12/21/2022 5:18 pm CLINICAL HISTORY: Head and neck injury with chest and abdominal pain status post fall. Head and neck pain . TECHNIQUE: Computed axial tomography of the head and cervical spine was obtained Computed axial tomography of the chest, abdomen and pelvis was obtained. 100 cc Isovue-300 was given intravenously coronal and sagittal reconstruction was performed. All CT scans are performed using dose optimization technique as appropriate and may include automated exposure control or mA/KV adjustment according to patient size. COMPARISON: CT head and C-spine October 2022 FINDINGS: An intracranial bleed is not seen. The ventricles are normal in caliber. 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 An extra-axial fluid collection is not noted. Fluid within the si nuses is not seen A cervical fracture is not seen. No dislocation is seen. A mediastinal hematoma is not noted. Small to moderate right pleural effusion. A lung contusion is no t seen. Mild bilateral interstitial lung opacities. Cardiomegaly The liver, spleen, pancreas, adrenals, kidneys and bladder do not demonstrate an acute traumatic inju ry Diffuse edema within the subcutaneous tissues. Mild cirrhotic liver IMPRESSION: No acute intracranial abnormality is seen A cervical fracture is not visualized. If the patient continues have symptoms to suggest intracranial /spinal cord pathology then MRI would be recommended. No acute traumatic injury involving the chest, abdomen or pelvis is seen. Small to moderate right pleural effusion Mild bilateral interstitial lung opacities probably mild interstitial pulmonary edema
--- NOTE | 2022-12-21 17:41 | RAD REPORT ---
EXAM DESCRIPTION: Asim Single View12/21/2022 4:21 pm CLINICAL HISTORY: Chest pain COMPARISON: October 2022 FINDINGS: Mild bilateral pulmonary opacities. The heart is moderately enlarged Small to moderate right pleural effusion IMPRESSION: These findings probably indicate mild CHF
[2022-12-21] MEDS ORDERED: FUROSEMIDE 40 MG/4 ML VIAL ONE (18:32)
[2022-12-21 18:44] LABS: Urine Blood Negative (Negative); Urine Glucose Negative (Negative); Urine Protein Negative (Negative); Urine pH 5.5 (5.0-7.0)
[2022-12-21 19:41] LABS: Barbiturates NEGATIVE (NEGATIVE); Benzodiazepines NEGATIVE (NEGATIVE); Cocaine NEGATIVE (NEGATIVE); METHAMPHETAM NEGATIVE (NEGATIVE); Methadone NEGATIVE (NEGATIVE); Opiates NEGATIVE (NEGATIVE); Phencyclidine NEGATIVE (NEGATIVE); THC Cannibis NEGATIVE (NEGATIVE)
--- NOTE | 2022-12-21 20:12 | ER ---
Nurse's Notes [facility] Name: Donald Sanford Age: 62 yrs Sex: Male : 1960 Arrival Date: 12/21/2022 Time: 15:47 Bed 4 Private MD: Diagnosis: Unspecified injury of head, initial encounter;Unspecified systolic (congestive) heart failure;Alcohol abuse with intoxication;Pleural effusion in other conditions classified elsewhere Presentation: 12/21 15:47 Chief complaint: EMS states: "pt was at home and a neighbor heard him fall. Pt had mb9 positive LOC and states he was drinking liquor since 0500am this morning." Pt doesn't remember fall and currently takes Xarelto. Coronavirus screen: At this time, the client does not indicate any symptoms associated with coronavirus-19. Ebola Screen: No symptoms or risks identified at this time. Initial Sepsis Screen: Does the patient meet any 2 criteria? No. Patient's initial sepsis screen is negative. Does the patient have a suspected source of infection? No. Patient's initial sepsis screen is negative. Risk Assessment: Do you want to hurt yourself or someone else? Patient reports no desire to harm self or others. Onset of symptoms was December 21, 2022. 15:47 Method Of Arrival: EMS: [facility] mb9 15:47 Acuity: KEDAR 2 mb9 16:36 Care prior to arrival: None. Mechanism of Injury: Fall. Trauma event details: Injury ph occurred in the [facility], Injury occurred: at home. Injury occurred: December 21, 2022. Triage Assessment: 22:51 General: Behavior is. mb9 Historical: - Allergies: 15:51 No Known Allergies; mb9 - Home Meds: 15:51 Metoprolol Tartrate Oral [Active]; losartan Oral [Active]; Lasix Oral [Active]; mb9 atorvastatin Oral [Active]; Xarelto oral [Active]; Amiodarone Oral [Active]; - PMHx: 15:51 Cirrhosis; Hypertension; Congestive heart failure; mb9 - PSHx: 15:51 Unable to Obtain; mb9 - Immunization history:: Adult Immunizations up to date. - Social history:: Smoking status: unknown Patient uses alcohol, on a daily basis. Screenin:[facility] ED Fall Risk Assessment (Adult) History of falling in the last 3 months, ph including since admission Yes- single mechanical fall (1 pt) Confusion or Disorientation No (0 pts) Intoxicated or Sedated Yes (3 pts) Impaired Gait Yes (1 pt) Mobility Assist Device Used No (0 pt) Altered Elimination No (0 pt) Score/Fall Risk Level 3 or more points = High Risk Oriented to surroundings, Maintained a safe environment, Hourly rounding (assess needs \\T\\ fall precautionary measures) done. Abuse screen: Denies threats or abuse. Denies injuries from another. Nutritional screening: No deficits noted. Tuberculosis screening: No symptoms or risk factors identified. Primary Survey: 15:50 NO uncontrolled hemorrhage observed. A: The client is awake and alert. The airway is ph patent. Breathing/Chest: Spontaneous respiratory effort, equal unlabored respirations, breath sounds clear bilaterally, regular pattern, symmetrical chest rise and fall. Circulation: No external hemorrhage present. Regular and strong central pulse, skin warm/dry/normal color. Disability Pupils are equal, round, reactive to light and accommodation. Client is alert. Exposure/Environment: multiple small abrasions to L shoulder and upper arm, minimal bleeding noted A warming method has been applied: A warm blanket has been provided to the patient. 16:18 Reassessment Alertness and Airway: Awake and alert. The airway is patent. Airway Patent mb9 Breathing: Spontaneous respiratory effort, equal unlabored respirations, breath sounds clear bilaterally, regular pattern with symmetrical chest rise and fall. Respiratory effort Unlabored Breath sounds Clear Respiratory pattern Regular Circulation: No external hemorrhage noted. Regular and strong central pulse, skin warm/dry/normal color. Heart rhythm Sinus rhythm Heart tones Present Pulses Palpable Temperature Cool Disability: Pupils Pupils are equal, round, reactive to light and accomodation. Alert. Secondary Survey: 15:51 HEENT: No deficits noted. Gastrointestinal: No deficits noted. Musculoskeletal: No ph signs and/or symptoms reported regarding the musculoskeletal system. Injury Description: Abrasion sustained to anterior aspect of right shoulder, right bicep, posterior aspect of right shoulder and right tricep. Assessment: 16:10 Reassessment: first set of blood cultures sent. mb9 16:40 Reassessment: second set of blood cultures sent. mb9 17:01 Reassessment: No changes from previously documented assessment. Patient and/or family mb9 updated on plan of care and expected duration. Pain level reassessed. Patient is alert, oriented x 3, equal unlabored respirations, skin warm/dry/pink. Patient denies pain at this time. 17:56 Reassessment: Patient and/or family updated on plan of care and expected duration. Pain mb9 level reassessed. pt currently sleeping. Respirations are even and unlabored. Skin is cool and intact. Rhythm is regular. 18:44 Reassessment: No changes from previously documented assessment. Patient and/or family mb9 updated on plan of care and expected duration. Pain level reassessed. Patient is alert, oriented x 3, equal unlabored respirations, skin warm/dry/pink. Patient denies pain at this time. 19:45 Reassessment: No changes from previously documented assessment. Patient and/or family mb9 updated on plan of care and expected duration. Pain level reassessed. Patient is alert, oriented x 3, equal unlabored respirations, skin warm/dry/pink. Patient denies pain at this time. 20:43 Reassessment: No changes from previously documented assessment. Patient and/or family mb9 updated on plan of care and expected duration. Pain level reassessed. Patient is alert, oriented x 3, equal unlabored respirations, skin warm/dry/pink. Patient denies pain at this time. Patient states feeling better. 21:35 Reassessment: No changes from previously documented assessment. Patient and/or family mb9 updated on plan of care and expected duration. Pain level reassessed. Patient is alert, oriented x 3, equal unlabored respirations, skin warm/dry/pink. Patient denies pain at this time. Patient states feeling better. 22:30 Reassessment: No changes from previously documented assessment. Patient and/or family mb9 updated on plan of care and expected duration. Pain level reassessed. Patient is alert, oriented x 3, equal unlabored respirations, skin warm/dry/pink. Patient denies pain at this time. Patient states feeling better. 22:30 Reassessment: attempted to call report to admitting nurse. mb9 Vital Signs: 15:47 BP 122 / 45; Pulse 61; Resp 18; Pulse Ox 100% ; Weight 81.65 kg; Height 5 ft. 5 in. mb9 (165.10 cm); Pain 0/10; 16:19 BP 128 / 64; Pulse 60; Resp 14; Pulse Ox 100% ; mb9 16:49 BP 110 / 63; Pulse 61; Resp 15; Pulse Ox 99% on R/A; mb9 17:56 BP 132 / 48; Pulse 64; Resp 14; Pulse Ox 98% ; mb9 18:45 BP 130 / 75; Resp 14; Pulse Ox 100% ; mb9 19:58 BP 154 / 122; Pulse 63; Resp 18; Pulse Ox 100% on R/A; mb9 20:38 BP 105 / 74; Pulse 62; Resp 14; Pulse Ox 100% on R/A; mb9 22:19 Temp 97.6; mb9 22:29 BP 105 / 56; Pulse 64; Resp 15; Pulse Ox 99% ; mb9 15:47 Body Mass Index 29.95 (81.65 kg, 165.10 cm) mb9 [place] Coma Score: 15:52 Eye Response: spontaneous(4). Verbal Response: oriented(5). Motor Response: obeys ph commands(6). Total: 15. 16:19 Eye Response: spontaneous(4). Verbal Response: oriented(5). Motor Response: obeys mb9 commands(6). Total: 15. 16:49 Eye Response: spontaneous(4). Verbal Response: oriented(5). Motor Response: obeys mb9 commands(6). Total: 15. 17:56 Eye Response: spontaneous(4). Verbal Response: oriented(5). Motor Response: obeys mb9 commands(6). Total: 15. 18:46 Eye Response: spontaneous(4). Verbal Response: oriented(5). Motor Response: obeys mb9 commands(6). Total: 15. 19:58 Eye Response: spontaneous(4). Verbal Response: oriented(5). Motor Response: obeys mb9 commands(6). Total: 15. Trauma Score (Adult): 15:52 Eye Response: spontaneous(1); Verbal Response: oriented(1); Motor Response: obeys ph commands(2); Systolic BP: > 89 mm Hg(4); Respiratory Rate: 10 to 29 per min(4); Becky Score: 15; Trauma Score: 12 ED Course: 15:47 Patient arrived in ED. mb9 15:47 Jasmyne Palacios FNP-C is [facility]. snw 15:47 Lavell Rivas MD is Attending Physician. snw 15:50 Nory Garnett RN is Primary Nurse. ph 15:51 Triage completed. mb9 15:51 Arm band placed on. mb9 15:54 Placed in gown. Bed in low position. Call light in reach. Side rails up X 1. Client mb9 placed on continuous cardiac and pulse oximetry monitoring. NIBP monitoring applied. radiation monitor on. 16:16 Inserted saline lock: 20 gauge in right forearm, using aseptic technique. Blood mb9 collected. 16:17 Maintain EMS IV. Dressing intact. Good blood return noted. Site clean \\T\\ dry. Gauge \\T\\ mb 9 site: 20g to left AC. IV is patent, is intact, with fluids infusing freely, with good blood return. 16:17 Procalcitonin Sent. mb9 16:17 Magnesium Sent. mb9 16:17 Troponin HS Sent. mb9 16:17 NT PRO-BNP Sent. mb9 16:17 Acetaminophen Sent. mb9 16:17 Salicylate Sent. mb9 16:17 Ptt, Activated Sent. mb9 16:17 ETOH Level Sent. mb9 16:18 Basic Metabolic Panel Sent. mb9 16:18 CBC with Diff Sent. mb9 16:18 PT-INR Sent. mb9 16:18 Hepatic Function Sent. mb9 16:23 XRAY Chest (1 view) In Process Unspecified. EDMS 16:37 Patient maintains SpO2 saturation greater than 95% on room air. Thermoregulation: warm ph blanket given to patient. 16:50 Blood Culture Adult (2) Sent. mb9 17:20 CT Traumagram (Head C Spine CAP W Con) In Process Unspecified. EDMS 18:44 Urine Drug Screen Sent. mb9 18:44 Magana cath inserted, using sterile technique, 18 Fr., by wi, balloon inflated, to mb9 gravity drainage, urine specimen collected. returned clear yellow urine. Patient tolerated well. 20:06 Donna Cohen MD is Hospitalizing Provider. snw 20:38 SARS RAPID Sent. mb9 22:51 Patient admitted, IV remains in place. mb9 Administered Medications: 18:35 Drug: Lasix (furosemide) 40 mg Route: IVP; Site: right forearm; mb9 20:12 Follow up: Response: No adverse reaction mb9 Medication: 16:36 VIS not applicable for this client. ph Output: 19:58 Urine: 1200ml (Magana); Total: 1200ml. mb9 20:38 Urine: 900ml (Magana); Total: 2100ml. mb9 Outcome: 20:11 Decision to Hospitalize by Provider. snw 22:51 Admitted to ICU accompanied by tech, via wheelchair, room 3, with chart, Report called mbElizabeth to EDUARDO Bernstein 22:51 Condition: stable 22:53 Patient left the ED. arsenio Signatures: Dispatcher [employer] EDMS Jasmyne Palacios, CNC MANAGER-C CNC MANAGER-CsnNory Ray, RN RN Yesica Navarrete RN RN arsenio Corrections: (The following items were deleted from the chart) 15:53 15:51 PSHx: None; arsenio cesar
--- NOTE | 2022-12-21 20:12 | EDPHYS ---
Physician Documentation [facility] Name: Donald Sanford Age: 62 yrs Sex: Male : 1960 Arrival Date: 12/21/2022 Time: 15:47 Bed 4 Private MD: ED Physician Lavell Rivas HPI: 12/21 15:57 This 62 yrs old Male presents to ER via EMS with complaints of fall with LOC on Xarelto.snw 15:57 Trauma demographics: County: The injury occurred in [place] Location of Injury: The snw injury occurred at home, Date: December 21, 2022. Mechanism of injury: Fall: the patient fell from a standing position. Associated injuries: The patient sustained pt without complaint. Onset: The symptoms/episode began/occurred acutely. It is unknown whether or not the patient has had similar symptoms in the past. It is unknown whether or not the patient has recently seen a physician. pt is a poor historian. Historical: - Allergies: 15:51 No Known Allergies; mb9 - Home Meds: 15:51 Metoprolol Tartrate Oral [Active]; losartan Oral [Active]; Lasix Oral [Active]; mb9 atorvastatin Oral [Active]; Xarelto oral [Active]; Amiodarone Oral [Active]; - PMHx: 15:51 Cirrhosis; Hypertension; Congestive heart failure; mb9 - PSHx: 15:51 Unable to Obtain; mb9 - Immunization history:: Adult Immunizations up to date. - Social history:: Smoking status: unknown Patient uses alcohol, on a daily basis. ROS: 15:57 Constitutional: Negative for fever, chills, and weight loss, Eyes: Negative for injury, snw pain, redness, and discharge, ENT: Negative for injury, pain, and discharge, Neck: Negative for injury, pain, and swelling, Cardiovascular: Negative for chest pain, palpitations, and edema, Respiratory: Negative for shortness of breath, cough, wheezing, and pleuritic chest pain, Abdomen/GI: Negative for abdominal pain, nausea, vomiting, diarrhea, and constipation, Back: Negative for injury and pain, : Negative for injury, bleeding, discharge, and swelling, MS/Extremity: Negative for injury and deformity, Skin: Negative for injury, rash, and discoloration, Neuro: Negative for headache, weakness, numbness, tingling, and seizure, Psych: Negative for depression, anxiety, suicide ideation, homicidal ideation, and hallucinations. Exam: 15:57 Head/Face: Normocephalic, atraumatic. Eyes: Pupils equal round and reactive to light, snw extra-ocular motions intact. Lids and lashes normal. Conjunctiva and sclera are non-icteric and not injected. Cornea within normal limits. Periorbital areas with no swelling, redness, or edema. ENT: Nares patent. No nasal discharge, no septal abnormalities noted. Tympanic membranes are normal and external auditory canals are clear. Oropharynx with no redness, swelling, or masses, exudates, or evidence of obstruction, uvula midline. Mucous membranes moist. Neck: Trachea midline, no thyromegaly or masses palpated, and no cervical lymphadenopathy. Supple, full range of motion without nuchal rigidity, or vertebral point tenderness. No Meningismus. Chest/axilla: Normal chest wall appearance and motion. Nontender with no deformity. No lesions are appreciated. Cardiovascular: Regular rate and rhythm with a normal S1 and S2. No gallops, murmurs, or rubs. Normal PMI, no JVD. No pulse deficits. Respiratory: Lungs have equal breath sounds bilaterally, clear to auscultation and percussion. No rales, rhonchi or wheezes noted. No increased work of breathing, no retractions or nasal flaring. 15:57 Back: No spinal tenderness. No costovertebral tenderness. Full range of motion. MS/ Extremity: Pulses equal, no cyanosis. Neurovascular intact. Full, normal range of motion. 15:57 Constitutional: The patient appears alert, unkempt. 15:57 Abdomen/GI: Inspection: distension, Bowel sounds: normal, Palpation: tight to palpation. 15:57 Skin: Appearance: Color: dusky, Temperature: cold, Moisture: dry, cellulitis, that is moderate, on the left valadez. 15:57 Neuro: Orientation: terrible historian, knows name, location, but unable to give history, Gait: not tested. Vital Signs: 15:47 BP 122 / 45; Pulse 61; Resp 18; Pulse Ox 100% ; Weight 81.65 kg; Height 5 ft. 5 in. mb9 (165.10 cm); Pain 0/10; 16:19 BP 128 / 64; Pulse 60; Resp 14; Pulse Ox 100% ; mb9 16:49 BP 110 / 63; Pulse 61; Resp 15; Pulse Ox 99% on R/A; mb9 17:56 BP 132 / 48; Pulse 64; Resp 14; Pulse Ox 98% ; mb9 18:45 BP 130 / 75; Resp 14; Pulse Ox 100% ; mb9 19:58 BP 154 / 122; Pulse 63; Resp 18; Pulse Ox 100% on R/A; mb9 20:38 BP 105 / 74; Pulse 62; Resp 14; Pulse Ox 100% on R/A; mb9 22:19 Temp 97.6; mb9 22:29 BP 105 / 56; Pulse 64; Resp 15; Pulse Ox 99% ; mb9 15:47 Body Mass Index 29.95 (81.65 kg, 165.10 cm) mb9 Becky Coma Score: 15:52 Eye Response: spontaneous(4). Verbal Response: oriented(5). Motor Response: obeys ph commands(6). Total: 15. 16:19 Eye Response: spontaneous(4). Verbal Response: oriented(5). Motor Response: obeys mb9 commands(6). Total: 15. 16:49 Eye Response: spontaneous(4). Verbal Response: oriented(5). Motor Response: obeys mb9 commands(6). Total: 15. 17:56 Eye Response: spontaneous(4). Verbal Response: oriented(5). Motor Response: obeys mb9 commands(6). Total: 15. 18:46 Eye Response: spontaneous(4). Verbal Response: oriented(5). Motor Response: obeys mb9 commands(6). Total: 15. 19:58 Eye Response: spontaneous(4). Verbal Response: oriented(5). Motor Response: obeys mb9 commands(6). Total: 15. Trauma Score (Adult): 15:52 Eye Response: spontaneous(1); Verbal Response: oriented(1); Motor Response: obeys ph commands(2); Systolic BP: > 89 mm Hg(4); Respiratory Rate: 10 to 29 per min(4); Becky Score: 15; Trauma Score: 12 MDM: 15:45 Differential diagnosis: closed head injury, C spine fracture. Data reviewed: vital snw signs, nurses notes. 15:48 Patient medically screened. snw 17:00 Consideration of Admission/Observation Patient was admitted/placed on observation. snw awaiting traumagram results. 17:00 ED course: Pt intoxicated, CHF on labs and radiology exams. Will give lasix and monitor snw I\T\O. 19:19 ED course: 1600ml in romo, pt resting comfortably, sleeping. snw 20:05 Management of patient was discussed with the following: Hospitalist: Magdiel Goodman. snw I considered the following discharge prescriptions or medication management in the emergency department Medications were administered in the Emergency Department. See MAR. Care significantly affected by the following chronic conditions: Hypertension, Congestive Heart Failure, Obesity, Liver Disease. Counseling: I had a detailed discussion with the patient and/or guardian regarding: the historical points, exam findings, and any diagnostic results supporting the discharge/admit diagnosis, the presence of at least one elevated blood pressure reading (>120/80) during this emergency department visit, lab results, radiology results, the need for further work-up and treatment in the hospital. Response to treatment: the patient's symptoms have mildly improved after treatment. 12/21 15:54 Order name: Acetaminophen; Complete Time: 16:59 w 12/21 15:54 Order name: Basic Metabolic Panel; Complete Time: 16:59 w 12/21 15:54 Order name: CBC with Diff; Complete Time: 16:33 w 12/21 15:54 Order name: ETOH Level; Complete Time: 16:53 w 12/21 15:54 Order name: Hepatic Function; Complete Time: 16:59 w 12/21 15:54 Order name: PT-INR; Complete Time: 16:33 w 12/21 15:54 Order name: Ptt, Activated; Complete Time: 16:33 w 12/21 15:54 Order name: Salicylate; Complete Time: 17:10 w 12/21 15:54 Order name: Urine Drug Screen; Complete Time: 19:50 snw 12/21 15:54 Order name: Magnesium; Complete Time: 16:59 snw 12/21 15:54 Order name: NT PRO-BNP; Complete Time: 16:59 snw 12/21 15:54 Order name: Troponin HS; Complete Time: 16:59 w 12/21 15:54 Order name: Blood Culture Adult (2) w 12/21 15:54 Order name: Lactate w/ 2H reflex if indic.; Complete Time: 16:59 12/21 15:54 Order name: EKG; Complete Time: 15:55 12/21 15:54 Order name: EKG - Nurse/Tech; Complete Time: 16:19 12/21 15:54 Order name: IV Saline Lock; Complete Time: 16:15 12/21 15:54 Order name: Labs collected and sent; Complete Time: 16:15 12/21 15:54 Order name: Urine Dipstick-Ancillary (obtain specimen); Complete Time: 18:44 12/21 15:54 Order name: XRAY Chest (1 view); Complete Time: 17:43 12/21 15:54 Order name: Cardiac monitoring; Complete Time: 15:54 12/21 15:54 Order name: O2 Per Protocol; Complete Time: 15:54 12/21 15:54 Order name: O2 Sat Monitoring; Complete Time: 15:55 12/21 15:54 Order name: Procalcitonin; Complete Time: 17:33 12/21 16:02 Order name: CT Traumagram (Head C Spine CAP W Con); Complete Time: 17:43 12/21 18:23 Order name: Romo; Complete Time: 18:44 12/21 18:44 Order name: Urine Dipstick-Ancillary; Complete Time: 18:46 EDMS 12/21 20:12 Order name: SARS RAPID; Complete Time: 20:43 sb4 12/21 20:34 Order name: Recheck B/P; Complete Time: 20:38 snw EC:20 Rate is 54 beats/min. Rhythm is regular. QRS interval is prolonged. Q waves are Present snw in leads III, V1. T waves are Inverted in leads V3, V4, V5, V6. Clinical impression: NSR w/ Non-specific ST/T Changes. Administered Medications: 18:35 Drug: Lasix (furosemide) 40 mg Route: IVP; Site: right forearm; mb9 20:12 Follow up: Response: No adverse reaction mb9 Disposition Summary: 12/21/22 20:11 Hospitalization Ordered Hospitalization Status: Inpatient Admission snw Provider: Donna Cohen snw Condition: Stable snw Problem: an acute exacerbation snw Symptoms: have worsened snw Bed/Room Type: Standard snw Location: Intensive Care Unit(12/21/22 21:58) mw Room Assignment: 3-(12/21/22 21:58) mw Diagnosis - Unspecified injury of head, initial encounter snw - Unspecified systolic (congestive) heart failure snw - Alcohol abuse with intoxication snw - Pleural effusion in other conditions classified elsewhere snw Forms: - Medication Reconciliation Form snw - SBAR form snw Signatures: Dispatcher [employer] EDMS Venus Valenzuela RN RN mw Waters, Shelly, SERVICE OPERATOR-C SERVICE OPERATOR-Csnw Yesica Cobb RN RN mb9 Corrections: (The following items were deleted from the chart) 15:53 15:51 PSHx: None; mbElizabeth mb9 16:15 15:54 Suicide Screening ([place]) ordered. snw ph 21:58 20:11 Telemetry/MedSurg (Inpatient) snw mw 21:58 20:11 snw mw
[2022-12-21 20:41] LABS: SARS-CoV-2 Antigen Rapid Res Negative (Negative)
--- NOTE | 2022-12-21 22:14 | P.HP ---
Certification for Inpatient Patient admitted to: Observation With expected LOS: <2 Midnights Patient will require the following post-hospital care: None Practitioner: I am a practitioner with admitting privileges, knowledge of patient current condition, hospital course, and medical plan of care. Services: Services provided to patient in accordance with Admission requirements found in Title 42 Section 412.3 of the Code of Federal Regulations Patient History Date of Service: 12/21/22 Primary Care Provider: Tra Andrade Reason for admission: CHF Exacerbation History of Present Illness: Patient is a 62-year-old male with past medical history of hypertension, systolic CHF, atrial fibrillation on Xarelto, and alcoholic cirrhosis who presented to the emergency department after a fall. Patient's neighbor heard the fall and called EMS. Patient does not remember what happened. Patient endorses drinking alcohol since [address] showed "No acute traumatic injury involving the chest, abdomen or pelvis is seen. Small to moderate right pleural effusion. Mild bilateral interstitial lung opacities probably mild interstitial pulmonary edema." Labs are significant for hemoglobin 12.3, PT 27.5, PTT 44.5, potassium 3.4, alk phos 43, BNP 2436, alcohol 201, UDS negative. He was also noted to have some peripheral edema in his bilateral lower extremities and was unable to urinate. Magana was placed, he was given 40 mg of IV Lasix, and he had appropriate urine output. ED provider wishes to admit patient for observation. Allergies No Known Allergies Allergy (Verified 08/26/19 10:47) Home medications list reviewed: Yes Home Medications: Atorvastatin Calcium [Lipitor] 80 mg PO BEDTIME #30 tab 08/31/19 Losartan Potassium [Cozaar*] 50 mg PO DAILY #30 tablet 08/31/19 Furosemide [Lasix] 1 tab PO DAILY 03/18/21 Amiodarone HCl [Pacerone] 400 mg PO BID #60 08/13/22 Rivaroxaban [Xarelto] 20 mg PO DAILY #30 tab 08/13/22 Honey [Medihoney] 15 ml TP DAILY 15 Days #90 ml 11/05/22 - Past Medical/Surgical History Diabetic: No -: hypertension -: Atrial fibrillation -: cirrhosis -: Congestive Heart Failure -: Alcohol Abuse -: CABG Psychosocial/ Personal History: Patient lives at home alone. - Family History Family History: Reviewed- Non-Contributory - Social History Smoking Status: Never smoker Alcohol use: Yes CD- Drugs: No Caffeine use: No Place of Residence: Home Review of Systems Cardiovascular: Edema Neurological: Confusion Physical Examination - Vital Signs Temperature: 97.6 F Blood Pressure: 105/74 Pulse: 62 Respirations: 14 Pulse Ox (%): 100 - Physical Exam General: Alert, In no apparent distress HEENT: Atraumatic, Other (Pale), EOMI Neck: Supple, 2+ carotid pulse no bruit Respiratory: Clear to auscultation bilaterally, Normal air movement Cardiovascular: Regular rate/rhythm, Normal S1 S2, Edema (2+ pitting edema BLE) Gastrointestinal: Normal bowel sounds, No tenderness Musculoskeletal: No tenderness Integumentary: No rashes Neurological: Normal speech, Normal strength at 5/5 x4 extr, Normal tone - Studies Laboratory Data (last 24 hrs) 12/21/22 16:10: PT 27.5 H, INR 2.50, APTT 44.5 H 12/21/22 16:10: WBC 5.70, Hgb 12.3 L, Hct 37.4 L, Plt Count 179 12/21/22 16:10: Sodium 138, Potassium 3.4 L, BUN 17, Creatinine 0.93, Glucose 110 H, Magnesium 2.0, Total Bilirubin 0.4, AST 25, ALT 31, Alkaline Phosphatase 43 L Assessment and Plan - Problems (Diagnosis) (1) Congestive heart failure Current Visit: Yes Status: Acute Qualifiers: Heart failure type: systolic Heart failure chronicity: acute on chronic Qualified Code(s): I50.23 - Acute on chronic systolic (congestive) heart failure (2) Cirrhosis Current Visit: Yes Status: Chronic Qualifiers: Hepatic cirrhosis type: alcoholic cirrhosis Ascites presence: without ascites Qualified Code(s): K70.30 - Alcoholic cirrhosis of liver without ascites (3) Hypertension Current Visit: Yes Status: Chronic Qualifiers: Hypertension type: primary hypertension Qualified Code(s): I10 - Essential (primary) hypertension (4) Anemia Current Visit: Yes Status: Chronic Qualifiers: Anemia type: unspecified type Qualified Code(s): D64.9 - Anemia, unspecified (5) Chronic alcohol abuse Current Visit: Yes Status: Chronic - Plan Patient is admitted for observation for further management of CHF exacerbation. He was admitted about 1 month ago for very similar episode. Continue IV Lasix. Monitor intake and output. 1500 cc day fluid restriction. Daily weights. Alcohol withdrawal assessment in place. Patient drinks daily. Will consult cardiology and order echocardiogram. Last on file from 2020 with EF 35-40%. Folic acid and thiamine daily. Fall precautions. Magana catheter in place. Monitor and replete electrolytes per protocol. Reconcile and continue home medications. Xarelto for VTE prophylaxis. Full code. Discharge Plan: Home Plan to discharge in: 24 Hours - Advance Directives Does patient have a Living Will: No Does patient have a Durable POA for Healthcare: No - Code Status/Comfort Care Code Status Assessed: Yes Code Status: Full Code Physician Review: Patient Assessed, Agree with Above Assessment and Plan Critical Care: No Time Spent Managing Pts Care (In Minutes): 50
[2022-12-21] MEDS ORDERED: ALBUTEROL 2.5 MG/3 ML NEB SOL NEB PRN (22:54)
[2022-12-21] MEDS ORDERED: FOLIC ACID 5 MG/ML VIAL IVP SCH (22:54)
[2022-12-21] MEDS ORDERED: ONDANSETRON 4 MG/2 ML VIAL IV PRN (22:54)
[2022-12-21] MEDS ORDERED: THIAMINE 200 MG/2 ML INJ IVP SCH (22:54)
[2022-12-21] MEDS ORDERED: POTASSIUM 25 MEQ EFFERV TAB PO ONE (22:57)
[2022-12-21 23:56] VITALS: BMI 30.7
[2022-12-22 05:01] LABS: Absolute Lymphocytes (CBC) 1.2 K/uL (0.7-4.9); Hematocrit 38.9 % (39.6-49.0); Lymphocytes % 13.4 % (15.3-44.8); MPV 8.1 fL (7.6-11.3); RBC Red Blood Cell Count 4.18 M/uL (4.33-5.43)
[2022-12-22 05:24] LABS: Phosphorus 4.3 mg/dL (2.5-4.9)
[2022-12-22] MEDS ORDERED: METOPROLOL TAR 50 MG TAB PO SCH (09:00)
[2022-12-22] MEDS ORDERED: LOSARTAN POTASSIUM 50 MG TABLET PO SCH (09:00)
[2022-12-22] MEDS ORDERED: FUROSEMIDE 40 MG/4 ML VIAL IV SCH (09:00)
[2022-12-22] MEDS ORDERED: RIVAROXABAN 20 MG TABLET PO SCH (09:00)
[2022-12-22] MEDS: AMIODARONE HCL 200 MG TAB PO SCH ×2 (09:44→20:53)
[2022-12-22] MEDS: FOLIC ACID 1 MG TABLET PO SCH (09:45)
[2022-12-22] MEDS: THIAMINE HCL 100 MG TABLET PO SCH (09:45)
--- NOTE | 2022-12-22 12:01 | P.CNS ---
Date of Consult: 12/22/22 Primary Care Provider: Tra Andrade Chief Complaint: CHF Exacerbation History of Present Illness: Patient is 62 years of age with a history of hypertension CHF A. fib alcoholic cirrhosis admitted to the emergency room after a fall he is passed out again apparently was secondary to his medication and also drinking recently also complaining of right-sided chest pain has pleural effusion on the right side currently denies any shortness of breath still hurting denies any fever or chills Allergies No Known Allergies Allergy (Verified 08/26/19 10:47) Home Medications: Amiodarone HCl [Pacerone] 200 mg PO BID 12/22/22 Atorvastatin Calcium [Lipitor] 80 mg PO BEDTIME 12/22/22 Furosemide [Lasix] 20 mg PO DAILY 12/22/22 Losartan Potassium 50 mg PO DAILY 12/22/22 Metoprolol Tartrate [Lopressor] 100 mg PO BID 12/22/22 Rivaroxaban [Xarelto] 20 mg PO DAILY 12/22/22 - Past Medical/Surgical History Diabetic: No -: hypertension -: Atrial fibrillation -: cirrhosis -: Congestive Heart Failure -: Alcohol Abuse -: CABG Psychosocial/ Personal History: Patient lives at home alone. - Social History Smoking Status: Unknown if ever smoked Alcohol use: Yes CD- Drugs: No Caffeine use: Yes Place of Residence: Home Review of Systems 10-point ROS is otherwise unremarkable Respiratory: Pleuritic Pain Physical Examination Temp Pulse Resp BP Pulse Ox 97.5 F 70 12 83/63 L 100 12/22/22 08:00 12/22/22 09:45 12/22/22 08:00 12/22/22 09:45 12/22/22 08:00 General: Alert HEENT: Atraumatic Neck: Supple Respiratory: Clear to auscultation bilaterally, Diminished (Diminished on the right side) Cardiovascular: No edema, Normal pulses, Regular rate/rhythm Laboratory Data (last 24 hrs) 12/21/22 16:10: PT 27.5 H, INR 2.50, APTT 44.5 H 12/21/22 16:10: WBC 5.70, Hgb 12.3 L, Hct 37.4 L, Plt Count 179 12/21/22 16:10: Sodium 138, Potassium 3.4 L, BUN 17, Creatinine 0.93, Glucose 110 H, Magnesium 2.0, Total Bilirubin 0.4, AST 25, ALT 31, Alkaline Phosphatase 43 L - Problems (1) Right-sided chest pain Current Visit: Yes Status: Acute Plan: Patient is 62 years of age with a history of alcohol abuse admitted with fall is complaining of some right-sided chest pain small right-sided pleural effusion years heart failure cardiomegaly labs reviewed his anticoagulation is therapeutic no acute changes visible on whole-body CT scan now thoracentesis not indicated patient has severe congestive heart failure although is hypotensive has had recurrent falls hold off on metoprolol losartan and Lasix for now bilateral decubitus of the chest use dose of Xarelto he may have underlying coagulopathy from his cirrhosis
--- NOTE | 2022-12-22 13:38 | P.PN ---
Subjective Date of Service: 12/22/22 Patient is a 62-year-old gentleman who came to the hospital with an shortness of breath. Patient has been drinking and and he remembers falling down but does not remember much after that. When he got back up he was feeling short of breath. Patient felt like he had fluid overload. He was seen in the hospital about a month ago and diagnosed with atrial fibrillation with rapid ventricular response status post cardioversion by destination specialist. Patient is on amiodarone and beta-luis maunel therapy as well as Xarelto for this. Echocardiogram revealed an EF of 35 to 40%. Patient's been on diuretics as well. His chest x-ray last month was completely clear. He has been having pain on the right side. No vis ible bruising noted at that time. Pt was drinking and he does not really remember what happened after he fell. Plan was to check a lateral decubitus x- ray to see if the fluid layers significantly to where he may need a thoracentesis. Pt states she has pain on deep inspiration. Pulmonary has seen the patient and at this time they want to hold off on the thoracentesis. Reassess patient in a.m. and see how he is doing. Review of Systems 10-point ROS is otherwise unremarkable Physical Examination - Vital Signs Temperature: 97.5 F Blood Pressure: 83/63 Pulse: 70 Respirations: 12 Pulse Ox (%): 100 - Physical Exam General: Alert, In no apparent distress, Oriented x3 HEENT: Atraumatic, PERRLA, EOMI Neck: Supple, JVD not distended Respiratory: Diminished, Crackles/rales Cardiovascular: Normal S1 S2, No murmurs, Irregular heart rate/rhythm Gastrointestinal: Normal bowel sounds, Soft and benign, Non-distended, No tenderness Musculoskeletal: No clubbing, No swelling, No tenderness Integumentary: No rashes Neurological: Sensation intact, Cranial nerves 3-12 intact - Studies Laboratory Data (last 24 hrs) 12/21/22 16:10: PT 27.5 H, INR 2.50, APTT 44.5 H 12/21/22 16:10: WBC 5.70, Hgb 12.3 L, Hct 37.4 L, Plt Count 179 12/21/22 16:10: Sodium 138, Potassium 3.4 L, BUN 17, Creatinine 0.93, Glucose 110 H, Magnesium 2.0, Total Bilirubin 0.4, AST 25, ALT 31, Alkaline Phosphatase 43 L Medications List Reviewed: Yes Assessment & Plan - Problems (Diagnosis) (1) Status post fall Current Visit: Yes Status: Acute (2) Atrial fibrillation Current Visit: Yes Status: Acute (3) CAD (coronary artery disease) Current Visit: Yes Status: Acute (4) Congestive heart failure Current Visit: Yes Status: Acute Qualifiers: Heart failure type: systolic Heart failure chronicity: acute on chronic Qualified Code(s): I50.23 - Acute on chronic systolic (congestive) heart failure (5) Right-sided chest pain Current Visit: Yes Status: Acute (6) Chronic alcohol abuse Current Visit: Yes Status: Chronic (7) Cirrhosis Current Visit: Yes Status: Chronic Qualifiers: Hepatic cirrhosis type: alcoholic cirrhosis Ascites presence: without ascites Qualified Code(s): K70.30 - Alcoholic cirrhosis of liver without ascites (8) Hypertension Current Visit: Yes Status: Chronic Qualifiers: Hypertension type: primary hypertension Qualified Code(s): I10 - Essential (primary) hypertension (9) Sleep apnea Current Visit: No Status: Acute (10) Syncope Current Visit: No Status: Suspected Qualifiers: Syncope type: heat syncope - Plan Plan: 1. Pain control 2. For H&H 3. Continue medication for atrial fibrillation 4. Monitor hemodynamics closely 5. Low-dose Librium 6. Monitor LFTs 7. Lateral decubitus x-rays to monitor the degree of pleural effusion 8. Cardiology and pulmonary consultation 9. Continue to diurese if blood pressure tolerates 10. GI DVT prophylaxis Discharge Plan: Home Plan to discharge in: Greater than 2 days - Advance Directives Does patient have a Living Will: No Does patient have a Durable POA for Healthcare: No - Code Status/Comfort Care Code Status: Full Code Physician Review: Patient Assessed, Agree with Above Assessment and Plan Critical Care: No Time Spent Managing PTS Care (In Minutes): 35
[2022-12-22] MEDS: chlordiazePOXIDE HCl 5 MG CAP PO SCH ×2 (14:51→20:52)
--- NOTE | 2022-12-22 15:48 | RAD REPORT ---
EXAM DESCRIPTION: RAD - Chest Lateral Decubitus - 12/22/2022 2:53 pm CLINICAL HISTORY: R effusion COMPARISON: Chest Single View dated 12/21/2022; Head C Spine Cap W Con dated 12/21/2022 FINDINGS: Small layering right pleural effusion. No significant left effusion identified. IMPRESSION: Small free-flowing right pleural effusion.
[2022-12-22] MEDS: ACETAMINOPHEN 500 MG TAB PO PRN ×2 (16:22→20:53)
[2022-12-22] MEDS: ATORVASTATIN 20 MG TAB PO SCH (20:51)
[2022-12-22] MEDS ORDERED: ATORVASTATIN 80 MG TAB PO SCH (21:00)
[2022-12-23 07:16] LABS: Absolute Lymphocytes (CBC) 1.2 K/uL (0.7-4.9); Hematocrit 35.8 % (39.6-49.0); MPV 8.1 fL (7.6-11.3); RBC Red Blood Cell Count 3.85 M/uL (4.33-5.43)
[2022-12-23 07:40] LABS: Protime INR 1.96
[2022-12-23 07:44] LABS: Albumin 3.2 g/dL (3.4-5.0); Bilirubin Total 0.9 mg/dL (0.2-1.0); Magnesium 2.1 mg/dL (1.6-2.4); Potassium 3.6 mmol/L (3.5-5.1); Troponin High Sensitivity 29.8 pg/mL (<58.9)
[2022-12-23 07:46] LABS: Thyroid Stimulating Hormone 6.16 uIU/mL (0.358-3.740)
[2022-12-23] MEDS ORDERED: POTASSIUM CL SA 10 MEQ TAB PO ONE (08:00)
[2022-12-23] MEDS: chlordiazePOXIDE HCl 5 MG CAP PO SCH ×3 (08:07→20:47)
[2022-12-23] MEDS: FOLIC ACID 1 MG TABLET PO SCH (08:07)
[2022-12-23] MEDS: THIAMINE HCL 100 MG TABLET PO SCH (08:07)
[2022-12-23] MEDS: AMIODARONE HCL 200 MG TAB PO SCH ×2 (08:08→20:47)
[2022-12-23] MEDS: RIVAROXABAN 10 MG TABLET PO SCH (08:24)
[2022-12-23] MEDS: ACETAMINOPHEN 500 MG TAB PO PRN ×2 (10:45→19:09)
[2022-12-23] MEDS ORDERED: ALBUTEROL 2.5 MG/3 ML NEB SOL NEB PRN (15:00)
--- NOTE | 2022-12-23 17:59 | P.PN ---
Subjective Date of Service: 12/23/22 Primary Care Provider: Tra Andrade Chief Complaint: CHF Exacerbation No acute events overnight. He appears comfortable this morning. He denies any chest pain. He reports mild shortness of breath and orthopnea. Review of Systems 10-point ROS is otherwise unremarkable Respiratory: Shortness of Breath Cardiovascular: Orthopnea, Edema Physical Examination - Vital Signs Temperature: 97.2 F Blood Pressure: 139/73 Pulse: 67 Respirations: 12 Pulse Ox (%): 98 - Physical Exam General: Alert, In no apparent distress, Oriented x3 Neck: JVD distended Respiratory: Diminished, Crackles/rales (bibasilar) Cardiovascular: Normal pulses, Regular rate/rhythm, No gallops, No rubs, No murmurs, Edema (2+ BLE) Gastrointestinal: Normal bowel sounds, Soft and benign, Non-distended, No tenderness, No rebound, No guarding Musculoskeletal: No clubbing Integumentary: No rashes Neurological: Normal speech, Cranial nerves 3-12 intact, Normal affect - Studies Medications List Reviewed: Yes Assessment And Plan - Plan # Alcohol Intoxication complicated by Ground-Level Fall (improved) # Alcoholic Cirrhosis # Old Left Occipital Lobe Infarction (noted on CT scan) - On presentation, ethanol level 201 - No current evidence of alcohol intoxication - CT head/cervical spine/chest/abdomen/pelvis = "no acute intracranial abnormality is seen. A cervical fracture is not visualized. If the patient continues have symptoms to suggest intracranial/spinal cord pathology then MRI would be recommended. No acute traumatic injury involving the chest, abdomen or pelvis is seen. Small to moderate right pleural effusion. Mild bilateral interstitial lung opacities probably mild interstitial pulmonary edema." - Consulted PT - recommendations appreciated - Continue folic acid, thiamine, chlordiazepoxide # Acute on Chronic Decompensated Systolic Congestive Heart Failure with Reduced Ejection Fraction (LVEF 35-40 %) - Consult Cardiology and spoke Dr. Brower - recommendations appreciated - Consult Pulmonary Medicine for pleural effusion and spoke with Dr. Cedillo - recommendations appreciated - Recommends against thoracentesis - NT-Pro BNP = 2436 -> 4690 - Chest x-ray (upright) = "these findings probably indicate mild CHF" - Chest x-ray (decubitus) = "small free-flowing right pleural effusion." - Ordered transthoracic echocardiogram - Last (03/21/2021) = "moderate to severe global hypokinesis. left ventricular ejection fraction of 35-40%. no effusion." - Diuresis with IV furosemide for today - Daily weights - Strict I/O - Cardiac diet, 1.5 L fluid restriction, 2 g Na restriction # Coronary Artery Disease s/p CABG # Suspect Medication-Induced Hypotension # History of Hypertension # Dyslipidemia - Continue atorvastatin - Anti-hypertensives on hold given soft blood pressures # Chronic Atrial Fibrillation - Continue home amiodarone, rivaroxaban # Subclinical Hypothyroidism - TSH 6.16, Free T4 1.33 - Follow-up with PCP Thad Christiansen M.D.
[2022-12-23] MEDS ORDERED: methocarbamoL 500 MG TAB PO PRN (18:08)
[2022-12-23] MEDS ORDERED: FUROSEMIDE 20 MG/ 2ML VIAL IV SCH (18:30)
--- NOTE | 2022-12-23 19:31 | CON ---
Date of Consultation: 12/23/2022 Reason For Consultation: CHF exacerbation. History Of Present Illness: This is a 62-year-old male with history of congestive heart failure, atr ial fibrillation, hypertension, and is on chronic anticoagulation. He is alcoholic with alcoholic li angelika cirrhosis. He presented to the emergency room after a fall. The patient said he has been passin g out with lightheadedness and denies having any chest pain, but he does have shortness of breath and lower extremity edema and orthopnea. Past Medical History: Hypertension, congestive heart failure, atrial fibrillation, and liver cirrhos is. Medications: Refer to reconciliation sheet for detailed list. Allergies: NO KNOWN DRUG ALLERGIES. Family History: No premature coronary artery disease or cancer. Social History: He does not smoke. Ex drinker. Does not use any drugs. Review of Systems: All systems reviewed and they were negative except for mentioned in HPI. Physical Examination: Vital Signs: Temperature is 97.2, pulse 67, breathing at 12, blood pressure 139/70, and saturating 9 8% on room air. General: A pleasant middle-aged male, appears older than stated age, but no apparent distress. Head And Neck: Pupils are equal and reactive to light. Intact eye movements. No JVD. No cervical lymphadenopathy. Neck is supple. Thyroid is not enlarged. Lungs: Decreased breathing sounds with crackles in the bases. No accessory muscle use or muscle ret raction. Heart: Irregular. No extra sounds. Abdomen: Soft, nontender. Bowel sounds positive. No organomegaly. No masses or hernia. No rigidi ty or rebound. Extremities: 3+ pedal edema. No clubbing or cyanosis. Intact pulses. Skin: No rashes. Neurologic: Alert, awake, and oriented x3. No acute focal deficits appreciated. Investigations: BUN 21 and creatinine 0.82. NT-proBNP is 4690. Troponin is negative and hemoglobin is 11.8. Assessment And Recommendation: 1.[id number] systolic heart failure exacerbation. Resume Lasix 40 mg IV q.12 hours. Monitor BUN, creatinine, and electrolytes. Once he gets euvolemic, he will need to be started on guideline-d irected medical therapy for heart failure, beta-luis manuel and VELMA inhibitor. Strict low-salt diet chris mmended and daily body weight. Monitor input and output. 2.Chronic alcoholism. He was counseled against drinking. 3.Atrial fibrillation. His rate is controlled and on anticoagulation appropriately. Continue curre nt management. SR/MODL Voice ID: [id number] Report ID: [id number]
[2022-12-23] MEDS: ATORVASTATIN 20 MG TAB PO SCH (20:47)
[2022-12-24] MEDS: ACETAMINOPHEN 500 MG TAB PO PRN ×2 (05:04→16:43)
[2022-12-24 06:09] LABS: Magnesium 2.1 mg/dL (1.6-2.4); Phosphorus 3.1 mg/dL (2.5-4.9); Potassium 3.7 mmol/L (3.5-5.1)
--- NOTE | 2022-12-24 08:14 | ECHO ---
HEIGHT: 5 ft 9 in WEIGHT: 213 lb 9.6 oz DATE OF STUDY: 12/23/[address]: Donna Cohen MD 2-DIMENSIONAL: YES M.MODE: YES DOPPLER: YES COLOR FLOW: YES TDS: PARASTERNALS AND SHORT AXIS PORTABLE: YES DEFINITY: BUBBLE STUDY: DIAGNOSIS: CONGESTIVE HEART FAILURE CARDIAC HISTORY: CATHERIZATION: YES SURGERY: YES PROSTHETIC VALVE: PACEMAKER: MEASUREMENTS (cm) DIASTOLIC (NORMALS) SYSTOLIC (NORMALS) IVSd 1.2 (0.6-1.2) LA Diam (1.9-4.0) LVEF 45% LVIDd 3.9 (3.5-5.7) LVIDs 3.0 (2.0-3.5) %FS 22% LVPWd 1.4 (0.6-1.2) Ao Diam 2.7 (2.0-3.7) 2 DIMENSIONAL ASSESSMENT: RIGHT ATRIUM: NORMAL LEFT ATRIUM: NORMAL RIGHT VENTRICLE: NORMAL LEFT VENTRICLE: LEFT VENTRICULAR HYPERTROPHY TRICUSPID VALVE: MILD TRICUSPID REGURGITATION MITRAL VALVE: MILD MITRAL REGURGITATION PULMONIC VALVE: MILD PULMONIC INSUFFICIENCY AORTIC VALVE: MILD AORTIC INSUFFICIENCY PERICARDIAL EFFUSION: NONE AORTIC ROOT: LEFT VENTRICULAR WALL MOTION: MILD GLOBAL HYPOKINESIS DOPPLER/COLOR FLOW: SEE BELOW COMMENTS: 1. MILDLY DEPRESSED LEFT VENTRICULAR EJECTION FRACTION 45-50% 2. MILD GLOBAL HYPOKINESIS 3. MILD MITRAL REGURGITATION, TRICUSPID REGURGITATION, PULMONIC INSUFFICIENCY 4. MODERATE CONCENTRIC LEFT VENTRICULAR HYPERTROPHY 5. MODERATE DIASTOLIC DYSFUNCTION 6. SEVERE PULMONARY HYPERTENSION WITH RIGHT VENTRICULAR SYSTOLIC PRESSURE GREATER THAN 60 mmHg 7. ELEVATED FILLING PRESSURE TECHNOLOGIST: HUI PETERS
[2022-12-24] MEDS: FOLIC ACID 1 MG TABLET PO SCH (08:16)
[2022-12-24] MEDS: chlordiazePOXIDE HCl 5 MG CAP PO SCH ×3 (08:16→20:43)
[2022-12-24] MEDS: RIVAROXABAN 10 MG TABLET PO SCH (08:16)
[2022-12-24] MEDS: FUROSEMIDE 40 MG/4 ML VIAL IV SCH ×2 (08:17→16:44)
[2022-12-24] MEDS: THIAMINE HCL 100 MG TABLET PO SCH (08:17)
[2022-12-24] MEDS: AMIODARONE HCL 200 MG TAB PO SCH ×2 (08:17→20:43)
[2022-12-24] MEDS ORDERED: POTASSIUM CL SA 10 MEQ TAB PO ONE (09:00)
--- NOTE | 2022-12-24 17:06 | EKG ---
Test Date: 2022-12-21 Test Time: 16:30:24 Card Clothier: PH MEASUREMENT RESULTS: Intervals: Rate: 54 ME: QRSD: 142 QT: 526 QTc: 498 [place]: P: ME: QRS: 53 T: 134 INTERPRETIVE STATEMENTS: Sinus rhythm Right bundle branch block T wave abnormality, consider lateral ischemia Abnormal ECG Compared to ECG 11/01/2022 13:37:53 Right bundle-branch block now present T-wave abnormality now present Possible ischemia now present Electronically Signed On 12-24-22 16:59:11 QA SOFTWARE TESTER by Rogers Brower
--- NOTE | 2022-12-24 20:15 | P.PN ---
Subjective Date of Service: 12/24/22 Primary Care Provider: Tra Andrade Chief Complaint: CHF Exacerbation No acute events overnight. He denies any chest pain. He reports that his shortness of breath and orthopnea are unchanged compared to yesterday. Review of Systems 10-point ROS is otherwise unremarkable Respiratory: Shortness of Breath Cardiovascular: Orthopnea, Edema Physical Examination - Vital Signs Temperature: 97.9 F Blood Pressure: 107/80 Pulse: 67 Respirations: 16 Pulse Ox (%): 98 - Studies Medications List Reviewed: Yes Assessment And Plan - Plan - Physical Exam General: Alert, In no apparent distress, Oriented x3 Neck: JVD distended Respiratory: Diminished, Crackles/rales (faint bibasilar) Cardiovascular: Normal pulses, Regular rate/rhythm, No gallops, No rubs, No murmurs, Edema (1-2+ BLE) Gastrointestinal: Normal bowel sounds, Soft and benign, Non-distended, No tenderness, No rebound, No guarding Musculoskeletal: No clubbing Integumentary: No rashes Neurological: Normal speech, Cranial nerves 3-12 intact, Normal affect # Alcohol Intoxication complicated by Ground-Level Fall (improved) # Alcoholic Cirrhosis # Old Left Occipital Lobe Infarction (noted on CT scan) - On presentation, ethanol level 201 - No current evidence of alcohol intoxication - CT head/cervical spine/chest/abdomen/pelvis = "no acute intracranial abnormality is seen. A cervical fracture is not visualized. If the patient continues have symptoms to suggest intracranial/spinal cord pathology then MRI would be recommended. No acute traumatic injury involving the chest, abdomen or pelvis is seen. Small to moderate right pleural effusion. Mild bilateral interstitial lung opacities probably mild interstitial pulmonary edema." - Consulted PT - recommendations appreciated - Continue folic acid, thiamine, chlordiazepoxide # Acute on Chronic Decompensated Systolic Congestive Heart Failure with Reduced Ejection Fraction (LVEF 35-40 %) - Consult Cardiology and spoke Dr. Brower - recommendations appreciated - Consult Pulmonary Medicine for pleural effusion and spoke with Dr. Cedillo - recommendations appreciated - Recommends against thoracentesis - NT-Pro BNP = 2436 -> 4690 - Chest x-ray (upright) = "these findings probably indicate mild CHF" - Chest x-ray (decubitus) = "small free-flowing right pleural effusion." - Ordered transthoracic echocardiogram - Last (03/21/2021) = "moderate to severe global hypokinesis. left ventricular ejection fraction of 35-40%. no effusion." - Continue IV diuresis per Cardiology - Daily weights - Strict I/O - Cardiac diet, 1.5 L fluid restriction, 2 g Na restriction # Coronary Artery Disease s/p CABG # Suspect Medication-Induced Hypotension # History of Hypertension # Dyslipidemia - Continue atorvastatin - Anti-hypertensives on hold given soft blood pressures # Chronic Atrial Fibrillation - Continue home amiodarone, rivaroxaban # Subclinical Hypothyroidism - TSH 6.16, Free T4 1.33 - Follow-up with PCP Thad Christiansen M.D.
[2022-12-24] MEDS ORDERED: SIMETHICONE 80 MG TAB PO ONE (20:17)
[2022-12-24] MEDS: ATORVASTATIN 20 MG TAB PO SCH (20:43)
[2022-12-25 06:12] LABS: Potassium 3.4 mmol/L (3.5-5.1)
[2022-12-25] MEDS: RIVAROXABAN 10 MG TABLET PO SCH (08:29)
[2022-12-25] MEDS: FOLIC ACID 1 MG TABLET PO SCH (08:29)
[2022-12-25] MEDS: chlordiazePOXIDE HCl 5 MG CAP PO SCH ×2 (08:30→13:39)
[2022-12-25] MEDS ORDERED: chlordiazePOXIDE HCl 5 MG CAP PO ONE (08:30)
[2022-12-25] MEDS: AMIODARONE HCL 200 MG TAB PO SCH (08:30)
[2022-12-25] MEDS: FUROSEMIDE 40 MG/4 ML VIAL IV SCH ×2 (08:30→17:00)
[2022-12-25] MEDS: THIAMINE HCL 100 MG TABLET PO SCH (08:30)
[2022-12-25] MEDS ORDERED: POTASSIUM CL SA 10 MEQ TAB PO ONE (09:00)
[2022-12-25 09:10] VITALS: O2SAT 100
[2022-12-25 13:11] VITALS: BP 115/66; TEMP 97
--- NOTE | 2022-12-25 15:28 | P.DS ---
Admission Date: 12/22/22 Discharge Date: 12/25/22 Primary Care Provider: Tra Andrade Disposition: ROUTINE DISCHARGE Discharge Condition: GOOD Reason for Admission: CHF Exacerbation Consultations: 1. Cardiology 2. 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 Donald Sanford is a 62 year old male with a past medical history significant for chronic systolic and diastolic congestive heart failure, coronary artery disease s/p CABG, hypertension, dyslipidemia, chronic atrial fibrillation on rivaroxaban, and alcohol use disorder complicated by alcoholic cirrhosis who was admitted to the [facility] on 12/21/2022 for shortness of breath. He was admitted to the Medicine service. Upon further evaluation, he was found to have an acute on chronic decompensated congestive heart failure exacerbation. Upon presentation, his blood pressures were soft and it was thought that he had medicationinduced hypotension. His home antihypertensives were held, with improvement in his blood pressures. Cardiology was consulted and he was treated with IV furosemide, with gradual improvement of his symptoms. Additionally, on presentation, he reported a ground-level fall, possibly due to alcohol into xication. He uses a walker at home. Physical therapy was consulted, and it appeared that he has improved to his baseline functional status. I have offered him home health services, but he has declined. He states that he feels well today, and he would like to be discharged home. Dr. Brower has cleared him for discharge home with oral diuretics. His home anti-hypertensives were held until he sees Dr. Brower in clinic. Incidentally, he was noted to have a pleural effusion, for which Pulmonary Medicine was consulted. He was evaluated by Dr. Cedillo, who has cleared him for discharge with outpatient follow-up. On 12/25/2022, he was seen on morning rounds and deemed medically stable for discharge. He was discharged with instructions to schedule follow-up appointments with his PCP (ARMOND Santos), with Cardiology (Dr. Brower), and with Pulmonology (Dr. Cedillo). He was provided a prescription for furosemide. He was given the opportunity to ask questions and reported no further questions. Furthermore, all questions were answered to the best of my ability. A copy of this discharge summary will be sent to the above providers to facilitate continuity of care. Today, I personally spent 25 minutes on his case, of which greater than 50% of the time was spent in patient education, counseling, and coordination of care as described above. - Physical Exam General: Alert, In no apparent distress, Oriented x3 Neck: JVD not distended Respiratory: Diminished, Clear to auscultation bilaterally, without wheezes, rhonchi, or rales Cardiovascular: Normal pulses, Regular rate/rhythm, No gallops, No rubs, No murmurs, Edema (trace-1+ BLE) Gastrointestinal: Soft and benign, Non-distended, No tenderness, No rebound, No guarding Musculoskeletal: No clubbing Integumentary: No rashes Neurological: Normal speech, Normal affect Vital Signs/Physical Exam: Temp Pulse Resp BP Pulse Ox 97.0 F 89 18 115/66 100 12/25/22 12:00 12/25/22 12:00 12/25/22 12:00 12/25/22 12:00 12/25/22 12:00 Laboratory Data at Discharge: WBC 6.50 K/uL (4.3-10.9) 12/23/22 06:40 Hgb 11.8 g/dL (13.6-17.9) L D 12/23/22 06:40 Hct 35.8 % (39.6-49.0) L 12/23/22 06:40 Plt Count 137 K/uL (152-406) L 12/23/22 06:40 PT 21.6 SECONDS (9.5-12.5) H 12/23/22 06:40 INR 1.96 12/23/22 06:40 APTT 38.2 SECONDS (24.3-36.9) H 12/23/22 06:40 Sodium 133 mmol/L (136-145) L 12/25/22 05:32 Potassium 3.4 mmol/L (3.5-5.1) L 12/25/22 05:32 BUN 16 mg/dL (7-18) 12/25/22 05:32 Creatinine 0.73 mg/dL (0.70-1.30) 12/25/22 05:32 Glucose 131 mg/dL (74-106) H 12/25/22 05:32 Phosphorus 3.1 mg/dL (2.5-4.9) 12/24/22 05:40 Magnesium 2.1 mg/dL (1.6-2.4) 12/24/22 05:40 Total Bilirubin 0.9 mg/dL (0.2-1.0) 12/23/22 06:40 AST 25 U/L (15-37) 12/23/22 06:40 ALT 29 U/L (16-61) 12/23/22 06:40 Alkaline Phosphatase 45 U/L (45-117) 12/23/22 06:40 Triglycerides 105 mg/dL (<150) 12/22/22 04:50 Cholesterol 130 mg/dL (<200) 12/22/22 04:50 HDL Cholesterol 55 mg/dL (40-60) 12/22/22 04:50 Cholesterol/HDL Ratio 2.36 12/22/22 04:50 Home Medications: Amiodarone HCl [Pacerone] 200 mg PO BID 12/22/22 Atorvastatin Calcium [Lipitor] 80 mg PO BEDTIME 12/22/22 Rivaroxaban [Xarelto] 20 mg PO DAILY 12/22/22 Furosemide [Lasix] 40 mg PO DAILY #30 tab 12/25/22 New Medications: Furosemide [Lasix] 40 mg PO DAILY #30 tab Physician Discharge Instructions: 1. Please call and schedule a follow-up appointment with your PCP (ARMOND Santos) in 3-5 days - Please have him follow-up on your thyroid function tests 2. Please call and schedule a follow-up appointment with Cardiology (Dr. Brower) in 5-7 days 3. Please call and schedule a follow-up appointment with Pulmonology (Dr. Cedillo) in 1-2 weeks Diet: AHA Activity: Ad elmo Followup: Chris Cedillo MD [ACTIVE - CAN ADMIT] - Tra Santos PA [ALLIED HEALTH PROFESSIONAL] - Rogers Brower MD [ACTIVE - CAN ADMIT] - Time spent managing pt's care (in minutes): 25
--- NOTE | 2022-12-25 18:38 | PN ---
Date of Progress Note: 12/25/2022 Subjective: Seen by bedside. Doing well. Euvolemic. Review of Systems: No chest pain, shortness of breath, orthopnea, cough, nausea, vomiting, or diarrhea. All other syste ms reviewed and they were negative. Objective: Vital Signs: Reviewed. Head and Neck: Pupils are equal, reactive to light. Intact eye movements. No JVD. No cervical lym phadenopathy. Neck: Supple. Thyroid is not enlarged. Lungs: Clear to auscultation bilaterally. No rhonchi, wheezing, or crackles. No accessory muscle u se. Heart: Regular rate and rhythm. No extra sounds. Abdomen: Soft, nontender. Bowel sounds positive. No organomegaly. No masses or hernia. Extremities: No clubbing, cyanosis. Intact pulses. Skin: No rashes or nodules. Neurologic: Alert, awake, oriented x3. No acute focal deficits appreciated. Investigations: BUN 16, creatinine 0.73, and hemoglobin is 11.8. Assessment And Recommendations: 1.Acute on chronic systolic heart failure exacerbation. Did very well. Appears to be euvolemic. C hange him to oral Lasix 40 mg by mouth twice a day and the patient can be released from Cardiology [facility] and follow up as an outpatient. I will titrate his heart failure medications. 2.Atrial fibrillation. His rate is controlled on anticoagulation and clinical management. SR/MODL Voice ID: [id number] Report ID: [id number]
== END 2022-12-25 17:49 | disposition home or self-care (01) | DRG 291 ==
LOC: ER 15:46 → ERHOLD 20:06 → OBSVTOIN 20:06 → INTOOBSV 20:06 → 3RD-ICU 22:14 → OBSVTOIN 12-22 10:22 → 2ND 12-23 09:20
PROVIDERS: ADMIT Hospitalist; ATTEND Internal Medicine
DX: I11.0 Hypertensive heart disease with heart failure (principal); I50.43 Acute on chronic combined systolic (congestive) and diastolic (congestive) heart failure; I48.20 Chronic atrial fibrillation, unspecified; E66.9 Obesity, unspecified; F10.229 Alcohol dependence with intoxication, unspecified; D64.9 Anemia, unspecified; G47.30 Sleep apnea, unspecified; E78.5 Hyperlipidemia, unspecified; E03.8 Other specified hypothyroidism; I27.20 Pulmonary hypertension, unspecified; K70.30 Alcoholic cirrhosis of liver without ascites; I25.10 Atherosclerotic heart disease of native coronary artery without angina pectoris; I95.2 Hypotension due to drugs; T50.905A Adverse effect of unspecified drugs, medicaments and biological substances, initial encounter; S09.90XA Unspecified injury of head, initial encounter; T67.1XXA Heat syncope, initial encounter; Z60.2 Problems related to living alone; Z95.1 Presence of aortocoronary bypass graft; Z79.01 Long term (current) use of anticoagulants; Z86.73 Personal history of transient ischemic attack (TIA), and cerebral infarction without residual deficits; Z68.30 Body mass index [BMI] 30.0-30.9, adult; Z79.899 Other long term (current) drug therapy; W18.30XA Fall on same level, unspecified, initial encounter; Y92.9 Unspecified place or not applicable; Y90.7 Blood alcohol level of 200-239 mg/100 ml
CPT/HCPCS: 36415; 51702; 70450; 71045; 71046; 71260; 72125; 74177; 80048; 80053; 80061; 80076; 80307; 81003; 82140; 82533; 82607; 82747; 83605; 83735; 83880; 84100; 84145; 84439; 84443; 84484; 85025; 85610; 85730; 87040; 87811; 93005; 93306; 94760; 96374; 97116; 97161; 97530; 99285; G0378; G0480; J1940; J3411; Q9967

== ENCOUNTER 2024-05-12 17:01 | Inpatient (IN) | payer OTHER ==
[2024-05-12 17:37] LABS: Absolute Monocytes 0.5 K/uL (0.1-1.3); Absolute Neutrophil 6.8 K/uL (1.8-8.0); Basophils % 0.5 % (0-1.3); Eosinophils % 0.3 % (0-4.4); Hematocrit 38.4 % (39.6-49.0); Hemoglobin 13.1 g/dL (13.6-17.9); Lymphocytes % 11.5 % (15.3-44.8); MCV 96.9 fL (80-100); MPV 8.2 fL (7.6-11.3); Monocytes % 6.5 % (3.3-12.3); Neutrophils % 81.2 % (41.7-73.7); Nucleated Red Blood Cells % 0.3 % (0-0); Platelets 179 thou/uL (152-406); RBC Red Blood Cell Count 3.97 M/uL (4.33-5.43); Red Cell Distribution Width 15.2 % (12.1-15.2)
[2024-05-12 17:58] LABS: Albumin 2.7 g/dL (3.4-5.0); Albumin/Globulin Ratio 0.7 (1.1-1.8); Anion Gap 11.4 mEq/L (5.0-15.0); Potassium 3.4 mEq/L (3.5-5.1); Protein, Total 6.7 g/dL (6.4-8.2); Troponin High Sensitivity 19.3 pg/mL (<58.9)
--- NOTE | 2024-05-12 19:48 | RAD REPORT ---
EXAM DESCRIPTION: CT - Abdomen Pelvis W Contrast - 05/12/2024 6:21 pm CLINICAL HISTORY: Abd pain;Constipation COMPARISON: Head C Spine Cap W Con dated 12/21/2022 TECHNIQUE: Thin cut axial CT imaging of the abdomen and pelvis was performed following intravenous a dministration of iodinated contrast. Multiplanar reformats were generated and reviewed. All CT scans are performed using dose optimization technique as appropriate and may include automated exposure control or mA/KV adjustment according to patient size. FINDINGS: No suspicious findings in the lung bases. The liver, spleen, adrenal glands, and pancreas show no suspicious findings apart from multiple splen ic calcifications suggesting sequelae of prior granulomatous infection. . Gallbladder and biliary richi e are also without suspicious finding. Symmetric renal function is seen with no hydronephrosis or suspicious renal mass. Small duodenal diverticula containing gas and fluid. Mildly dilated segments of fluid opacified small bowel in the left hemiabdomen, suspected transition point following an area of fecalization in the l eft mid abdomen, series 203, image 84. [id number] distention throughout most of the colon proxi jeff, with air-fluid levels. No bowel wall thickening. No free air, free fluid or inflammatory stran ding. Diastasis recti. No suspicious mass or bulky lymphadenopathy. The urinary bladder is without si gnificant finding. Superior endplate compression deformity at L1 with mild vertebral body height loss. Mild prevertebral soft tissue edema. T11 mild wedge compression deformity is stable. IMPRESSION: Mildly distended segments of small bowel in the left hemiabdomen and suspected transitio n point in the left mid abdomen, may reflect ileus. Mild to moderate fluid distention throughout most of the proximal colon, may reflect ileus or colitis . Superior endplate compression deformity at L1, may be acute or recent.
[2024-05-12] MEDS ORDERED: ACETAMINOPHEN 500 MG TAB PO PRN (19:51)
[2024-05-12] MEDS ORDERED: MORPHINE 2 MG/ML SYR IV PRN (19:51)
[2024-05-12] MEDS ORDERED: ALBUTEROL 2.5 MG/3 ML NEB SOL NEB PRN (19:51)
--- NOTE | 2024-05-12 19:52 | EDPHYS ---
Physician Documentation [facility] Name: Donald Sanford Age: 63 yrs Sex: Male : 1960 Arrival Date: 05/12/2024 Time: 17:01 Bed 17 Private MD: ED Physician Marie Ross HPI: 05/12 17:12 This 63 yrs old Male presents to ER via EMS with complaints of Constipation. sp3 17:12 63-year-old male with history of cirrhosis, CHF, hypertension now presents to the ED sp3 via EMS for chief complaint no bowel movement for 7 days and abdominal distention. Denies any other symptoms including fever, URI symptoms, chest pain, back pain, shortness of breath, diarrhea, vomiting, travel history, prolonged immobilization, potential bad food, or any other signs or symptoms on ROS at this time. Patient states that his normal bowel movement pattern is once daily. ROS otherwise negative.. Historical: - Allergies: 17:03 No Known Allergies; bp - PMHx: 17:03 Cirrhosis; Congestive heart failure; Hypertension; bp - Immunization history:: Adult Immunizations up to date. - Infectious Disease History:: Denies. - Social history:: Smoking status: Patient denies any tobacco usage or history of. ROS: 17:13 Constitutional: Negative for fever, chills, and weight loss, Eyes: Negative for injury, sp3 pain, redness, and discharge, ENT: Negative for injury, pain, and discharge, Neck: Negative for injury, pain, and swelling, Cardiovascular: Negative for chest pain, palpitations, and edema, Respiratory: Negative for shortness of breath, cough, wheezing, and pleuritic chest pain, Back: Negative for injury and pain, MS/Extremity: Negative for injury and deformity, Skin: Negative for injury, rash, and discoloration, Neuro: Negative for headache, weakness, numbness, tingling, and seizure, Psych: Negative for depression, anxiety, suicide ideation, homicidal ideation, and hallucinations, Allergy/Immunology: Negative for hives, rash, and allergies, Endocrine: Negative for neck swelling, polydipsia, polyuria, polyphagia, and marked weight changes, Hematologic/Lymphatic: Negative for swollen nodes, abnormal bleeding, and unusual bruising, 17:13 All other systems are negative, Exam: 17:13 Constitutional: This is a well developed, well nourished patient who is awake, alert, sp3 and in no acute distress. Head/Face: Normocephalic, atraumatic. Eyes: Pupils equal round and reactive to light, extra-ocular motions intact. Lids and lashes normal. Conjunctiva and sclera are non-icteric and not injected. Cornea within normal limits. Periorbital areas with no swelling, redness, or edema. Neck: Trachea midline, no thyromegaly or masses palpated, and no cervical lymphadenopathy. Supple, full range of motion without nuchal rigidity, or vertebral point tenderness. No Meningismus. Chest/axilla: Normal chest wall appearance and motion. Nontender with no deformity. No lesions are appreciated. Cardiovascular: Regular rate and rhythm with a normal S1 and S2. No gallops, murmurs, or rubs. Normal PMI, no JVD. No pulse deficits. Respiratory: Lungs have equal breath sounds bilaterally, clear to auscultation and percussion. No rales, rhonchi or wheezes noted. No increased work of breathing, no retractions or nasal flaring. Back: No spinal tenderness. No costovertebral tenderness. Full range of motion. Skin: Warm, dry with normal turgor. Normal color with no rashes, no lesions, and no evidence of cellulitis. MS/ Extremity: Pulses equal, no cyanosis. Neurovascular intact. Full, normal range of motion. Neuro: Awake and alert, GCS 15, oriented to person, place, time, and situation. Cranial nerves II-XII grossly intact. Motor strength 5/5 in all extremities. Sensory grossly intact. Cerebellar exam normal. Normal gait. Psych: Awake, alert, with orientation to person, place and time. Behavior, mood, and affect are within normal limits. 17:13 Abdomen/GI: Mildly distended abdomen peritoneal signs, rebound or guarding. Patient states that his abdomen always looks like this and he does not feel like there is any significant change., 17:49 ECG was reviewed by the Attending Physician. EKG demonstrates normal sinus rhythm at 65 sp3 bpm with QTc 536 right bundle branch block and nonspecific diffuse ST/changes without evidence of acute ischemia. Vital Signs: 17:02 BP 105 / 64; Pulse 60; Resp 16; Temp 98; Pulse Ox 98% ; bp 18:30 BP 124 / 52; Pulse 67; Resp 15; Pulse Ox 99% ; bp 19:30 BP 104 / 42; Pulse 57; Resp 18; Pulse Ox 99% ; cp4 MDM: 17:14 Data reviewed: vital signs, nurses notes, old medical records, lab test result(s), EKG, sp3 radiologic studies. ED course: 63-year-old male with PMH above now with no bowel movement for 7 days, constipation and mild abdominal pain. Differential diagnosis includes ileus, bowel obstruction, constipation, other intra abdominal GI pathology. I am not highly suspicious for acute coronary syndrome, vascular pathology including aortic pathology, sepsis, shock, liver failure or any other critical pathology or process. Workup will include laboratory values, urine analysis, EKG and CT scan of the abdomen pelvis with IV contrast. Disposition pending workup and patient course.. 17:25 Patient medically screened. sp3 19:49 ED course: Patient CT demonstrates possible ileus and mild inflammatory changes. WBC sp3 count is normal. Patient is also hyponatremic. We will admit patient for observation at this time. I have spoken to the inpatient team in person.. 05/12 17:04 Order name: CBC with Diff; Complete Time: 18:43 sp3 05/12 17:04 Order name: CMP; Complete Time: 18:43 sp3 05/12 17:04 Order name: Lipase; Complete Time: 18:43 sp3 05/12 17:04 Order name: Urinalysis w/ reflexes sp3 05/12 17:04 Order name: Troponin High Sensitivity; Complete Time: 18:43 sp3 05/12 19:14 Order name: Magnesium sp3 05/12 19:15 Order name: Add On-Lab sp3 05/12 20:05 Order name: CBC with Automated Diff EDMS 05/12 20:05 Order name: CBC with Automated Diff EDMS 05/12 20:05 Order name: Comprehensive Metabolic Panel EDMS 05/12 20:05 Order name: Comprehensive Metabolic Panel EDMS 05/12 20:05 Order name: Troponin High Sensitivity EDMS 05/12 20:05 Order name: Troponin High Sensitivity EDMS 05/12 20:05 Order name: Troponin High Sensitivity EDMS 05/12 20:05 Order name: Troponin High Sensitivity EDMS 05/12 20:05 Order name: Troponin High Sensitivity EDMS 05/12 20:05 Order name: Troponin High Sensitivity EDMS 05/12 20:05 Order name: Troponin High Sensitivity EDMS 05/12 20:05 Order name: Troponin High Sensitivity EDMS 05/12 21:04 Order name: Osmolality, Serum EDMS 05/12 21:06 Order name: T4 Free EDMS 05/12 21:06 Order name: Thyroid Stimulating Hormone EDMS 05/12 17:04 Order name: CT Abd/Pelvis - IV Contrast Only; Complete Time: 19:49 sp3 05/12 17:04 Order name: EKG; Complete Time: 17:05 sp3 05/12 20:05 Order name: CONS Physician Consult EDMS 05/12 20:05 Order name: CONS Physician Consult EDMS 05/12 17:04 Order name: IV Saline Lock; Complete Time: 17:10 sp3 05/12 17:04 Order name: Labs collected and sent; Complete Time: 17:30 sp3 05/12 17:04 Order name: EKG - Nurse/Tech; Complete Time: 18:09 sp3 Administered Medications: No medications were administered Disposition Summary: 05/12/24 19:52 Hospitalization Ordered Notes: Hospitalization Status: Observation sp3 Provider: Juana Hernandez sp3 Location: Telemetry/MedSur (observation) sp3 Condition: Stable sp3 Problem: an acute exacerbation sp3 Symptoms: have worsened sp3 Bed/Room Type: Standard sp3 Room Assignment: 407(05/12/24 20:09) kmf Diagnosis - Ileus, hyponatremia sp3 Forms: - Medication Reconciliation Form sp3 - SBAR form sp3 - Leadership Thank You Letter sp3 Signatures: Dispatcher [employer] Tejinder Pham, EDUARDO RN Marie Hanson MD MD sp3 Stephy Ledezma kmf Corrections: (The following items were deleted from the chart) 19:15 19:15 MAGNESIUM+C.LAB.BRZ ordered. [facility] 20:09 19:52 sp3 kmf
--- NOTE | 2024-05-12 19:52 | ER ---
Nurse's Notes [facility] Name: Donald Sanford Age: 63 yrs Sex: Male : 1960 Arrival Date: 05/12/2024 Time: 17:01 Bed 17 Private MD: Diagnosis: Ileus, hyponatremia Presentation: 05/12 17:02 Chief complaint: EMS states: CHRONIC BACK PAIN AND CONSTIPATION x7 DAYS. Coronavirus bp screen: At this time, the client does not indicate any symptoms associated with coronavirus-19. Ebola Screen: No symptoms or risks identified at this time. Initial Sepsis Screen: Does the patient meet any 2 criteria? No. Patient's initial sepsis screen is negative. Does the patient have a suspected source of infection? No. Patient's initial sepsis screen is negative. Risk Assessment: Do you want to hurt yourself or someone else? Patient reports no desire to harm self or others. Onset of symptoms is unknown. Care prior to arrival: IV initiated. 20 GA, in the left forearm. 17:02 Method Of Arrival: EMS: [facility] bp 17:02 Acuity: KEDAR 3 bp Triage Assessment: 17:03 General: Appears in no apparent distress. uncomfortable, Behavior is cooperative, bp appropriate for age, anxious. Pain: Complains of pain in back and abdomen. EENT: No deficits noted. Neuro: No deficits noted. Cardiovascular: Rhythm is sinus rhythm. Respiratory: No deficits noted. GI: Abdomen is obese, Reports constipation. : No signs and/or symptoms were reported regarding the genitourinary system. Derm: No deficits noted. Musculoskeletal: Reports pain in back. Historical: - Allergies: 17:03 No Known Allergies; bp - PMHx: 17:03 Cirrhosis; Congestive heart failure; Hypertension; bp - Immunization history:: Adult Immunizations up to date. - Infectious Disease History:: Denies. - Social history:: Smoking status: Patient denies any tobacco usage or history of. Screenin:05 [facility] ED Fall Risk Assessment (Adult) History of falling in the last 3 months, bp including since admission No falls in past 3 months (0 pts) Confusion or Disorientation No (0 pts) Intoxicated or Sedated No (0 pts) Impaired Gait Yes (1 pt) Mobility Assist Device Used Yes (1 pt) Altered Elimination No (0 pt) Score/Fall Risk Level 0 - 2 = Low Risk. Abuse screen: Denies threats or abuse. Denies injuries from another. Nutritional screening: No deficits noted. Tuberculosis screening: No symptoms or risk factors identified. Assessment: 17:10 General: Appears in no apparent distress. obese, Behavior is calm, cooperative, bp appropriate for age. Pain: Denies pain. GI: Bowel sounds present X 4 quads. Abd is rigid. 18:30 Reassessment: RETURNED FROM CT. bp Vital Signs: 17:02 BP 105 / 64; Pulse 60; Resp 16; Temp 98; Pulse Ox 98% ; bp 18:30 BP 124 / 52; Pulse 67; Resp 15; Pulse Ox 99% ; bp 19:30 BP 104 / 42; Pulse 57; Resp 18; Pulse Ox 99% ; cp4 ED Course: 17:02 Patient arrived in ED. bp 17:03 Marie Ross MD is Attending Physician. sp3 17:03 Triage completed. bp 17:03 Arm band placed on. bp 17:05 Patient has correct armband on for positive identification. bp 17:05 Maintain EMS IV. Dressing intact. Good blood return noted. Site clean \T\ dry. Gauge \T\ bp site: 20 L FA. 17:10 Tejinder Matamoros, RN is Primary Nurse. bp 18:17 CT Abd/Pelvis - IV Contrast Only Sent. bp 18:22 CT Abd/Pelvis - IV Contrast Only In Process Unspecified. EDMS 19:42 Add On-Lab Sent. cp4 19:50 Juana Hernandez MD is Hospitalizing Provider. sp3 21:33 Provided Education on: admission. cp4 21:33 No provider procedures requiring assistance completed. Patient admitted, IV remains in cp4 place. Administered Medications: No medications were administered Medication: 21:33 VIS not applicable for this client. cp4 Outcome: 19:52 Decision to Hospitalize by Provider. sp3 21:33 Admitted to Med/surg accompanied by tech, via stretcher, with chart, cp4 21:33 Condition: stable 21:33 Instructed on the need for admit, 21:34 Patient left the ED. cp4 Signatures: Dispatcher [employer] EDMS Tejinder Mataomros, EDUARDO RN bp Marie Ross MD MD sp3 Jenni Kwong cp4
--- NOTE | 2024-05-12 20:09 | P.HP ---
Certification for Inpatient With expected LOS: >2 Midnights Patient will require the following post-hospital care: None Practitioner: I am a practitioner with admitting privileges, knowledge of patient current condition, hospital course, and medical plan of care. Services: Services provided to patient in accordance with Admission requirements found in Title 42 Section 412.3 of the Code of Federal Regulations Patient History Date of Service: 05/12/24 Reason for admission: Weakness, fall History of Present Illness: 63-year-old male with past medical history of open last surgery (State it was for a defect repair ), chronic alcoholism but states he is trying to cut down, currently heavy drinking on weekends only, A-fib on amiodarone and Xarelto, follows with Dr. Brower, alcoholic liver cirrhosis, still actively drinks, states last drink was 4 days ago, states he has been weak for over 3 weeks now. He states he has a fall earlier today. He denies any nausea or v omiting. He denies any change in medication. He denies any cough or chest pain. Patient is a poor historian but denies any other complaint. On arrival in the ED blood pressure was borderline low at 102/50, EKG shows right bundle branch block with T wave inversion., Initial cardiac enzymes with troponin was negative, magnesium was normal, serum sodium low at 127 with potassium of 3.4. Patient was noted with abdominal distention, CT of the abdomen shows ileus with bowel obstruction with focal point in the mid intestine Allergies No Known Allergies Allergy (Verified 08/26/19 10:47) Home Medications: Amiodarone HCl [Pacerone] 200 mg PO BID 12/22/22 Atorvastatin Calcium [Lipitor] 80 mg PO BEDTIME 12/22/22 Rivaroxaban [Xarelto] 20 mg PO DAILY 12/22/22 Furosemide [Lasix] 40 mg PO DAILY #30 tab 12/25/22 - Past Medical/Surgical History Diabetic: No -: hypertension -: Atrial fibrillation -: cirrhosis -: Congestive Heart Failure -: Alcohol Abuse -: CABG Psychosocial/ Personal History: Patient lives at home alone. - Social History Smoking Status: Never smoker Alcohol use: Yes CD- Drugs: No Caffeine use: Yes Place of Residence: Home Review of Systems General: Weakness Gastrointestinal: Distention Neurological: Weakness Physical Examination - Physical Exam General: Alert, In no apparent distress, Oriented x3 HEENT: Atraumatic, Normocephalic Neck: Supple, 2+ carotid pulse no bruit, JVD not distended Respiratory: Clear to auscultation bilaterally, Normal air movement Cardiovascular: Normal pulses, Regular rate/rhythm, Normal S1 S2 Gastrointestinal: Normal bowel sounds, Soft and benign, No tenderness, Distended Musculoskeletal: Swelling, Other (hyperpigemented lower extremity with 1 + tight edema ) Neurological: Normal speech, Normal strength at 5/5 x4 extr, Sensation intact, Cranial nerves 3-12 intact - Studies Laboratory Data (last 24 hrs) 05/12/24 05/12/24 05/12/24 17:30 17:30 17:30 WBC 8.30 Hgb 13.1 L Hct 38.4 L Plt Count 179 Sodium 127 L Potassium 3.4 L BUN 12 Creatinine 0.91 Glucose 109 H Magnesium 1.9 Total Bilirubin 1.0 AST 56 H ALT 80 H Alkaline Phosphatase 88 Lipase 29 Assessment and Plan - Problems (Diagnosis) (1) Acute systolic (congestive) heart failure Current Visit: No Status: Acute (2) Atrial fibrillation Current Visit: No Status: Acute (3) Fall Current Visit: No Status: Acute - Plan Impression/plan Status post falllikely due to hyponatremia chronic alcohol use Obtain PT and OT Follow correction of hyponatremia Hyponatremia/hypokalemiaMay be due to bowel obstruction with chronic alcohol use Start D5 NS with KCl Nephrology consult to follow Magnesium controlled Small bowel obstructionkeep n.p.o., follow with IV fluid KUB in a.m. General surgery consult to follow History of CHF/systolic, resume home meds Patient does not bring home meds, will continue prior meds use History of A-fibright bundle branch normal sinus rhythm now Start Lovenox SQ every 12 on T small bowel obstruction resolved and resume Xarelto Continue amiodarone when able to take p.o. Follow repeat TSH since symptomatic bradycardia DVT prophylaxisas above Chronic alcohol usehigh risk for DT, Ativan as needed full code - Advance Directives Does patient have a Living Will: No Does patient have a Durable POA for Healthcare: No
[2024-05-12 20:12] LABS: Specific Gravity 1.022 (1.005-1.030); Urine Bilirubin NEGATIVE (Negative); Urine Blood Negative (Negative); Urine Clarity Clear (Clear); Urine Color Light-Yellow (Yellow); Urine Glucose NEGATIVE (Negative); Urine Ketones NEGATIVE (Negative); Urine Microscopic Reflex YN NO UMIC; Urine Nitrite NEGATIVE (Negative); Urine Protein NEGATIVE (Negative); Urine Urobilinogen Normal (Normal)
[2024-05-12] MEDS: ENOXAPARIN 40 MG/0.4 ML SQ SCH (21:00)
[2024-05-12 21:06] LABS: Thyroid Stimulating Hormone 2.69 uIU/mL (0.358-3.740)
[2024-05-12 21:45] LABS: T3 Free 0.85 pg/mL (2.18-3.98); Troponin High Sensitivity 24.6 pg/mL (<58.9)
[2024-05-12] MEDS: D5NS KCL 20MEQ 20 MEQ/1,000 ML BAG IV SCH (22:20)
[2024-05-12 23:09] VITALS: BMI 32.5
--- NOTE | 2024-05-12 23:50 | RAD REPORT ---
EXAM DESCRIPTION: RAD - Abdomen 1 View (KUB) - 05/12/2024 9:31 pm CLINICAL HISTORY: follow up SBO COMPARISON: Abdomen Pelvis W Contrast dated 05/12/2024 TECHNIQUE: Single AP view of the abdomen. FINDINGS: Mild gaseous distention of small and large bowel. No air-fluid levels, free air, or pneuma tosis. No suspicious calcifications. No significant bony abnormality. IMPRESSION: Mild gaseous distention of small and large bowel.
[2024-05-13 07:05] LABS: Absolute Lymphocytes (CBC) 1.1 K/uL (0.7-4.9); Absolute Monocytes 0.5 K/uL (0.1-1.3); Absolute Neutrophil 3.9 K/uL (1.8-8.0); Basophils % 0.2 % (0-1.3); Eosinophils % 0.5 % (0-4.4); Hematocrit 33.8 % (39.6-49.0); Hemoglobin 11.7 g/dL (13.6-17.9); Lymphocytes % 19.6 % (15.3-44.8); MCH 33.6 pg (27.0-35.0); MCHC 34.7 g/dL (32.0-36.0); MCV 96.9 fL (80-100); Neutrophils % 70.7 % (41.7-73.7); Nucleated Red Blood Cells % 0.2 % (0-0); Platelets 153 thou/uL (152-406); RBC Red Blood Cell Count 3.49 M/uL (4.33-5.43); Red Cell Distribution Width 14.9 % (12.1-15.2)
[2024-05-13 07:24] LABS: Albumin 2.4 g/dL (3.4-5.0); Albumin/Globulin Ratio 0.6 (1.1-1.8); Anion Gap 9.1 mEq/L (5.0-15.0); Bilirubin Total 0.8 mg/dL (0.2-1.0); Globulin 3.7 g/dL (2.3-3.5); Potassium 4.1 mEq/L (3.5-5.1); Protein, Total 6.1 g/dL (6.4-8.2); Troponin High Sensitivity 27.9 pg/mL (<58.9)
[2024-05-13] MEDS: ENOXAPARIN 60 MG/0.6 ML SQ SCH (07:32)
[2024-05-13] MEDS ORDERED: ALBUTEROL 2.5 MG/3 ML NEB SOL NEB PRN (10:20)
--- NOTE | 2024-05-13 13:56 | P.PN ---
Date of Service: 05/13/24 Subjective: Complains of low back pain and lower extremity weakness for the past 2 to 3 weeks Last bowel movement around 6 days ago still having abdominal distention ROS: 10 point ROS as noted above, otherwise negative Physical exam GEN: Alert, oriented, NAD HEENT: Normal conjunctiva, sclera anicteric CV: Regular rate and rhythm, no edema Pulm: Nonlabored respirations on room air ABD: Soft, nontender, mildly distended MSK: No joint tenderness Integumentary: No rashes Neuro: Normal speech, normal affect Vitals reviewed Assessment Ileus Falls, lower extremity weakness, back pain Hypokalemia, hyponatremia Chronic systolic congestive heart failure History of atrial fibrillation on chronic anticoagulation History of alcohol abuse Plan Ileus N.p.o./ice chips General surgery following Last bowel movement was 6 days ago Falls, lower extremity weakness, back pain Complains of low back pain last 2 to 3 weeks Has been needing to use a walker the past 2 to 3 weeks given perceived weakness in the lower extremities MRI lumbar spine ordered and pending Physical therapy to be consulted As needed pain medications Denies urinary or fecal incontinence, saddle paresthesias Hypokalemia, hyponatremia Protocols in place Sodium improving with IV fluids Nephrology consulted Chronic systolic congestive heart failure Does not appear grossly overloaded at this time Hold diuretics for now Resume appropriate History of atrial fibrillation on chronic anticoagulation Hold oral anticoagulant given n.p.o. status, ileus On Lovenox for now, resume oral anticoagulant/medications when appropriate History of alcohol abuse Counseled on need for cessation Monitor for signs of alcohol withdrawal VTE: Therapeutic Lovenox Code: Full Dispo: 2 to 3 days Time Spent Managing Pts Care (In Minutes): 35
[2024-05-13] MEDS: MORPHINE 4 MG/ML SYR IV PRN (14:42)
--- NOTE | 2024-05-13 15:47 | CON ---
Date of Consultation: 05/13/2024 Reason For Consultation: Ileus. History Of Present Illness: The patient is a 63-year-old gentleman who came to the hospital after a fall yesterday and weakness. The patient had a workup done in which a CAT scan was done which showed L1 fracture and also some ileus and I was consulted. He denies any nausea or vomiting. He said his last bowel movement was about 6 days ago. He had diffuse pain for a while. Does not specifically s pecify abdominal pain at this time. He is passing gas. No dysuria or hematuria. No sore throat, ru nny nose, cough, headaches, or dizziness. No chest pain. No fever or chills. The patient has seen Dr. Brower for AFib and he is on amiodarone and Xarelto. He does have alcoholic liver cirrhosis and drinks alcohol on a regular basis. Review of Systems: Otherwise, unremarkable. Past Medical History: Significant for hypertension, AFib, cirrhosis, congestive heart failure, alcoh ol abuse. Past Surgical History: CABG. Allergies: NO ALLERGIES. Social History: He does not smoke. Does drink alcohol. Physical Examination: Vital Signs: Stable. He is currently afebrile. General: He is awake, alert, and oriented x3. Head and Neck: No masses. No JVD. Throat clear. Neck: Supple. Chest: Clear. Heart: S1, S2. Abdomen: Soft, nondistended. Minimal tenderness diffusely. No rigidity. No rebound. No guarding. Extremity: Adequately perfused, nontender. Neuro: Nonfocal. Laboratory Data: White count is normal. There is no left shift today. H and H are 11.7 and 33.8. Chemistry reviewed. An abdominal CT shows mild distended segment of small bowel in the left hemiabdo men and suspected transition point in the left mid abdomen, may reflect ileus. Mild to moderate flui d distention throughout most of his proximal colon, may reflect ileus or colitis. Superior endplate compression deformity L1, may be acute or recent. Abdominal x-ray was done this morning shows mild g aseous distention of small and large bowel. Assessment: 63-year-old gentleman with back pain, possibly an acute injury to his L1 region with the associated ileus. Recommendation: I discussed the case with Dr. Durbin. We will proceed with an MRI to better evaluate the L1 area as far as the ileus is concerned. The patient can have some ice chips and slowly advanc e as tolerated, may require day or 2. I do not think the patient is obstructed. We will be checking another x-ray tomorrow to make sure the patient is progressing well. The patient will need serial a bdominal exam, but there is no need for any surgical intervention, at this time. ANDRE/BRIA Voice ID: [id number] Report ID: [id number]
--- NOTE | 2024-05-13 15:59 | RAD REPORT ---
EXAM DESCRIPTION: MRI - Lumbar Spine iMnda Arguello- 05/13/2024 3:32 pm CLINICAL HISTORY: Weakness, back pain COMPARISON: No comparisons FINDINGS: Mild superior compression deformity affects the L1 vertebral body likely subacute in timeframe. Loss of vertebral body height is estimated at 5-10%. No significant canal compromise seen. The conus medullaris terminates at a normal level. No thickening of the cauda equina or clumping of n erve roots seen. L1-2 level: No significant findings. L2-3 level: No significant findings. L3-4 level: Mild posterior disc bulge with mild facet and ligament flavum hypertrophy. L4-5 level: Mild posterior disc bulge with [id number] facet and ligamentum flavum hypertrophy. L5-S1 level: 5 mm central disc protrusion is present with mild facet and ligamentum flavum hypertroph y. Findings result in moderate central canal narrowing canal narrowing of the anterior inferior aspec ts of both exit foramina. IMPRESSION: Mild subacute compression deformity affects the superior endplate of L1 without canal co mpromise. Moderate central disc protrusion is present L5-S1.
--- NOTE | 2024-05-13 19:08 | CON ---
Date of Consultation: 05/13/2024 Reason For Consultation: Hyponatremia. History Of Present Illness: This is a 63-year-old gentleman with significant past medical history of cirrhosis, still actively drinking; hypertension; atrial fibrillation; congestive heart failure; alcohol abuse. The patient came to the hospital with hyponatremia. The patient was seen by cardiology. Upon arrival to the hospital, the patient was found to have sodium 127 and potassium of 3.4. For that the reason, we are being consulted. The patient was found to have ileus. The patient was started on hydration. Sodium started trending up. The patient apparently been taking Lasix also. Past Medical History: Include: 1. Hypertension. 2. Atrial fibrillation. 3. Cirrhosis. 4. Congestive heart failure. 5. CAD. Home Medications: Include amiodarone, Atorvastatin, Xarelto, and Lasix. Allergies: NO KNOWN DRUG ALLERGIES. Past Surgical History: Include CABG. Social History: Active alcohol. Denied smoking. Denied drug abuse. Review of Systems: Head and Neck: No red eye. No ear pain. GI: No nausea. No vomiting. : No polyuria. No dysuria. No hematuria. 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 Respiratory: No shortness of breath. The patient is lying flat. Cardiovascular: No chest pain. Endocrine: No polydipsia. Skin: No rashes. Neuro: Patient is sleepy, moving 4 extremities. No focality. Physical Examination: Vital Signs: When I saw the patient, blood pressure 132/75 pulse of 77 afebrile Laboratory Data: Hemoglobin upon admission 13.1. Sodium 127, potassium 3.4, bicarb 24, BUN 12, creatinine 0.9, calcium 8.2. Today's lab data; sodium 131, potassium 4.1, bicarb 28, BUN 9, creatinine 0.7. TSH 2.6. WBC 5.5, hemoglobin 1.7. Urinalysis: Specific gravity 1022, osmolality 365, urine sodium 520. Current Medications: The patient on include albuterol, Tylenol, Lovenox, KCl. Assessment And Plan: 1. Hyponatremia secondary to depletional. Continue to recover. I am going to continue hydration and we will monitor the patient. 2. Hypokalemia, status post replacement. Recovered and resolved. 3. Hypertension, controlled optimal with the presence of acute kidney injury. With the presence of hyponatremia, please hold Lasix. Thank you, Dr. Hernandez for allowing us to participate in the care of your patient. Time spent examining the patient [id number] reviewing data lab and radiology placing orders and discussing the case with the patient discussing the case with the steam fitter helper including hospitalist nursing staff more than 55-minute LITA Voice ID: [id number] Report ID: [id number] KATE
--- NOTE | 2024-05-13 19:23 | CON ---
Date of Consultation: 05/13/2024 Reason For Consultation: Bradycardia. History Of Present Illness: 63-year-old male, history of hypertension, atrial fibrillation, liver ci rrhosis, congestive heart failure, coronary artery disease status post CABG, follows up Dr. Renee. He presented after a fall and generalized weakness. Denies having any chest pain, shortness of [place] th. No nausea, vomiting, or diarrhea. Denies having any symptoms. No syncopal episodes. Past Medical History: As outlined above in the HPI. Medication: Refer to reconciliation sheet for detailed list. Allergies: NO KNOWN DRUG ALLERGIES. Family History: No premature coronary artery disease or cancer. Social History: He does not smoke or drink. Does not use any drugs. Review of Systems: All systems reviewed and they were negative except what was mentioned in the HPI. Physical Examination: Vital Signs: Reviewed. Head and Neck: Pupils are equal, reactive to light. Intact eye movements. No JVD. No cervical lym phadenopathy. Neck is supple. Thyroid is not enlarged. Lungs: Clear to auscultation bilaterally. No rhonchi, wheezing, or crackles. No accessory muscle u se. Heart: Irregular. No extra sounds. Abdomen: Soft, nontender. Bowel sounds positive. No organomegaly. No masses or hernia. No rigidi ty or rebound. Extremities: No clubbing, cyanosis. Intact pulses. Skin: No rash. No nodule. Neurologic: Alert, awake, oriented x3. No acute focal deficits appreciated. Investigations: Cardiac enzymes x3 are negative. BUN 9, creatinine 0.7, and hemoglobin is 11.7. Assessment And Recommendations: 1.Congestive heart failure history that I was consulted for, but he is stable. Does not need any ac tive diuresis at this point, and we will monitor. 2.Hyponatremia. Could be due to diuresis. Not sure if he was on diuretics at home, to hold that an d monitor his sodium. Maybe gentle hydration is warranted with normal saline at 50 cc per hour for a liter and reassess. 3.Generalized weakness and fall, probably due to the hyponatremia. Plan as above. 4.History of atrial fibrillation. He is in sinus rhythm. Heart rate is good. There is no signific ant bradycardia. Keep on monitor and if there is significant bradycardia or cardiac abnormality is s een, then plan will commence accordingly. SR/MODL Voice ID: [id number] Report ID: [id number]
[2024-05-14 06:23] LABS: Hematocrit 35.2 % (39.6-49.0); Hemoglobin 12.2 g/dL (13.6-17.9); MCH 34.2 pg (27.0-35.0); MCHC 34.8 g/dL (32.0-36.0); MCV 98.3 fL (80-100); MPV 8.3 fL (7.6-11.3); Platelets 168 thou/uL (152-406); RBC Red Blood Cell Count 3.58 M/uL (4.33-5.43); Red Cell Distribution Width 15.1 % (12.1-15.2)
[2024-05-14 06:47] LABS: Albumin 2.3 g/dL (3.4-5.0); Anion Gap 9.8 mEq/L (5.0-15.0); Phosphorus 2.4 mg/dL (2.5-4.9); Potassium 3.8 mEq/L (3.5-5.1); Troponin High Sensitivity 29.2 pg/mL (<58.9)
--- NOTE | 2024-05-14 10:06 | RAD REPORT ---
EXAM DESCRIPTION: RAD - Abdomen W Erect - 05/14/2024 6:21 am CLINICAL HISTORY: F/U Ileus COMPARISON: Abdomen Pelvis W Contrast dated 05/12/2024; Abdomen 1 View (KUB) dated 05/12/2024 TECHNIQUE: Single AP view of the abdomen. FINDINGS: Stable mild gaseous distention. Largest small bowel caliber is 4 cm. No air-fluid levels, free air, or pneumatosis. Splenic calcifications again seen. No significant bony abnormality. IMPRESSION: Persisting gaseous distention, suggesting ileus.
[2024-05-14] MEDS ORDERED: POTASSIUM 25 MEQ EFFERV TAB PO ONE (12:30)
--- NOTE | 2024-05-14 12:34 | EKG ---
Test Date: 2024-05-12 Test Time: 17:38:51 Office Coordinator Receptionist: BP MEASUREMENT RESULTS: Intervals: Rate: 65 TX: QRSD: 156 QT: 516 QTc: 536 [place]: P: TX: QRS: 69 T: 136 INTERPRETIVE STATEMENTS: Sinus rhythm Right bundle branch block T wave abnormality, consider lateral ischemia Abnormal ECG Compared to ECG 12/21/2022 16:30:24 T-wave abnormality still present Possible ischemia still present Electronically Signed On 05-14-24 12:32:29 CDT by Rogers Brower
[2024-05-14] MEDS ORDERED: POTASS/SODIUM PHOSPHATE 1 PKT POWD.PACK PO SCH (13:00)
--- NOTE | 2024-05-14 14:46 | P.PN ---
Date of Service: 05/14/24 Subjective: No acute events overnight Still passing gas, no bowel movement yet ROS: 10 point ROS as noted above, otherwise negative Physical exam GEN: Alert, oriented, NAD HEENT: Normal conjunctiva, sclera anicteric CV: Regular rate and rhythm, no edema Pulm: Nonlabored respirations on room air ABD: Soft, nontender, mildly distended MSK: No joint tenderness Integumentary: No rashes Neuro: Normal speech, normal affect Vitals reviewed Assessment Ileus Falls, lower extremity weakness, back pain Hypokalemia, hyponatremia Chronic systolic congestive heart failure History of atrial fibrillation on chronic anticoagulation History of alcohol abuse Plan Ileus Advancing diet as tolerated full liquids Passing gas, no bowel movement yet General surgery following Falls, lower extremity weakness, back pain Complains of low back pain last 2 to 3 weeks Has been needing to use a walker the past 2 to 3 weeks given perceived weakness in the lower extremities Physical therapy to be consulted MRI shows mild superior compression deformity affects the L1 vertebral body likely subacute in timeframe. Loss of vertebral body height is estimated at 5-10%. No significant canal compromise seen As needed pain medications Denies urinary or fecal incontinence, saddle paresthesias Hypokalemia, hyponatremia Protocols in place Sodium improving with IV fluids Nephrology consulted Chronic systolic congestive heart failure Does not appear grossly overloaded at this time Hold diuretics for now Resume appropriate History of atrial fibrillation on chronic anticoagulation Will transition back to oral anticoagulant, home medications including amiodarone History of alcohol abuse Counseled on need for cessation Monitor for signs of alcohol withdrawal VTE: Therapeutic Lovenox Code: Full Dispo: 2 to 3 days Time Spent Managing Pts Care (In Minutes): 35
--- NOTE | 2024-05-14 14:53 | PN ---
Date of Progress Note: 05/14/2024 Subjective: The patient is awake, alert. Denies any abdominal pain. Has tolerating sips of clear l iquids with no nausea or vomiting. Still passing gas. Has not had a bowel movement. Objective: Vital Signs: Stable. He is afebrile. The patient is still complaining of back pain. Abdomen: Soft, slightly distended. No peritonitis. No tenderness. Laboratory Data: MRI reviewed. Assessment: Back pain and ileus, slowly improving. Recommendation: Slowly advance diet. If tolerated, the patient can be discharged home on full liqui ds or GI soft diet. Encourage ambulation. Back pain management per the hospitalist team. No need f or any acute surgical intervention at this time. /MODL Voice ID: [id number] Report ID: [id number]
[2024-05-14] MEDS: LACTULOSE 20 GM/30 ML UCUP PO PRN (21:32)
[2024-05-14] MEDS: AMIODARONE HCL 200 MG TAB PO SCH (21:32)
[2024-05-14] MEDS: ATORVASTATIN 80 MG TAB PO SCH (21:32)
--- NOTE | 2024-05-15 03:32 | PN ---
Date of Progress Note: 05/14/2024 Chief Complaint: Hyponatremia. Subjective: The patient is a 63-year-old man with significant past medical history of cirrhosis, active drinking, hypertension, atrial fibrillation, congestive heart failure, alcohol abuse. The patient came to the hospital because of generalized weakness and peripheral edema. He was found to have hyponatremia. On arrival to the hospital, the patient was found to have sodium of 127 and potassium of 3.4. The patient was found to have ileus and fluids were started for volume resuscitation. Review of Systems: Constitutional: Denies headache. Eyes: Denies vision changes. Ears, Nose, Mouth, and Throat: Denies sore throat, earache. Respiratory: Denies PND, orthopnea. Cardiovascular: Denies syncope, shortness of breath, palpitation. GI: Denies nausea, vomiting, diarrhea. Neurological: The patient is moving extremities with no complaints. Physical Examination: General: The patient is awake, alert, follows command. Eyes: Anicteric sclerae. EOMI. Ears, Nose, Mouth, Throat: Oral mucosa moist. No pallor. Neck: Supple. No bruits. Heart: S1 and S2. Abdomen: Soft. Extremities: No clubbing. No cyanosis. Laboratory Data: Sodium 127, potassium 3.4, bicarbonate 24, creatinine 0.9. TSH 2.6, creatinine 0.7. Urine specific gravity 1.022, osmolality 365, urine sodium elevated. Impression And Plan: 1. Hyponatremia secondary to depletional condition. Continue hydration by mouth. Monitor electrolytes. Adjust treatment according to lab results and blood pressure. 2. Hypokalemia: The patient received replacement. Monitor potassium level. 3. Hypertension. Continue blood pressure medication. Avoid HCTZ. 4. Acute kidney injury. Recommend to stop Lasix to prevent renal hypoperfusion. EB/MODL Voice ID: [id number] Report ID: [id number] KATE
[2024-05-15 06:35] LABS: Hematocrit 37.4 % (39.6-49.0); Hemoglobin 12.7 g/dL (13.6-17.9); MCH 33.7 pg (27.0-35.0); MPV 8.2 fL (7.6-11.3); Platelets 162 thou/uL (152-406); RBC Red Blood Cell Count 3.78 M/uL (4.33-5.43); Red Cell Distribution Width 15.4 % (12.1-15.2)
[2024-05-15 07:03] LABS: Albumin 2.3 g/dL (3.4-5.0); Anion Gap 7.7 mEq/L (5.0-15.0); Phosphorus 3.2 mg/dL (2.5-4.9); Potassium 4.7 mEq/L (3.5-5.1)
[2024-05-15] MEDS: RIVAROXABAN 20 MG TABLET PO SCH (08:13)
[2024-05-15] MEDS: ONDANSETRON 4 MG/2 ML VIAL IV PRN (09:58)
--- NOTE | 2024-05-15 10:13 | RAD REPORT ---
EXAM DESCRIPTION: RAD - Abdomen 1 View (KUB) - 05/15/2024 8:52 am CLINICAL HISTORY: eval bowel gas/ileus COMPARISON: Abdomen 1 View (KUB) dated 05/12/2024; Abdomen W Erect dated 05/14/2024; Abdomen Pelvis W Contrast dated 05/12/2024 TECHNIQUE: Single AP view of the abdomen. FINDINGS: Stable mildly distended small bowel loops up to 4.6 cm in caliber. No air-fluid levels, fr ee air, or pneumatosis. No suspicious calcifications. No significant bony abnormality. IMPRESSION: Stable small-bowel distention, may reflect persistent ileus or low-grade obstruction.
[2024-05-15] MEDS: BISACODYL 10 MG RECTAL SUPP PR ONE (11:07)
--- NOTE | 2024-05-15 14:01 | PN ---
Date of Progress Note: 05/15/2024 Subjective: The patient was admitted to the hospital with hyponatremia, depletional. The patient wa s started on hydration improved. Physical Examination: Vital Signs: When I saw the patient, blood pressure 114/67, pulse of 6,7 afebrile. Chest: Clear to auscultation. Heart: S1, S2 regular. Abdomen: Soft, nontender. Extremities: No edema. Neuro: Alert. No focality. Laboratory Data: WBC 5.7, hemoglobin 12.7. Sodium 131, potassium 4.7 bicarb 27, BUN 9, creatinine 0 .7, calcium 8.8. Phosphorus 3.2. Current Medications: The patient is on include Xarelto, amiodarone, atorvastatin, Tylenol, Zofran, b isacodyl, KCl. Assessment And Plan: 1.Hyponatremia secondary to depletional, recovered, resolved, off IV fluid. We will continue to mon itor. 2.Hypertension, controlled, optimal. 3.Small-bowel obstruction, status post treatment. Follow up with primary. 4.Hypokalemia. We will supplement as needed. LITA Voice ID: [id number] Report ID: [id number]
--- NOTE | 2024-05-15 15:03 | P.PN ---
Date of Service: 05/15/24 Subjective: No acute events overnight Still passing gas, no bowel movement yet C/O back pain after xray this morning vomited x1 ROS: 10 point ROS as noted above, otherwise negative Physical exam GEN: Alert, oriented, NAD HEENT: Normal conjunctiva, sclera anicteric CV: Regular rate and rhythm, no edema Pulm: Nonlabored respirations on room air ABD: Soft, nontender,distended MSK: No joint tenderness Integumentary: No rashes Neuro: Normal speech, normal affect Vitals reviewed Assessment Ileus [place], lower extremity weakness, back pain Hypokalemia, hyponatremia Chronic systolic congestive heart failure History of atrial fibrillation on chronic anticoagulation History of alcohol abuse Plan Ileus No BM still vomited x1 today diet back to clears trial dulcolax suppository Small bowel series in a.m., n.p.o. after midnight Falls, lower extremity weakness, back pain Complains of low back pain last 2 to 3 weeks Has been needing to use a walker the past 2 to 3 weeks given perceived weakness in the lower extremities Physical therapy to be consulted MRI shows mild superior compression deformity affects the L1 vertebral body likely subacute in timeframe. Loss of vertebral body height is estimated at 5-10%. No significant canal compromise seen As needed pain medications Denies urinary or fecal incontinence, saddle paresthesias Hypokalemia, hyponatremia Protocols in place Sodium improving with IV fluids Nephrology consulted Chronic systolic congestive heart failure Does not appear grossly overloaded at this time Hold diuretics for now Resume when appropriate History of atrial fibrillation on chronic anticoagulation Back on oral Amio, Eliquis History of alcohol abuse Counseled on need for cessation Monitor for signs of alcohol withdrawal VTE: Therapeutic Lovenox Code: Full Dispo: 2 to 3 days Time Spent Managing Pts Care (In Minutes): 35
[2024-05-15] MEDS: ESZOPICLONE 1 MG TAB PO ONE (21:30)
[2024-05-16 06:55] LABS: Hematocrit 35.8 % (39.6-49.0); Hemoglobin 12.2 g/dL (13.6-17.9); MCH 33.7 pg (27.0-35.0); MCV 99.3 fL (80-100); Platelets 165 thou/uL (152-406); RBC Red Blood Cell Count 3.61 M/uL (4.33-5.43); Red Cell Distribution Width 15.1 % (12.1-15.2)
[2024-05-16 07:22] LABS: Albumin 2.2 g/dL (3.4-5.0); Anion Gap 8.2 mEq/L (5.0-15.0); Phosphorus 3.9 mg/dL (2.5-4.9); Potassium 4.2 mEq/L (3.5-5.1)
[2024-05-16] MEDS: NA CHLORIDE 0.9% 1,000 ML IV SCH (11:53)
[2024-05-16] MEDS: Ciprofloxacin 200mg IV 200 MG/100 ML IV.SOLN. IV SCH (12:23)
--- NOTE | 2024-05-16 12:24 | P.PN ---
Date of Service: 05/16/24 Subjective: Awake and oriented had the small bowel series this morning no new complaints Continue to monitor, possible need for surgical intervention ROS: 10 point ROS as noted above, otherwise negative Physical exam GEN: Alert and oriented x3, NAD HEENT: Normal conjunctiva, sclera anicteric CV: NSR, no edema Pulm: Nonlabored respirations on room air ABD: Soft, nontender, distended MSK: No joint tenderness Integumentary: No rashes Neuro: Normal speech, normal affect Vitals reviewed Assessment [place]le[place], lower extremity weakness, back pain Hypokalemia, hyponatremia Chronic systolic congestive heart failure History of atrial fibrillation on chronic anticoagulation History of alcohol abuse Plan Ileus BM 05/15 vomited x1 05/15 continue NPO with ice chips trial dulcolax suppository- hold for now while NPO Small bowel series in a.m.- enteric reached the colon by 8 hours, small bowel in the left hemiabdomen remains mildly dilated Abdominal xray today empiric antibiotics continue gentle IVF Falls, lower extremity weakness, back pain Complains of low back pain last 2 to 3 weeks Has been needing to use a walker the past 2 to 3 weeks given perceived weakness in the lower extremities Physical therapy consulted MRI shows mild superior compression deformity affects the L1 vertebral body likely subacute in timeframe. Loss of vertebral body height is estimated at 5-10%. No significant canal compromise seen As needed pain medications Denies urinary or fecal incontinence, saddle paresthesias Hypokalemia-resolved hyponatremia Protocols in place Sodium improving with IV fluids Nephrology consulted Chronic systolic congestive heart failure Does not appear grossly overloaded at this time Hold diuretics for now Resume when appropriate History of atrial fibrillation on chronic anticoagulation Back on oral Amio hold xarelto while NPO, lovenox daily History of alcohol abuse Counseled on need for cessation Monitor for signs of alcohol withdrawal VTE: Therapeutic Lovenox Code: Full Dispo: 2 to 3 days
--- NOTE | 2024-05-16 13:38 | P.PN ---
Subjective Date of Service: 05/16/24 Chief Complaint: hyponatremia Subjective: No C/O voiced, New changes Physical Examination - Vital Signs Temperature: 96.9 F Blood Pressure: 113/56 Pulse: 70 Respirations: 18 Pulse Ox (%): 98 - Physical Exam General: Alert HEENT: Atraumatic Neck: Supple, JVD not distended Respiratory: Clear to auscultation bilaterally Cardiovascular: No edema, Systolic murmur Gastrointestinal: Normal bowel sounds, Soft and benign, No masses, No rebound Musculoskeletal: No clubbing, No swelling Integumentary: No rashes Neurological: Normal speech, Normal strength at 5/5 x4 extr - Studies Laboratory Results WBC 8.30 thou/uL (4.3-10.9) 05/12/24 17:30 RBC 3.97 M/uL (4.33-5.43) L 05/12/24 17:30 Hgb 13.1 g/dL (13.6-17.9) L 05/12/24 17:30 Hct 38.4 % (39.6-49.0) L 05/12/24 17:30 MCV 96.9 fL (80-100) 05/12/24 17:30 MCH 33.0 pg (27.0-35.0) 05/12/24 17:30 MCHC 34.0 g/dL (32.0-36.0) 05/12/24 17:30 RDW 15.2 % (12.1-15.2) 05/12/24 17:30 Plt Count 179 thou/uL (152-406) 05/12/24 17:30 MPV 8.2 fL (7.6-11.3) 05/12/24 17:30 Neutrophils % 81.2 % (41.7-73.7) H 05/12/24 17:30 Lymphocytes % 11.5 % (15.3-44.8) L 05/12/24 17:30 Monocytes % 6.5 % (3.3-12.3) 05/12/24 17:30 Eosinophils % 0.3 % (0-4.4) 05/12/24 17:30 Basophils % 0.5 % (0-1.3) 05/12/24 17:30 Absolute Neutrophils 6.8 K/uL (1.8-8.0) 05/12/24 17:30 Absolute Lymphocytes 1.0 K/uL (0.7-4.9) 05/12/24 17:30 Absolute Monocytes 0.5 K/uL (0.1-1.3) 05/12/24 17:30 Absolute Eosinophils 0.0 K/uL (0-0.5) 05/12/24 17:30 Absolute Basophils 0.0 K/uL (0-0.5) 05/12/24 17:30 Sodium 127 mEq/L (136-145) L 05/12/24 17:30 Potassium 3.4 mEq/L (3.5-5.1) L 05/12/24 17:30 Chloride 95 mEq/L (98-107) L 05/12/24 17:30 Carbon Dioxide 24 mEq/L (21-32) 05/12/24 17:30 Anion Gap 11.4 mEq/L (5.0-15.0) 05/12/24 17:30 BUN 12 mg/dL (7-18) 05/12/24 17:30 Creatinine 0.91 mg/dL (0.70-1.30) 05/12/24 17:30 Est GFR (CKD-EPI) 94 ml/min (=/>90) 05/12/24 17:30 Glucose 109 mg/dL (74-106) H 05/12/24 17:30 Calcium 8.5 mg/dL (8.5-10.1) 05/12/24 17:30 Magnesium 1.9 mg/dL (1.6-2.4) 05/12/24 17:30 Total Bilirubin 1.0 mg/dL (0.2-1.0) 05/12/24 17:30 AST 56 U/L (15-37) H 05/12/24 17:30 ALT 80 U/L (16-61) H 05/12/24 17:30 Alkaline Phosphatase 88 U/L (45-117) 05/12/24 17:30 Troponin I High Sens 19.3 pg/mL (<58.9) 05/12/24 17:30 Serum Total Protein 6.7 g/dL (6.4-8.2) 05/12/24 17:30 Albumin 2.7 g/dL (3.4-5.0) L 05/12/24 17:30 Globulin 4.0 g/dL (2.3-3.5) H 05/12/24 17:30 Albumin/Globulin Ratio 0.7 (1.1-1.8) L 05/12/24 17:30 Lipase 29 U/L (13-75) 05/12/24 17:30 Acetaminophen (Acetaminophen 500 Mg Tab) 500 mg PO Q6H PRN PRN Reason: Pain scale 2-4 (Mild) Albuterol Sulfate (Albuterol 2.5 Mg/3 Ml Neb Ashley) 2.5 mg NEB [id number] PRN PRN Reason: SHORTNESS OF BREATH Amiodarone HCl (Amiodarone Hcl 200 Mg Tab) 200 mg PO BID [facility] Last Admin: 05/16/24 07:53 Dose: Not Given Atorvastatin Calcium (Atorvastatin 80 Mg Tab) 80 mg PO BEDTIME [facility] Last Admin: 05/15/24 20:22 Dose: 80 mg Enoxaparin Sodium (Enoxaparin 40 Mg/0.4 Ml) 40 mg SQ DAILY 5 PM [facility] Furosemide (Furosemide 20 Mg/ 2ml Vial) 20 mg IV 1X ONE Stop: 05/16/24 13:36 Sodium Chloride (Ns 1000 Ml Ivbag) 1,000 mls @ 100 mls/hr IV .Q10H [facility]STOP[facility] Last Admin: 05/16/24 11:53 Dose: 1,000 mls Ciprofloxacin/Dextrose (Cipro 200 Mg/100 Ml Ivpb (Premix)) 200 mg in 100 mls @ 100 mls/hr IV Q12HR [facility]RISTOP[facility]; Protocol Last Admin: 05/16/24 12:23 Dose: 100 mls Metronidazole/Sodium Chloride (Flagyl 500mg/100 Ml Iv Premix) 500 mg in 100 mls @ 200 mls/hr IV Q8HR [facility]RISTOP[facility]; Protocol Lactulose (Lactulose 20 Gm/30 Ml Ucup) 20 gm PO DAILY PRN PRN Reason: CONSTIPATION Last Admin: 05/14/24 21:32 Dose: 20 gm Morphine Sulfate (Morphine 4 Mg/Ml Syr) 2 mg IV Q4H PRN PRN Reason: Moderate to Severe Pain Scale Last Admin: 05/14/24 12:33 Dose: 2 mg Ondansetron HCl (Ondansetron 4 Mg/2 Ml Vial) 4 mg IV Q8H PRN PRN Reason: NAUSEA / VOMITING Last Admin: 05/15/24 09:58 Dose: 4 mg Rivaroxaban (Rivaroxaban 20 Mg Tablet) 20 mg PO DAILY WITH BREAKFAST [facility]STOP[facility] Last Admin: 05/16/24 07:52 Dose: Not Given Medications List Reviewed: Yes Assessment And Plan - Plan Assessment And Plan: 1. Hyponatremia secondary to depletional, recovered, resolved, off IV fluid. Will give single dose of Lasix we will continue to monitor. 2. Hypertension, controlled, optimal. 3. Small-bowel obstruction, status post treatment. Follow up with primary. 4. Hypokalemia. We will supplement as needed Time spent examining the patient [id number] reviewing data lab and the radiology placing orders or discussing the case with the patient discussing the case with the store team member including hospitalist and nursing staff more than 55 minutes .
[2024-05-16] MEDS: FUROSEMIDE 20 MG/ 2ML VIAL IV ONE (13:47)
[2024-05-16] MEDS: METRONIDAZOLE 500mg IVPB 500 MG/100 ML BAG IV SCH (16:08)
[2024-05-16] MEDS: ENOXAPARIN 40 MG/0.4 ML SQ SCH (16:10)
--- NOTE | 2024-05-16 16:28 | RAD REPORT ---
EXAM DESCRIPTION: RAD - Small Bowel Series - 05/16/2024 3:24 pm CLINICAL HISTORY: Ileus, abd distension COMPARISON: Abdomen Pelvis W Contrast dated 05/12/2024 FINDINGS: Casino Att[employer] film distended small bowel. Free air. No suspicious calcifications. Enteric contrast was administered. Over 8 hours, serial abdominal radiographs were obtained. Contrast traversed the site of distended small bowel in the left hemiabdomen by 4 hours. By 8 hours, contrast was in the colon. No fluoroscopy was performed. Total images acquired: 14 IMPRESSION: No small bowel obstruction identified. Enteric reached the colon by 8 hours. Small bowel in the left hemiabdomen remains mildly dilated which could reflect patulous small bowel or mild ileu s.
--- NOTE | 2024-05-16 16:50 | PN ---
Date of Progress Note: 05/16/2024 Subjective: The patient is awake, alert. Denies any abdominal pain. He did have nausea and vomitin g x2 yesterday afternoon, but he has also had 2 bowel movements yesterday, which were soft. He is pa ssing gas. He does not currently have any nausea or vomiting. He has a small bowel series in [facility]. The last picture, which was approximately 3-1/2 hours from the time this study began showed cont rast in the small bowel, which had not reached the colon yet. Objective: Vital Signs: Stable. He is currently afebrile. Abdomen: Distended. There are hypoactive bowel sounds, but there is no peritonitis. No tenderness. No rebound. No rigidity and no guarding. Laboratory Data: Reviewed. White count is normal. There is no shift. Chemistry reviewed. His sod ium is 131, otherwise essentially unremarkable. Assessment: Adynamic ileus versus small bowel obstruction. Recommendations: Continue n.p.o., may have sips of ice chips. IV fluids, IV antibiotics as recommen ded. Encourage ambulation. We will follow up with the patient once the small bowel series is comple lea. If the patient does not improve in the next 24 hours, the patient may need surgical interventio n. Plan of care discussed in detail with the patient as well as Dr. Durbin. /MODL Voice ID: [id number] Report ID: [id number]
--- NOTE | 2024-05-17 06:35 | P.PN ---
Date of Service: 05/17/24 Subjective: Awake in bed and tolerating full liquid diet Reports 2 bowel movements last night, no complaints of abdominal pain or disc omfort ROS: 10 point ROS as noted above, otherwise negative Physical exam GEN: Alert and oriented x3, no acute distress, comfortable HEENT: Normal conjunctiva, sclera anicteric CV: Regular rate and rhythm, S1-S2 present, no edema Pulm: Nonlabored respirations on room air ABD: Soft and benign on palpation, active bowel sounds, nontender, distended MSK: No joint tenderness Integumentary: No rashes Neuro: Normal speech, normal affect Vitals reviewed Assessment Ileus [place], lower extremity weakness, back pain Hypokalemia, hyponatremia Chronic systolic congestive heart failure History of atrial fibrillation on chronic anticoagulation History of alcohol abuse Plan Ileus BM times daily 05/17 Full liquid diet Small bowel series in a.m.- enteric reached the colon by 8 hours, small bowel in the left hemiabdomen remains mildly dilated empiric antibiotics: Cipro p.o., Flagyl IV continue gentle IVF Falls, lower extremity weakness, back pain Complains of low back pain last 2 to 3 weeks Has been needing to use a walker the past 2 to 3 weeks given perceived weakness in the lower extremities Physical therapy consulted-recommends continual therapy services MRI shows mild superior compression deformity affects the L1 vertebral body likely subacute in timeframe. Loss of vertebral body height is estimated at 5-10%. No significant canal compromise seen As needed pain medications Denies urinary or fecal incontinence, saddle paresthesias Hypokalemia-resolved hyponatremia Protocols in place Sodium improving with IV fluids Nephrology consulted Chronic systolic congestive heart failure Does not appear grossly overloaded at this time Hold diuretics for now Resume when appropriate History of atrial fibrillation on chronic anticoagulation Back on oral Amio lovenox daily, restart Xarelto in the a.m. History of alcohol abuse Counseled on need for cessation Monitor for signs of alcohol withdrawal VTE: Therapeutic Lovenox, restart Xarelto in the a.m. Code: Full Dispo: 2 to 3 days
[2024-05-17] MEDS: ENOXAPARIN 40 MG/0.4 ML SQ SCH (08:35)
--- NOTE | 2024-05-17 09:20 | PN ---
Date of Progress Note: 05/17/2024 Subjective: The patient is awake, alert. Had 2 bowel movements yesterday. Has no nausea or vomitin g. He is tolerating clear liquids. He is hungry. He wants to go home by Friday. His vital sign s are stable. He is afebrile. His small bowel series showed contrast into the colon at 8 hours. Hi s laboratory data reviewed. Chemistry is pending. His abdomen is benign, soft, nondistended, nonten shabbir. Positive bowel sounds. Assessment: Adynamic ileus, improved. Recommendation: Advance diet as tolerated. The patient is cleared from surgical standpoint for disc harge; however, I would recommend physical therapy evaluation to make sure the patient can ambulate w ith assistance and care for himself. Plan of care discussed with the patient and nurse. Tina POWELL/BRIA Voice ID: [id number] Report ID: [id number]
[2024-05-17 14:58] LABS: Albumin 2.1 g/dL (3.4-5.0); Anion Gap 9.2 mEq/L (5.0-15.0); Phosphorus 2.1 mg/dL (2.5-4.9); Potassium 4.2 mEq/L (3.5-5.1)
[2024-05-17] MEDS: metroNIDAZOLE 500 MG TABLET PO SCH (15:10)
--- NOTE | 2024-05-17 18:56 | PN ---
Date of Progress Note: 05/17/2024 Chief Complaint: Hyponatremia. Review of Systems: The patient denies chest pain or palpitation. Physical Examination: Lungs: Clear to auscultation bilaterally. Heart: S1, S2. Abdomen: Soft. Extremities: Edema in both legs. Laboratory Data: Sodium 127, potassium 3.4, chloride 95, CO2 24, BUN 12, creatinine 0.91, magnesium 1.9, albumin 2.7, total protein 6.7. Impression And Plan: 1.Hyponatremia secondary to depletion of effect. The patient will continue p.o. fluid restriction. Continue sodium chloride tablets if needed. The patient has some fluid overload and Lasix will be u sed to control volemia. 2.Hypertension, controlled. Avoid HCTZ. 3.Small bowel obstruction, status post treatment, followed by Primary Team and Surgery. 4.Hypokalemia. Monitor magnesium, phosphorus level. Continue supplementation as needed. 5.Hyponatremia, chronic. Check TSH to rule out hypothyroidism. Monitor blood pressure closely and check cortisol level. 6.Hypertension. Blood pressure controlled. The patient is on amiodarone for cardiac arrhythmia, cu rrently not taking blood pressure medication. Plan is to check a.m. cortisol level. MARGARET/BRIA Voice ID: [id number] Report ID: [id number]
[2024-05-17] MEDS: CIPROFLOXACIN HCL 500 MG TAB PO SCH (21:15)
[2024-05-18 06:54] LABS: Albumin 2.2 g/dL (3.4-5.0); Anion Gap 9.3 mEq/L (5.0-15.0); Potassium 3.3 mEq/L (3.5-5.1)
--- NOTE | 2024-05-18 13:35 | P.PN ---
Subjective Date of Service: 05/18/24 Chief Complaint: hyponatremia Subjective: No new changes Review of Systems 10-point ROS is otherwise unremarkable Physical Examination - Vital Signs Temperature: 96.5 F Blood Pressure: 112/55 Pulse: 64 Respirations: 17 Pulse Ox (%): 98 - Physical Exam General: Alert, Oriented x3 HEENT: Atraumatic, Other Neck: 2+ carotid pulse no bruit Respiratory: Clear to auscultation bilaterally Cardiovascular: No edema Capillary refill: <2 Seconds Gastrointestinal: Normal bowel sounds, Soft and benign Musculoskeletal: No clubbing Integumentary: No rashes Neurological: Cranial nerves 3-12 intact - Studies Active Medications Acetaminophen (Acetaminophen 500 Mg Tab) 500 mg PO Q6H PRN PRN Reason: Pain scale 2-4 (Mild) Albuterol Sulfate (Albuterol 2.5 Mg/3 Ml Neb Ashley) 2.5 mg NEB [id number] PRN PRN Reason: SHORTNESS OF BREATH Amiodarone HCl (Amiodarone Hcl 200 Mg Tab) 200 mg PO BID [facility] Last Admin: 05/18/24 08:46 Dose: 200 mg Atorvastatin Calcium (Atorvastatin 80 Mg Tab) 80 mg PO BEDTIME [facility] Last Admin: 05/17/24 21:15 Dose: 80 mg Ciprofloxacin (Ciprofloxacin Hcl 500 Mg Tab) 500 mg PO BID [facility] Last Admin: 05/18/24 08:46 Dose: 500 mg Sodium Chloride (Ns 1000 Ml Ivbag) 1,000 mls @ 100 mls/hr IV .Q10H [facility] Last Admin: 05/18/24 06:30 Dose: 1,000 mls Lactulose (Lactulose 20 Gm/30 Ml Ucup) 20 gm PO DAILY PRN PRN Reason: CONSTIPATION Last Admin: 05/14/24 21:32 Dose: 20 gm Metronidazole (Metronidazole 500 Mg Tablet) 500 mg PO TID [facility] Last Admin: 05/18/24 08:46 Dose: 500 mg Morphine Sulfate (Morphine 4 Mg/Ml Syr) 2 mg IV Q4H PRN PRN Reason: Moderate to Severe Pain Scale Last Admin: 05/17/24 21:15 Dose: 2 mg Ondansetron HCl (Ondansetron 4 Mg/2 Ml Vial) 4 mg IV Q8H PRN PRN Reason: NAUSEA / VOMITING Last Admin: 05/15/24 09:58 Dose: 4 mg Protein (Ensure Max Protein 330 Ml Liquid) 330 ml PO BID KRISTOPHER Rivaroxaban (Rivaroxaban 20 Mg Tablet) 20 mg PO DAILY WITH BREAKFAST KRISTOPHER Last Admin: 05/18/24 08:46 Dose: 20 mg Laboratory Last Values WBC 8.30 thou/uL (4.3-10.9) 05/12/24 17:30 RBC 3.97 M/uL (4.33-5.43) L 05/12/24 17:30 Hgb 13.1 g/dL (13.6-17.9) L 05/12/24 17:30 Hct 38.4 % (39.6-49.0) L 05/12/24 17:30 MCV 96.9 fL (80-100) 05/12/24 17:30 MCH 33.0 pg (27.0-35.0) 05/12/24 17:30 MCHC 34.0 g/dL (32.0-36.0) 05/12/24 17:30 RDW 15.2 % (12.1-15.2) 05/12/24 17:30 Plt Count 179 thou/uL (152-406) 05/12/24 17:30 MPV 8.2 fL (7.6-11.3) 05/12/24 17:30 Neutrophils % 81.2 % (41.7-73.7) H 05/12/24 17:30 Lymphocytes % 11.5 % (15.3-44.8) L 05/12/24 17:30 Monocytes % 6.5 % (3.3-12.3) 05/12/24 17:30 Eosinophils % 0.3 % (0-4.4) 05/12/24 17:30 Basophils % 0.5 % (0-1.3) 05/12/24 17:30 Absolute Neutrophils 6.8 K/uL (1.8-8.0) 05/12/24 17:30 Absolute Lymphocytes 1.0 K/uL (0.7-4.9) 05/12/24 17:30 Absolute Monocytes 0.5 K/uL (0.1-1.3) 05/12/24 17:30 Absolute Eosinophils 0.0 K/uL (0-0.5) 05/12/24 17:30 Absolute Basophils 0.0 K/uL (0-0.5) 05/12/24 17:30 Sodium 127 mEq/L (136-145) L 05/12/24 17:30 Potassium 3.4 mEq/L (3.5-5.1) L 05/12/24 17:30 Chloride 95 mEq/L (98-107) L 05/12/24 17:30 Carbon Dioxide 24 mEq/L (21-32) 05/12/24 17:30 Anion Gap 11.4 mEq/L (5.0-15.0) 05/12/24 17:30 BUN 12 mg/dL (7-18) 05/12/24 17:30 Creatinine 0.91 mg/dL (0.70-1.30) 05/12/24 17:30 Est GFR (CKD-EPI) 94 ml/min (=/>90) 05/12/24 17:30 Glucose 109 mg/dL (74-106) H 05/12/24 17:30 Calcium 8.5 mg/dL (8.5-10.1) 05/12/24 17:30 Magnesium 1.9 mg/dL (1.6-2.4) 05/12/24 17:30 Total Bilirubin 1.0 mg/dL (0.2-1.0) 05/12/24 17:30 AST 56 U/L (15-37) H 05/12/24 17:30 ALT 80 U/L (16-61) H 05/12/24 17:30 Alkaline Phosphatase 88 U/L (45-117) 05/12/24 17:30 Troponin I High Sens 19.3 pg/mL (<58.9) 05/12/24 17:30 Serum Total Protein 6.7 g/dL (6.4-8.2) 05/12/24 17:30 Albumin 2.7 g/dL (3.4-5.0) L 05/12/24 17:30 Globulin 4.0 g/dL (2.3-3.5) H 05/12/24 17:30 Albumin/Globulin Ratio 0.7 (1.1-1.8) L 05/12/24 17:30 Lipase 29 U/L (13-75) 05/12/24 17:30 Medications List Reviewed: Yes Assessment And Plan - Plan Assessment And Plan: 1. Hyponatremia secondary to depletional, recovered, resolved, off IV fluid. Will give single dose of Lasix we will continue to monitor. 2. Hypertension, controlled, optimal. 3. Small-bowel obstruction, status post treatment. Follow up with primary. 4. Hypokalemia. We will supplement as needed Time spent examining the patient [id number] reviewing data lab and the radiology placing orders or discussing the case with the patient discussing the case with the horses or mules teamster including hospitalist and nursing staff more than 55 minutes .
[2024-05-18] MEDS: POTASSIUM CL 40 MEQ in NA CHLORIDE 0.9% 480 ML IV SCH (14:14)
--- NOTE | 2024-05-18 16:46 | P.PN ---
Date of Service: 05/18/24 Subjective: Awake sitting in the bedside chair looking out the window Tolerating full liquid diet was advanced to regular diet at dinner Working with therapy ROS: 10 point ROS as noted above, otherwise negative Physical exam GEN: AAO x3, NAD, comfortable HEENT: Normal conjunctiva, sclera anicteric CV: Atrial fibrillation HR 64, S1-S2 present, no edema Pulm: Nonlabored respirations on room air ABD: Soft and benign on palpation, active bowel sounds, NT, distended (Obese) MSK: No joint tenderness Integumentary: No rashes Neuro: Normal speech, normal affect Vitals reviewed Assessment Ileus [place], lower extremity weakness, back pain Hypokalemia, hyponatremia Chronic systolic congestive heart failure History of atrial fibrillation on chronic anticoagulation History of alcohol abuse Plan Ileus BM times daily 05/17 Regular diet at dinner Small bowel series in a.m.- enteric reached the colon by 8 hours, small bowel in the left hemiabdomen remains mildly dilated continue empiric antibiotics: Cipro p.o., Flagyl PO continue gentle IVF Falls, lower extremity weakness, back pain Complains of low back pain last 2 to 3 weeks Has been needing to use a walker the past 2 to 3 weeks given perceived weakness in the lower extremities Physical therapy consulted-recommends continual therapy services MRI shows mild superior compression deformity affects the L1 vertebral body likely subacute in timeframe. Loss of vertebral body height is estimated at 5-10%. No significant canal compromise seen As needed pain medications Denies urinary or fecal incontinence, saddle paresthesias Hypokalemia-resolved hyponatremia Protocols in place Sodium improving with IV fluids Nephrology consulted Chronic systolic congestive heart failure Does not appear grossly overloaded at this time Hold diuretics for now Resume when appropriate History of atrial fibrillation on chronic anticoagulation Back on oral Amio lovenox daily, restart Xarelto in the a.m. History of alcohol abuse Counseled on need for cessation Monitor for signs of alcohol withdrawal VTE: Xarelto Code: Full Dispo: pending [facility]
[2024-05-18] MEDS: ENSURE MAX PROTEIN 330 ML LIQUID PO SCH (20:49)
[2024-05-19 06:15] LABS: Absolute Lymphocytes (CBC) 0.7 K/uL (0.7-4.9); Absolute Monocytes 0.4 K/uL (0.1-1.3); Basophils % 0.3 % (0-1.3); Eosinophils % 0.8 % (0-4.4); Hematocrit 34.1 % (39.6-49.0); Hemoglobin 11.4 g/dL (13.6-17.9); MCH 33.2 pg (27.0-35.0); MCHC 33.5 g/dL (32.0-36.0); MPV 6.7 fL (7.6-11.3); Monocytes % 7.7 % (3.3-12.3); Neutrophils % 77.2 % (41.7-73.7); Nucleated Red Blood Cells % 0.1 % (0-0); Platelets 167 thou/uL (152-406); RBC Red Blood Cell Count 3.45 M/uL (4.33-5.43)
[2024-05-19 06:50] LABS: Anion Gap 8.1 mEq/L (5.0-15.0); Phosphorus 1.9 mg/dL (2.5-4.9); Potassium 4.1 mEq/L (3.5-5.1)
--- NOTE | 2024-05-19 07:51 | P.PN ---
Date of Service: 05/19/24 Subjective: Awake and feeling well No new complaints Awaiting placement ROS: 10 point ROS as noted above, otherwise negative Physical exam GEN: AAO x3, NAD, comfortable HEENT: Normal conjunctiva, sclera anicteric CV: Atrial fibrillation HR controlled, S1-S2 present, no edema Pulm: Nonlabored respirations on room air ABD: Soft and benign on palpation, bowel sounds present, NT, distended (Obese) MSK: No joint tenderness Integumentary: No rashes Neuro: Normal speech, normal affect Vitals reviewed Assessment Ileus [place], lower extremity weakness, back pain Hypokalemia, hyponatremia Chronic systolic congestive heart failure History of atrial fibrillation on chronic anticoagulation History of alcohol abuse Plan Ileus BM times daily 05/17 Regular diet at dinner Small bowel series in a.m.- enteric reached the colon by 8 hours, small bowel in the left hemiabdomen remains mildly dilated continue empiric antibiotics: Cipro p.o., Flagyl PO continue gentle IVF Falls, lower extremity weakness, back pain Complains of low back pain last 2 to 3 weeks Has been needing to use a walker the past 2 to 3 weeks given perceived weakness in the lower extremities Physical therapy consulted-recommends continual therapy services MRI shows mild superior compression deformity affects the L1 vertebral body likely subacute in timeframe. Loss of vertebral body height is estimated at 5-10%. No significant canal compromise seen As needed pain medications Denies urinary or fecal incontinence, saddle paresthesias Hypokalemia-resolved hyponatremia Protocols in place Sodium improving with IV fluids Nephrology consulted Chronic systolic congestive heart failure Does not appear grossly overloaded at this time Hold diuretics for now Resume when appropriate History of atrial fibrillation on chronic anticoagulation Amimiguel Ingram History of alcohol abuse Counseled on need for cessation Monitor for signs of alcohol withdrawal VTE: Xarelto Code: Full Dispo: pending country [facility]
[2024-05-19 08:26] LABS: Band Neutrophils 3 % (0-1); Blood Morphology Comment NOT SEEN (NOT SEEN); Differential Total Cells Count 100; Eosinophils 2 % (0-3); Lymphocytes 9 % (15-42); Monocytes 6 % (0-10); Platelet Estimate ADEQ; Segmented Neutrophils 80 % (40-80)
[2024-05-19] MEDS: POTASS/SODIUM PHOSPHATE 1 PKT POWD.PACK PO SCH (10:07)
--- NOTE | 2024-05-19 10:41 | P.PN ---
Subjective Date of Service: 05/19/24 Chief Complaint: hyponatremia Subjective: No new changes Review of Systems 10-point ROS is otherwise unremarkable Physical Examination - Vital Signs Temperature: 98.0 F Blood Pressure: 115/60 Pulse: 79 Respirations: 24 Pulse Ox (%): 96 - Physical Exam General: Alert HEENT: Atraumatic, PERRLA Neck: Supple, JVD not distended Cardiovascular: No edema Capillary refill: <2 Seconds Gastrointestinal: No rebound, No guarding Musculoskeletal: No clubbing Integumentary: No rashes Neurological: Normal tone, Cranial nerves 3-12 intact - Studies Laboratory Tests 05/12/24 05/12/24 05/12/24 17:30 17:30 17:30 WBC 8.30 RBC 3.97 L Hgb 13.1 L Hct 38.4 L MCV 96.9 MCH 33.0 MCHC 34.0 RDW 15.2 Plt Count 179 MPV 8.2 Neutrophils % 81.2 H Lymphocytes % 11.5 L Monocytes % 6.5 Eosinophils % 0.3 Basophils % 0.5 Absolute Neutrophils 6.8 Absolute Lymphocytes 1.0 Absolute Monocytes 0.5 Absolute Eosinophils 0.0 Absolute Basophils 0.0 Sodium 127 L Potassium 3.4 L Chloride 95 L Carbon Dioxide 24 Anion Gap 11.4 BUN 12 Creatinine 0.91 Est GFR (CKD-EPI) 94 Glucose 109 H Calcium 8.5 Magnesium 1.9 Total Bilirubin 1.0 AST 56 H ALT 80 H Alkaline Phosphatase 88 Troponin I High Sens 19.3 Serum Total Protein 6.7 Albumin 2.7 L Globulin 4.0 H Albumin/Globulin Ratio 0.7 L Lipase 29 Active Medications Acetaminophen (Acetaminophen 500 Mg Tab) 500 mg PO Q6H PRN PRN Reason: Pain scale 2-4 (Mild) Albuterol Sulfate (Albuterol 2.5 Mg/3 Ml Neb Ashley) 2.5 mg NEB K5ACTOS PRN PRN Reason: SHORTNESS OF BREATH Amiodarone HCl (Amiodarone Hcl 200 Mg Tab) 200 mg PO BID [facility] Last Admin: 05/19/24 08:26 Dose: 200 mg Atorvastatin Calcium (Atorvastatin 80 Mg Tab) 80 mg PO BEDTIME [facility] Last Admin: 05/18/24 20:48 Dose: 80 mg Ciprofloxacin (Ciprofloxacin Hcl 500 Mg Tab) 500 mg PO BID [facility] Last Admin: 05/19/24 08:26 Dose: 500 mg Lactulose (Lactulose 20 Gm/30 Ml Ucup) 20 gm PO DAILY PRN PRN Reason: CONSTIPATION Last Admin: 05/14/24 21:32 Dose: 20 gm Metronidazole (Metronidazole 500 Mg Tablet) 500 mg PO TID [facility]STOP[facility] Last Admin: 05/19/24 08:26 Dose: 500 mg Ondansetron HCl (Ondansetron 4 Mg/2 Ml Vial) 4 mg IV Q8H PRN PRN Reason: NAUSEA / VOMITING Last Admin: 05/15/24 09:58 Dose: 4 mg Potassium Phos/Sodium Phos (Potass/Sodium Phosphate 1 Pkt Powd.Pack) 1 pkt PO Q1H KRISTOPHER Stop: 05/19/24 12:01 Last Admin: 05/19/24 10:07 Dose: 1 pkt Protein (Ensure Max Protein 330 Ml Liquid) 330 ml PO BID [facility] Last Admin: 05/19/24 08:29 Dose: 330 ml Rivaroxaban (Rivaroxaban 20 Mg Tablet) 20 mg PO DAILY WITH BREAKFAST [facility] Last Admin: 05/19/24 08:28 Dose: 20 mg Medications List Reviewed: Yes Assessment And Plan - Plan Assessment And Plan: 1. Hyponatremia secondary to depletional, recovered, resolved, off IV fluid. Stable 2. Hypertension, controlled, optimal. 3. Small-bowel obstruction, status post treatment. Follow up with primary. 4. Hypokalemia. resolved we will supplement as needed 5-low back pain plan for MRI for follow-up with the primary .
[2024-05-19] MEDS: HYDROCODONE/APAP 5/325 MG TAB PO PRN (22:02)
[2024-05-20] MEDS: DOCUSATE NA 100 MG CAP PO SCH (08:47)
[2024-05-20] MEDS: POTASS/SODIUM PHOSPHATE 1 PKT POWD.PACK PO SCH (08:50)
[2024-05-20 09:50] LABS: Anion Gap 8.9 mEq/L (5.0-15.0); Potassium 3.9 mEq/L (3.5-5.1)
--- NOTE | 2024-05-20 13:06 | P.PN ---
Subjective Date of Service: 05/20/24 Chief Complaint: hyponatremia Subjective: No new changes, Improving Review of Systems 10-point ROS is otherwise unremarkable Physical Examination - Vital Signs Temperature: 96.9 F Blood Pressure: 101/47 Pulse: 73 Respirations: 21 Pulse Ox (%): 98 - Physical Exam General: Alert, Oriented x3 HEENT: Atraumatic Neck: Supple, JVD not distended Respiratory: Clear to auscultation bilaterally Cardiovascular: No edema Capillary refill: <2 Seconds Gastrointestinal: Normal bowel sounds, Soft and benign, Non-distended Musculoskeletal: No clubbing, No swelling Neurological: Normal gait, Normal speech External genitalia: No edema - Studies Laboratory Last Values WBC 8.30 thou/uL (4.3-10.9) 05/12/24 17:30 RBC 3.97 M/uL (4.33-5.43) L 05/12/24 17:30 Hgb 13.1 g/dL (13.6-17.9) L 05/12/24 17:30 Hct 38.4 % (39.6-49.0) L 05/12/24 17:30 MCV 96.9 fL (80-100) 05/12/24 17:30 MCH 33.0 pg (27.0-35.0) 05/12/24 17:30 MCHC 34.0 g/dL (32.0-36.0) 05/12/24 17:30 RDW 15.2 % (12.1-15.2) 05/12/24 17:30 Plt Count 179 thou/uL (152-406) 05/12/24 17:30 MPV 8.2 fL (7.6-11.3) 05/12/24 17:30 Neutrophils % 81.2 % (41.7-73.7) H 05/12/24 17:30 Lymphocytes % 11.5 % (15.3-44.8) L 05/12/24 17:30 Monocytes % 6.5 % (3.3-12.3) 05/12/24 17:30 Eosinophils % 0.3 % (0-4.4) 05/12/24 17:30 Basophils % 0.5 % (0-1.3) 05/12/24 17:30 Absolute Neutrophils 6.8 K/uL (1.8-8.0) 05/12/24 17:30 Absolute Lymphocytes 1.0 K/uL (0.7-4.9) 05/12/24 17:30 Absolute Monocytes 0.5 K/uL (0.1-1.3) 05/12/24 17:30 Absolute Eosinophils 0.0 K/uL (0-0.5) 05/12/24 17:30 Absolute Basophils 0.0 K/uL (0-0.5) 05/12/24 17:30 Sodium 127 mEq/L (136-145) L 05/12/24 17:30 Potassium 3.4 mEq/L (3.5-5.1) L 05/12/24 17:30 Chloride 95 mEq/L (98-107) L 05/12/24 17:30 Carbon Dioxide 24 mEq/L (21-32) 05/12/24 17:30 Anion Gap 11.4 mEq/L (5.0-15.0) 05/12/24 17:30 BUN 12 mg/dL (7-18) 05/12/24 17:30 Creatinine 0.91 mg/dL (0.70-1.30) 05/12/24 17:30 Est GFR (CKD-EPI) 94 ml/min (=/>90) 05/12/24 17:30 Glucose 109 mg/dL (74-106) H 05/12/24 17:30 Calcium 8.5 mg/dL (8.5-10.1) 05/12/24 17:30 Magnesium 1.9 mg/dL (1.6-2.4) 05/12/24 17:30 Total Bilirubin 1.0 mg/dL (0.2-1.0) 05/12/24 17:30 AST 56 U/L (15-37) H 05/12/24 17:30 ALT 80 U/L (16-61) H 05/12/24 17:30 Alkaline Phosphatase 88 U/L (45-117) 05/12/24 17:30 Troponin I High Sens 19.3 pg/mL (<58.9) 05/12/24 17:30 Serum Total Protein 6.7 g/dL (6.4-8.2) 05/12/24 17:30 Albumin 2.7 g/dL (3.4-5.0) L 05/12/24 17:30 Globulin 4.0 g/dL (2.3-3.5) H 05/12/24 17:30 Albumin/Globulin Ratio 0.7 (1.1-1.8) L 05/12/24 17:30 Lipase 29 U/L (13-75) 05/12/24 17:30 Active Medications Acetaminophen (Acetaminophen 500 Mg Tab) 500 mg PO Q6H PRN PRN Reason: Pain scale 2-4 (Mild) Hydrocodone Bitart/Acetaminophen (Hydrocodone/Apap 5/325 Mg Tab) 1 tab PO Q6H PRN PRN Reason: Pain scale 5-7 (Moderate) Last Admin: 05/19/24 22:02 Dose: 1 tab Albuterol Sulfate (Albuterol 2.5 Mg/3 Ml Neb Ashley) 2.5 mg NEB [id number] PRN PRN Reason: SHORTNESS OF BREATH Amiodarone HCl (Amiodarone Hcl 200 Mg Tab) 200 mg PO BID [facility] Last Admin: 05/20/24 08:47 Dose: 200 mg Atorvastatin Calcium (Atorvastatin 80 Mg Tab) 80 mg PO BEDTIME [facility] Last Admin: 05/19/24 22:02 Dose: 80 mg Ciprofloxacin (Ciprofloxacin Hcl 500 Mg Tab) 500 mg PO BID [facility] Last Admin: 05/20/24 08:47 Dose: 500 mg Docusate Sodium (Docusate Na 100 Mg Cap) 100 mg PO BID [facility] Last Admin: 05/20/24 08:47 Dose: 100 mg Lactulose (Lactulose 20 Gm/30 Ml Ucup) 20 gm PO DAILY PRN PRN Reason: CONSTIPATION Last Admin: 05/14/24 21:32 Dose: 20 gm Metronidazole (Metronidazole 500 Mg Tablet) 500 mg PO TID [facility] Last Admin: 05/20/24 08:47 Dose: 500 mg Ondansetron HCl (Ondansetron 4 Mg/2 Ml Vial) 4 mg IV Q8H PRN PRN Reason: NAUSEA / VOMITING Last Admin: 05/15/24 09:58 Dose: 4 mg Protein (Ensure Max Protein 330 Ml Liquid) 330 ml PO BID [facility] Last Admin: 05/20/24 08:48 Dose: Not Given Rivaroxaban (Rivaroxaban 20 Mg Tablet) 20 mg PO DAILY WITH BREAKFAST [facility] Last Admin: 05/20/24 08:50 Dose: 20 mg Medications List Reviewed: Yes Assessment And Plan - Plan Assessment And Plan: 1. Hyponatremia secondary to depletional, recovered, resolved, off IV fluid. Stable 2. Hypertension, controlled, optimal. 3. Small-bowel obstruction, status post treatment. Follow up with primary. 4. Hypokalemia. resolved we will supplement as needed 5-low back pain plan for MRI for follow-up with the primary .
--- NOTE | 2024-05-20 14:53 | P.PN ---
Date of Service: 05/20/24 Subjective: Feeling well and eating well Complaining of no BM in 3 days Otherwise no new complaints ROS: 10 point ROS as noted above, otherwise negative Physical exam GEN: Alert and oriented x3, NAD, comfortable HEENT: Normal conjunctiva, sclera anicteric CV: Afib HR controlled, S1-S2 present, no edema Pulm: Nonlabored respirations on room air ABD: Soft and benign on palpation, normal active bowel sounds present, NT, distended (Obese) MSK: No joint tenderness Integumentary: No rashes Neuro: Normal speech, normal affect Vitals reviewed Assessment Ileus [place], lower extremity weakness, back pain Hypokalemia, hyponatremia Chronic systolic congestive heart failure History of atrial fibrillation on chronic anticoagulation History of alcohol abuse Plan Ileus-resolved BM times daily 05/17 Tolerating regular diet Small bowel series in a.m.- enteric reached the colon by 8 hours, small bowel in the left hemiabdomen remains mildly dilated continue empiric antibiotics: Cipro p.o., Flagyl PO continue gentle IVF Falls, lower extremity weakness, back pain Complains of low back pain last 2 to 3 weeks Has been needing to use a walker the past 2 to 3 weeks given perceived weakness in the lower extremities Physical therapy consulted-recommends continual therapy services MRI shows mild superior compression deformity affects the L1 vertebral body likely subacute in timeframe. Loss of vertebral body height is estimated at 5-10%. No significant canal compromise seen As needed pain medications Denies urinary or fecal incontinence, saddle paresthesias Hypokalemia-resolved hyponatremia Protocols in place Sodium improving with IV fluids Nephrology consulted Chronic systolic congestive heart failure Does not appear grossly overloaded at this time Hold diuretics for now Resume when appropriate History of atrial fibrillation on chronic anticoagulation Amio Juan Jose History of alcohol abuse Counseled on need for cessation Monitor for signs of alcohol withdrawal VTE: Xarelto Code: Full Dispo: pending [facility]
[2024-05-21 07:39] LABS: Anion Gap 8.7 mEq/L (5.0-15.0); Potassium 3.7 mEq/L (3.5-5.1)
[2024-05-21] MEDS: POTASSIUM CL SA 10 MEQ TAB PO ONE (07:59)
--- NOTE | 2024-05-21 09:51 | P.PN ---
Date of Service: 05/21/24 Subjective: Doing well today C/O back pain Had BM overnight ROS: 10 point ROS as noted above, otherwise negative Physical exam GEN: Alert and oriented x3, NAD, comfortable HEENT: Normal conjunctiva, sclera anicteric CV: Afib HR controlled, S1-S2 present, no edema Pulm: Nonlabored respirations on room air ABD: Soft and benign on palpation, normal active bowel sounds present, NT, distended (Obese) MSK: No joint tenderness Integumentary: No rashes Neuro: Normal speech, normal affect Vitals reviewed Assessment Ileus [place], lower extremity weakness, back pain Hypokalemia, hyponatremia Chronic systolic congestive heart failure History of atrial fibrillation on chronic anticoagulation History of alcohol abuse Plan Ileus-resolved BM 05/20 evening Tolerating regular diet Small bowel series-enteric reached the colon by 8 hours, small bowel in the left hemiabdomen remains mildly dilated continue empiric antibiotics: Cipro p.o., Flagyl PO Falls, lower extremity weakness, back pain Complains of low back pain last 2 to 3 weeks Has been needing to use a walker the past 2 to 3 weeks given perceived weakness in the lower extremities Physical therapy consulted-recommends continual therapy services MRI shows mild superior compression deformity affects the L1 vertebral body likely subacute in timeframe. Loss of vertebral body height is estimated at 5-10%. No significant canal compromise seen As needed pain medications Denies urinary or fecal incontinence, saddle paresthesias PT following Hypokalemia-resolved hyponatremia Protocols in place Sodium improving with IV fluids Nephrology consulted Chronic systolic congestive heart failure Does not appear grossly overloaded at this time Hold diuretics for now Resume when appropriate History of atrial fibrillation on chronic anticoagulation Continue Amio and xarelto History of alcohol abuse Counseled on need for cessation VTE: Xarelto Code: Full Dispo: pending [facility]
[2024-05-21] MEDS: UREA 15 GM POWDER PACKET PO SCH (17:12)
--- NOTE | 2024-05-21 22:05 | PN ---
Date of Progress Note: 05/21/2024 Subjective: No change in clinical status. Sodium remained stable. Continue current management. PT /OT. Physical Examination: Vital Signs: Temperature 96.8, pulse rate 77, blood pressure 106/53. General: Awake and alert, not in distress. Neck: Supple. No elevated JVD. Heart: Regular rate and rhythm. Normal S1, S2. Chest: Clear to auscultation bilaterally. No rales or wheezes. Abdomen: Soft, nontender. Extremities: No edema. Laboratory Data: Sodium 131, potassium 3.7, creatinine 0.5, calcium 7.9. Medications: Include albuterol, amiodarone, Lipitor, hydrocodone, lactulose, and Xarelto. Assessment And Plan: 1.Mild hyponatremia, currently sodium stable. We will add salt tablet and monitor potassium. Repla ce as needed. 2.Compensated congestive heart failure, not on diuretics. Continue to monitor. 3.History of atrial fibrillation, currently rate controlled, on Xarelto. 4.History of alcohol abuse. Monitor for withdrawal. 5.Debility. Continue physical and occupational therapy. Thanks for allowing me to participate in patient care. Total time I spent 55 minutes, including docu mentation, reviewing labs, and discussing with the medical team. CHELSAE/BRIA Voice ID: [id number] Report ID: [id number]
[2024-05-22 06:54] LABS: Anion Gap 8.9 mEq/L (5.0-15.0); Magnesium 1.9 mg/dL (1.6-2.4); Potassium 3.9 mEq/L (3.5-5.1)
[2024-05-22] MEDS: SODIUM CHLORIDE 1 GM TAB PO SCH (07:55)
[2024-05-22] MEDS: POTASSIUM CL SA 10 MEQ TAB PO ONE (08:00)
[2024-05-22 10:14] VITALS: O2SAT 96
--- NOTE | 2024-05-22 11:00 | P.DS ---
Admission Date: 05/12/24 Discharge Date: 05/22/24 Disposition: TRANSFER TO SNF - REHAB Discharge Condition: GOOD Reason for Admission: hyponatremia Brief History of Present Illness: 63-year-old male with past medical history of open last surgery (State it was for a defect repair ), chronic alcoholism but states he is trying to cut down, currently heavy drinking on weekends only, A-fib on amiodarone and Xarelto, follows with Dr. Brower, alcoholic liver cirrhosis, still actively drinks, states last drink was 4 days ago, states he has been weak for over 3 weeks now. He states he has a fall earlier today. He denies any nausea or vomiting. He denies any change in medication. He denies any cough or chest pain. Patient is a poor historian but denies any other complaint. On arrival in the ED blood pressure was borderline low at 102/50, EKG shows right bundle branch block with T wave inversion., Initial cardiac enzymes with troponin was negative, magnesium was normal, serum sodium low at 127 with potassium of 3.4. Patient was noted with abdominal distention, CT of the abdomen shows ileus with bowel obstruction with focal point in the mid intestine Hospital Course: Patient was initially admitted to the hospital for low back pain, weakness, ileus. His ileus was managed conservatively, he has had multiple bowel movements and has been tolerating a diet at this time. He had an MRI of his back given his lumbar spine pain and was found to have an L1 compression fracture without canal compromise. Patient was evaluated by PT and found to be significantly weak in his movements are significantly limited by his back pain, he was previously independent living at home and walking with a walker and now he has been able to walk very short distances up to 12 steps with a walker and requires significant assistance. Given his inability perform ADLs/lack of independence at this time [facility] facility was recommended at discharge. [facility] Continue home medications as previously prescribed As needed Byers for pain, as needed lactulose for constipation Assessment Ileus [place], lower extremity weakness, back pain Hypokalemia, hyponatremia Chronic systolic congestive heart failure History of atrial fibrillation on chronic anticoagulation History of alcohol abuse Vital Signs/Physical Exam: Temp Pulse Resp BP Pulse Ox 97.0 F 80 16 118/58 L 96 05/22/24 08:00 05/22/24 08:00 05/22/24 08:00 05/22/24 08:00 05/22/24 08:00 General: Alert, In no apparent distress, Oriented x3 HEENT: Atraumatic, PERRLA Neck: Supple, JVD not distended Respiratory: Clear to auscultation bilaterally, Normal air movement Cardiovascular: Regular rate/rhythm, Normal S1 S2 Gastrointestinal: Normal bowel sounds, No tenderness Musculoskeletal: No tenderness Integumentary: No rashes Neurological: Normal speech, Normal tone Laboratory Data at Discharge: WBC 5.10 thou/uL (4.3-10.9) 05/19/24 06:05 Hgb 11.4 g/dL (13.6-17.9) L 05/19/24 06:05 Hct 34.1 % (39.6-49.0) L 05/19/24 06:05 Plt Count 167 thou/uL (152-406) 05/19/24 06:05 Sodium 130 mEq/L (136-145) L 05/22/24 05:42 Potassium 3.9 mEq/L (3.5-5.1) 05/22/24 05:42 BUN 15 mg/dL (7-18) 05/22/24 05:42 Creatinine 0.49 mg/dL (0.70-1.30) L 05/22/24 05:42 Glucose 101 mg/dL (74-106) 05/22/24 05:42 Phosphorus 3.0 mg/dL (2.5-4.9) 05/22/24 05:42 Magnesium 1.9 mg/dL (1.6-2.4) 05/22/24 05:42 Total Bilirubin 0.8 mg/dL (0.2-1.0) 05/13/24 06:35 AST 44 U/L (15-37) H 05/13/24 06:35 ALT 66 U/L (16-61) H 05/13/24 06:35 Alkaline Phosphatase 75 U/L (45-117) 05/13/24 06:35 Lipase 29 U/L (13-75) 05/12/24 17:30 Home Medications: Amiodarone HCl [Pacerone] 200 mg PO BID 12/22/22 Atorvastatin Calcium [Lipitor] 80 mg PO BEDTIME 12/22/22 Rivaroxaban [Xarelto] 20 mg PO DAILY 12/22/22 Furosemide [Lasix*] 40 mg PO DAILY #30 tab 12/25/22 Docusate [Colace Cap*] 100 mg PO BID cap 05/21/24 Ensure Max Protein 330 ml PO BID can 05/21/24 Hydrocodone 5/APAP 325 [Byers 5/325*] 1 tab PO Q6H PRN tab 05/21/24 Lactulose [Cephulac*] 30 ml PO DAILY PRN 05/21/24 Physician Discharge Instructions: Patient was initially admitted to the hospital for low back pain, weakness, ileus. His ileus was managed conservatively, he has had multiple bowel movements and has been tolerating a diet at this time. He had an MRI of his back given his lumbar spine pain and was found to have an L1 compression fracture without canal compromise. Patient was evaluated by PT and found to be significantly weak in his movements are significantly limited by his back pain, he was previously independent living at home and walking with a walker and now he has been able to walk very short distances up to 12 steps with a walker and requires significant assistance. Given his inability perform ADLs/lack of independence at this time [facility] facility was recommended at discharge. [facility]. Continue home medications as previously prescribed As needed Byers for pain, as needed lactulose for constipation Diet: Regular Activity: Fall precautions Followup: Karsten Lua MD [Primary Care Provider] - 1-2 Weeks (call to schedule an appointment) Time spent managing pt's care (in minutes): 35
[2024-05-22 13:15] VITALS: BP 115/63; TEMP 97.2
== END 2024-05-22 13:40 | DRG 389 ==
LOC: ER 17:01 → ERHOLD 19:51 → 4TH 20:34
PROVIDERS: ADMIT Internal Medicine; ATTEND Internal Medicine
DX: K56.699 Other intestinal obstruction unspecified as to partial versus complete obstruction (principal); E87.1 Hypo-osmolality and hyponatremia; S32.019A Unspecified fracture of first lumbar vertebra, initial encounter for closed fracture; I50.22 Chronic systolic (congestive) heart failure; N17.9 Acute kidney failure, unspecified; I11.0 Hypertensive heart disease with heart failure; K59.00 Constipation, unspecified; E87.6 Hypokalemia; I48.91 Unspecified atrial fibrillation; F10.20 Alcohol dependence, uncomplicated; I45.10 Unspecified right bundle-branch block; K70.30 Alcoholic cirrhosis of liver without ascites; R00.1 Bradycardia, unspecified; Z60.2 Problems related to living alone; Z95.1 Presence of aortocoronary bypass graft; Z79.01 Long term (current) use of anticoagulants; Z71.41 Alcohol abuse counseling and surveillance of alcoholic; Z79.899 Other long term (current) drug therapy; W19.XXXA Unspecified fall, initial encounter; Y93.9 Activity, unspecified; Y92.9 Unspecified place or not applicable; Y99.9 Unspecified external cause status
CPT/HCPCS: 36415; 72148; 74018; 74019; 74177; 74250; 80048; 80053; 80069; 81003; 82533; 82947; 83690; 83735; 83930; 83935; 84100; 84132; 84300; 84439; 84443; 84481; 84484; 85025; 85027; 93005; 97110; 97116; 97161; 97530; 99285; J0744; J1650; J1940; J2405; J3480; J7030; J7040; Q9967